=== PATIENT | male | born 1940 | race Caucasian/White ===

== ENCOUNTER 2017-02-17 13:45 | Inpatient (IN) | payer OTHER, BC ==
[2017-02-17] MEDS ORDERED: ALBUTEROL SO4 2.5/IPRATROPIUM 0.5 INH SOL 3 ML VIAL.NEB. NEB ONE ×2 (14:07→14:26)
--- NOTE | 2017-02-17 14:17 | PDOC ---
History of Present Illness - General Chief Complaint: Respiratory Stated Complaint: COUGH Time Seen by Provider: 02/17/17 13:49 - History of Present Illness Initial Comments: 02/17/17 14:11 76-year-old male with a past medical history of CAD with stents, hypertension, hyperlipidemia, cholelithiasis, prostate cancer status post radiation therapy, and possible interstitial lung disease - Has seen Dr Tee in the past He is not on any inhalers at this time He was just diagnosed with diabetes 3 weeks ago Patient is complaining of 3-4 weeks of gradually increasing dyspnea on exertion associated with a nonproductive cough (he states he does have a little bit of yellow sputum in the morning, but the remainder of the day his cough is nonproductive) He denies any associated fevers or chills. He states sometimes when he is walking or going up the steps he becomes so dyspneic that he gets some blurred vision, but has not had any syncopal episodes or loss of consciousness He denies any chest pain He does admit to a dry mouth, and sometimes has some polydipsia, but no polyuria He states that he started metformin 3-4 weeks ago He denies any fevers or chills He denies any change in his chronic mild lower extremity edema He denies any abdominal pain He does admit to nausea and diminished appetite He did have a CT scan of the abdomen and pelvis with contrast on 02/04/17, for nausea The report was reviewed [place] without CT evidence of acute cholecystitis Extensive diverticulosis of the colon without evidence of acute diverticulitis Fat-containing hernias No CT evidence of acute process in the abdomen or pelvis Old CT scan of the chest was reviewed from 06/03/15 Report reviewed Worsening interstitial lung disease since the prior examination, mainly involving both lower lobes, and mainly peripheral, with cystic changes, honeycombing-like pattern, and mild bronchiectasis in the right lower lobe Past History - Past Medical History Allergies/Adverse Reactions: Allergies Allergy/AdvReac Type Severity Reaction Status Date / Time No Known Allergies Allergy Verified 02/17/17 13:49 Home Medications: Ambulatory Orders Aspirin [ASA -] 81 mg PO DAILY 10/16/13 Atenolol [Tenormin -] 50 mg PO DAILY 10/16/13 Cholecalciferol (Vitamin D3) [Vitamin D] 2,000 unit PO DAILY 10/16/13 Ramipril [Altace] 20 mg PO DAILY 10/16/13 Simvastatin [Zocor -] 40 mg PO HS 10/16/13 Tamsulosin HCl 0.4 mg PO HS 10/16/13 Vitamin B Complex 1 each PO DAILY 10/16/13 [place]-3 Fatty Acids [Fish Oil] 300 mg PO DAILY 03/30/16 Albuterol Sulfate [Proair Respiclick] 90 mcg IH Q4H PRN 02/17/17 Amoxicillin/Potassium Clav [Augmentin 875-125 Tablet] 1 each PO BID 02/17/17 Azithromycin [Zithromax -] 250 mg PO ASDIR 02/17/17 Metformin HCl 500 mg PO BID 02/17/17 Prednisone [Deltasone -] 20 mg PO DAILY 02/17/17 Anemia: No Asthma: No Cancer: Yes (PROSTATE - STATES PREPPING FOR RADIATION [place]) Cardiac Disorders: Yes (CAD) CVA: No COPD: No CHF: No Dementia: No Diabetes: No GI Disorders: No Disorders: Yes (BPH) HTN: Yes Hypercholesterolemia: Yes Liver Disease: No Seizures: No Thyroid Disease: No - Surgical History Abdominal Surgery: No Appendectomy: No Cardiac Surgery: Yes (STENT 2000) Cholecystectomy: No Lung Surgery: No Neurologic Surgery: No Orthopedic Surgery: No - Psycho/Social/Smoking Cessation Hx Anxiety: No Suicidal Ideation: No Smoking History: Former smoker Have you smoked in the past 12 months: No Information on smoking cessation initiated: No Hx Alcohol Use: No Drug/Substance Use Hx: No Substance Use Type: None Hx Substance Use Treatment: No Review of Systems - Review of Systems Able to Perform ROS?: Yes Comments:: 02/17/17 14:15 12 point review of systems is as per history of present illness and otherwise negative *Physical Exam - Vital Signs Last Vital Signs Temp Pulse Resp BP Pulse Ox 64 20 137/88 95 02/17/17 13:45 02/17/17 13:45 02/17/17 13:45 02/17/17 13:45 - Physical Exam Comments: 02/17/17 14:16 Physical exam Last Vital Signs Temp Pulse Resp BP Pulse Ox 64 20 137/88 95 02/17/17 13:45 02/17/17 13:45 02/17/17 13:45 02/17/17 13:45 GENERAL: The patient is awake, alert, and answering questions Patient was dyspneic walking into the emergency department, but is not dyspneic at rest HEAD: Normal with no signs of trauma. EYES: sclera anicteric, conjunctiva are normal. ENT: Moist mucous membranes. NECK: Normal range of motion, supple LUNGS: Breath sounds equal, clear to auscultation bilaterally. No wheezes, and no crackles. Mildly prolonged expiratory phase HEART: Regular rate and rhythm, normal S1 and S2 without murmur, rub or gallop. ABDOMEN: Soft, nontender, normoactive bowel sounds. No guarding, no rebound. No masses appreciated. EXTREMITIES: There is 1+ pitting pedal edema bilaterally, and no calf tenderness or swelling NEUROLOGICAL: Cranial nerves II through XII grossly intact. Normal speech, normal gait. Motor 5 out of 5 and equal in the upper lower extremities bilaterally Grossly nonfocal neurologic exam PSYCH: Normal mood, normal affect. SKIN: Warm, Dry, ED Treatment Course - LABORATORY CBC & Chemistry Diagram: 02/20/17 06:00 02/19/17 07:17 - RADIOLOGY Radiology Studies Ordered: Category Date Time Status CHEST PA & LAT [RAD] Stat Radiology 02/17/17 14:04 Ordered Medical Decision Making - Medical Decision Making 02/17/17 14:17 76-year-old male with past medical history as noted above, and possible interstitial lung disease, presents with progressive dyspnea on exertion, and a mostly nonproductive cough, and was quite dyspneic walking to the emergency department, but not dyspneic at rest 02/17/17 16:02 WBC 11.0, remainder of the CBC reviewed ABG on oxygen by 2 L nasal cannula PH 7.40/pCO2 30/pO2 128/bicarbonate 18/saturation 98.6% CMP reviewed and significant for Sodium 128, BUN 50/creatinine 1.6 First set of cardiac enzymes negative BNP 193 EKG Sinus bradycardia with a rate of 57 Normal axis First degree AV block Normal QRS duration Normal QTC Inverted T waves in II, III, and F When compared to the EKG of 09/05/13 First degree AV block was present on the old EKG Inverted T waves were present on 3 and F on the old EKG Sinus bradycardia was present on the old EKG Today's EKG is similar to the prior EKG Chest x-ray There is worsening interstitial lung disease when compared to the prior, which now involves the right lung more diffusely, and demonstrates progression of changes in the left lower lobe Given the extensive changes, cannot rule out an infiltrate 02/17/17 16:05 Laboratory Results - last 24 hr 02/17/17 02/17/17 02/17/17 14:00 14:00 14:00 WBC 11.0 H RBC 4.09 Hgb 12.8 Hct 38.3 MCV 93.6 MCHC 33.5 RDW 13.0 Plt Count 295 D MPV 8.9 Anticoagulation Therapy Puncture Site ABG pH ABG pCO2 at Pt Temp ABG pO2 at Pt Temp ABG HCO3 ABG O2 Sat (Measured) ABG O2 Content ABG Base Excess Jimmy Test Carboxyhemoglobin Methemoglobin O2 Delivery Device Oxygen Flow Rate Vent Mode Vent Rate Mechanical Rate PEEP Pressure Support Vent Sodium 128 L Potassium 5.4 H Chloride 100 Carbon Dioxide 21 L Anion Gap 7 L BUN 50 H D Creatinine 1.6 H D Creat Clearance w eGFR 42.01 Random Glucose 137 H Calcium 9.9 Magnesium 1.6 L Total Bilirubin 0.7 D AST 36 D ALT 25 D Alkaline Phosphatase 46 Creatine Kinase 61 Troponin I < 0.03 L B-Natriuretic Peptide 1932.04 H Total Protein 7.1 Albumin 3.6 Lipase 41 02/17/17 14:20 WBC RBC Hgb Hct MCV MCHC RDW Plt Count MPV Anticoagulation Therapy Y Puncture Site Right radial ABG pH 7.40 ABG pCO2 at Pt Temp 30.4 L ABG pO2 at Pt Temp 128 H ABG HCO3 18.6 L ABG O2 Sat (Measured) 98.6 ABG O2 Content 17.0 ABG Base Excess -4.7 L Jimmy Test Positive Carboxyhemoglobin 1.2 Methemoglobin 0.5 O2 Delivery Device nasal cannula Oxygen Flow Rate 2lpm Vent Mode Y Vent Rate Y Mechanical Rate Y PEEP 0.0 Pressure Support Vent Y Sodium Potassium Chloride Carbon Dioxide Anion Gap BUN Creatinine Creat Clearance w eGFR Random Glucose Calcium Magnesium Total Bilirubin AST ALT Alkaline Phosphatase Creatine Kinase Troponin I B-Natriuretic Peptide Total Protein Albumin Lipase 02/17/17 16:14 Lactic acid 2.2 Will treat with Solu Medrol Levaquin Case discussed with hospitalist-will admit Influenza A and B- negative Impression-interstitial lung disease worsening, bronchitis, dyspnea on exertion , renal insufficiency, hyponatremia *DC/Admit/Observation/Transfer Diagnosis at time of Disposition: Interstitial lung disease, Bronchitis, Dyspnea on exertion, Renal insufficiency , Hyponatremia, Acute kidney injury, Elevated lactic acid level - Discharge Dispostion Condition at time of disposition: Stable Admit: Yes
[2017-02-17 14:37] LABS: MCH 31.4 pg (25.7-33.7); MCHC 33.5 g/dl (32.0-35.9); MEAN CELL VOLUME 93.6 fl (80-96); MEAN PLT VOLUME 8.9 fl (7.5-11.1); PLATELET COUNT 295 K/MM3 (134-434)
[2017-02-17 14:57] LABS: CPK(DFH) 61 IU/L (38-174)
[2017-02-17 14:58] LABS: ALBUMIN 3.6 g/dl (3.5-5.0); BILIRUBIN,TOTAL 0.7 mg/dl (0.2-1.0); CALCIUM 9.9 mg/dl (8.4-10.2); CREATININE 1.6 mg/dl (0.6-1.3); MAGNESIUM 1.6 mg/dL (1.8-2.4); TOT PROT 7.1 g/dl (6.4-8.3)
[2017-02-17 15:10] LABS: TROPONIN I (DFP) < 0.03 ng/ml (0.03-0.50)
[2017-02-17 15:21] LABS: ARTERIAL BLD GAS O2 SATURATION 98.6 % (90-98.9); ARTERIAL BLOOD GAS BASE EXCESS -4.7 meq/l (-2-2); ARTERIAL BLOOD GAS HCO3 18.6 meq/L (22-26); ARTERIAL BLOOD GAS PO2 128 mmHg (70-100); METHEMOGLOBIN 0.5 % (0.4-1.5)
[2017-02-17 15:22] LABS: ALLENS TEST POSITIVE; ART PUNCT SITE RIGHT RADIAL; LPM/O2% 2LPM; PT. ON O2? yes; TYPE OF O2 nasal cannula
[2017-02-17 16:12] LABS: PH,URINE 5.5 (4.5-8); URINE APPEARANCE Clear; URINE BILIRUBIN Negative (NEGATIVE); URINE BLOOD Trace-intact (NEGATIVE); URINE COLOR YELLOW; URINE GLUCOSE (UA) Negative (NEGATIVE); URINE KETONE Trace (NEGATIVE); URINE LEUK ESTERASE Negative (NEGATIVE); URINE NITRITE Negative (NEGATIVE); URINE PROTEIN Negative (NEGATIVE); URINE UROBILINOGEN 0.2 E.U/dl (0.2-1.0)
[2017-02-17] MEDS ORDERED: methylPREDNISolone NA SUCC 125 MG/2 ML VIAL IVPB ONE (16:16)
[2017-02-17] MEDS ORDERED: LEVOFLOXACIN 500 MG IVPB 100 ML IVPB ONE ×2 (16:16→16:37)
[2017-02-17] MEDS ORDERED: ACETAMINOPHEN 325 MG TABLET (FP) PO PRN (16:19)
[2017-02-17] MEDS ORDERED: ONDANSETRON 4 MG/2 ML VIAL IVPB PRN (16:19)
[2017-02-17] MEDS ORDERED: methylPREDNISolone NA SUCC 125 MG/2 ML VIAL ONE (16:24)
--- NOTE | 2017-02-17 16:33 | EKG ---
Test Reason : Blood Pressure : / mmHG Vent. Rate : 057 BPM Atrial Rate : 057 BPM P-R Int : 222 ms QRS Dur : 092 ms QT Int : 426 ms P-R-T Axes : 061 006 -13 degrees QTc Int : 414 ms SINUS BRADYCARDIA WITH 1ST DEGREE A-V BLOCK ? INFERIOR INFARCT , AGE UNDETERMINED NO PREVIOUS ECGS AVAILABLE Confirmed by MD REEVES MARJORY ([id number]) on 02/17/2017 4:32:40 PM Referred By: DANYA JOHNSON Confirmed By:ANTONY REEVES MD
[2017-02-17] MEDS ORDERED: SODIUM CHLORIDE 1,000 ML IV ONE (17:07)
[2017-02-17] MEDS: methylPREDNISolone NA SUCC 40 MG/1 ML VIAL IVPB SCH (18:55)
[2017-02-17] MEDS ORDERED: MAGNESIUM SULF 50% (8.12 MEQ/2 ML-1 GM VIAL) IVPB ONE (20:38)
[2017-02-17] MEDS: ATORVASTATIN CA 20 MG TABLET (FP) PO SCH (21:06)
[2017-02-17] MEDS: TAMSULOSIN HCL 0.4 MG CAP.ER.24H (FP) PO SCH (21:06)
[2017-02-17] MEDS: HEPARIN NA (PORCINE) 5,000 UNITS/ML 1ML VIAL SQ SCH (21:06)
[2017-02-17] MEDS ORDERED: PATIENT'S OWN MEDICATION (NON-FORMULARY) (Simvastatin 40 MG) PO SCH (22:00)
[2017-02-17 22:27] LABS: CALCIUM 9.2 mg/dl (8.4-10.2); CREATININE 1.5 mg/dl (0.6-1.3)
--- NOTE | 2017-02-17 22:55 | HP ---
CHIEF COMPLAINT: DARLING x 3-4 weeks PCP: Heather Hermosillo HISTORY OF PRESENT ILLNESS: This is a 76 year old male with a past medical history of CAD/stent x1, HTN, HLD , Prostate CA s/p radiation tx, DM (dx 3 weeks ago), cholelithiasis who presented to the emergency room with DARLING x 3-4 weeks with a dry cough. Upon exam , pt noted with nonproductive cough that increases with prolonged conversation and deep breathing. Pt denies chest pain, palpitations, abdominal pain, N/V/D. Pt reports some episodes of lightheadedness and blurred vision if he gets up too quickly, especially getting out of the car. He went to his covering PCP a few days ago who started him on augmentin, zithromax, prednisone and albuterol with only minimal relief. He was also seen by his PCP 2 weeks ago who sent him for a CT scan of his abdomen and pelvis given strong family history of pancreatic CA, which was negative. ER course was notable for: (1) Lactic acid 2.246 (2) BNP 1932 (3) Cr 1.6 Recent Travel: pt denies PAST MEDICAL HISTORY: CAD/stent x1 HTN HLD Prostate CA s/p radiation tx DM (dx 3 weeks ago) cholelithiasis PAST SURGICAL HISTORY: stent 2000 hemorrhoidectomy cyst removed from outside of rectum 1959 Social History: Smoking: previous. Quit in , 45-50pack year history Alcohol: occ, 1-2 drinks / week, none in a few months Drugs: pt denies Family History: mother age 87, pancreatic CA, also had heart murmur maternal grandmother , pancreatic CA brother age 78, pancreatic CA father age 61-62, CT, also had emphysema one brother with MS one brother with no known medical problems Allergies No Known Allergies Allergy (Verified 02/17/17 13:49) HOME MEDICATIONS: 3 Medication Instructions Recorded Aspirin [ASA -] 81 mg PO DAILY 10/16/13 Atenolol [Tenormin -] 50 mg PO DAILY 10/16/13 Cholecalciferol (Vitamin D3) 2,000 unit PO DAILY 10/16/13 [Vitamin D] Ramipril [Altace] 20 mg PO DAILY 10/16/13 Simvastatin [Zocor -] 40 mg PO HS 10/16/13 Tamsulosin HCl 0.4 mg PO HS 10/16/13 Vitamin B Complex 1 each PO DAILY 10/16/13 [place]-3 Fatty Acids [Fish Oil] 300 mg PO DAILY 03/30/16 Albuterol Sulfate [Proair 90 mcg IH Q4H PRN 02/17/17 Respiclick] Amoxicillin/Potassium Clav 1 each PO BID 02/17/17 [Augmentin 875-125 Tablet] Azithromycin [Zithromax -] 250 mg PO ASDIR 02/17/17 Metformin HCl 500 mg PO BID 02/17/17 Prednisone [Deltasone -] 20 mg PO DAILY 02/17/17 REVIEW OF SYSTEMS CONSTITUTIONAL: Absent: fever, chills, diaphoresis, generalized weakness, malaise, loss of appetite, weight change HEENT: Absent: rhinorrhea, nasal congestion, throat pain, throat swelling, difficulty swallowing, mouth swelling, ear pain, eye pain, visual changes CARDIOVASCULAR: Absent: chest pain, syncope, palpitations, irregular heart rate, lightheadedness , peripheral edema RESPIRATORY: cough, shortness of breath, dyspnea with exertion Absent: orthopnea, wheezing, stridor, hemoptysis GASTROINTESTINAL: Absent: abdominal pain, abdominal distension, nausea, vomiting, diarrhea, constipation, melena, hematochezia GENITOURINARY: Absent: dysuria, frequency, urgency, hesitancy, hematuria, flank pain, genital pain MUSCULOSKELETAL: Absent: myalgia, arthralgia, joint swelling, back pain, neck pain SKIN: Absent: rash, itching, pallor HEMATOLOGIC/IMMUNOLOGIC: Absent: easy bleeding, easy bruising, lymphadenopathy, frequent infections ENDOCRINE: Absent: unexplained weight gain, unexplained weight loss, heat intolerance, cold intolerance NEUROLOGIC: Absent: headache, focal weakness or paresthesias, dizziness, unsteady gait, seizure, mental status changes, bladder or bowel incontinence PSYCHIATRIC: Absent: anxiety, depression, suicidal or homicidal ideation, hallucinations. PHYSICAL EXAMINATION Vital Signs - 24 hr 3 02/17/17 02/17/17 02/17/17 17:45 19:19 20:12 22:45 Temperature 97.8 F 97.9 F 99.3 F Pulse Rate 66 57 L Pulse Rate [ 63 Left Apical] Respiratory 20 20 20 20 Rate Blood Pressure 148/64 121/49 Blood Pressure 121/65 [Left Arm] O2 Sat by Pulse 99 99 99 94 L Oximetry (%) GENERAL: Awake, alert, and fully oriented, in no acute distress. HEAD: Normal with no signs of trauma. EYES: Pupils equal, round and reactive to light, extraocular movements intact, sclera anicteric, conjunctiva clear. No lid lag. EARS, NOSE, THROAT: Ears normal, nares patent, oropharynx clear without exudates. Moist mucous membranes. NECK: Normal range of motion, supple without lymphadenopathy, JVD, or masses. LUNGS: occ rhonchi, fine crackles left lower and mid lung field, right base HEART: Regular rate and rhythm, normal S1 and S2 without murmur, rub or gallop. ABDOMEN: Soft, nontender, not distended, normoactive bowel sounds, no guarding, no rebound, no masses. No hepatomegaly or splenomegaly. MUSCULOSKELETAL: Normal range of motion at all joints. No bony deformities or tenderness. No CVA tenderness. UPPER EXTREMITIES: 2+ pulses, warm, well-perfused. No cyanosis. No clubbing. No peripheral edema. LOWER EXTREMITIES: 2+ pulses, warm, well-perfused. No calf tenderness. No peripheral edema. NEUROLOGICAL: Cranial nerves II-XII intact. Normal speech. Normal gait. PSYCHIATRIC: Cooperative. Good eye contact. Appropriate mood and affect. SKIN: Warm, dry, normal turgor, no rashes or lesions noted, normal capillary refill. Laboratory Results - last 24 hr 3 02/17/17 02/17/17 02/17/17 14:00 14:00 14:00 WBC 11.0 H RBC 4.09 Hgb 12.8 Hct 38.3 MCV 93.6 MCHC 33.5 RDW 13.0 Plt Count 295 D MPV 8.9 Anticoagulation Therapy Puncture Site ABG pH ABG pCO2 at Pt Temp ABG pO2 at Pt Temp ABG HCO3 ABG O2 Sat (Measured) ABG O2 Content ABG Base Excess Jimmy Test Carboxyhemoglobin Methemoglobin O2 Delivery Device Oxygen Flow Rate Vent Mode Vent Rate Mechanical Rate PEEP Pressure Support Vent Sodium 128 L Potassium 5.4 H Chloride 100 Carbon Dioxide 21 L Anion Gap 7 L BUN 50 H D Creatinine 1.6 H D Creat Clearance w eGFR 42.01 Random Glucose 137 H Lactic Acid Calcium 9.9 Magnesium 1.6 L Total Bilirubin 0.7 D AST 36 D ALT 25 D Alkaline Phosphatase 46 Creatine Kinase 61 Troponin I < 0.03 L B-Natriuretic Peptide 1932.04 H Total Protein 7.1 Albumin 3.6 Lipase 41 Urine Color Urine Appearance Urine pH Ur Specific [place] Urine Protein Urine Glucose (UA) Urine Ketones Urine Blood Urine Nitrite Urine Bilirubin Urine Urobilinogen Ur Leukocyte Esterase 3 02/17/17 02/17/17 02/17/17 14:00 14:20 16:00 WBC RBC Hgb Hct MCV MCHC RDW Plt Count MPV Anticoagulation Therapy Y Puncture Site Right radial ABG pH 7.40 ABG pCO2 at Pt Temp 30.4 L ABG pO2 at Pt Temp 128 H ABG HCO3 18.6 L ABG O2 Sat (Measured) 98.6 ABG O2 Content 17.0 ABG Base Excess -4.7 L Jimmy Test Positive Carboxyhemoglobin 1.2 Methemoglobin 0.5 O2 Delivery Device nasal cannula Oxygen Flow Rate 2lpm Vent Mode Y Vent Rate Y Mechanical Rate Y PEEP 0.0 Pressure Support Vent Y Sodium Potassium Chloride Carbon Dioxide Anion Gap BUN Creatinine Creat Clearance w eGFR Random Glucose Lactic Acid 2.246 H* Calcium Magnesium Total Bilirubin AST ALT Alkaline Phosphatase Creatine Kinase Troponin I B-Natriuretic Peptide Total Protein Albumin Lipase Urine Color Yellow Urine Appearance Clear Urine pH 5.5 Ur Specific [place] 1.020 Urine Protein Negative Urine Glucose (UA) Negative Urine Ketones Trace Urine Blood Trace-intact Urine Nitrite Negative Urine Bilirubin Negative Urine Urobilinogen 0.2 e.u/dl Ur Leukocyte Esterase Negative 3 02/17/17 02/17/17 21:00 22:00 WBC RBC Hgb Hct MCV MCHC RDW Plt Count MPV Anticoagulation Therapy Puncture Site ABG pH ABG pCO2 at Pt Temp ABG pO2 at Pt Temp ABG HCO3 ABG O2 Sat (Measured) ABG O2 Content ABG Base Excess Jimmy Test Carboxyhemoglobin Methemoglobin O2 Delivery Device Oxygen Flow Rate Vent Mode Vent Rate Mechanical Rate PEEP Pressure Support Vent Sodium 126 L Potassium 5.4 H Chloride 103 Carbon Dioxide 19 L Anion Gap 4 L BUN 48 H Creatinine 1.5 H Creat Clearance w eGFR Random Glucose 196 H D Lactic Acid 2.710 H* Calcium 9.2 Magnesium Total Bilirubin AST ALT Alkaline Phosphatase Creatine Kinase Troponin I B-Natriuretic Peptide Total Protein Albumin Lipase Urine Color Urine Appearance Urine pH Ur Specific [place] Urine Protein Urine Glucose (UA) Urine Ketones Urine Blood Urine Nitrite Urine Bilirubin Urine Urobilinogen Ur Leukocyte Esterase Chest xray: HISTORY: Cough and dyspnea. Frontal and lateral view of the chest is provided. Prior study dated 06/08/2015. Worsening interstitial lung disease is seen which now involves the right lung more diffusely and demonstrates progression of changes in the left lower lobe. No pleural effusion is seen. Cardiac silhouette is upper limits of normal in size. Visualized bony structures appear intact. IMPRESSION: Worsening interstitial lung disease. ECG: SINUS BRADYCARDIA WITH 1ST DEGREE A-V BLOCK ? INFERIOR INFARCT , AGE UNDETERMINED NO PREVIOUS ECGS AVAILABLE Confirmed by MD REEVES MARJORY ([id number]) on 02/17/2017 4:32:40 PM ASSESSMENT/PLAN: 76yM with PMH CAD, HTN, HLD, Prostate CA, DM, cholelithiasis presented to the ED with worsening DARLING x 3-4 weeks. He is being admitted for acute bronchitis with worsening interstitial lung disease. acute bronchitis/interstitial lung disease - duoneb QID standing - solumedrol 40mg Q8H - CT chest ordered, pending - pulmonary consult - received levaquin in ED, will defer further antibiotics at this time pending CT report as pt is afebrile. elevated lactic acid - pt does not appear hypovolemic at this time, but will cont gentle IV hydration @ 75cc/hr - trend in am - ? due to chronic respiratory illness, recent albuterol use elevated BNP - echo ordered to r/o CHF acute kidney injury - trial of gentle IV hydration, if no improvement, then renal consult hyponatremia - cont gentle IVF, if no improvment in AM, renal consult Hyperkalemia - kayexalate 15g x 1, repeat in am - no peaked Ts on ECG Hypomagnesia - 2g IVPB, repeat in am DM - metformin held while inpatient - sugars expected elevated due to solumedrol - BGM TIDAC/HS with novolog sliding scale DVT PPX - heparin SC TID FEN - NS @ 75cc/hr - repeat labs in am - diabetic diet. Dispo: Pt currently requires inpatient management of his emergent condition. Visit type - Emergency Visit Emergency Visit: Yes ED Registration Date: 02/17/17 Care time: The patient presented to the Emergency Department on the above date and was hospitalized for further evaluation of their emergent condition. - New Patient This patient is new to me today: Yes Date on this admission: 02/17/17 - Critical Care Critical Care patient: No
[2017-02-17] MEDS: INSULIN SLIDING SCALE (NOVOLOG) 1 VIAL SQ SCH (23:09)
[2017-02-17] MEDS ORDERED: SODIUM POLYSTYRENE SULFONATE 15 GM/60 ML BOTTLE PO ONE (23:10)
[2017-02-17] MEDS: SODIUM CHLORIDE 1,000 ML IV SCH (23:31)
[2017-02-18] MEDS: ALBUTEROL SO4 2.5/IPRATROPIUM 0.5 INH SOL 3 ML VIAL.NEB. NEB SCH ×4 (00:15→17:42)
[2017-02-18] MEDS: methylPREDNISolone NA SUCC 40 MG/1 ML VIAL IVPB SCH ×3 (01:17→17:41)
[2017-02-18] MEDS: HEPARIN NA (PORCINE) 5,000 UNITS/ML 1ML VIAL SQ SCH ×3 (06:10→22:32)
[2017-02-18] MEDS: INSULIN SLIDING SCALE (NOVOLOG) 1 VIAL SQ SCH ×4 (07:03→22:34)
--- NOTE | 2017-02-18 08:42 | PN ---
Physical Exam: SUBJECTIVE: Patient seen and examined, patient reports feeling slightly improved does report ongoing cough and shortnes of breath upon exertion. OBJECTIVE: patient is a 76 year old male with a past medical history of CAD/ stent x1, HTN, HLD, Prostate CA s/p radiation tx, NIDDM (dx 3 weeks ago), and cholelithiasis. patient was admitted from the emergency department for further management of emergent condition. Vital Signs Period Temp Pulse Resp BP Sys/Wolfe Pulse Ox Last 24 Hr 97.8 F-99.4 F 57-66 17-20 121-148/49-65 94-99 GENERAL: The patient is awake, alert, and fully oriented, in no acute distress. HEAD: Normal with no signs of trauma. EYES: PERRL, extraocular movements intact, sclera anicteric, conjunctiva clear. No ptosis. ENT: Ears normal, nares patent, oropharynx clear without exudates, moist mucous membranes. NECK: Trachea midline, full range of motion, supple. LUNGS: Breath sounds equal, course rhonchi noted to apexes, diminished bilateral bases, persistent moist cough, no wheezes, no crackles, no accessory muscle use. HEART: Regular rate and rhythm, S1, S2 without murmur, rub or gallop. ABDOMEN: Soft, nontender, nondistended, normoactive bowel sounds, no guarding, no rebound, no hepatosplenomegaly, no masses. EXTREMITIES: 2+ pulses, warm, well-perfused, no edema. NEUROLOGICAL: Cranial nerves II through XII grossly intact. Normal speech, gait not observed. PSYCH: Normal mood, normal affect. SKIN: Warm, dry, normal turgor, no rashes or lesions noted Laboratory Results - last 24 hr 02/17/17 02/17/17 02/18/17 21:00 22:00 06:14 Sodium 126 L Potassium 5.4 H Chloride 103 Carbon Dioxide 19 L Anion Gap 4 L BUN 48 H Creatinine 1.5 H POC Glucometer 154 Random Glucose 196 H D Lactic Acid 2.710 H* Calcium 9.2 Active Medications Generic Name Dose Route Start Last Admin Trade Name Freq PRN Reason Stop Dose Admin Acetaminophen 650 mg 02/17/17 16:19 Tylenol - PO Q4H PRN FEVER OR PAIN Albuterol Sulfate 1 amp 02/17/17 16:24 Ventolin 0.083% Nebulizer Soln - NEB Q4H PRN SHORT OF BREATH/WHEEZING Albuterol/Ipratropium 1 amp 02/17/17 18:00 02/18/17 06:10 Duoneb - NEB 1 amp QIDR LOYDA Administration Aspirin 81 mg 02/18/17 10:00 Asa - PO DAILY LOYDA Atenolol 50 mg 02/18/17 10:00 Tenormin - PO DAILY LOYDA Atorvastatin Calcium 20 mg 02/17/17 22:00 02/17/17 21:06 Lipitor - PO 20 mg HS LOYDA Administration Cholecalciferol 2,000 unit 02/18/17 10:00 Vitamin D3 - PO DAILY LOYDA Heparin Sodium (Porcine) 5,000 unit 02/17/17 22:00 02/18/17 06:10 Heparin - SQ 5,000 unit TID LOYDA Administration Sodium Chloride 1,000 mls @ 75 mls/hr 02/17/17 23:15 02/17/17 23:31 Normal Saline - IV 75 mls/hr ASDIR LOYDA Administration Insulin Aspart 1 vial 02/17/17 22:00 02/18/17 07:03 Novolog Vial Sliding Scale - SQ 2 units ACHS LOYDA Administration Protocol Methylprednisolone Sodium Succinate 40 mg 02/17/17 18:00 02/18/17 01:17 Solu-Medrol - IVPB 40 mg Q8H-IV LOYDA Administration Multivitamins 1 each 02/18/17 10:00 Total B With C - PO DAILY [facility] Non-Formulary Medication 300 mg 02/18/17 10:00 [place]-3 Fatty Acids Fish Oil PO DAILY [facility] Ondansetron HCl 4 mg 02/17/17 16:19 Zofran Injection IVPB Q6H PRN NAUSEA Ramipril 20 mg 02/18/17 10:00 Altace - PO DAILY LOYDA Tamsulosin HCl 0.4 mg 02/17/17 22:00 02/17/17 21:06 Flomax - PO 0.4 mg HS LOYDA Administration Microbiology 02/17/17 14:20 Nasopharyngeal Swab Influenza Types A,B Antigen (JESSICA) - Final negative 02/17/17 14:20 Nasopharyngeal Swab - Final imaging chest xray, moderate interstitial lung disease ASSESSMENT/PLAN: 1) pulmonary Acute COPD exacerbation - Patient is a former smoker,quit in 1989, reports worsening of dyspnea on exertion for the past month unresolved with albuterol inhalers, will start symbicort, pending CT scan of chest - continue Solu-Medrol 40 mg every 8 hours with standing DuoNeb - Patient reports completing a full course of Zithromax last month, continue Levaquin - appreciate input of pulmonary 2) card coronary artery disease, s/p stent x 1 - continue Lipitor and aspirin Hypertension - continue atenolol, ongoing cough noted, will switch altace to losartan blood pressure at goal elevated BNP - patient appears hypovolemic, pending echo 3)neph acute kidney injury - Creatinine 1.3, baseline 1.0, likely secondary to dehydration, trending upward - repeat creatinine in the a.m. 4) endo NIDDM - continue to hold metformin fingersticks before meals and at bedtime with regular insulin sliding scale F/E/N Hyponatremia - Slowly trending upward likely secondary to dehydration, repeat BMP in a.m., continue gentle hydration - Low cholesterol diet PPX -heparin - oob - scd dispo: requires inpatient carer Visit type - Emergency Visit Emergency Visit: Yes ED Registration Date: 02/17/17 Care time: The patient presented to the Emergency Department on the above date and was hospitalized for further evaluation of their emergent condition. - New Patient This patient is new to me today: Yes Date on this admission: 02/18/17 - Critical Care Critical Care patient: No - Discharge Referral Referred to [facility] No
[2017-02-18 08:54] LABS: MCH 32.9 pg (25.7-33.7); MEAN PLT VOLUME 8.5 fl (7.5-11.1); PLATELET COUNT 259 K/MM3 (134-434); WHITE BLOOD COUNT 7.5 K/mm3 (4.0-10.0)
[2017-02-18 09:12] LABS: CREATININE 1.3 mg/dl (0.6-1.3); MAGNESIUM 1.9 mg/dL (1.8-2.4)
[2017-02-18] MEDS ORDERED: RAMIPRIL 5 MG CAPSULE (FP) PO SCH (10:00)
[2017-02-18] MEDS ORDERED: PATIENT'S OWN MEDICATION (NON-FORMULARY) (Vitamin B Complex [Vitamin B Complex] 1 EACH) PO SCH (10:00)
[2017-02-18] MEDS ORDERED: PATIENT'S OWN MEDICATION (NON-FORMULARY) (Omega-3 Fatty Acids [Fish Oil] 300 MG) PO SCH (10:00)
[2017-02-18] MEDS ORDERED: PT OWN MED DRAWER 7, Y5N ONE ×3 (10:14→22:18)
[2017-02-18] MEDS: BUDESONIDE/FORMETEROL FUMARATE 80/4.5 mcg INHALER IH SCH ×2 (10:17→22:32)
[2017-02-18] MEDS: ASPIRIN 81 MG CHEWABLE TABLETS PO SCH (10:17)
[2017-02-18] MEDS: ATENOLOL 50 MG TABLET (FP) PO SCH (10:18)
[2017-02-18] MEDS: CHOLECALCIFEROL (VITAMIN D3) 1,000 UNIT TABLET (FP) PO SCH (10:18)
[2017-02-18] MEDS: VITAMIN B COMPLEX W/C COMBO TABLET (FP) PO SCH (10:28)
--- NOTE | 2017-02-18 10:41 | PN ---
Progress Note (short form) - Note Progress Note: PULMONARY CONSULTATION DICTATED 02/18/17 IMP PROGRESSIVE ILD PNEUMONIA HYPONATREMIA HTN ASHD S/P STENT H/O PROSTATE CA HYPONATREMIA ELEVATED LACTATE LEVEL DM [place] PLAN IV STEROIDS INHALED BRONCHODILATORS ANTIBIOTICS SUPPLEMENTAL O2 IVF TREND LACTATE MONITOR LYTES,NA LEVEL CHEST CT CONSIDER D/C VIOLETTE INHIBITOR PFTS OUTPATIENT CHECK O2 SAT AT REST AND POST EXERCISE ON RA PRIOR TO DISCHARGE TO DETERMINE IF PT IS A CANDIDATE FOR HOME O2 DR PEARSON Problem List - Problems (1) Bronchitis Code(s): J40 - BRONCHITIS, NOT SPECIFIED ACUTE OR CHRONIC (2) Dyspnea on exertion Code(s): R06.09 - OTHER FORMS OF DYSPNEA (3) Interstitial lung disease Code(s): J84.9 - INTERSTITIAL PULMONARY DISEASE, UNSPECIFIED (4) Hyponatremia Code(s): E87.1 - HYPO-OSMOLALITY AND HYPONATREMIA (5) Elevated lactic acid level Code(s): R79.89 - OTHER SPECIFIED ABNORMAL FINDINGS OF BLOOD CHEMISTRY (6) ASHD (arteriosclerotic heart disease) Code(s): I25.10 - ATHSCL HEART DISEASE OF [place] CORONARY ARTERY W/O ANG PCTRS (7) Acute kidney injury Code(s): N17.9 - ACUTE KIDNEY FAILURE, UNSPECIFIED
[2017-02-18] MEDS ORDERED: INSULIN (NOVOLOG) ASPART 100 UNITS/ML 10ML VIAL ONE ×3 (11:56→22:35)
--- NOTE | 2017-02-18 12:56 | CONS ---
PULMONARY CONSULTATION DATE OF CONSULTATION: 02/18/2017 REFERRING PHYSICIAN: Letha Hyatt NP HISTORY OF PRESENT ILLNESS: The patient is a 76-year-old white male with a past medical history of ASHD status post stent x 1, interstitial lung disease, hyperlipidemia, hypertension, prostate CA status post RT, diabetes diagnosed 3 weeks ago, a history of cholelithiasis, a history of tobacco use, having quit a few years ago. Admitted to [facility] with the complaint of a 3-week history of increasing shortness of breath, dyspnea on exertion and dry cough. The patient denies any complaints of chest pain or palpitations. He states his cough is nonproductive and increases with prolonged conversation and deep breathing. He denies any fevers or chills. Denies any recent travel. He denies any recent change in environment or change in medication. Apparently, he went to his primary care physician a couple of days prior to admission, at which time he was placed on antibiotics, Zithromax and Augmentin, and was placed on prednisone, all with minimal relief. He presented to the emergency room with the above at which time he was found to be in moderate distress. He was started on inhaled bronchodilators with improvement in symptoms. He had a chest x-ray performed which revealed increasing progressive interstitial changes, predominantly on the right side. The patient has a history of tobacco use. He is a retired real estate sales manager. There is no history of recent travel, DVT or PE in the past. SOCIAL HISTORY: Positive history of asbestos exposure while in the [place]. REVIEW OF SYSTEMS: Respiratory: Positive cough. Positive dyspnea. No fevers. No chills. Cardiac: No chest pain, no palpitations. Abdomen: No abdominal pain. Extremities: No lower extremity edema. PAST MEDICAL HISTORY: Past medical history again includes ASHD status post stent, hypertension, hyperlipidemia, prostate CA status post RT, diabetes, cholelithiasis and interstitial lung disease. MEDICATIONS PRIOR TO ADMISSION: Aspirin, atenolol, vitamin D3, Altace, Zocor, _ ____, fish oil, vitamin D, ProAir, Augmentin, Zithromax, metformin and prednisone. PHYSICAL EXAMINATION: General: The patient is a well-developed, well-nourished male, awake, alert, in no acute distress. Vital signs: He is currently afebrile. Blood pressure is 142/55. Respiratory rate is 20. O2 saturation is 97% on 2 liters. HEENT: Normocephalic/atraumatic. Neck is supple. Heart: Regular. S1, S2. Chest: Crackles on the right throughout and on the left side at the base. Abdomen: Soft. Bowel sounds are positive. Extremities: No cyanosis or edema. LABS: WBC is 7.5, hemoglobin 11.7, hematocrit 33.5. The platelet count is 259, 000. Blood gases: pH is 7.340, PCO2 of 30, PO2 of 128, bicarb of 18. The saturation is 98.6; this is on 2 liters. Lactate on admission was 2.246. Sodium is 130; initially, it was 126. BUN 41, creatinine 1.3. BMP is 1932. Chest x-ray: Increasing, worsening interstitial lung disease, more predominant on the right and left lower lobe. IMPRESSION: 1. Chronic, progressive interstitial lung disease, likely idiopathic pulmonary fibrosis (IPF). 2. Possible superimposed infection, possible pneumonia. 3. Hyponatremia. 4. Hypertension. 5. Diabetes. 6. Elevated lactate level. PLAN: 1. IV fluids. 2. Inhaled bronchodilators. 3. Supplemental O2. 4. IV steroids,antibiotics 5. Consider discontinuation of VIOLETTE inhibitor in view of dry cough. Consider switching to an ARB. 6. Obtain CT scan of the chest. 7. Pulmonary function tests as outpatient. 8. Check O2 saturation at rest and post exercise prior to discharge to determine whether patient is a candidate for home O2. RACHID PEARSON M.D. [id number] MTDD
[2017-02-18] MEDS: ATORVASTATIN CA 20 MG TABLET (FP) PO SCH (22:32)
[2017-02-18] MEDS: TAMSULOSIN HCL 0.4 MG CAP.ER.24H (FP) PO SCH (22:32)
[2017-02-18] MEDS: SODIUM CHLORIDE 1,000 ML IV SCH (23:15)
[2017-02-19] MEDS: ALBUTEROL SO4 2.5/IPRATROPIUM 0.5 INH SOL 3 ML VIAL.NEB. NEB SCH ×5 (00:36→18:35)
[2017-02-19] MEDS: methylPREDNISolone NA SUCC 40 MG/1 ML VIAL IVPB SCH ×3 (01:01→18:36)
[2017-02-19] MEDS: HEPARIN NA (PORCINE) 5,000 UNITS/ML 1ML VIAL SQ SCH ×3 (06:27→21:19)
[2017-02-19] MEDS ORDERED: INSULIN (NOVOLOG) ASPART 100 UNITS/ML 10ML VIAL ONE ×2 (06:31→21:15)
[2017-02-19] MEDS: INSULIN SLIDING SCALE (NOVOLOG) 1 VIAL SQ SCH ×4 (06:32→21:19)
[2017-02-19 07:40] LABS: MCHC 35.3 g/dl (32.0-35.9); MEAN CELL VOLUME 93.6 fl (80-96); MEAN PLT VOLUME 8.4 fl (7.5-11.1); NEUTROPHILS 89.4 % (42.8-82.8); PLATELET COUNT 240 K/MM3 (134-434); WHITE BLOOD COUNT 10.3 K/mm3 (4.0-10.0)
[2017-02-19 07:59] LABS: ALK PHOS 37 U/L (32-92); ANION GAP 6 (8-16); BILIRUBIN,TOTAL 0.7 mg/dl (0.2-1.0); CALCIUM 8.9 mg/dl (8.4-10.2); CO2 20 mmol/L (22-28); CREATININE 1.1 mg/dl (0.6-1.3); GLUCOSE,RANDOM 166 mg/dl (74-106); MAGNESIUM 1.7 mg/dL (1.8-2.4); PHOSPHOROUS 3.4 mg/dl (2.5-4.6); SGOT/AST 32 U/L (10-42); SGPT/ALT 23 U/L (10-40); TOT PROT 5.7 g/dl (6.4-8.3)
[2017-02-19] MEDS ORDERED: PT OWN MED DRAWER 7, Y5N ONE ×2 (10:54→21:16)
[2017-02-19] MEDS: CHOLECALCIFEROL (VITAMIN D3) 1,000 UNIT TABLET (FP) PO SCH (11:03)
[2017-02-19] MEDS: LOSARTAN POTASSIUM 25 MG TABLET PO SCH (11:03)
[2017-02-19] MEDS: ATENOLOL 50 MG TABLET (FP) PO SCH (11:04)
[2017-02-19] MEDS: BUDESONIDE/FORMETEROL FUMARATE 80/4.5 mcg INHALER IH SCH ×2 (11:04→21:19)
[2017-02-19] MEDS: ASPIRIN 81 MG CHEWABLE TABLETS PO SCH (11:04)
[2017-02-19] MEDS: VITAMIN B COMPLEX W/C COMBO TABLET (FP) PO SCH (11:04)
--- NOTE | 2017-02-19 12:02 | PN ---
Physical Exam: SUBJECTIVE: Patient seen and examined. Reports that his breathing has improved, but states he coughed up dark red sputum today. OBJECTIVE: Hospital day #3 for this 76 year old male admitted 02/17 with exacerbation of chronic interstitial lung disease. Vital Signs Period Temp Pulse Resp BP Sys/Wolfe Pulse Ox Last 24 Hr 98.2 F-98.7 F 56-92 17-19 120-152/53-92 96-98 GENERAL: The patient is awake, alert, and fully oriented, in no acute distress. HEAD: Normal with no signs of trauma. EYES: PERRL, extraocular movements intact, sclera anicteric, conjunctiva clear. No ptosis. ENT: Ears normal, nares patent, oropharynx clear without exudates, moist mucous membranes. NECK: Trachea midline, full range of motion, supple. LUNGS: Breath sounds equal, scattered ronchi, persistent moist cough, no accessory muscle use. HEART: Regular rate and rhythm, S1, S2 without murmur, rub or gallop. ABDOMEN: Soft, nontender, nondistended, normoactive bowel sounds, no guarding, no rebound, no hepatosplenomegaly, no masses. EXTREMITIES: 2+ pulses, warm, well-perfused, no edema. NEUROLOGICAL: Cranial nerves II through XII grossly intact. Normal speech, gait not observed. PSYCH: Normal mood, normal affect. SKIN: Warm, dry, normal turgor, no rashes or lesions noted Laboratory Results - last 24 hr 02/18/17 02/18/17 02/18/17 08:42 11:34 16:35 WBC RBC Hgb Hct MCV MCHC RDW Plt Count MPV Neutrophils % Lymphocytes % Monocytes % Eosinophils % Basophils % Sodium Potassium Chloride Carbon Dioxide Anion Gap BUN Creatinine Creat Clearance w eGFR POC Glucometer 160 164 Random Glucose Lactic Acid 2.651 H* Calcium Phosphorus Magnesium Total Bilirubin AST ALT Alkaline Phosphatase Total Protein Albumin 02/18/17 02/19/17 02/19/17 22:30 06:28 07:17 WBC 10.3 H D RBC 3.47 L Hgb 11.4 L Hct 32.5 L MCV 93.6 MCHC 35.3 RDW 13.0 Plt Count 240 MPV 8.4 Neutrophils % 89.4 H Lymphocytes % 5.4 L D Monocytes % 5.2 Eosinophils % 0.0 D Basophils % 0.0 Sodium Potassium Chloride Carbon Dioxide Anion Gap BUN Creatinine Creat Clearance w eGFR POC Glucometer 155 157 Random Glucose Lactic Acid Calcium Phosphorus Magnesium Total Bilirubin AST ALT Alkaline Phosphatase Total Protein Albumin 02/19/17 02/19/17 07:17 11:24 WBC RBC Hgb Hct MCV MCHC RDW Plt Count MPV Neutrophils % Lymphocytes % Monocytes % Eosinophils % Basophils % Sodium 135 L Potassium 4.2 Chloride 109 H Carbon Dioxide 20 L Anion Gap 6 L BUN 34 H Creatinine 1.1 Creat Clearance w eGFR > 60 POC Glucometer 148 Random Glucose 166 H Lactic Acid Calcium 8.9 Phosphorus 3.4 Magnesium 1.7 L Total Bilirubin 0.7 AST 32 ALT 23 Alkaline Phosphatase 37 Total Protein 5.7 L Albumin 3.0 L Active Medications Generic Name Dose Route Start Last Admin Trade Name Freq PRN Reason Stop Dose Admin Acetaminophen 650 mg 02/17/17 16:19 Tylenol - PO Q4H PRN FEVER OR PAIN Albuterol Sulfate 1 amp 02/17/17 16:24 Ventolin 0.083% Nebulizer Soln - NEB Q4H PRN SHORT OF BREATH/WHEEZING Albuterol/Ipratropium 1 amp 02/17/17 18:00 02/19/17 11:05 Duoneb - NEB 1 amp QIDR LOYDA Administration Aspirin 81 mg 02/18/17 10:00 02/19/17 11:04 Asa - PO 81 mg DAILY LOYDA Administration Atenolol 50 mg 02/18/17 10:00 02/19/17 11:04 Tenormin - PO 50 mg DAILY LOYDA Administration Atorvastatin Calcium 20 mg 02/17/17 22:00 02/18/17 22:32 Lipitor - PO 20 mg HS LOYDA Administration Budesonide/Formoterol Fumarate 2 puff 02/18/17 10:00 02/19/17 11:04 Symbicort 80/4.5mcg - IH 2 puff BID LOYDA Administration Cholecalciferol 2,000 unit 02/18/17 10:00 02/19/17 11:03 Vitamin D3 - PO 2,000 unit DAILY LOYDA Administration Heparin Sodium (Porcine) 5,000 unit 02/17/17 22:00 02/19/17 06:27 Heparin - SQ 5,000 unit TID LOYDA Administration Sodium Chloride 1,000 mls @ 75 mls/hr 02/17/17 23:15 02/18/17 23:15 Normal Saline - IV 75 mls/hr ASDIR LOYDA Administration Insulin Aspart 1 vial 02/17/17 22:00 02/19/17 11:27 Novolog Vial Sliding Scale - SQ Not Given ACHS [facility] Protocol Losartan Potassium 25 mg 02/19/17 10:00 02/19/17 11:03 Cozaar - PO 25 mg DAILY LOYDA Administration Methylprednisolone Sodium Succinate 40 mg 02/17/17 18:00 02/19/17 11:05 Solu-Medrol - IVPB 40 mg Q8H-IV LOYDA Administration Multivitamins 1 each 02/18/17 10:00 02/19/17 11:04 Total B With C - PO 1 each DAILY LOYDA Administration Non-Formulary Medication 300 mg 02/18/17 10:00 [place]-3 Fatty Acids [Fish Oil] PO DAILY LOYDA Ondansetron HCl 4 mg 02/17/17 16:19 Zofran Injection IVPB Q6H PRN NAUSEA Tamsulosin HCl 0.4 mg 02/17/17 22:00 02/18/17 22:32 Flomax - PO 0.4 mg HS LOYDA Administration 02/17/17 14:20 Nasopharyngeal Swab Influenza Types A,B Antigen (JESSICA) - Final negative 02/17/17 14:20 Nasopharyngeal Swab - Final Imaging Chest xray: Moderate interstitial lung disease ASSESSMENT/PLAN: 1. PULM: Exacerbation of ILD, ?hemoptysis Acute COPD exacerbation -Continue Solu-Medrol 40 mg IVPB q8 hours with standing DuoNebs -Start Levaquin 750mg IVPB daily -Send sputum culture -Pulmonary following Follow up CT Chest 2. CARDS: CAD -Continue Lipitor, ASA HTN -Continue Atenolol, Losartan (ramipril dc on admission as thought maybe contributing to cough) -BPs at goal Elevated BNP -No signs of hypervolemia -Echo pending 3. RENAL: ELIDA -Thought to be secondary to dehydration -No within normal limits -Avoid nephrotoxic meds as able -Follow 4. ENDO: NIDDM -Hold Metformin while inpatient -FSACHS -ISS -Diabetic diet 5. F/E/N -Hyponatremia, improved -Hypomagnesemia, replete -PO intake adequate 6. Ppx -Sqh -Ambulation DISPO: Requires inpatient care. Visit type - Emergency Visit Emergency Visit: Yes ED Registration Date: 02/17/17 Care time: The patient presented to the Emergency Department on the above date and was hospitalized for further evaluation of their emergent condition. - New Patient This patient is new to me today: Yes Date on this admission: 02/19/17 - Critical Care Critical Care patient: No
[2017-02-19] MEDS: LEVOFLOXACIN 750 MG IVPB 150 ML IVPB SCH (15:43)
[2017-02-19] MEDS: TAMSULOSIN HCL 0.4 MG CAP.ER.24H (FP) PO SCH (21:18)
[2017-02-19] MEDS: ATORVASTATIN CA 20 MG TABLET (FP) PO SCH (21:19)
[2017-02-20] MEDS: ALBUTEROL SO4 2.5/IPRATROPIUM 0.5 INH SOL 3 ML VIAL.NEB. NEB SCH ×4 (00:25→18:21)
[2017-02-20] MEDS: methylPREDNISolone NA SUCC 40 MG/1 ML VIAL IVPB SCH ×4 (02:04→22:04)
[2017-02-20] MEDS ORDERED: INSULIN (NOVOLOG) ASPART 100 UNITS/ML 10ML VIAL ONE (06:27)
[2017-02-20] MEDS: INSULIN SLIDING SCALE (NOVOLOG) 1 VIAL SQ SCH ×4 (06:30→22:04)
[2017-02-20] MEDS: HEPARIN NA (PORCINE) 5,000 UNITS/ML 1ML VIAL SQ SCH ×3 (06:30→22:03)
[2017-02-20 08:07] LABS: EOSINOPHIL 0.1 % (0-4.5); MCH 32.4 pg (25.7-33.7); MCHC 34.3 g/dl (32.0-35.9); MEAN CELL VOLUME 94.6 fl (80-96); MEAN PLT VOLUME 9.2 fl (7.5-11.1); NEUTROPHILS 91.3 % (42.8-82.8); PLATELET COUNT 271 K/MM3 (134-434); RDW 13.3 % (11.9-15.9); WHITE BLOOD COUNT 12.9 K/mm3 (4.0-10.0)
[2017-02-20 08:18] LABS: CALCIUM 9.2 mg/dl (8.4-10.2); CREATININE 1.1 mg/dl (0.6-1.3); MAGNESIUM 1.7 mg/dL (1.8-2.4)
[2017-02-20] MEDS ORDERED: PT OWN MED DRAWER 7, Y5N ONE ×2 (09:22→21:51)
[2017-02-20] MEDS: LEVOFLOXACIN 750 MG IVPB 150 ML IVPB SCH (09:33)
[2017-02-20] MEDS: ASPIRIN 81 MG CHEWABLE TABLETS PO SCH (09:34)
[2017-02-20] MEDS: ATENOLOL 50 MG TABLET (FP) PO SCH (09:34)
[2017-02-20] MEDS: VITAMIN B COMPLEX W/C COMBO TABLET (FP) PO SCH (09:34)
[2017-02-20] MEDS: BUDESONIDE/FORMETEROL FUMARATE 80/4.5 mcg INHALER IH SCH ×2 (09:34→22:04)
[2017-02-20] MEDS: LOSARTAN POTASSIUM 25 MG TABLET PO SCH (09:34)
[2017-02-20] MEDS: CHOLECALCIFEROL (VITAMIN D3) 1,000 UNIT TABLET (FP) PO SCH (09:34)
--- NOTE | 2017-02-20 10:22 | PN ---
[id number]. OBJECTIVE: SpO2 consistently <90% off O2. Vital Signs Period Temp Pulse Resp BP Sys/Wolfe Pulse Ox Last 24 Hr 98 F-98.8 F 67-96 18-20 122-154/53-78 92-96 GENERAL: The patient is awake, alert, and fully oriented, in no acute distress. HEAD: Normal with no signs of trauma. EYES: PERRL, extraocular movements intact, sclera anicteric, conjunctiva clear. No ptosis. ENT: Ears normal, nares patent, oropharynx clear without exudates, moist mucous membranes. NECK: Trachea midline, full range of motion, supple. LUNGS: Coarse breath sounds bilaterally, no wheezing. Paroxysmal coughing during exam. HEART: Regular rate and rhythm, S1, S2 without murmur, rub or gallop. ABDOMEN: Soft, nontender, nondistended, normoactive bowel sounds, no guarding, no rebound, no hepatosplenomegaly, no masses. EXTREMITIES: 2+ pulses, warm, well-perfused, no edema. NEUROLOGICAL: Cranial nerves II through XII grossly intact. Normal speech, gait not observed. PSYCH: Normal mood, normal affect. SKIN: Warm, dry, normal turgor, no rashes or lesions noted Laboratory Results - last 24 hr 02/19/17 02/19/17 02/19/17 11:24 18:33 21:12 WBC RBC Hgb Hct MCV MCHC RDW Plt Count MPV Neutrophils % Lymphocytes % Monocytes % Eosinophils % Basophils % Sodium Potassium Chloride Carbon Dioxide Anion Gap BUN Creatinine POC Glucometer 148 211 155 Random Glucose Calcium Magnesium 02/20/17 02/20/17 02/20/17 06:00 06:00 06:17 WBC 12.9 H RBC 3.62 L Hgb 11.8 Hct 34.3 L MCV 94.6 MCHC 34.3 RDW 13.3 Plt Count 271 MPV 9.2 Neutrophils % 91.3 H Lymphocytes % 2.7 L D Monocytes % 5.9 Eosinophils % 0.1 D Basophils % 0.0 Sodium 136 Potassium 4.3 Chloride 106 Carbon Dioxide 20 L Anion Gap 10 BUN 29 H Creatinine 1.1 POC Glucometer 155 Random Glucose 159 H Calcium 9.2 Magnesium 1.7 L Active Medications Generic Name Dose Route Start Last Admin Trade Name Freq PRN Reason Stop Dose Admin Acetaminophen 650 mg 02/17/17 16:19 Tylenol - PO Q4H PRN FEVER OR PAIN Albuterol Sulfate 1 amp 02/17/17 16:24 Ventolin 0.083% Nebulizer Soln - NEB Q4H PRN SHORT OF BREATH/WHEEZING Albuterol/Ipratropium 1 amp 02/17/17 18:00 02/20/17 06:29 Duoneb - NEB 1 amp QIDR LOYDA Administration Aspirin 81 mg 02/18/17 10:00 02/20/17 09:34 Asa - PO 81 mg DAILY LOYDA Administration Atenolol 50 mg 02/18/17 10:00 02/20/17 09:34 Tenormin - PO 50 mg DAILY LOYDA Administration Atorvastatin Calcium 20 mg 02/17/17 22:00 02/19/17 21:19 Lipitor - PO 20 mg HS LOYDA Administration Budesonide/Formoterol Fumarate 2 puff 02/18/17 10:00 02/20/17 09:34 Symbicort 80/4.5mcg - IH 2 puff BID LOYDA Administration Cholecalciferol 2,000 unit 02/18/17 10:00 02/20/17 09:34 Vitamin D3 - PO 2,000 unit DAILY LOYDA Administration Guaifenesin 10 ml 02/20/17 08:43 Robitussin - PO Q6H PRN COUGH Heparin Sodium (Porcine) 5,000 unit 02/17/17 22:00 02/20/17 06:30 Heparin - SQ 5,000 unit TID LOYDA Administration Sodium Chloride 1,000 mls @ 75 mls/hr 02/17/17 23:15 02/18/17 23:15 Normal Saline - IV 75 mls/hr ASDIR LOYDA Administration Levofloxacin 150 mls @ 150 mls/hr 02/19/17 12:15 02/20/17 09:33 Levaquin 750 Mg Premixed Ivpb - IVPB 150 mls/hr DAILY LOYDA Administration Insulin Aspart 1 vial 02/17/17 22:00 02/20/17 06:30 Novolog Vial Sliding Scale - SQ 2 units ACHS LOYDA Administration Protocol Losartan Potassium 25 mg 02/19/17 10:00 02/20/17 09:34 Cozaar - PO 25 mg DAILY LOYDA Administration Methylprednisolone Sodium Succinate 40 mg 02/20/17 10:00 Solu-Medrol - IVPB BID LOYDA Multivitamins 1 each 02/18/17 10:00 02/20/17 09:34 Total B With C - PO 1 each DAILY LOYDA Administration Ondansetron HCl 4 mg 02/17/17 16:19 Zofran Injection IVPB Q6H PRN NAUSEA Tamsulosin HCl 0.4 mg 02/17/17 22:00 02/19/17 21:18 Flomax - PO 0.4 mg HS LOYDA Administration Microbiology 02/17/17 14:15 Blood - Peripheral Venous Blood Culture - Preliminary NO GROWTH OBTAINED AFTER 48 HOURS, INCUBATION TO CONTINUE FOR 3 DAYS. 02/17/17 14:15 Blood - Peripheral Venous Blood Culture - Preliminary NO GROWTH OBTAINED AFTER 48 HOURS, INCUBATION TO CONTINUE FOR 3 DAYS. 02/17/17 14:20 Nasopharyngeal Swab Respiratory Virus Panel - Preliminary 02/17/17 14:20 Nasopharyngeal Swab Influenza Types A,B Antigen (JESSICA) - Final 02/17/17 14:20 Nasopharyngeal Swab - Final Imaging Chest xray: Moderate interstitial lung disease Chest CT: Increased interstitial changes, mild cardiomegaly, atherosclerotic coronary artery calcifications ASSESSMENT/PLAN: 1. PULM: Exacerbation of ILD, ?hemoptysis x 1 episode 02/19 Acute COPD exacerbation -Taper Solu-Medrol to 40 mg IVPB bid; continue standing DuoNebs -Continue Levaquin 750mg IVPB daily (02/19- ) -Follow up sputum culture -Respiratory pre/post O2 evaluation for possible home O2 -Pulmonary following 2. CARDS: CAD -Continue Lipitor, ASA HTN -Continue Atenolol, Losartan (ramipril dc'd on admission as thought maybe contributing to cough) -BPs at goal Elevated BNP -No signs of hypervolemia -Echo pending 3. RENAL: ELIDA -Thought to be secondary to dehydration -No within normal limits -Avoid nephrotoxic meds as able -Follow 4. ENDO: NIDDM -Hold Metformin while inpatient -FSACHS -ISS -Diabetic diet 5. F/E/N -Hyponatremia, improved -Hypomagnesemia, replete with 1g IVPB today (no improvement with 800mg po yesterday) -PO intake adequate 6. Ppx -Sqh -Ambulation DISPO: Requires inpatient care. Possible dc tomorrow after respiratory pre/post , echo, pulmonary re-evaluation. Visit type - Emergency Visit Emergency Visit: Yes ED Registration Date: 03/30/17 Care time: The patient presented to the Emergency Department on the above date and was hospitalized for further evaluation of their emergent condition. - New Patient This patient is new to me today: No - Critical Care Critical Care patient: No - Discharge Referral Referred to [facility] No
[2017-02-20] MEDS ORDERED: MAGNESIUM SULF 50% (8.12 MEQ/2 ML-1 GM VIAL) IVPB ONE (11:00)
[2017-02-20] MEDS: TAMSULOSIN HCL 0.4 MG CAP.ER.24H (FP) PO SCH (22:03)
[2017-02-20] MEDS: ATORVASTATIN CA 20 MG TABLET (FP) PO SCH (22:04)
[2017-02-21] MEDS: ALBUTEROL SO4 2.5/IPRATROPIUM 0.5 INH SOL 3 ML VIAL.NEB. NEB SCH ×5 (00:39→23:02)
[2017-02-21] MEDS: guaiFENesin 200 MG/10 ML 10 ML UNIT-DOSE CUPS PO PRN (00:39)
[2017-02-21] MEDS: HEPARIN NA (PORCINE) 5,000 UNITS/ML 1ML VIAL SQ SCH (06:29)
--- NOTE | 2017-02-21 06:47 | HOSP ---
[id number] the patient de-saturated 84%, during neb treatment. Ordered stat ABG RN to call with vitals after treatment Spoke with ED Attending at [facility]- patient will require higher acuity of care Chest Xray- pending O2- NRB per ED Attending Discussed with ATUL Hyatt, this mornings events and probable transfer to [facility] Physical Examination Vital Signs: Vital Signs Temperature 100.0 F H 02/21/17 06:00 Pulse Rate 82 02/21/17 06:00 Respiratory Rate 20 02/21/17 06:00 Blood Pressure 149/57 02/21/17 06:00 O2 Sat by Pulse Oximetry (%) 84 L 02/21/17 06:00 Labs: CBC, BMP 02/20/17 06:00 02/20/17 06:00
[2017-02-21] MEDS: INSULIN SLIDING SCALE (NOVOLOG) 1 VIAL SQ SCH ×4 (06:57→22:21)
--- NOTE | 2017-02-21 07:11 | PN ---
[id number] was placed on 100% NRB @0600 with a spo2 of 90%, pt was placed on BIPAP at 0700 fio2 improved to 94%, RN reports one episode of hemopytosis overnight. OBJECTIVE: patient is a 76 year old male with a past medical history of CAD/ stent x1, HTN, HLD, Prostate CA s/p radiation tx, NIDDM (dx 3 weeks ago), and cholelithiasis. patient was admitted from the emergency department for further management of emergent condition. patient developed hypoxia on hospitial day 4 , placed on BIPAP. Vital Signs Period Temp Pulse Resp BP Sys/Wolfe Pulse Ox Last 24 Hr 98 F-100.0 F 70-96 18-20 138-159/57-81 84-92 GENERAL: The patient is awake, alert, and fully oriented, and anxious HEAD: Normal with no signs of trauma. EYES: PERRL, extraocular movements intact, sclera anicteric, conjunctiva clear. No ptosis. ENT: Ears normal, nares patent, oropharynx clear without exudates, moist mucous membranes. NECK: Trachea midline, full range of motion, supple. LUNGS: Breath sounds equal, no air movement to right apex and base, diminished airflow to left apex and base with course rhonchi, no wheezes, no crackles, RR 30 HEART: Regular rate and rhythm, S1, S2 without murmur, rub or gallop. ABDOMEN: Soft, nontender, nondistended, normoactive bowel sounds, no guarding, no rebound, no hepatosplenomegaly, no masses. EXTREMITIES: 2+ pulses, warm, well-perfused, no edema. NEUROLOGICAL: Cranial nerves II through XII grossly intact. Normal speech, gait not observed. PSYCH: Normal mood, normal affect. SKIN: Warm, dry, normal turgor, no rashes or lesions noted Laboratory Results - last 24 hr CBC WBC 12.9 K/mm3 (4.0-10.0) H 02/20/17 06:00 RBC 3.62 M/mm3 (4.00-5.60) L 02/20/17 06:00 Hgb 11.8 GM/dl (11.7-16.9) 02/20/17 06:00 Hct 34.3 % (35.4-49) L 02/20/17 06:00 MCV 94.6 fl (80-96) 02/20/17 06:00 MCHC 34.3 g/dl (32.0-35.9) 02/20/17 06:00 RDW 13.3 % (11.9-15.9) 02/20/17 06:00 Plt Count 271 K/MM3 (134-434) 02/20/17 06:00 MPV 9.2 fl (7.5-11.1) 02/20/17 06:00 Neutrophils % 91.3 % (42.8-82.8) H 02/20/17 06:00 Lymphocytes % 2.7 % (8-40) L D 02/20/17 06:00 Monocytes % 5.9 % (3.8-10.2) 02/20/17 06:00 Eosinophils % 0.1 % (0-4.5) D 02/20/17 06:00 Basophils % 0.0 % (0-2.0) 02/20/17 06:00 Band Neutrophils 5.0 % (0-10) 02/18/17 08:42 CMP Sodium 136 mmol/L (136-145) 02/20/17 06:00 Potassium 4.3 mmol/L (3.5-5.1) 02/20/17 06:00 Chloride 106 mmol/L (98-107) 02/20/17 06:00 Carbon Dioxide 20 mmol/L (22-28) L 02/20/17 06:00 Anion Gap 10 (8-16) 02/20/17 06:00 BUN 29 mg/dl (7-18) H 02/20/17 06:00 Creatinine 1.1 mg/dl (0.6-1.3) 02/20/17 06:00 Creat Clearance w eGFR > 60 (>60) 02/19/17 07:17 POC Glucometer 155 UNITS (()) 02/21/17 06:47 Random Glucose 159 mg/dl (74-106) H 02/20/17 06:00 Lactic Acid 2.651 mmol/L (0.4-2.0) H* 02/18/17 08:42 Calcium 9.2 mg/dl (8.4-10.2) 02/20/17 06:00 Phosphorus 3.4 mg/dl (2.5-4.6) 02/19/17 07:17 Magnesium 1.7 mg/dL (1.8-2.4) L 02/20/17 06:00 Total Bilirubin 0.7 mg/dl (0.2-1.0) 02/19/17 07:17 AST 32 U/L (10-42) 02/19/17 07:17 ALT 23 U/L (10-40) 02/19/17 07:17 Alkaline Phosphatase 37 U/L (32-92) 02/19/17 07:17 Creatine Kinase 61 IU/L (38-174) 02/17/17 14:00 Troponin I < 0.03 ng/ml (0.03-0.50) L 02/17/17 14:00 B-Natriuretic Peptide 1932.04 pg/ml (5-450) H 02/17/17 14:00 Total Protein 5.7 g/dl (6.4-8.3) L 02/19/17 07:17 Albumin 3.0 g/dl (3.5-5.0) L 02/19/17 07:17 Lipase 41 U/L (22-51) 02/17/17 14:00 Laboratory Tests 02/21/17 07:00 Puncture Site Md puncture ABG pH 7.46 H ABG pCO2 at Pt Temp 31.1 L ABG pO2 at Pt Temp 55.9 L ABG HCO3 21.5 L ABG O2 Sat (Measured) 88.6 L ABG O2 Content 14.7 L ABG Base Excess -1.2 Active Medications Generic Name Dose Route Start Last Admin Trade Name Freq PRN Reason Stop Dose Admin Acetaminophen 650 mg 02/17/17 16:19 Tylenol - PO Q4H PRN FEVER OR PAIN Albuterol Sulfate 1 amp 02/17/17 16:24 Ventolin 0.083% Nebulizer Soln - NEB Q4H PRN SHORT OF BREATH/WHEEZING Albuterol/Ipratropium 1 amp 02/17/17 18:00 02/21/17 06:30 Duoneb - NEB 1 amp QIDR LOYDA Administration Aspirin 81 mg 02/18/17 10:00 02/20/17 09:34 Asa - PO 81 mg DAILY LOYDA Administration Atenolol 50 mg 02/18/17 10:00 02/20/17 09:34 Tenormin - PO 50 mg DAILY LOYDA Administration Atorvastatin Calcium 20 mg 02/17/17 22:00 02/20/17 22:04 Lipitor - PO 20 mg HS LOYDA Administration Budesonide/Formoterol Fumarate 2 puff 02/18/17 10:00 02/20/17 22:04 Symbicort 80/4.5mcg - IH 2 puff BID LOYDA Administration Cholecalciferol 2,000 unit 02/18/17 10:00 02/20/17 09:34 Vitamin D3 - PO 2,000 unit DAILY LOYDA Administration Guaifenesin 10 ml 02/20/17 08:43 02/21/17 00:39 Robitussin - PO 10 ml Q6H PRN Administration COUGH Heparin Sodium (Porcine) 5,000 unit 02/17/17 22:00 02/21/17 06:29 Heparin - SQ Not Given TID LOYDA Sodium Chloride 1,000 mls @ 75 mls/hr 02/17/17 23:15 02/18/17 23:15 Normal Saline - IV 75 mls/hr ASDIR LOYDA Administration Levofloxacin 150 mls @ 150 mls/hr 02/19/17 12:15 02/20/17 09:33 Levaquin 750 Mg Premixed Ivpb - IVPB 150 mls/hr DAILY LOYDA Administration Insulin Aspart 1 vial 02/17/17 22:00 02/21/17 06:57 Novolog Vial Sliding Scale - SQ 2 units ACHS LOYDA Administration Protocol Losartan Potassium 25 mg 02/19/17 10:00 02/20/17 09:34 Cozaar - PO 25 mg DAILY LOYDA Administration Methylprednisolone Sodium Succinate 40 mg 02/20/17 10:00 02/20/17 22:04 Solu-Medrol - IVPB 40 mg BID LOYDA Administration Multivitamins 1 each 02/18/17 10:00 02/20/17 09:34 Total B With C - PO 1 each DAILY LOYDA Administration Ondansetron HCl 4 mg 02/17/17 16:19 Zofran Injection IVPB Q6H PRN NAUSEA Tamsulosin HCl 0.4 mg 02/17/17 22:00 02/20/17 22:03 Flomax - PO 0.4 mg HS LOYDA Administration Microbiology 02/19/17 20:15 Sputum - Expectorated Gram Stain - Final 02/17/17 14:15 Blood - Peripheral Venous Blood Culture - Preliminary NO GROWTH OBTAINED AFTER 72 HOURS, INCUBATION TO CONTINUE FOR 2 DAYS. 02/17/17 14:15 Blood - Peripheral Venous Blood Culture - Preliminary NO GROWTH OBTAINED AFTER 72 HOURS, INCUBATION TO CONTINUE FOR 2 DAYS. 02/17/17 14:20 Nasopharyngeal Swab Respiratory Virus Panel - Preliminary 02/17/17 14:20 Nasopharyngeal Swab Influenza Types A,B Antigen (JESSICA) - Final , ,n 02/17/17 14:20 Nasopharyngeal Swab - Final Imaging Chest xray: Moderate interstitial lung disease Chest CT: Increased interstitial changes, mild cardiomegaly, atherosclerotic coronary artery calcifications ECHO: EF 60%, LV WNL ASSESSMENT/PLAN: 1. PULM:Hypoxia - chest xray reviewed, respiratory alkalosis noted on ABG, severe hypoxia noted on 100% nonrebreather--> BiPAP immediately ordered, spo2 improved to 97% tachypnea resolved, strong suspicion for early ARDS--> Solu-Medrol increased to 40 mg every 6 hours, vancomycin 1 g 1 ordered - continue levaquin 750mg (02/19-) IVPB daily - continue standing duonebs with symbicort - oral temp noted to be elevated 100.8, concern for early sepsis, pending lactic acid, pt on levaquin, however, worsening of right lung infilitrate, vancomycin x 1 ordered, appreciate ID input - case discussed with Dr De Souza (bill peddler) @ 0730, pt is accepted to ICU - case discussed with Dr Cross (pulmonary) agree with transfer to ICU 2. CARDS: CAD -Continue Lipitor, ASA HTN -Continue Atenolol, Losartan (ramipril dc'd on admission as thought maybe contributing to cough) -BPs at goal Elevated BNP - pt is hypovolemic at this time 3. RENAL: ELIDA - creatine 1.1, pending AM labs, creatine is at baseline - elida likely secondary to dehydration, close monitoring, avoid nephrotoxic agents 4. ENDO: NIDDM - continue to holdMetformin while inpatient -FSACHS -ISS -Diabetic diet 5. F/E/N -Hyponatremia, improved -PO intake adequate 6. Ppx -Sqh -Ambulation DISPO: patient requires transfer to the ICU, for closer monitoring, patient accepted to the ICU by the bill peddler (Nolvia) @730am awaiting ICU bed availability Visit type - Emergency Visit Emergency Visit: Yes ED Registration Date: 02/17/17 Care time: The patient presented to the Emergency Department on the above date and was hospitalized for further evaluation of their emergent condition. - New Patient This patient is new to me today: No - Critical Care Critical Care patient: Yes Total Critical Care Time (in minutes): 45 Critical Care Statement: The care of this patient involved high complexity decision making to prevent further life threatening deterioration of the patient 's condition and/or to evalute & treat vital organ system(s) failure or risk of failure. - Discharge Referral Referred to [facility] Med [facility] No
[2017-02-21 07:30] LABS: ARTERIAL BLD GAS O2 SATURATION 88.6 % (90-98.9); ARTERIAL BLOOD GAS BASE EXCESS -1.2 meq/l (-2-2); ARTERIAL BLOOD GAS HCO3 21.5 meq/L (22-26); ARTERIAL BLOOD GAS pH 7.46 (7.35-7.45)
[2017-02-21 07:31] LABS: LPM/O2% 100%; PT. ON O2? YES; TYPE OF O2 NONREBREATHER
[2017-02-21 07:32] LABS: ARTERIAL BLOOD GAS PO2 55.9 mmHg (70-100)
[2017-02-21] MEDS ORDERED: VANCOMYCIN 1 GRAM (PRE-DOCKED) 250 ML IVPB ONE (07:34)
[2017-02-21] MEDS: ALBUTEROL SO4 0.083% IH SOL 2.5 MG/3 ML VIAL.NEB. NEB PRN (07:45)
[2017-02-21 08:26] LABS: BASOPHIL 0.1 % (0-2.0); MCHC 33.6 g/dl (32.0-35.9); MEAN CELL VOLUME 95.3 fl (80-96); MEAN PLT VOLUME 9.1 fl (7.5-11.1); NEUTROPHILS 84.9 % (42.8-82.8); PLATELET COUNT 244 K/MM3 (134-434); RDW 13.6 % (11.9-15.9); WHITE BLOOD COUNT 15.3 K/mm3 (4.0-10.0)
[2017-02-21] MEDS ORDERED: methylPREDNISolone NA SUCC 40 MG/1 ML VIAL IVPB SCH (09:00)
[2017-02-21 09:37] LABS: ALBUMIN 3.1 g/dl (3.5-5.0); CALCIUM 8.9 mg/dl (8.4-10.2); CREATININE 1.2 mg/dl (0.6-1.3); TOT PROT 5.8 g/dl (6.4-8.3)
[2017-02-21 09:57] LABS: MAGNESIUM 1.6 mg/dL (1.8-2.4)
[2017-02-21 10:00] LABS: TROPONIN I (DFP) 0.06 ng/ml (0.03-0.50)
[2017-02-21] MEDS ORDERED: MAGNESIUM SULFATE 2 GM in SODIUM CHLORIDE 100 ML IVPB ONE (10:05)
[2017-02-21] MEDS ORDERED: MAGNESIUM SULF 50% (8.12 MEQ/2 ML-1 GM VIAL) IVPB ONE (10:45)
[2017-02-21] MEDS: BUDESONIDE/FORMETEROL FUMARATE 80/4.5 mcg INHALER IH SCH ×2 (11:00→22:23)
[2017-02-21] MEDS: LEVOFLOXACIN 750 MG IVPB 150 ML IVPB SCH (11:08)
[2017-02-21] MEDS: LOSARTAN POTASSIUM 25 MG TABLET PO SCH (11:08)
[2017-02-21] MEDS: VITAMIN B COMPLEX W/C COMBO TABLET (FP) PO SCH (11:08)
[2017-02-21] MEDS: CHOLECALCIFEROL (VITAMIN D3) 1,000 UNIT TABLET (FP) PO SCH (11:08)
[2017-02-21] MEDS: ASPIRIN 81 MG CHEWABLE TABLETS PO SCH (11:09)
[2017-02-21] MEDS: ATENOLOL 50 MG TABLET (FP) PO SCH (11:09)
[2017-02-21 11:19] LABS: ALLENS TEST POSITIVE; ART PUNCT SITE RIGHT RADIAL; ARTERIAL BLD GAS O2 SATURATION 95.1 % (90-98.9); ARTERIAL BLOOD GAS BASE EXCESS -0.4 meq/l (-2-2); ARTERIAL BLOOD GAS HCO3 22.3 meq/L (22-26)
[2017-02-21 11:20] LABS: LPM/O2% 60; MECH. VENT. VISION; PT. ON O2? YES; TYPE OF O2 BIPAP
[2017-02-21 11:21] LABS: VENT RATE 12
[2017-02-21 11:23] LABS: ARTERIAL BLOOD GAS pH 7.46 (7.35-7.45)
--- NOTE | 2017-02-21 11:31 | PN ---
Progress Note (short form) - Note Progress Note: ID Consult dictated Exacerbation, chronic lung disease Possible superimposed pneumonia Leukocytosis, multifactorial Pending sepsis workup, empiric levaquin/ zosyn Critical care time 35min
--- NOTE | 2017-02-21 12:02 | PN ---
Teaching Attending Note Name of Resident: Erlin Tsang ATTENDING PHYSICIAN STATEMENT I saw and evaluated the patient. I reviewed the resident's note and discussed the case with the resident. I agree with the resident's findings and plan as documented. SUBJECTIVE: Pt seen and examined in the ICU. Transferred down for worsening hypoxia and increasing oxygen requirements. Now on BiPAP with FiO2 50%. Some hemoptysis earlier. Low grade temps overnight. OBJECTIVE: Last Vital Signs Temp Pulse Resp BP Pulse Ox 100 F H 80 30 H 153/63 98 02/21/17 07:18 02/21/17 10:51 02/21/17 07:18 02/21/17 07:18 02/21/17 10:51 Intake & Output 02/18/17 02/19/17 02/20/17 02/21/17 23:59 23:59 23:59 23:59 Intake Total 1600 1325 300 300 Output Total 650 258 273 4386 Balance 950 475 -150 -1000 Weight 195 lb Gen: tachypneic on BiPAP Heart: RRR Lung: bibasilar rales Abd: soft, nontender Ext: no edema CBC, BMP 02/21/17 07:30 02/21/17 07:30 ABG Results ABG pH 7.46 (7.35-7.45) H 02/21/17 09:30 ABG pCO2 at Pt Temp 31.7 mmHg (35-45) L 02/21/17 09:30 ABG pO2 at Pt Temp 74.0 mmHg (70-100) D 02/21/17 09:30 ABG HCO3 22.3 meq/L (22-26) 02/21/17 09:30 ABG O2 Sat (Measured) 95.1 % (90-98.9) 02/21/17 09:30 ABG O2 Content 15.8 % vol (15-22) 02/21/17 09:30 ABG Base Excess -0.4 meq/l (-2-2) 02/21/17 09:30 CXR: bilateral infiltrates R>L Active Medications Acetaminophen (Tylenol -) 650 mg PO Q4H PRN PRN Reason: FEVER OR PAIN Albuterol Sulfate (Ventolin 0.083% Nebulizer Soln -) 1 amp NEB Q4H PRN PRN Reason: SHORT OF BREATH/WHEEZING Last Admin: 02/21/17 07:45 Dose: 1 amp Albuterol/Ipratropium (Duoneb -) 1 amp NEB QIDR [facility] Last Admin: 02/21/17 06:30 Dose: 1 amp Aspirin (Asa -) 81 mg PO DAILY [facility] Last Admin: 02/21/17 11:09 Dose: 81 mg Atenolol (Tenormin -) 50 mg PO DAILY [facility] Last Admin: 02/21/17 11:09 Dose: 50 mg Atorvastatin Calcium (Lipitor -) 20 mg PO HS [facility] Last Admin: 02/20/17 22:04 Dose: 20 mg Budesonide/Formoterol Fumarate (Symbicort 80/4.5mcg -) 2 puff IH BID [facility] Last Admin: 02/20/17 22:04 Dose: 2 puff Chlorhexidine Gluconate (Hibiclens For Decolonization -) 1 applic TP [facility] Cholecalciferol (Vitamin D3 -) 2,000 unit PO DAILY [facility] Last Admin: 02/21/17 11:08 Dose: 2,000 unit Guaifenesin (Robitussin -) 10 ml PO Q6H PRN PRN Reason: COUGH Last Admin: 02/21/17 00:39 Dose: 10 ml Heparin Sodium (Porcine) (Heparin -) 5,000 unit SQ TID [facility] Last Admin: 02/21/17 06:29 Dose: Not Given Sodium Chloride (Normal Saline -) 1,000 mls @ 75 mls/hr IV ASDIR [facility] Last Admin: 02/18/17 23:15 Dose: 75 mls/hr Levofloxacin (Levaquin 750 Mg Premixed Ivpb -) 150 mls @ 150 mls/hr IVPB DAILY [facility] Last Admin: 02/21/17 11:08 Dose: 150 mls/hr Piperacillin Sod/Tazobactam Sod (Zosyn 4.5gm Ivpb (Pre-Docked)) 100 mls @ 200 mls/hr IVPB Q8H-IV [facility] PRN Reason: Protocol Insulin Aspart (Novolog Vial Sliding Scale -) 1 vial SQ ACHS [facility] PRN Reason: Protocol Last Admin: 02/21/17 06:57 Dose: 2 units Losartan Potassium (Cozaar -) 25 mg PO DAILY [facility] Last Admin: 02/21/17 11:08 Dose: 25 mg Methylprednisolone Sodium Succinate (Solu-Medrol -) 80 mg IVPB Q6H-IV LOYDA Multivitamins (Total B With C -) 1 each PO DAILY LOYDA Last Admin: 02/21/17 11:08 Dose: 1 each Mupirocin (Bactroban Ointment (For Decolonization) -) 1 applic NS BID [facility] Stop: 02/26/17 21:59 Ondansetron HCl (Zofran Injection) 4 mg IVPB Q6H PRN PRN Reason: NAUSEA Tamsulosin HCl (Flomax -) 0.4 mg PO HS [facility] Last Admin: 02/20/17 22:03 Dose: 0.4 mg ASSESSMENT AND PLAN: Acute Hypoxic Respiratory Failure Suspect exacerbation of Interstitial Lung Disease r/o Superimposed Pneumonia Lactic Acidosis r/o Sepsis Acute Kidney Injury CAD HTN - increase medrol - inhaled bronchodilators - titrate Fio2 to keep Spo2 >90% - empiric antibiotics - f/u cultures - BiPAP to assist in work of breathing and hypoxia - monitor hemoptysis - d/c IVF - monitor urine output, creatinine - discussed with pt possibility of intubation if needed, zelalem is his HCP, stated that he would want intubation if temporary but would not want to be maintained on life support - DVT/GI prophylaxis - ICU monitoring for tenuous respiratory status
[2017-02-21 12:46] LABS: INR 1.16 (0.82-1.09); PROTHROMBIN TIME (PATIENT) 12.8 SEC (9.98-11.88)
[2017-02-21 12:48] LABS: ACTIVATED PTT 26.7 SECONDS (26.9-34.4)
[2017-02-21] MEDS: PIPERACILLIN/TAZOB 4.5 GM 100 ML IVPB SCH ×2 (13:30→18:53)
--- NOTE | 2017-02-21 14:46 | CONSULT ---
Consultation: REQUESTING PROVIDER: CONSULT REQUEST: We have been asked to medically evaluate this patient for ( specify). HISTORY OF PRESENT ILLNESS: patient is a 76 year old male transferred from [place] with a past medical history of CAD/stent x1, HTN, HLD, Prostate CA s/p radiation tx, NIDDM (dx 3 weeks ago), and cholelithiasis. Patient was admitted in [place] for sob. Last night patient desaturate and was started on BIPAP. Patient is on FIO2 of 50 maintating a saturation of 96 pr 65 bp 136/71 Patient states that in middle of night he got sob and was started on bipap and now feels better. Not on home oxygen. patient states that he was diagnosed with interstial lung ds couple of months ago and since than he is off and on prednisone REVIEW OF SYSTEMS: CONSTITUTIONAL: Absent: fever, chills, diaphoresis, generalized weakness, malaise, loss of appetite, weight change HEENT: Absent: rhinorrhea, nasal congestion, CARDIOVASCULAR: Absent: chest pain, syncope, palpitations, irregular heart rate, lightheadedness , peripheral edema RESPIRATORY: present sob, improved on bipap GASTROINTESTINAL: Absent: abdominal pain, abdominal distension, nausea, vomiting, diarrhea, constipation, melena, hematochezia GENITOURINARY: Absent: dysuria, frequency, urgency, hesitancy, hematuria, MUSCULOSKELETAL: Absent: myalgia, arthralgia, SKIN: Absent: rash, itching, pallor HEMATOLOGIC/IMMUNOLOGIC: Absent:, easy bruising, lymphadenopathy, ENDOCRINE: Absent: unexplained weight gain, NEUROLOGIC: Absent: headache, focal weakness or paresthesias, dizziness, unsteady gait, seizure, mental status changes, bladder or bowel incontinence PSYCHIATRIC: Absent: anxiety, depression, suicidal or homicidal ideation, hallucinations. PHYSICAL EXAMINATION Vital Signs - 24 hr 02/20/17 02/20/17 02/20/17 16:21 21:00 23:00 Temperature 98 F 98.7 F Pulse Rate 81 70 Respiratory 18 19 Rate Blood Pressure 151/81 159/70 O2 Sat by Pulse 92 L Oximetry (%) 02/21/17 02/21/17 02/21/17 06:00 06:50 07:18 Temperature 100.0 F H 100 F H Pulse Rate 82 89 Respiratory 20 30 H Rate Blood Pressure 149/57 153/63 O2 Sat by Pulse 84 L 91 L 96 Oximetry (%) 02/21/17 02/21/17 02/21/17 07:40 08:38 10:51 Temperature Pulse Rate 80 80 Respiratory Rate Blood Pressure O2 Sat by Pulse 96 97 98 Oximetry (%) 02/21/17 02/21/17 12:00 12:03 Temperature Pulse Rate 80 Respiratory 23 Rate Blood Pressure 165/76 O2 Sat by Pulse 99 Oximetry (%) GENERAL: Awake, alert, and fully oriented, in no acute distress. on bipap HEAD: Normal with no signs of trauma. EYES: Pupils equal, round and reactive to light, extraocular movements intact, sclera anicteric, conjunctiva clear. EARS, NOSE, THROAT: Ears normal, nares patent, oropharynx clear without exudates. dry mucus membrane NECK: Normal range of motion, supple without lymphadenopathy, JVD, or masses. LUNGS: Breath sounds equal, clear to auscultation bilaterally, rales present in b/l base HEART: s1s2 normal ABDOMEN: Soft, nontender, not distended, normoactive bowel sounds, no guarding, no rebound, no masses. MUSCULOSKELETAL: Normal range of motion at all joints. No bony deformities or tenderness. UPPER EXTREMITIES: 2+ pulses, warm, well-perfused. No cyanosis. No clubbing. Cap refill <2 seconds. No peripheral edema. LOWER EXTREMITIES: 2+ pulses, warm, well-perfused. No calf tenderness. No peripheral edema. NEUROLOGICAL: Cranial nerves II-XII intact. Normal speech. PSYCHIATRIC: Cooperative. Good eye contact. Appropriate mood and affect. SKIN: Warm, dry, Laboratory Results - last 24 hr 02/20/17 02/20/17 02/21/17 16:34 21:41 06:47 WBC RBC Hgb Hct MCV MCHC RDW Plt Count MPV Neutrophils % Lymphocytes % Monocytes % Eosinophils % Basophils % INR PTT (Actin FS) Anticoagulation Therapy Puncture Site ABG pH ABG pCO2 at Pt Temp ABG pO2 at Pt Temp ABG HCO3 ABG O2 Sat (Measured) ABG O2 Content ABG Base Excess Jimmy Test O2 Delivery Device Oxygen Flow Rate Vent Mode Vent Rate Mechanical Rate PEEP Pressure Support Vent Sodium Potassium Chloride Carbon Dioxide Anion Gap BUN Creatinine Creat Clearance w eGFR POC Glucometer 140 133 155 Random Glucose Lactic Acid Calcium Magnesium Total Bilirubin AST ALT Alkaline Phosphatase Creatine Kinase Troponin I Total Protein Albumin 02/21/17 02/21/17 02/21/17 07:00 07:00 07:30 WBC 15.3 H RBC 3.58 L Hgb 11.4 L Hct 34.1 L MCV 95.3 MCHC 33.6 RDW 13.6 Plt Count 244 MPV 9.1 Neutrophils % 84.9 H Lymphocytes % 3.8 L D Monocytes % 11.2 H D Eosinophils % 0.0 D Basophils % 0.1 D INR PTT (Actin FS) Anticoagulation Therapy Y Puncture Site Md puncture ABG pH 7.46 H ABG pCO2 at Pt Temp 31.1 L ABG pO2 at Pt Temp 55.9 L ABG HCO3 21.5 L ABG O2 Sat (Measured) 88.6 L ABG O2 Content 14.7 L ABG Base Excess -1.2 Jimmy Test Not applicable O2 Delivery Device Y Nonrebreather Oxygen Flow Rate 100% Vent Mode Y Vent Rate Y Mechanical Rate Y PEEP 0.0 Pressure Support Vent Y Sodium Potassium Chloride Carbon Dioxide Anion Gap BUN Creatinine Creat Clearance w eGFR POC Glucometer Random Glucose Lactic Acid Calcium Magnesium Total Bilirubin AST ALT Alkaline Phosphatase Creatine Kinase Troponin I Total Protein Albumin 02/21/17 02/21/17 02/21/17 07:30 07:30 07:30 WBC RBC Hgb Hct MCV MCHC RDW Plt Count MPV Neutrophils % Lymphocytes % Monocytes % Eosinophils % Basophils % INR PTT (Actin FS) Anticoagulation Therapy Puncture Site ABG pH ABG pCO2 at Pt Temp ABG pO2 at Pt Temp ABG HCO3 ABG O2 Sat (Measured) ABG O2 Content ABG Base Excess Jimmy Test O2 Delivery Device Oxygen Flow Rate Vent Mode Vent Rate Mechanical Rate PEEP Pressure Support Vent Sodium Cancelled 132 L Potassium Cancelled 4.4 Chloride Cancelled 101 Carbon Dioxide Cancelled 23 Anion Gap Cancelled 8 BUN Cancelled 27 H Creatinine Cancelled 1.2 Creat Clearance w eGFR 58.56 POC Glucometer Random Glucose Cancelled 171 H Lactic Acid 3.226 H* Calcium Cancelled 8.9 Magnesium Cancelled 1.6 L Total Bilirubin 1.0 D AST 56 H D ALT 34 D Alkaline Phosphatase 44 Creatine Kinase Troponin I Total Protein 5.8 L Albumin 3.1 L 02/21/17 02/21/17 02/21/17 07:30 09:30 11:32 WBC RBC Hgb Hct MCV MCHC RDW Plt Count MPV Neutrophils % Lymphocytes % Monocytes % Eosinophils % Basophils % INR PTT (Actin FS) Anticoagulation Therapy Y Puncture Site Right radial ABG pH 7.46 H ABG pCO2 at Pt Temp 31.7 L ABG pO2 at Pt Temp 74.0 D ABG HCO3 22.3 ABG O2 Sat (Measured) 95.1 ABG O2 Content 15.8 ABG Base Excess -0.4 Jimmy Test Positive O2 Delivery Device Bipap Oxygen Flow Rate 60 Vent Mode S/t Vent Rate 12 Mechanical Rate Vision PEEP 0.0 Pressure Support Vent 12/6 Sodium Potassium Chloride Carbon Dioxide Anion Gap BUN Creatinine Creat Clearance w eGFR POC Glucometer [phone] Random Glucose Lactic Acid Calcium Magnesium Total Bilirubin AST ALT Alkaline Phosphatase Creatine Kinase 59 Troponin I 0.06 D Total Protein Albumin 02/21/17 11:50 WBC RBC Hgb Hct MCV MCHC RDW Plt Count MPV Neutrophils % Lymphocytes % Monocytes % Eosinophils % Basophils % INR 1.16 H PTT (Actin FS) 26.7 L Anticoagulation Therapy Puncture Site ABG pH ABG pCO2 at Pt Temp ABG pO2 at Pt Temp ABG HCO3 ABG O2 Sat (Measured) ABG O2 Content ABG Base Excess Jimmy Test O2 Delivery Device Oxygen Flow Rate Vent Mode Vent Rate Mechanical Rate PEEP Pressure Support Vent Sodium Potassium Chloride Carbon Dioxide Anion Gap BUN Creatinine Creat Clearance w eGFR POC Glucometer Random Glucose Lactic Acid Calcium Magnesium Total Bilirubin AST ALT Alkaline Phosphatase Creatine Kinase Troponin I Total Protein Albumin Active Medications Generic Name Dose Route Start Last Admin Trade Name Freq PRN Reason Stop Dose Admin Acetaminophen 650 mg 02/17/17 16:19 Tylenol - PO Q4H PRN FEVER OR PAIN Albuterol Sulfate 1 amp 02/17/17 16:24 02/21/17 07:45 Ventolin 0.083% Nebulizer Soln - NEB 1 amp Q4H PRN Administration SHORT OF BREATH/WHEEZING Albuterol/Ipratropium 1 amp 02/17/17 18:00 02/21/17 12:04 Duoneb - NEB 1 amp QIDR LOYDA Administration Aspirin 81 mg 02/18/17 10:00 02/21/17 11:09 Asa - PO 81 mg DAILY LOYDA Administration Atenolol 50 mg 02/18/17 10:00 02/21/17 11:09 Tenormin - PO 50 mg DAILY LOYDA Administration Atorvastatin Calcium 20 mg 02/17/17 22:00 02/20/17 22:04 Lipitor - PO 20 mg HS LOYDA Administration Budesonide/Formoterol Fumarate 2 puff 02/18/17 10:00 02/20/17 22:04 Symbicort 80/4.5mcg - IH 2 puff BID LOYDA Administration Chlorhexidine Gluconate 1 applic 02/21/17 22:00 Hibiclens For Decolonization - TP HS LOYDA Cholecalciferol 2,000 unit 02/18/17 10:00 02/21/17 11:08 Vitamin D3 - PO 2,000 unit DAILY LOYDA Administration Guaifenesin 10 ml 02/20/17 08:43 02/21/17 00:39 Robitussin - PO 10 ml Q6H PRN Administration COUGH Heparin Sodium (Porcine) 5,000 unit 02/17/17 22:00 02/21/17 06:29 Heparin - SQ Not Given TID LOYDA Levofloxacin 150 mls @ 150 mls/hr 02/19/17 12:15 02/21/17 11:08 Levaquin 750 Mg Premixed Ivpb - IVPB 150 mls/hr DAILY [facility] Administration Piperacillin Sod/Tazobactam Sod 100 mls @ 200 mls/hr 02/21/17 12:00 Zosyn 4.5gm Ivpb (Pre-Docked) IVPB Q8H-IV [facility] Protocol Insulin Aspart 1 vial 02/17/17 22:00 02/21/17 06:57 Novolog Vial Sliding Scale - SQ 2 units ACHS [facility] Administration Protocol Losartan Potassium 25 mg 02/19/17 10:00 02/21/17 11:08 Cozaar - PO 25 mg DAILY LOYDA Administration Methylprednisolone Sodium Succinate 80 mg 02/21/17 15:00 Solu-Medrol - IVPB Q6H-IV [facility] Multivitamins 1 each 02/18/17 10:00 02/21/17 11:08 Total B With C - PO 1 each DAILY [facility] Administration Mupirocin 1 applic 02/21/17 22:00 Bactroban Ointment (For Decolonization) - NS 02/26/17 21:59 BID LOYDA Ondansetron HCl 4 mg 02/17/17 16:19 Zofran Injection IVPB Q6H PRN NAUSEA Tamsulosin HCl 0.4 mg 02/17/17 22:00 02/20/17 22:03 Flomax - PO 0.4 mg HS LOYDA Administration ASSESSMENT/PLAN: 1acute hypoxic respiratory failure could be due to excerbration of interstial lung ds on bipap keep spo2 > 90 continue with duoneb and symbicort solumedrol increased to 80mh q6h d/c iv fluid monitor vitals monitor intake/ output antibiotics as per ID follow blood and urine culture monitor for haemoptysis 2. h/o of CAD -Continue Lipitor, ASA 3 HTN -Continue Atenolol, Losartan -monitor vitals 3. RENAL: ELIDA - creatine 1.2 - avoid nephrotoxic drugs - monitor cr 4. ENDO: NIDDM diabetic diet BGM insulin sliding scale 5. F/E/N -Hyponatremia, improving -orally allowed 6. Ppx: on scd. gi protonix 40mg po daily dispo: admit in icu Visit type - Emergency Visit Emergency Visit: Yes ED Registration Date: 02/17/17 Care time: The patient presented to the Emergency Department on the above date and was hospitalized for further evaluation of their emergent condition. - New Patient This patient is new to me today: Yes Date on this admission: 02/21/17 - Critical Care Critical Care patient: Yes Total Critical Care Time (in minutes): 45 Critical Care Statement: The care of this patient involved high complexity decision making to prevent further life threatening deterioration of the patient 's condition and/or to evalute & treat vital organ system(s) failure or risk of failure.
--- NOTE | 2017-02-21 15:22 | PN ---
Teaching Attending Note Name of Resident: Blanca Burns ATTENDING PHYSICIAN STATEMENT I saw and evaluated the patient. I reviewed the resident's note and discussed the case with the resident. I agree with the resident's findings and plan as documented. SUBJECTIVE: seen and evaluated at the bedside OBJECTIVE: BiPAP in place, in no respiratory distress; broncho-vesicular sounds throughout ASSESSMENT AND PLAN: 76 year old man with pulm fibrosis transferred from [facility] to [facility] ICU for respiratory distress -BiPAP in place, in no respiratory distress; broncho-vesicular sounds throughout -agree with steroids and abx that ICU team has initiated -BiPAP management as per ICU team
[2017-02-21] MEDS: methylPREDNISolone NA SUCC 40 MG/1 ML VIAL IVPB SCH ×2 (15:30→21:35)
--- NOTE | 2017-02-21 17:27 | PN ---
Physical Exam: SUBJECTIVE: Patient seen and examined Pt is awake, alert and oriented x3 Pt is in moderate resp distress Pt has frequent productive cough with dark coffee color brown/black with bloody mucus Pt is short of breath at rest Pt desaturates when talking No fever, chills no n/v denies leg swelling deneis orthopnea OBJECTIVE: Vital Signs Period Temp Pulse Resp BP Sys/Wolfe Pulse Ox Last 24 Hr 98.6 F-100.0 F 65-89 19-30 148-165/57-76 84-99 GENERAL: The patient is awake, alert, and fully oriented, in moderate acute distress. HEAD: Normal with no signs of trauma. EYES: PERRL, extraocular movements intact, sclera anicteric, conjunctiva clear. No ptosis. ENT: Ears normal, nares patent, oropharynx clear without exudates, moist mucous membranes. NECK: Trachea midline, full range of motion, supple. LUNGS: diminished in upper lobes and ronchi in b/l bases, occasional use of accessory muscle use. HEART: Regular rate and rhythm, S1, S2 without murmur, rub or gallop. ABDOMEN: Soft, nontender, nondistended, normoactive bowel sounds, no guarding, no rebound, no hepatosplenomegaly, no masses. EXTREMITIES: 2+ pulses, warm, well-perfused, no edema. NEUROLOGICAL: Normal speech, gait not observed. PSYCH: Normal mood, normal affect. SKIN: Warm, dry, normal turgor, no rashes or lesions noted Laboratory Results - last 24 hr 02/20/17 02/21/17 02/21/17 21:41 06:47 07:00 WBC RBC Hgb Hct MCV MCHC RDW Plt Count MPV Neutrophils % Lymphocytes % Monocytes % Eosinophils % Basophils % INR PTT (Actin FS) Anticoagulation Therapy Puncture Site ABG pH ABG pCO2 at Pt Temp ABG pO2 at Pt Temp ABG HCO3 ABG O2 Sat (Measured) ABG O2 Content ABG Base Excess Jimmy Test O2 Delivery Device Y Oxygen Flow Rate Vent Mode Vent Rate Mechanical Rate PEEP Pressure Support Vent Sodium Potassium Chloride Carbon Dioxide Anion Gap BUN Creatinine Creat Clearance w eGFR POC Glucometer 133 155 Random Glucose Lactic Acid Calcium Magnesium Total Bilirubin AST ALT Alkaline Phosphatase Creatine Kinase Troponin I Total Protein Albumin 02/21/17 02/21/17 02/21/17 07:00 07:30 07:30 WBC 15.3 H RBC 3.58 L Hgb 11.4 L Hct 34.1 L MCV 95.3 MCHC 33.6 RDW 13.6 Plt Count 244 MPV 9.1 Neutrophils % 84.9 H Lymphocytes % 3.8 L D Monocytes % 11.2 H D Eosinophils % 0.0 D Basophils % 0.1 D INR PTT (Actin FS) Anticoagulation Therapy Y Puncture Site Md puncture ABG pH 7.46 H ABG pCO2 at Pt Temp 31.1 L ABG pO2 at Pt Temp 55.9 L ABG HCO3 21.5 L ABG O2 Sat (Measured) 88.6 L ABG O2 Content 14.7 L ABG Base Excess -1.2 Jimmy Test Not applicable O2 Delivery Device Nonrebreather Oxygen Flow Rate 100% Vent Mode Y Vent Rate Y Mechanical Rate Y PEEP 0.0 Pressure Support Vent Y Sodium Cancelled Potassium Cancelled Chloride Cancelled Carbon Dioxide Cancelled Anion Gap Cancelled BUN Cancelled Creatinine Cancelled Creat Clearance w eGFR POC Glucometer Random Glucose Cancelled Lactic Acid Calcium Cancelled Magnesium Cancelled Total Bilirubin AST ALT Alkaline Phosphatase Creatine Kinase Troponin I Total Protein Albumin 02/21/17 02/21/17 02/21/17 07:30 07:30 07:30 WBC RBC Hgb Hct MCV MCHC RDW Plt Count MPV Neutrophils % Lymphocytes % Monocytes % Eosinophils % Basophils % INR PTT (Actin FS) Anticoagulation Therapy Puncture Site ABG pH ABG pCO2 at Pt Temp ABG pO2 at Pt Temp ABG HCO3 ABG O2 Sat (Measured) ABG O2 Content ABG Base Excess Jimmy Test O2 Delivery Device Oxygen Flow Rate Vent Mode Vent Rate Mechanical Rate PEEP Pressure Support Vent Sodium 132 L Potassium 4.4 Chloride 101 Carbon Dioxide 23 Anion Gap 8 BUN 27 H Creatinine 1.2 Creat Clearance w eGFR 58.56 POC Glucometer Random Glucose 171 H Lactic Acid 3.226 H* Calcium 8.9 Magnesium 1.6 L Total Bilirubin 1.0 D AST 56 H D ALT 34 D Alkaline Phosphatase 44 Creatine Kinase 59 Troponin I 0.06 D Total Protein 5.8 L Albumin 3.1 L 02/21/17 02/21/17 02/21/17 09:30 11:32 11:50 WBC RBC Hgb Hct MCV MCHC RDW Plt Count MPV Neutrophils % Lymphocytes % Monocytes % Eosinophils % Basophils % INR 1.16 H PTT (Actin FS) 26.7 L Anticoagulation Therapy Y Puncture Site Right radial ABG pH 7.46 H ABG pCO2 at Pt Temp 31.7 L ABG pO2 at Pt Temp 74.0 D ABG HCO3 22.3 ABG O2 Sat (Measured) 95.1 ABG O2 Content 15.8 ABG Base Excess -0.4 Jimmy Test Positive O2 Delivery Device Bipap Oxygen Flow Rate 60 Vent Mode S/t Vent Rate 12 Mechanical Rate Vision PEEP 0.0 Pressure Support Vent 12/6 Sodium Potassium Chloride Carbon Dioxide Anion Gap BUN Creatinine Creat Clearance w eGFR POC Glucometer [phone] Random Glucose Lactic Acid Calcium Magnesium Total Bilirubin AST ALT Alkaline Phosphatase Creatine Kinase Troponin I Total Protein Albumin 02/21/17 02/21/17 15:45 15:50 WBC RBC Hgb Hct MCV MCHC RDW Plt Count MPV Neutrophils % Lymphocytes % Monocytes % Eosinophils % Basophils % INR PTT (Actin FS) Anticoagulation Therapy Puncture Site ABG pH ABG pCO2 at Pt Temp ABG pO2 at Pt Temp ABG HCO3 ABG O2 Sat (Measured) ABG O2 Content ABG Base Excess Jimmy Test O2 Delivery Device Oxygen Flow Rate Vent Mode Vent Rate Mechanical Rate PEEP Pressure Support Vent Sodium Potassium Chloride Carbon Dioxide Anion Gap BUN Creatinine Creat Clearance w eGFR POC Glucometer [phone] Random Glucose Lactic Acid 1.953 Calcium Magnesium Total Bilirubin AST ALT Alkaline Phosphatase Creatine Kinase Troponin I Total Protein Albumin Active Medications Generic Name Dose Route Start Last Admin Trade Name Freq PRN Reason Stop Dose Admin Acetaminophen 650 mg 02/17/17 16:19 Tylenol - PO Q4H PRN FEVER OR PAIN Albuterol Sulfate 1 amp 02/17/17 16:24 02/21/17 07:45 Ventolin 0.083% Nebulizer Soln - NEB 1 amp Q4H PRN Administration SHORT OF BREATH/WHEEZING Albuterol/Ipratropium 1 amp 02/17/17 18:00 02/21/17 17:08 Duoneb - NEB 1 amp QIDR LOYDA Administration Aspirin 81 mg 02/18/17 10:00 02/21/17 11:09 Asa - PO 81 mg DAILY LOYDA Administration Atenolol 50 mg 02/18/17 10:00 02/21/17 11:09 Tenormin - PO 50 mg DAILY LOYDA Administration Atorvastatin Calcium 20 mg 02/17/17 22:00 02/20/17 22:04 Lipitor - PO 20 mg HS LOYDA Administration Budesonide/Formoterol Fumarate 2 puff 02/18/17 10:00 02/20/17 22:04 Symbicort 80/4.5mcg - IH 2 puff BID LOYDA Administration Chlorhexidine Gluconate 1 applic 02/21/17 22:00 Hibiclens For Decolonization - TP HS LOYDA Cholecalciferol 2,000 unit 02/18/17 10:00 02/21/17 11:08 Vitamin D3 - PO 2,000 unit DAILY LOYDA Administration Guaifenesin 10 ml 02/20/17 08:43 02/21/17 00:39 Robitussin - PO 10 ml Q6H PRN Administration COUGH Heparin Sodium (Porcine) 5,000 unit 02/17/17 22:00 02/21/17 06:29 Heparin - SQ Not Given TID LOYDA Levofloxacin 150 mls @ 150 mls/hr 02/19/17 12:15 02/21/17 11:08 Levaquin 750 Mg Premixed Ivpb - IVPB 150 mls/hr DAILY LOYDA Administration Piperacillin Sod/Tazobactam Sod 100 mls @ 200 mls/hr 02/21/17 12:00 Zosyn 4.5gm Ivpb (Pre-Docked) IVPB Q8H-IV [facility] Protocol Insulin Aspart 1 vial 02/17/17 22:00 02/21/17 06:57 Novolog Vial Sliding Scale - SQ 2 units ACHS LOYDA Administration Protocol Losartan Potassium 25 mg 02/19/17 10:00 02/21/17 11:08 Cozaar - PO 25 mg DAILY LOYDA Administration Methylprednisolone Sodium Succinate 80 mg 02/21/17 15:00 Solu-Medrol - IVPB Q6H-IV [facility] Multivitamins 1 each 02/18/17 10:00 02/21/17 11:08 Total B With C - PO 1 each DAILY [facility] Administration Mupirocin 1 applic 02/21/17 22:00 Bactroban Ointment (For Decolonization) - NS 02/26/17 21:59 BID [facility] Ondansetron HCl 4 mg 02/17/17 16:19 Zofran Injection IVPB Q6H PRN NAUSEA Pantoprazole Sodium 40 mg 02/22/17 10:00 Protonix - PO DAILY [facility] Tamsulosin HCl 0.4 mg 02/17/17 22:00 02/20/17 22:03 Flomax - PO 0.4 mg HS LOYDA Administration CBC, BMP 02/21/17 07:30 02/21/17 07:30 ASSESSMENT/PLAN: 76 year old male with pmh of CAD with stent x1, HTN, HPLD, DM, Prostate CA s/p radiation, Interstitial lung disease who was admitted at [facility] for sob, cough, Dyspnea on exertion for 3-4 weeks, was transferred to [facility] ICU after desaturating, having worsening resp status requiring BIPAP. Acute hypoxic respiratory failure likely due to ILD flare r/o PNA induced sepsis Pt has productive sputum, cough leukocytosis, low grade fever while on chronic steroid which make pna likely No orthopnea, no lower ext edema, no effusion seen on CXR makes CHF less likely Pt is on solumedrol 80mg IV q6h Symbicort inh bid Duoneb qid Albuterol PRN BIpap keep O2 sat >90% Sputum culture lactic acid trended down to 1.9 blood culture ID is on case Pt on levaquin and Zosyn empirically Consider repeat CT chest CAD with stent On ASA On lipitor HTN Continue atenolol and cozaar Diabetes BGM AC SH Novolog sliding scale ELIDA (improving) Cr was 1.6, now 1.1 CMP in am FEN Fluid: none electrolytes: Nutrition: diabetic diet DVT: heparin 5000U sq TID Disposition: keep in ICU until respiratory status improves Visit type - Emergency Visit Emergency Visit: Yes ED Registration Date: 02/17/17 Care time: The patient presented to the Emergency Department on the above date and was hospitalized for further evaluation of their emergent condition. - New Patient This patient is new to me today: Yes Date on this admission: 02/21/17 - Critical Care Critical Care patient: Yes Total Critical Care Time (in minutes): 40 Critical Care Statement: The care of this patient involved high complexity decision making to prevent further life threatening deterioration of the patient 's condition and/or to evalute & treat vital organ system(s) failure or risk of failure. - Discharge Referral Referred to [facility] Med P.C.: No
--- NOTE | 2017-02-21 20:32 | CONS ---
DATE OF CONSULTATION: DATE OF DICTATION: 02/21/2017 The patient is a 76-year-old male with a history of chronic interstitial lung disease, evaluated for pneumonia. He was admitted to [facility] on February 17, 2017, with a 3 or 4 week history of increasing shortness of breath and nonproductive cough. He was found on x-ray to have evidence of chronic interstitial lung disease. He was given bronchodilators, intravenous course of steroids, and a dose of Levaquin. His clinical course in the hospital was significant for worsening respiratory status with desaturation. He required a BiPAP mask. He is now transferred to the intensive care unit at [facility] with worsening dyspnea. The patient is awake and alert on BiPAP. He reports cough now productive of tuan blood. He denies any recent respiratory tract infection. No recent fever or chills. He had been prescribed Augmentin and Zithromax as an outpatient by his primary care provider as well as steroids and bronchodilators without improvement. Chest x-ray and CAT scan showed worsening interstitial lung disease with probable superimposed pneumonia. Past medical history positive for interstitial lung disease, history of colon cancer, coronary artery disease, status post stent, hypertension, hyperlipidemia, cholelithiasis, prostate cancer, status post radiation therapy. No known allergies. Medications include aspirin, atenolol, Altace, Zocor, prednisone, Levaquin. SOCIAL HISTORY: He is a retired state attorney. He is a former smoker. Denies recent hospitalizations. SYSTEMS REVIEW: Neurologic: No loss of consciousness, seizure activity, focal weakness. Cardiac: Negative chest pain or palpitations. Respiratory: As per HPI. Gastrointestinal: Negative vomiting or diarrhea. Genitourinary: Positive for prostate cancer. LABORATORY DATA: White blood cell count 15.3, 84 neutrophils, 3 lymphocytes, 11 monocytes, hematocrit 34.1, platelet count 244, BUN 27, creatinine 1.2. Urinalysis: Negative leukocyte esterase. Sputum culture: Normal eran. Blood cultures pending. Chest x-ray shows increased interstitial markings, right greater than left. CAT scan shows severe interstitial lung disease with what appear to be small cavitary lesions bilaterally. PHYSICAL EXAMINATION: General: He is awake and alert. He is not acutely toxic appearing. He is short of breath at rest on BiPAP. Vital Signs: Temperature 100. Blood pressure 153/63. Pulse 80, regular. Respirations 22 per minute. Eyes: Sclerae anicteric. Heart Sounds: S1, S2. Lungs: Diminished breath sounds bilaterally. Abdomen: Soft. No tenderness elicited. No mass, rebound or rigidity. Extremities: 1+ edema. IMPRESSION: 1. Exacerbation of chronic lung disease. 2. Possible superimposed pneumonia. 3. Leukocytosis, multifactorial. Pending sepsis workup, empiric antibiotic coverage with Levaquin and Zosyn. Continue BiPAP, bronchodilators, intravenous corticosteroids. Prognosis is guarded. Continue ICU monitoring. Critical care time: 35 minutes. Thank you for the kind referral. LESLIE CAMPBELL M.D. [id number]
[2017-02-21] MEDS: ATORVASTATIN CA 20 MG TABLET (FP) PO SCH (21:35)
[2017-02-21] MEDS: TAMSULOSIN HCL 0.4 MG CAP.ER.24H (FP) PO SCH (21:35)
[2017-02-21] MEDS: CHLORHEXIDINE GLUCONATE 4% CLEANSER FOR DECOLONIZATION TP SCH (21:36)
[2017-02-21] MEDS: MUPIROCIN 2% TOPICAL OINTMENT FOR DECOLONIZATION NS SCH (21:38)
[2017-02-22] MEDS: PIPERACILLIN/TAZOB 4.5 GM 100 ML IVPB SCH ×3 (02:20→17:44)
[2017-02-22] MEDS: methylPREDNISolone NA SUCC 40 MG/1 ML VIAL IVPB SCH ×4 (03:36→21:41)
[2017-02-22] MEDS: ALBUTEROL SO4 2.5/IPRATROPIUM 0.5 INH SOL 3 ML VIAL.NEB. NEB SCH ×3 (05:22→18:06)
[2017-02-22] MEDS ORDERED: ALBUTEROL SO4 0.083% IH SOL 2.5 MG/3 ML VIAL.NEB. NEB ONE (05:36)
[2017-02-22 06:16] LABS: MCH 31.8 pg (25.7-33.7); MCHC 33.6 g/dl (32.0-35.9); MEAN CELL VOLUME 94.7 fl (80-96); MEAN PLT VOLUME 9.4 fl (7.5-11.1); NEUTROPHILS 90.2 % (42.8-82.8); PLATELET COUNT 232 K/MM3 (134-434); RDW 13.8 % (11.9-15.9)
[2017-02-22] MEDS: INSULIN SLIDING SCALE (NOVOLOG) 1 VIAL SQ SCH ×4 (06:26→21:43)
[2017-02-22 06:29] LABS: INR 1.18 (0.82-1.09)
[2017-02-22 06:31] LABS: ACTIVATED PTT 24.3 SECONDS (26.9-34.4)
[2017-02-22 06:56] LABS: ALBUMIN 2.6 g/dl (3.4-5.0); ANION GAP 9 (8-16); BILIRUBIN,TOTAL 1.3 mg/dL (0.2-1.0); CALCIUM 8.6 mg/dL (8.5-10.1); CO2 28 mmol/L (21-32); CREATININE 1.1 mg/dL (0.7-1.3); GLUCOSE,RANDOM 159 mg/dL (74-106); MAGNESIUM 2.3 mg/dL (1.8-2.4); PHOSPHOROUS 3.4 mg/dL (2.5-4.9); SGOT/AST 22 U/L (15-37); SGPT/ALT 29 U/L (12-78); TOT PROT 5.5 g/dl (6.4-8.2)
[2017-02-22 06:57] LABS: ALK PHOS 46 U/L (45-117)
[2017-02-22] MEDS ORDERED: PT OWN MED DRAWER 7, Y5N ONE (09:01)
[2017-02-22] MEDS: ALBUTEROL SO4 0.083% IH SOL 2.5 MG/3 ML VIAL.NEB. NEB PRN (09:50)
[2017-02-22] MEDS: BUDESONIDE/FORMETEROL FUMARATE 80/4.5 mcg INHALER IH SCH ×2 (10:25→21:44)
[2017-02-22] MEDS: guaiFENesin 200 MG/10 ML 10 ML UNIT-DOSE CUPS PO PRN (10:27)
[2017-02-22] MEDS: CHOLECALCIFEROL (VITAMIN D3) 1,000 UNIT TABLET (FP) PO SCH (10:31)
[2017-02-22] MEDS: PANTOPRAZOLE 40 MG TABLET (FP) PO SCH (10:32)
[2017-02-22] MEDS: VITAMIN B COMPLEX W/C COMBO TABLET (FP) PO SCH (10:32)
[2017-02-22] MEDS: LOSARTAN POTASSIUM 25 MG TABLET PO SCH (10:32)
[2017-02-22] MEDS: ASPIRIN 81 MG CHEWABLE TABLETS PO SCH (10:32)
[2017-02-22] MEDS: LEVOFLOXACIN 750 MG IVPB 150 ML IVPB SCH (10:32)
[2017-02-22] MEDS: ATENOLOL 50 MG TABLET (FP) PO SCH (10:32)
[2017-02-22] MEDS: MUPIROCIN 2% TOPICAL OINTMENT FOR DECOLONIZATION NS SCH ×2 (10:33→21:42)
--- NOTE | 2017-02-22 11:32 | PN ---
Progress Note, Physician History of Present Illness: Awake, alert No complaints Mildly tachypneic on ventimask Low grade temps Mildly elevated WBC - Current Medication List Current Medications: Active Medications Acetaminophen (Tylenol -) 650 mg PO Q4H PRN PRN Reason: FEVER OR PAIN Albuterol Sulfate (Ventolin 0.083% Nebulizer Soln -) 1 amp NEB Q4H PRN PRN Reason: SHORT OF BREATH/WHEEZING Last Admin: 02/22/17 09:50 Dose: 1 amp Albuterol/Ipratropium (Duoneb -) 1 amp NEB QIDR [facility] Last Admin: 02/22/17 05:22 Dose: 1 amp Aspirin (Asa -) 81 mg PO DAILY [facility] Last Admin: 02/22/17 10:32 Dose: 81 mg Atenolol (Tenormin -) 50 mg PO DAILY [facility] Last Admin: 02/22/17 10:32 Dose: 50 mg Atorvastatin Calcium (Lipitor -) 20 mg PO HS [facility] Last Admin: 02/21/17 21:35 Dose: 20 mg Budesonide/Formoterol Fumarate (Symbicort 80/4.5mcg -) 2 puff IH BID [facility] Last Admin: 02/22/17 10:25 Dose: 2 puff Chlorhexidine Gluconate (Hibiclens For Decolonization -) 1 applic TP HS [facility] Last Admin: 02/21/17 21:36 Dose: 1 applic Cholecalciferol (Vitamin D3 -) 2,000 unit PO DAILY [facility] Last Admin: 02/22/17 10:31 Dose: 2,000 unit Guaifenesin (Robitussin -) 10 ml PO Q6H PRN PRN Reason: COUGH Last Admin: 02/22/17 10:27 Dose: 10 ml Heparin Sodium (Porcine) (Heparin -) 5,000 unit SQ TID [facility] Last Admin: 02/21/17 06:29 Dose: Not Given Levofloxacin (Levaquin 750 Mg Premixed Ivpb -) 150 mls @ 150 mls/hr IVPB DAILY [facility] Last Admin: 02/22/17 10:32 Dose: 150 mls/hr Piperacillin Sod/Tazobactam Sod (Zosyn 4.5gm Ivpb (Pre-Docked)) 100 mls @ 200 mls/hr IVPB Q8H-IV [facility] PRN Reason: Protocol Last Admin: 02/22/17 09:43 Dose: 200 mls/hr Insulin Aspart (Novolog Vial Sliding Scale -) 1 vial SQ ACHS [facility] PRN Reason: Protocol Last Admin: 02/22/17 06:26 Dose: 2 units Losartan Potassium (Cozaar -) 25 mg PO DAILY [facility] Last Admin: 02/22/17 10:32 Dose: 25 mg Methylprednisolone Sodium Succinate (Solu-Medrol -) 80 mg IVPB Q6H-IV [facility] Last Admin: 02/22/17 09:10 Dose: 80 mg Multivitamins (Total B With C -) 1 each PO DAILY [facility] Last Admin: 02/22/17 10:32 Dose: 1 each Mupirocin (Bactroban Ointment (For Decolonization) -) 1 applic NS BID [facility] Stop: 02/26/17 21:59 Last Admin: 02/22/17 10:33 Dose: 1 applic Ondansetron HCl (Zofran Injection) 4 mg IVPB Q6H PRN PRN Reason: NAUSEA Pantoprazole Sodium (Protonix -) 40 mg PO DAILY [facility] Last Admin: 02/22/17 10:32 Dose: 40 mg Tamsulosin HCl (Flomax -) 0.4 mg PO HS [facility] Last Admin: 02/21/17 21:35 Dose: 0.4 mg - Objective Vital Signs: Vital Signs Temperature 97.6 F 02/22/17 06:00 Pulse Rate 70 02/22/17 10:00 Respiratory Rate 21 02/22/17 10:00 Blood Pressure 111/71 02/22/17 10:00 O2 Sat by Pulse Oximetry (%) 99 02/22/17 09:52 Constitutional: Yes: No Distress Eyes: Yes: Conjunctiva Clear Cardiovascular: Yes: Regular Rate and Rhythm, S1, S2 Respiratory: Yes: Other (+ crepitations at bases, bronchial BS R lower lung field) Gastrointestinal: Yes: Normal Bowel Sounds, Soft. No: Tenderness Edema: No Labs: CBC, BMP 02/22/17 05:05 02/22/17 06:00 INR, PTT INR 1.18 (0.82-1.09) H 02/22/17 05:05 Assessment/Plan Acute exacerbation, interstitial lung disease Probable superimposed pneumonia Fever/ leukocytosis Await c/s Continue empiric zosyn/levaquin Bronchodilators/ steroids
--- NOTE | 2017-02-22 11:44 | PN ---
Teaching Attending Note Name of Resident: Erlin Tsang ATTENDING PHYSICIAN STATEMENT I saw and evaluated the patient. I reviewed the resident's note and discussed the case with the resident. I agree with the resident's findings and plan as documented. SUBJECTIVE: Pt seen and examined in the ICU. Remains on BiPAP with 50% FiO2. States breathing slightly better. No fevers recorded. OBJECTIVE: Last Vital Signs Temp Pulse Resp BP Pulse Ox 97.6 F 70 21 111/71 99 02/22/17 06:00 02/22/17 10:00 02/22/17 10:00 02/22/17 10:00 02/22/17 09:52 Intake & Output 02/19/17 02/20/17 02/21/17 02/22/17 23:59 23:59 23:59 23:59 Intake Total 1325 300 300 170 Output Total 028 166 1257 Balance 475 -150 -1300 170 Weight 195 lb 200 lb 1 oz Gen: mildly tachypneic on BiPAP Heart: RRR Lung: bibasilar rales Abd: soft, nontender Ext: no edema CBC, BMP 02/22/17 05:05 02/22/17 06:00 Active Medications Acetaminophen (Tylenol -) 650 mg PO Q4H PRN PRN Reason: FEVER OR PAIN Albuterol Sulfate (Ventolin 0.083% Nebulizer Soln -) 1 amp NEB Q4H PRN PRN Reason: SHORT OF BREATH/WHEEZING Last Admin: 02/22/17 09:50 Dose: 1 amp Albuterol/Ipratropium (Duoneb -) 1 amp NEB QIDR [facility] Last Admin: 02/22/17 05:22 Dose: 1 amp Aspirin (Asa -) 81 mg PO DAILY [facility] Last Admin: 02/22/17 10:32 Dose: 81 mg Atenolol (Tenormin -) 50 mg PO DAILY [facility] Last Admin: 02/22/17 10:32 Dose: 50 mg Atorvastatin Calcium (Lipitor -) 20 mg PO [facility] Last Admin: 02/21/17 21:35 Dose: 20 mg Budesonide/Formoterol Fumarate (Symbicort 80/4.5mcg -) 2 puff IH BID [facility] Last Admin: 02/22/17 10:25 Dose: 2 puff Chlorhexidine Gluconate (Hibiclens For Decolonization -) 1 applic TP [facility] Last Admin: 02/21/17 21:36 Dose: 1 applic Cholecalciferol (Vitamin D3 -) 2,000 unit PO DAILY [facility] Last Admin: 02/22/17 10:31 Dose: 2,000 unit Guaifenesin (Robitussin -) 10 ml PO Q6H PRN PRN Reason: COUGH Last Admin: 02/22/17 10:27 Dose: 10 ml Heparin Sodium (Porcine) (Heparin -) 5,000 unit SQ TID [facility] Last Admin: 02/21/17 06:29 Dose: Not Given Levofloxacin (Levaquin 750 Mg Premixed Ivpb -) 150 mls @ 150 mls/hr IVPB DAILY [facility] Last Admin: 02/22/17 10:32 Dose: 150 mls/hr Piperacillin Sod/Tazobactam Sod (Zosyn 4.5gm Ivpb (Pre-Docked)) 100 mls @ 200 mls/hr IVPB Q8H-IV [facility] PRN Reason: Protocol Last Admin: 02/22/17 09:43 Dose: 200 mls/hr Insulin Aspart (Novolog Vial Sliding Scale -) 1 vial SQ ACHS [facility] PRN Reason: Protocol Last Admin: 02/22/17 06:26 Dose: 2 units Losartan Potassium (Cozaar -) 25 mg PO DAILY [facility] Last Admin: 02/22/17 10:32 Dose: 25 mg Methylprednisolone Sodium Succinate (Solu-Medrol -) 80 mg IVPB Q6H-IV [facility] Last Admin: 02/22/17 09:10 Dose: 80 mg Multivitamins (Total B With C -) 1 each PO DAILY [facility] Last Admin: 02/22/17 10:32 Dose: 1 each Mupirocin (Bactroban Ointment (For Decolonization) -) 1 applic NS BID [facility] Stop: 02/26/17 21:59 Last Admin: 02/22/17 10:33 Dose: 1 applic Ondansetron HCl (Zofran Injection) 4 mg IVPB Q6H PRN PRN Reason: NAUSEA Pantoprazole Sodium (Protonix -) 40 mg PO DAILY [facility] Last Admin: 02/22/17 10:32 Dose: 40 mg Tamsulosin HCl (Flomax -) 0.4 mg PO HS [facility] Last Admin: 02/21/17 21:35 Dose: 0.4 mg ASSESSMENT AND PLAN: Acute Hypoxic Respiratory Failure Suspect exacerbation of Interstitial Lung Disease r/o Superimposed Pneumonia Lactic Acidosis r/o Sepsis Acute Kidney Injury CAD HTN - continue medrol at same dose - inhaled bronchodilators - titrate Fio2 to keep Spo2 >90% - can attempt NRB - empiric antibiotics - f/u cultures - BiPAP to assist in work of breathing and hypoxia - monitor hemoptysis - monitor urine output, creatinine - had discussed with pt possibility of intubation if needed, stated that he would want intubation if temporary but would not want to be maintained on life support - DVT/GI prophylaxis - ICU monitoring for tenuous respiratory status
--- NOTE | 2017-02-22 11:48 | PN ---
Physical Exam: SUBJECTIVE: Patient seen and examined patient states he feels better. Patient desaturated in middle of night when removed from bipap Patient also states he spits some blood will try him on non rebreather. If tolerates will give him feed continue with sq heparin OBJECTIVE: Vital Signs Period Temp Pulse Resp BP Sys/Wolfe Pulse Ox Last 24 Hr 97.3 F-98.6 F 62-80 17-25 101-165/58-81 98-99 GENERAL: Awake, alert, and fully oriented, in no acute distress. on bipap HEAD: Normal with no signs of trauma. EARS, NOSE, THROAT: Ears normal, nares patent, oropharynx clear without exudates. dry mucus membrane NECK: Normal range of motion, supple without lymphadenopathy, LUNGS: Breath sounds equal, clear to auscultation bilaterally, rales present in b/l base HEART: s1s2 normal ABDOMEN: Soft, nontender, not distended, normoactive bowel sounds, no guarding, no rebound, no masses. MUSCULOSKELETAL: Normal range of motion at all joints. No bony deformities or tenderness. UPPER EXTREMITIES: 2+ pulses, warm, well-perfused. No cyanosis. No clubbing. LOWER EXTREMITIES: warm, well-perfused. No calf tenderness. No peripheral edema. NEUROLOGICAL: Cranial nerves II-XII intact. Normal speech. PSYCHIATRIC: Cooperative. Good eye contact. Appropriate mood and affect. SKIN: Warm, dry, Laboratory Results - last 24 hr 02/21/17 02/21/17 02/21/17 11:32 11:50 15:45 WBC RBC Hgb Hct MCV MCHC RDW Plt Count MPV Neutrophils % Lymphocytes % Monocytes % Eosinophils % Basophils % INR 1.16 H PTT (Actin FS) 26.7 L Sodium Potassium Chloride Carbon Dioxide Anion Gap BUN Creatinine Creat Clearance w eGFR POC Glucometer [id number] Random Glucose Lactic Acid 1.953 Calcium Phosphorus Magnesium Total Bilirubin AST ALT Alkaline Phosphatase Total Protein Albumin 02/21/17 02/21/17 02/22/17 15:50 21:55 05:05 WBC 12.0 H RBC 3.42 L Hgb 10.9 L Hct 32.4 L MCV 94.7 MCHC 33.6 RDW 13.8 Plt Count 232 MPV 9.4 Neutrophils % 90.2 H Lymphocytes % 4.0 L Monocytes % 5.8 Eosinophils % 0.0 Basophils % 0.0 INR PTT (Actin FS) Sodium Potassium Chloride Carbon Dioxide Anion Gap BUN Creatinine Creat Clearance w eGFR POC Glucometer [phone] Random Glucose Lactic Acid Calcium Phosphorus Magnesium Total Bilirubin AST ALT Alkaline Phosphatase Total Protein Albumin 02/22/17 02/22/17 02/22/17 05:05 05:05 06:00 WBC RBC Hgb Hct MCV MCHC RDW Plt Count MPV Neutrophils % Lymphocytes % Monocytes % Eosinophils % Basophils % INR 1.18 H PTT (Actin FS) 24.3 L Sodium 137 Potassium 4.3 Chloride 100 Carbon Dioxide 28 Anion Gap 9 BUN 24 H Creatinine 1.1 Creat Clearance w eGFR > 60 POC Glucometer Random Glucose 159 H Lactic Acid 0.996 Calcium 8.6 Phosphorus 3.4 Magnesium 2.3 D Total Bilirubin 1.3 H AST 22 ALT 29 Alkaline Phosphatase 46 Total Protein 5.5 L Albumin 2.6 L Active Medications Generic Name Dose Route Start Last Admin Trade Name Freq PRN Reason Stop Dose Admin Acetaminophen 650 mg 02/17/17 16:19 Tylenol - PO Q4H PRN FEVER OR PAIN Albuterol Sulfate 1 amp 02/17/17 16:24 02/22/17 09:50 Ventolin 0.083% Nebulizer Soln - NEB 1 amp Q4H PRN Administration SHORT OF BREATH/WHEEZING Albuterol/Ipratropium 1 amp 02/17/17 18:00 02/22/17 05:22 Duoneb - NEB 1 amp QIDR [facility] Administration Aspirin 81 mg 02/18/17 10:00 02/22/17 10:32 Asa - PO 81 mg DAILY [facility] Administration Atenolol 50 mg 02/18/17 10:00 02/22/17 10:32 Tenormin - PO 50 mg DAILY [facility] Administration Atorvastatin Calcium 20 mg 02/17/17 22:00 02/21/17 21:35 Lipitor - PO 20 mg HS [facility] Administration Budesonide/Formoterol Fumarate 2 puff 02/18/17 10:00 02/22/17 10:25 Symbicort 80/4.5mcg - IH 2 puff BID [facility] Administration Chlorhexidine Gluconate 1 applic 02/21/17 22:00 02/21/17 21:36 Hibiclens For Decolonization - TP 1 applic HS [facility] Administration Cholecalciferol 2,000 unit 02/18/17 10:00 02/22/17 10:31 Vitamin D3 - PO 2,000 unit DAILY [facility] Administration Guaifenesin 10 ml 02/20/17 08:43 02/22/17 10:27 Robitussin - PO 10 ml Q6H PRN Administration COUGH Heparin Sodium (Porcine) 5,000 unit 02/17/17 22:00 02/21/17 06:29 Heparin - SQ Not Given TID [facility] Levofloxacin 150 mls @ 150 mls/hr 02/19/17 12:15 02/22/17 10:32 Levaquin 750 Mg Premixed Ivpb - IVPB 150 mls/hr DAILY [facility] Administration Piperacillin Sod/Tazobactam Sod 100 mls @ 200 mls/hr 02/21/17 12:00 02/22/17 09 :43 Zosyn 4.5gm Ivpb (Pre-Docked) IVPB 200 mls/hr Q8H-IV [facility] Administration Protocol Insulin Aspart 1 vial 02/17/17 22:00 02/22/17 06:26 Novolog Vial Sliding Scale - SQ 2 units ACHS [facility] Administration Protocol Losartan Potassium 25 mg 02/19/17 10:00 02/22/17 10:32 Cozaar - PO 25 mg DAILY [facility] Administration Methylprednisolone Sodium Succinate 80 mg 02/21/17 15:00 02/22/17 09:10 Solu-Medrol - IVPB 80 mg Q6H-IV [facility] Administration Multivitamins 1 each 02/18/17 10:00 02/22/17 10:32 Total B With C - PO 1 each DAILY [facility] Administration Mupirocin 1 applic 02/21/17 22:00 02/22/17 10:33 Bactroban Ointment (For Decolonization) - NS 02/26/17 21:59 1 applic BID [facility] Administration Ondansetron HCl 4 mg 02/17/17 16:19 Zofran Injection IVPB Q6H PRN NAUSEA Pantoprazole Sodium 40 mg 02/22/17 10:00 02/22/17 10:32 Protonix - PO 40 mg DAILY [facility] Administration Tamsulosin HCl 0.4 mg 02/17/17 22:00 02/21/17 21:35 Flomax - PO 0.4 mg HS [facility] Administration Microbiology 02/21/17 08:00 Blood - Peripheral Venous Blood Culture - Preliminary NO GROWTH OBTAINED AFTER 24 HOURS, INCUBATION TO CONTINUE FOR 4 DAYS. 02/21/17 07:50 Blood - Peripheral Venous Blood Culture - Preliminary NO GROWTH OBTAINED AFTER 24 HOURS, INCUBATION TO CONTINUE FOR 4 DAYS. 02/17/17 14:15 Blood - Peripheral Venous Blood Culture - Preliminary NO GROWTH OBTAINED AFTER 96 HOURS, INCUBATION TO CONTINUE FOR 1 DAYS. 02/17/17 14:15 Blood - Peripheral Venous Blood Culture - Preliminary NO GROWTH OBTAINED AFTER 96 HOURS, INCUBATION TO CONTINUE FOR 1 DAYS. 02/19/17 20:15 Sputum - Expectorated Gram Stain - Final 02/19/17 20:15 Sputum - Expectorated Sputum Culture - Preliminary NORMAL RESPIRATORY ALVARADO ABG Results ABG pH 7.46 (7.35-7.45) H 02/21/17 09:30 ABG pCO2 at Pt Temp 31.7 mmHg (35-45) L 02/21/17 09:30 ABG pO2 at Pt Temp 74.0 mmHg (70-100) D 02/21/17 09:30 ABG HCO3 22.3 meq/L (22-26) 02/21/17 09:30 ABG O2 Sat (Measured) 95.1 % (90-98.9) 02/21/17 09:30 ABG O2 Content 15.8 % vol (15-22) 02/21/17 09:30 ABG Base Excess -0.4 meq/l (-2-2) 02/21/17 09:30 ASSESSMENT/PLAN: 1acute hypoxic respiratory failure could be due to excerbration of interstial lung ds start on non rebreather, If doesn't tolerate put him back on bipap keep spo2 > 90 continue with duoneb and symbicort solumedrol 80mh q6h avoid IV fluid monitor vitals monitor intake/ output antibiotics as per ID : on emperic zosyn and levaquin ( could have interstial lung ds with superimposed pneumonia) blood culture no growth monitor for haemoptysis 2. h/o of CAD -Continue Lipitor, ASA 3 HTN -Continue Atenolol, Losartan -monitor vitals 3. ELIDA - creatine 1.1 - avoid nephrotoxic drugs - monitor cr 4. NIDDM diabetic diet BGM insulin sliding scale 5. F/E/N -hyponatremia resolved -orally allowed 6. Ppx: on scd. gi protonix 40mg po daily 7dvt pro continue with sq heparin dispo: admit in icu Visit type - Emergency Visit Emergency Visit: Yes ED Registration Date: 02/17/17 Care time: The patient presented to the Emergency Department on the above date and was hospitalized for further evaluation of their emergent condition. - New Patient This patient is new to me today: No - Critical Care Critical Care patient: Yes Total Critical Care Time (in minutes): 45 Critical Care Statement: The care of this patient involved high complexity decision making to prevent further life threatening deterioration of the patient 's condition and/or to evalute & treat vital organ system(s) failure or risk of failure.
--- NOTE | 2017-02-22 14:53 | PN ---
Physical Exam: SUBJECTIVE: Patient seen and examined No fever or chills No n/v awake, alert and oriented Pt still coughing with brown sputum with tingled of blood but less than yesterday no chest pain, palpitation OBJECTIVE: Vital Signs Period Temp Pulse Resp BP Sys/Wolfe Pulse Ox Last 24 Hr 97.3 F-97.8 F 62-98 17-25 101-153/58-81 95-99 GENERAL: The patient is awake, alert, and fully oriented, in moderate acute distress. HEAD: Normal with no signs of trauma. NECK: Trachea midline, full range of motion, supple. LUNGS: diminished in upper lobes and ronchi in b/l bases, occasional use of accessory muscle use. HEART: Regular rate and rhythm, S1, S2 without murmur, rub or gallop. ABDOMEN: Soft, obese, nontender, nondistended, normoactive bowel sounds, no guarding, no rebound, no hepatosplenomegaly, no masses. EXTREMITIES: 2+ pulses, warm, well-perfused, no edema. NEUROLOGICAL: Normal speech, gait not observed. PSYCH: Normal mood, normal affect. SKIN: Warm, dry, normal turgor, no rashes or lesions noted Laboratory Results - last 24 hr 02/21/17 02/21/17 02/21/17 15:45 15:50 21:55 WBC RBC Hgb Hct MCV MCHC RDW Plt Count MPV Neutrophils % Lymphocytes % Monocytes % Eosinophils % Basophils % INR PTT (Actin FS) Sodium Potassium Chloride Carbon Dioxide Anion Gap BUN Creatinine Creat Clearance w eGFR POC Glucometer [phone] Random Glucose Lactic Acid 1.953 Calcium Phosphorus Magnesium Total Bilirubin AST ALT Alkaline Phosphatase Total Protein Albumin 02/22/17 02/22/17 02/22/17 05:05 05:05 05:05 WBC 12.0 H RBC 3.42 L Hgb 10.9 L Hct 32.4 L MCV 94.7 MCHC 33.6 RDW 13.8 Plt Count 232 MPV 9.4 Neutrophils % 90.2 H Lymphocytes % 4.0 L Monocytes % 5.8 Eosinophils % 0.0 Basophils % 0.0 INR 1.18 H PTT (Actin FS) 24.3 L Sodium Potassium Chloride Carbon Dioxide Anion Gap BUN Creatinine Creat Clearance w eGFR POC Glucometer Random Glucose Lactic Acid 0.996 Calcium Phosphorus Magnesium Total Bilirubin AST ALT Alkaline Phosphatase Total Protein Albumin 02/22/17 06:00 WBC RBC Hgb Hct MCV MCHC RDW Plt Count MPV Neutrophils % Lymphocytes % Monocytes % Eosinophils % Basophils % INR PTT (Actin FS) Sodium 137 Potassium 4.3 Chloride 100 Carbon Dioxide 28 Anion Gap 9 BUN 24 H Creatinine 1.1 Creat Clearance w eGFR > 60 POC Glucometer Random Glucose 159 H Lactic Acid Calcium 8.6 Phosphorus 3.4 Magnesium 2.3 D Total Bilirubin 1.3 H AST 22 ALT 29 Alkaline Phosphatase 46 Total Protein 5.5 L Albumin 2.6 L Active Medications Generic Name Dose Route Start Last Admin Trade Name Freq PRN Reason Stop Dose Admin Acetaminophen 650 mg 02/17/17 16:19 Tylenol - PO Q4H PRN FEVER OR PAIN Albuterol Sulfate 1 amp 02/17/17 16:24 02/22/17 09:50 Ventolin 0.083% Nebulizer Soln - NEB 1 amp Q4H PRN Administration SHORT OF BREATH/WHEEZING Albuterol/Ipratropium 1 amp 02/17/17 18:00 02/22/17 11:10 Duoneb - NEB 1 amp QIDR LOYDA Administration Aspirin 81 mg 02/18/17 10:00 02/22/17 10:32 Asa - PO 81 mg DAILY LOYDA Administration Atenolol 50 mg 02/18/17 10:00 02/22/17 10:32 Tenormin - PO 50 mg DAILY LOYDA Administration Atorvastatin Calcium 20 mg 02/17/17 22:00 02/21/17 21:35 Lipitor - PO 20 mg HS LOYDA Administration Budesonide/Formoterol Fumarate 2 puff 02/18/17 10:00 02/22/17 10:25 Symbicort 80/4.5mcg - IH 2 puff BID LOYDA Administration Chlorhexidine Gluconate 1 applic 02/21/17 22:00 02/21/17 21:36 Hibiclens For Decolonization - TP 1 applic HS LOYDA Administration Cholecalciferol 2,000 unit 02/18/17 10:00 02/22/17 10:31 Vitamin D3 - PO 2,000 unit DAILY LOYDA Administration Guaifenesin 10 ml 02/20/17 08:43 02/22/17 10:27 Robitussin - PO 10 ml Q6H PRN Administration COUGH Heparin Sodium (Porcine) 5,000 unit 02/22/17 22:00 Heparin - SQ BID LOYDA Levofloxacin 150 mls @ 150 mls/hr 02/19/17 12:15 02/22/17 10:32 Levaquin 750 Mg Premixed Ivpb - IVPB 150 mls/hr DAILY LOYDA Administration Piperacillin Sod/Tazobactam Sod 100 mls @ 200 mls/hr 02/21/17 12:00 02/22/17 09 :43 Zosyn 4.5gm Ivpb (Pre-Docked) IVPB 200 mls/hr Q8H-IV LOYDA Administration Protocol Insulin Aspart 1 vial 02/17/17 22:00 02/22/17 06:26 Novolog Vial Sliding Scale - SQ 2 units ACHS LOYDA Administration Protocol Losartan Potassium 25 mg 02/19/17 10:00 02/22/17 10:32 Cozaar - PO 25 mg DAILY LOYDA Administration Methylprednisolone Sodium Succinate 80 mg 02/21/17 15:00 02/22/17 09:10 Solu-Medrol - IVPB 80 mg Q6H-IV LOYDA Administration Multivitamins 1 each 02/18/17 10:00 02/22/17 10:32 Total B With C - PO 1 each DAILY LOYDA Administration Mupirocin 1 applic 02/21/17 22:00 02/22/17 10:33 Bactroban Ointment (For Decolonization) - NS 02/26/17 21:59 1 applic BID LOYDA Administration Ondansetron HCl 4 mg 02/17/17 16:19 Zofran Injection IVPB Q6H PRN NAUSEA Pantoprazole Sodium 40 mg 02/22/17 10:00 02/22/17 10:32 Protonix - PO 40 mg DAILY LOYDA Administration Tamsulosin HCl 0.4 mg 02/17/17 22:00 02/21/17 21:35 Flomax - PO 0.4 mg HS LOYDA Administration CBC, BMP 02/22/17 05:05 02/22/17 06:00 Microbiology 02/21/17 19:00 Urine For Antigen Detection Legionella Antigen - Final 02/21/17 19:00 Urine For Antigen Detection Streptococcus pneumoniae Antigen (M - Final 02/19/17 20:15 Sputum - Expectorated Gram Stain - Final 02/19/17 20:15 Sputum - Expectorated Sputum Culture - Final NORMAL RESPIRATORY ALVARADO 02/17/17 14:20 Nasopharyngeal Swab Influenza Types A,B Antigen (JESSICA) - Final 02/17/17 14:20 Nasopharyngeal Swab - Final 02/17/17 14:15 Blood - Peripheral Venous Blood Culture - Final NO GROWTH AFTER 5 DAYS INCUBATION 02/17/17 14:15 Blood - Peripheral Venous Blood Culture - Final NO GROWTH AFTER 5 DAYS INCUBATION 02/21/17 08:00 Blood - Peripheral Venous Blood Culture - Preliminary NO GROWTH OBTAINED AFTER 24 HOURS, INCUBATION TO CONTINUE FOR 4 DAYS. 02/21/17 07:50 Blood - Peripheral Venous Blood Culture - Preliminary NO GROWTH OBTAINED AFTER 24 HOURS, INCUBATION TO CONTINUE FOR 4 DAYS. 02/17/17 14:20 Nasopharyngeal Swab Respiratory Virus Panel - Preliminary ASSESSMENT/PLAN: 76 year old male with pmh of CAD with stent x1, HTN, HPLD, DM, Prostate CA s/p radiation, Interstitial lung disease who was admitted at [facility] for sob, cough, Dyspnea on exertion for 3-4 weeks, was transferred to [facility] ICU after desaturating, having worsening resp status requiring BIPAP. Acute hypoxic respiratory failure likely due to ILD flare r/o PNA induced sepsis Pt has productive cough with brown blood tinged sputum, improved leukocytosis, Continue solumedrol 80mg IV q6h Symbicort inh bid Duoneb qid Albuterol PRN Was on BIpap, will do trial of non rebreather mask keep O2 sat >90% Sputum culture lactic acid trended down to 1.9 blood culture negative, will contineu to follow ID is on case continue levaquin and Zosyn CAD with stent On ASA On lipitor HTN Continue atenolol and cozaar Diabetes BGM AC SH Novolog sliding scale ELIDA (improving) Cr was 1.6, now 1.1 CMP in am FEN Fluid: none electrolytes: Nutrition: diabetic diet DVT: heparin 5000U sq TID Disposition: keep in ICU until respiratory status improves Visit type - Emergency Visit Emergency Visit: Yes ED Registration Date: 02/17/17 Care time: The patient presented to the Emergency Department on the above date and was hospitalized for further evaluation of their emergent condition. - New Patient This patient is new to me today: Yes - Critical Care Critical Care patient: Yes Total Critical Care Time (in minutes): 40 Critical Care Statement: The care of this patient involved high complexity decision making to prevent further life threatening deterioration of the patient 's condition and/or to evalute & treat vital organ system(s) failure or risk of failure. - Discharge Referral Referred to [facility] Med P.[facility].: No
--- NOTE | 2017-02-22 18:43 | PN ---
Teaching Attending Note Name of Resident: Kyle Waterman ATTENDING PHYSICIAN STATEMENT I saw and evaluated the patient. I reviewed the resident's note and discussed the case with the resident. I agree with the resident's findings and plan as documented. SUBJECTIVE:states he is breathing well on non-rebreather. states at home he had no difficulty performing his own ADL's until the week prior to admission. states he was a heavy smoker but quit "some time ago". has exposure to asbestos when he was in the [employer] in his early s. denies CP, fever, chills, N/V/C/D OBJECTIVE: Last Vital Signs Temp Pulse Resp BP Pulse Ox 98.3 F 72 15 145/79 100 02/22/17 18:00 02/22/17 18:00 02/22/17 18:00 02/22/17 18:00 02/22/17 16:01 General mildly anxious CV S1 s2 RRR no murmur/rub/gallop Lungs coarse breath sounds diffusely, no wheezing Abdomen soft NT/ND obese Extremities no pedal edema ASSESSMENT AND PLAN: 76yo M with PMH CAD s/p stent, HTN, dyslipidemia, DM, prostate ca s/p RTx presented to the ER and was admitted for further evaluation of their emergent condition 1. Acute hypoxic respiratory failure- likely due to ILD however can not r/o PNA. on zosyn/levaquin day 4. tolerating non-rebreather for several hours now. will place on bipap overnight and trial tomorrow on non-rebreather. cont current steroid dosing 80mg Q6H. anxiety likely due to steroids. will monitor. 2. normocytic anemia- no signs of bleeding. check iron studies. no indication for txn at this time 3. Layne- likely due to sepsis. now resolved. avoid nephrotoxic medications 4. Hypomagnesemia- resolved 5. CAD s/p stent- no signs of ACS. on asa 6. DM- cont iss. hold oral agents 7. DVT ppx- hep sq The care of this patient involved high complexity decision making to prevent further life threatening deterioration of the patient's condition and/or to evalute & treat vital organ system(s) failure or risk of failure. 40 minutes critical care time
[2017-02-22] MEDS: TAMSULOSIN HCL 0.4 MG CAP.ER.24H (FP) PO SCH (21:41)
[2017-02-22] MEDS: HEPARIN NA (PORCINE) 5,000 UNITS/ML 1ML VIAL SQ SCH (21:41)
[2017-02-22] MEDS: ATORVASTATIN CA 20 MG TABLET (FP) PO SCH (21:41)
[2017-02-22] MEDS: CHLORHEXIDINE GLUCONATE 4% CLEANSER FOR DECOLONIZATION TP SCH (21:43)
[2017-02-23] MEDS: PIPERACILLIN/TAZOB 4.5 GM 100 ML IVPB SCH (01:40)
[2017-02-23] MEDS: methylPREDNISolone NA SUCC 40 MG/1 ML VIAL IVPB SCH ×4 (02:06→21:43)
[2017-02-23] MEDS: ALBUTEROL SO4 2.5/IPRATROPIUM 0.5 INH SOL 3 ML VIAL.NEB. NEB SCH ×4 (05:58→18:19)
[2017-02-23 06:09] LABS: MCH 32.3 pg (25.7-33.7); MCHC 34.1 g/dl (32.0-35.9); MEAN CELL VOLUME 94.5 fl (80-96); MEAN PLT VOLUME 9.5 fl (7.5-11.1); NEUTROPHILS 91.3 % (42.8-82.8); PLATELET COUNT 206 K/MM3 (134-434); RDW 13.8 % (11.9-15.9); WHITE BLOOD COUNT 14.7 K/mm3 (4.0-10.0)
[2017-02-23] MEDS: INSULIN SLIDING SCALE (NOVOLOG) 1 VIAL SQ SCH ×4 (06:17→21:47)
[2017-02-23 06:47] LABS: CALCIUM 8.4 mg/dL (8.5-10.1); CREATININE 1.1 mg/dL (0.7-1.3)
[2017-02-23 06:56] LABS: FERRITIN 1375.278 ng/ml (16.4-293.9)
--- NOTE | 2017-02-23 06:58 | PN ---
Progress Note, Physician Chief Complaint: ID Levofloxacin day 4 Zosyn added yesterday Subjective improvement - Current Medication List Current Medications: Active Medications Acetaminophen (Tylenol -) 650 mg PO Q4H PRN PRN Reason: FEVER OR PAIN Albuterol Sulfate (Ventolin 0.083% Nebulizer Soln -) 1 amp NEB Q4H PRN PRN Reason: SHORT OF BREATH/WHEEZING Last Admin: 02/22/17 09:50 Dose: 1 amp Albuterol/Ipratropium (Duoneb -) 1 amp NEB QIDR [facility] Last Admin: 02/23/17 05:58 Dose: 1 amp Aspirin (Asa -) 81 mg PO DAILY [facility] Last Admin: 02/22/17 10:32 Dose: 81 mg Atenolol (Tenormin -) 50 mg PO DAILY [facility] Last Admin: 02/22/17 10:32 Dose: 50 mg Atorvastatin Calcium (Lipitor -) 20 mg PO HS [facility] Last Admin: 02/22/17 21:41 Dose: 20 mg Budesonide/Formoterol Fumarate (Symbicort 80/4.5mcg -) 2 puff IH BID [facility] Last Admin: 02/22/17 21:44 Dose: 2 puff Chlorhexidine Gluconate (Hibiclens For Decolonization -) 1 applic TP HS [facility] Last Admin: 02/22/17 21:43 Dose: 1 applic Cholecalciferol (Vitamin D3 -) 2,000 unit PO DAILY [facility] Last Admin: 02/22/17 10:31 Dose: 2,000 unit Guaifenesin (Robitussin -) 10 ml PO Q6H PRN PRN Reason: COUGH Last Admin: 02/22/17 10:27 Dose: 10 ml Heparin Sodium (Porcine) (Heparin -) 5,000 unit SQ BID [facility] Last Admin: 02/22/17 21:41 Dose: 5,000 unit Levofloxacin (Levaquin 750 Mg Premixed Ivpb -) 150 mls @ 150 mls/hr IVPB DAILY [facility] Last Admin: 02/22/17 10:32 Dose: 150 mls/hr Piperacillin Sod/Tazobactam Sod (Zosyn 4.5gm Ivpb (Pre-Docked)) 100 mls @ 200 mls/hr IVPB Q8H-IV LOYDA PRN Reason: Protocol Last Admin: 02/23/17 01:40 Dose: 200 mls/hr Insulin Aspart (Novolog Vial Sliding Scale -) 1 vial SQ ACHS LOYDA PRN Reason: Protocol Last Admin: 02/23/17 06:17 Dose: 4 units Losartan Potassium (Cozaar -) 25 mg PO DAILY [facility] Last Admin: 02/22/17 10:32 Dose: 25 mg Methylprednisolone Sodium Succinate (Solu-Medrol -) 80 mg IVPB Q6H-IV [facility] Last Admin: 02/23/17 02:06 Dose: 80 mg Multivitamins (Total B With C -) 1 each PO DAILY [facility] Last Admin: 02/22/17 10:32 Dose: 1 each Mupirocin (Bactroban Ointment (For Decolonization) -) 1 applic NS BID [facility] Stop: 02/26/17 21:59 Last Admin: 02/22/17 21:42 Dose: 1 applic Ondansetron HCl (Zofran Injection) 4 mg IVPB Q6H PRN PRN Reason: NAUSEA Pantoprazole Sodium (Protonix -) 40 mg PO DAILY [facility] Last Admin: 02/22/17 10:32 Dose: 40 mg Tamsulosin HCl (Flomax -) 0.4 mg PO HS [facility] Last Admin: 02/22/17 21:41 Dose: 0.4 mg - Objective Vital Signs: Vital Signs Temperature 98.2 F 02/23/17 01:49 Pulse Rate 65 02/23/17 06:00 Respiratory Rate 16 02/23/17 06:00 Blood Pressure 128/60 02/23/17 06:00 O2 Sat by Pulse Oximetry (%) 99 02/23/17 01:38 Constitutional: Yes: Mild Distress HENT: Yes: WNL, Atraumatic Neck: Yes: WNL, Supple Cardiovascular: Yes: Regular Rate and Rhythm, S1, S2. No: Murmur Respiratory: Yes: WNL, Regular, CTA Bilaterally. No: Rales, Rhonchi, Wheezes Gastrointestinal: Yes: WNL, Normal Bowel Sounds, Soft. No: Tenderness, Tenderness, Rebound Extremities: No: Cold, Cool, Cyanosis Edema: No Labs: CBC, BMP 02/23/17 05:20 INR, PTT INR 1.18 (0.82-1.09) H 02/22/17 05:05 Problem List - Problems (1) Interstitial lung disease Code(s): J84.9 - INTERSTITIAL PULMONARY DISEASE, UNSPECIFIED (2) Pneumonia Code(s): J18.9 - PNEUMONIA, UNSPECIFIED ORGANISM Assessment/Plan Microbiology 02/21/17 19:00 Urine For Antigen Detection Legionella Antigen - Final 02/21/17 19:00 Urine For Antigen Detection Streptococcus pneumoniae Antigen (M - Final 02/19/17 20:15 Sputum - Expectorated Gram Stain - Final 02/19/17 20:15 Sputum - Expectorated Sputum Culture - Final NORMAL RESPIRATORY ALVARADO 02/21/17 08:00 Blood - Peripheral Venous Blood Culture - Preliminary NO GROWTH OBTAINED AFTER 24 HOURS, INCUBATION TO CONTINUE FOR 4 DAYS. 02/21/17 07:50 Blood - Peripheral Venous Blood Culture - Preliminary NO GROWTH OBTAINED AFTER 24 HOURS, INCUBATION TO CONTINUE FOR 4 DAYS. Laboratory Tests 02/22/17 02/23/17 06:00 05:20 WBC 14.7 H Hgb 10.9 L Hct 32.0 L Plt Count 206 BUN 24 H Creatinine 1.1 Creat Clearance w eGFR > 60 Assessment Interstitial lung disease Treatment for suspected superimposed PNA unspecified etiology Elevated lactic acid trended down Acute respiratory failure Plan Would continue Levofloxacin alone for now and add Zosyn only if the sputum positive for GNB Obtain ESR and CRP as loose markers for infection ( no procalcitonin) He is definately better then when he was admitted though still hypoxic Cruzito DUFF
[2017-02-23] MEDS ORDERED: PT OWN MED DRAWER 7, Y5N ONE ×3 (07:09→21:56)
[2017-02-23] MEDS: LOSARTAN POTASSIUM 25 MG TABLET PO SCH (10:26)
[2017-02-23] MEDS: HEPARIN NA (PORCINE) 5,000 UNITS/ML 1ML VIAL SQ SCH ×2 (10:26→21:44)
[2017-02-23] MEDS: VITAMIN B COMPLEX W/C COMBO TABLET (FP) PO SCH (10:26)
[2017-02-23] MEDS: CHOLECALCIFEROL (VITAMIN D3) 1,000 UNIT TABLET (FP) PO SCH (10:26)
[2017-02-23] MEDS: ATENOLOL 50 MG TABLET (FP) PO SCH (10:27)
[2017-02-23] MEDS: PANTOPRAZOLE 40 MG TABLET (FP) PO SCH (10:27)
[2017-02-23] MEDS: LEVOFLOXACIN 750 MG IVPB 150 ML IVPB SCH (10:27)
[2017-02-23] MEDS: ASPIRIN 81 MG CHEWABLE TABLETS PO SCH (10:28)
[2017-02-23 11:16] LABS: C-REACTIVE PROTEIN 6.4 MG/DL (0.00-0.3)
--- NOTE | 2017-02-23 11:19 | PN ---
Physical Exam: SUBJECTIVE: Patient seen and examined Pt said he feel better today less cough, still productive with blood tinged sputum less episode of hypoxia Pt was able to stay off the BIPAP overnight Pt still have some episodes of desaturation but less often than yesterday no fever or chills OBJECTIVE: Vital Signs Period Temp Pulse Resp BP Sys/Wolfe Pulse Ox Last 24 Hr 98.2 F-98.4 F 63-98 15-28 127-145/60-90 92-100 GENERAL: The patient is awake, alert, and fully oriented, in mild distress. HEAD: Normal with no signs of trauma. NECK: Trachea midline, full range of motion, supple. LUNGS: diminished in upper lobes and ronchi in b/l bases, occasional episode of tachypnea, No use of accessory muscle use. HEART: Regular rate and rhythm, S1, S2 without murmur, rub or gallop. ABDOMEN: Soft, obese, nontender, nondistended, normoactive bowel sounds, no guarding, no rebound, no hepatosplenomegaly, no masses. EXTREMITIES: 2+ pulses, warm, well-perfused, no edema. NEUROLOGICAL: Normal speech, gait not observed. PSYCH: Normal mood, normal affect. SKIN: Warm, dry, normal turgor, no rashes or lesions noted Laboratory Results - last 24 hr 02/22/17 02/22/17 02/22/17 05:49 12:17 17:15 WBC RBC Hgb Hct MCV MCHC RDW Plt Count MPV Neutrophils % Lymphocytes % Monocytes % Eosinophils % Basophils % Sodium Potassium Chloride Carbon Dioxide Anion Gap BUN Creatinine POC Glucometer 178.80044 209.34825 159.50890 Random Glucose Calcium Ferritin C-Reactive Protein 02/22/17 02/23/17 02/23/17 21:37 05:20 05:20 WBC 14.7 H RBC 3.39 L Hgb 10.9 L Hct 32.0 L MCV 94.5 MCHC 34.1 RDW 13.8 Plt Count 206 MPV 9.5 Neutrophils % 91.3 H Lymphocytes % 2.6 L D Monocytes % 6.1 Eosinophils % 0.0 Basophils % 0.0 Sodium 137 Potassium 3.6 Chloride 100 Carbon Dioxide 25 Anion Gap 12 BUN 28 H Creatinine 1.1 POC Glucometer [phone] Random Glucose 220 H D Calcium 8.4 L Ferritin C-Reactive Protein 02/23/17 02/23/17 05:20 07:10 WBC RBC Hgb Hct MCV MCHC RDW Plt Count MPV Neutrophils % Lymphocytes % Monocytes % Eosinophils % Basophils % Sodium Potassium Chloride Carbon Dioxide Anion Gap BUN Creatinine POC Glucometer Random Glucose Calcium Ferritin 1375.278 H C-Reactive Protein Cancelled Active Medications Generic Name Dose Route Start Last Admin Trade Name Freq PRN Reason Stop Dose Admin Acetaminophen 650 mg 02/17/17 16:19 Tylenol - PO Q4H PRN FEVER OR PAIN Albuterol Sulfate 1 amp 02/17/17 16:24 02/22/17 09:50 Ventolin 0.083% Nebulizer Soln - NEB 1 amp Q4H PRN Administration SHORT OF BREATH/WHEEZING Albuterol/Ipratropium 1 amp 02/17/17 18:00 02/23/17 05:58 Duoneb - NEB 1 amp QIDR LOYDA Administration Aspirin 81 mg 02/18/17 10:00 02/23/17 10:28 Asa - PO 81 mg DAILY LOYDA Administration Atenolol 50 mg 02/18/17 10:00 02/23/17 10:27 Tenormin - PO 50 mg DAILY LOYDA Administration Atorvastatin Calcium 20 mg 02/17/17 22:00 02/22/17 21:41 Lipitor - PO 20 mg HS LOYDA Administration Budesonide/Formoterol Fumarate 2 puff 02/18/17 10:00 02/22/17 21:44 Symbicort 80/4.5mcg - IH 2 puff BID LOYDA Administration Chlorhexidine Gluconate 1 applic 02/21/17 22:00 02/22/17 21:43 Hibiclens For Decolonization - TP 1 applic HS LOYDA Administration Cholecalciferol 2,000 unit 02/18/17 10:00 02/23/17 10:26 Vitamin D3 - PO 2,000 unit DAILY LOYDA Administration Guaifenesin 10 ml 02/20/17 08:43 02/22/17 10:27 Robitussin - PO 10 ml Q6H PRN Administration COUGH Heparin Sodium (Porcine) 5,000 unit 02/22/17 22:00 02/23/17 10:26 Heparin - SQ 5,000 unit BID LOYDA Administration Levofloxacin 150 mls @ 100 mls/hr 02/19/17 12:15 02/23/17 10:27 Levaquin 750 Mg Premixed Ivpb - IVPB 100 mls/hr DAILY LOYDA Administration Insulin Aspart 1 vial 02/17/17 22:00 02/23/17 06:17 Novolog Vial Sliding Scale - SQ 4 units ACHS LOYDA Administration Protocol Losartan Potassium 25 mg 02/19/17 10:00 02/23/17 10:26 Cozaar - PO 25 mg DAILY LOYDA Administration Methylprednisolone Sodium Succinate 80 mg 02/21/17 15:00 02/23/17 10:27 Solu-Medrol - IVPB 80 mg Q6H-IV LOYDA Administration Multivitamins 1 each 02/18/17 10:00 02/23/17 10:26 Total B With C - PO 1 each DAILY LOYDA Administration Mupirocin 1 applic 02/21/17 22:00 02/22/17 21:42 Bactroban Ointment (For Decolonization) - NS 02/26/17 21:59 1 applic BID LOYDA Administration Ondansetron HCl 4 mg 02/17/17 16:19 Zofran Injection IVPB Q6H PRN NAUSEA Pantoprazole Sodium 40 mg 02/22/17 10:00 02/23/17 10:27 Protonix - PO 40 mg DAILY LOYDA Administration Tamsulosin HCl 0.4 mg 02/17/17 22:00 02/22/17 21:41 Flomax - PO 0.4 mg HS LOYDA Administration CBC, BMP 02/23/17 05:20 02/23/17 05:20 Microbiology 02/21/17 19:00 Urine For Antigen Detection Legionella Antigen - Final 02/21/17 19:00 Urine For Antigen Detection Streptococcus pneumoniae Antigen (M - Final 02/21/17 19:00 Urine - Urine Clean Catch Urine Culture - Final NO GROWTH OBTAINED 02/19/17 20:15 Sputum - Expectorated Gram Stain - Final 02/19/17 20:15 Sputum - Expectorated Sputum Culture - Final NORMAL RESPIRATORY ERAN 02/21/17 08:00 Blood - Peripheral Venous Blood Culture - Preliminary NO GROWTH OBTAINED AFTER 48 HOURS, INCUBATION TO CONTINUE FOR 3 DAYS. 02/21/17 07:50 Blood - Peripheral Venous Blood Culture - Preliminary NO GROWTH OBTAINED AFTER 48 HOURS, INCUBATION TO CONTINUE FOR 3 DAYS. Laboratory Tests 02/22/17 02/23/17 06:00 05:20 Calcium 8.4 L Total Bilirubin 1.3 H Albumin 2.6 L ASSESSMENT/PLAN: 76 year old male with pmh of CAD with stent x1, HTN, HPLD, DM, Prostate CA s/p radiation, Interstitial lung disease who was admitted at [facility] for sob, cough, Dyspnea on exertion for 3-4 weeks, was transferred to [facility] ICU after desaturating, having worsening resp status requiring BIPAP. Acute hypoxic respiratory failure likely due to ILD flare r/o PNA induced sepsis On admission Pt had productive cough with brown blood tinged sputum, leukocytosis, The cough and sputum production has improved Worsening leukocytosis may be related to high dose of steroid Continue solumedrol 80mg IV q6h Symbicort inh bid Duoneb qid Albuterol PRN BIpap PRN non rebreather mask consider trial of Venti mask 50% keep O2 sat >90% incentive spirometer Sputum culture showed normal eran lactic acid trended down to 1.9 blood culture negative, will continue to follow ID is on case Zosyn has been stopped by ID, it may be resume if pt has gram negative bacilli continue levaquin Normocytic Anemia Iron studies pending CAD with stent On ASA On lipitor HTN Continue atenolol and cozaar Diabetes BGM AC SH Novolog sliding scale ELIDA (stable) Cr was 1.6, now 1.1 CMP in am FEN Fluid: none electrolytes: no abnormalities Nutrition: diabetic diet Prophylaxis DVT: heparin 5000U sq TID Deconditionning: OOB to chair, Physical therapy Disposition: keep in ICU until respiratory status improves Visit type - Emergency Visit Emergency Visit: Yes ED Registration Date: 02/17/17 Care time: The patient presented to the Emergency Department on the above date and was hospitalized for further evaluation of their emergent condition. - New Patient This patient is new to me today: Yes Date on this admission: 02/23/17 - Critical Care Critical Care patient: Yes Total Critical Care Time (in minutes): 40 Critical Care Statement: The care of this patient involved high complexity decision making to prevent further life threatening deterioration of the patient 's condition and/or to evalute & treat vital organ system(s) failure or risk of failure. - Discharge Referral Referred to [id number] Med [facility] No
[2017-02-23] MEDS: BUDESONIDE/FORMETEROL FUMARATE 80/4.5 mcg INHALER IH SCH ×2 (12:00→21:48)
--- NOTE | 2017-02-23 13:51 | PN ---
Physical Exam: SUBJECTIVE: Patient seen and examined patient feels better maintained saturation on non rebreather over night cough has decreased no haemoptysis since morning patient desaturates when he cough or try to move around OBJECTIVE: Vital Signs Period Temp Pulse Resp BP Sys/Wolfe Pulse Ox Last 24 Hr 98.2 F-98.3 F 63-90 15-28 127-145/60-90 92-100 GENERAL: Awake, alert, and fully oriented, in no acute distress. on bipap HEAD: Normal with no signs of trauma. EARS, NOSE, THROAT: Ears normal, nares patent, oropharynx clear without exudates. dry mucus membrane NECK: Normal range of motion, supple without lymphadenopathy, LUNGS: Breath sounds equal, clear to auscultation bilaterally, rales present in b/l base HEART: s1s2 normal ABDOMEN: Soft, nontender, not distended, normoactive bowel sounds, no guarding, no rebound, no masses. MUSCULOSKELETAL: Normal range of motion at all joints. No bony deformities or tenderness. UPPER EXTREMITIES: 2+ pulses, warm, well-perfused. No cyanosis. No clubbing. LOWER EXTREMITIES: warm, well-perfused. No calf tenderness. No peripheral edema. NEUROLOGICAL: Cranial nerves II-XII intact. Normal speech. PSYCHIATRIC: Cooperative. Good eye contact. Appropriate mood and affect. SKIN: Warm, dry, Laboratory Results - last 24 hr 02/22/17 02/22/17 02/22/17 05:49 12:17 17:15 WBC RBC Hgb Hct MCV MCHC RDW Plt Count MPV Neutrophils % Lymphocytes % Monocytes % Eosinophils % Basophils % Sodium Potassium Chloride Carbon Dioxide Anion Gap BUN Creatinine POC Glucometer [phone] [phone] Random Glucose Calcium Ferritin C-Reactive Protein 02/22/17 02/23/17 02/23/17 21:37 05:20 05:20 WBC 14.7 H RBC 3.39 L Hgb 10.9 L Hct 32.0 L MCV 94.5 MCHC 34.1 RDW 13.8 Plt Count 206 MPV 9.5 Neutrophils % 91.3 H Lymphocytes % 2.6 L D Monocytes % 6.1 Eosinophils % 0.0 Basophils % 0.0 Sodium 137 Potassium 3.6 Chloride 100 Carbon Dioxide 25 Anion Gap 12 BUN 28 H Creatinine 1.1 POC Glucometer [phone] Random Glucose 220 H D Calcium 8.4 L Ferritin C-Reactive Protein 02/23/17 02/23/17 05:20 07:10 WBC RBC Hgb Hct MCV MCHC RDW Plt Count MPV Neutrophils % Lymphocytes % Monocytes % Eosinophils % Basophils % Sodium Potassium Chloride Carbon Dioxide Anion Gap BUN Creatinine POC Glucometer Random Glucose Calcium Ferritin 1375.278 H C-Reactive Protein 6.4 H Cancelled Active Medications Generic Name Dose Route Start Last Admin Trade Name Freq PRN Reason Stop Dose Admin Acetaminophen 650 mg 02/17/17 16:19 Tylenol - PO Q4H PRN FEVER OR PAIN Albuterol Sulfate 1 amp 02/17/17 16:24 02/22/17 09:50 Ventolin 0.083% Nebulizer Soln - NEB 1 amp Q4H PRN Administration SHORT OF BREATH/WHEEZING Albuterol/Ipratropium 1 amp 02/17/17 18:00 02/23/17 11:05 Duoneb - NEB 1 amp QIDR LOYDA Administration Aspirin 81 mg 02/18/17 10:00 02/23/17 10:28 Asa - PO 81 mg DAILY LOYDA Administration Atenolol 50 mg 02/18/17 10:00 02/23/17 10:27 Tenormin - PO 50 mg DAILY LOYDA Administration Atorvastatin Calcium 20 mg 02/17/17 22:00 02/22/17 21:41 Lipitor - PO 20 mg HS LOYDA Administration Budesonide/Formoterol Fumarate 2 puff 02/18/17 10:00 02/22/17 21:44 Symbicort 80/4.5mcg - IH 2 puff BID LOYDA Administration Chlorhexidine Gluconate 1 applic 02/21/17 22:00 02/22/17 21:43 Hibiclens For Decolonization - TP 1 applic HS LOYDA Administration Cholecalciferol 2,000 unit 02/18/17 10:00 02/23/17 10:26 Vitamin D3 - PO 2,000 unit DAILY LOYDA Administration Guaifenesin 10 ml 02/20/17 08:43 02/22/17 10:27 Robitussin - PO 10 ml Q6H PRN Administration COUGH Heparin Sodium (Porcine) 5,000 unit 02/22/17 22:00 02/23/17 10:26 Heparin - SQ 5,000 unit BID LOYDA Administration Levofloxacin 150 mls @ 100 mls/hr 02/19/17 12:15 02/23/17 10:27 Levaquin 750 Mg Premixed Ivpb - IVPB 100 mls/hr DAILY LOYDA Administration Insulin Aspart 1 vial 02/17/17 22:00 02/23/17 06:17 Novolog Vial Sliding Scale - SQ 4 units ACHS LOYDA Administration Protocol Losartan Potassium 25 mg 02/19/17 10:00 02/23/17 10:26 Cozaar - PO 25 mg DAILY LOYDA Administration Methylprednisolone Sodium Succinate 80 mg 02/21/17 15:00 02/23/17 10:27 Solu-Medrol - IVPB 80 mg Q6H-IV LOYDA Administration Multivitamins 1 each 02/18/17 10:00 02/23/17 10:26 Total B With C - PO 1 each DAILY LOYDA Administration Mupirocin 1 applic 02/21/17 22:00 02/22/17 21:42 Bactroban Ointment (For Decolonization) - NS 02/26/17 21:59 1 applic BID LOYDA Administration Ondansetron HCl 4 mg 02/17/17 16:19 Zofran Injection IVPB Q6H PRN NAUSEA Pantoprazole Sodium 40 mg 02/22/17 10:00 02/23/17 10:27 Protonix - PO 40 mg DAILY LOYDA Administration Polyethylene Glycol 17 gm 02/23/17 22:00 Miralax (For Daily Use) - PO BID LOYDA Tamsulosin HCl 0.4 mg 02/17/17 22:00 02/22/17 21:41 Flomax - PO 0.4 mg HS LOYDA Administration Microbiology 02/21/17 19:00 Urine - Urine Clean Catch Urine Culture - Final NO GROWTH OBTAINED 02/21/17 08:00 Blood - Peripheral Venous Blood Culture - Preliminary NO GROWTH OBTAINED AFTER 48 HOURS, INCUBATION TO CONTINUE FOR 3 DAYS. 02/21/17 07:50 Blood - Peripheral Venous Blood Culture - Preliminary NO GROWTH OBTAINED AFTER 48 HOURS, INCUBATION TO CONTINUE FOR 3 DAYS. 02/17/17 14:15 Blood - Peripheral Venous Blood Culture - Final NO GROWTH AFTER 5 DAYS INCUBATION 02/17/17 14:15 Blood - Peripheral Venous Blood Culture - Final NO GROWTH AFTER 5 DAYS INCUBATION 02/21/17 19:00 Urine For Antigen Detection Legionella Antigen - Final 02/21/17 19:00 Urine For Antigen Detection Streptococcus pneumoniae Antigen (M - Final 02/19/17 20:15 Sputum - Expectorated Gram Stain - Final 02/19/17 20:15 Sputum - Expectorated Sputum Culture - Final NORMAL RESPIRATORY ALVARADO 02/17/17 14:20 Nasopharyngeal Swab Respiratory Virus Panel - Preliminary 02/17/17 14:20 Nasopharyngeal Swab Influenza Types A,B Antigen (JESSICA) - Final 02/17/17 14:20 Nasopharyngeal Swab - Final CXR reviewed ASSESSMENT/PLAN: 1acute hypoxic respiratory failure could be due to excerbration of interstial lung ds on non rebreather, tried ventury mask patient desaturate BIPAP PRN keep spo2 > 90 continue with duoneb and symbicort solumedrol 80mg iv q6h avoid IV fluid monitor vitals monitor intake/ output antibiotics as per ID : on levofloxacin day 4, follow esr and crp blood culture no growth monitor for haemoptysis 2. h/o of CAD with stent -Continue Lipitor, ASA 3 HTN -Continue Atenolol, Losartan -monitor vitals 3. ELIDA - creatnine 1.1 - avoid nephrotoxic drugs - monitor cr 4. NIDDM diabetic diet BGM insulin sliding scale 5. F/E/N - avoid IV fluid -hyponatremia resolved -orally allowed 6. Ppx: on scd. gi protonix 40mg po daily 7 dvt pro continue with sq heparin dispo: admit in icu Visit type - Emergency Visit Emergency Visit: Yes ED Registration Date: 02/17/17 Care time: The patient presented to the Emergency Department on the above date and was hospitalized for further evaluation of their emergent condition. - New Patient This patient is new to me today: No - Critical Care Critical Care patient: Yes Total Critical Care Time (in minutes): 45 Critical Care Statement: The care of this patient involved high complexity decision making to prevent further life threatening deterioration of the patient 's condition and/or to evalute & treat vital organ system(s) failure or risk of failure.
[2017-02-23] MEDS: MUPIROCIN 2% TOPICAL OINTMENT FOR DECOLONIZATION NS SCH ×2 (14:56→21:44)
--- NOTE | 2017-02-23 15:09 | PN ---
Teaching Attending Note Name of Resident: Kyle Waterman ATTENDING PHYSICIAN STATEMENT I saw and evaluated the patient. I reviewed the resident's note and discussed the case with the resident. I agree with the resident's findings and plan as documented. SUBJECTIVE:states breathing has improved. cough no longer productive and has improved. was on non-rebreather throughout the night without difficulty. denies CP, fever, chills, N/V/C/D OBJECTIVE: Last Vital Signs Temp Pulse Resp BP Pulse Ox 98.2 F 90 26 H 138/74 98 02/23/17 10:00 02/23/17 12:24 02/23/17 12:24 02/23/17 12:24 02/23/17 13:55 General NAD CV S1 s2 RRR no murmur/rub/gallop Lungs coarse breath sounds diffusely, no wheezing Abdomen soft NT/ND obese Extremities no pedal edema ASSESSMENT AND PLAN: 76yo M with PMH CAD s/p stent, HTN, dyslipidemia, DM, prostate ca s/p RTx presented to the ER and was admitted for further evaluation of their emergent condition 1. Acute hypoxic respiratory failure- likely due to ILD however can not r/o PNA. clinically improved. zosyn d/c this AM. on levaquin day 5. tolerating non- rebreather will attempt to titrate down supplemental oxygen for SpO2 >88%. keep steroid at current dosing and plan to titrate slowly tomorrow as tolerated. inhalers and nebs prn. bipap prn for hypoxia. 2. normocytic anemia- no signs of bleeding. Hgb stable. iron studies pending. no indication for txn at this time 3. Layne- likely due to sepsis. now resolved. avoid nephrotoxic medications 4. Hypomagnesemia- resolved 5. CAD s/p stent- no signs of ACS. on asa 6. DM- cont iss. hold oral agents 7. DVT ppx- hep sq 8. will monitor overnight in MICU due to tenuous breathing status. The care of this patient involved high complexity decision making to prevent further life threatening deterioration of the patient's condition and/or to evalute & treat vital organ system(s) failure or risk of failure. 35 minutes critical care time
--- NOTE | 2017-02-23 15:39 | PN ---
Teaching Attending Note Name of Resident: Erlin Tsang ATTENDING PHYSICIAN STATEMENT I saw and evaluated the patient. I reviewed the resident's note and discussed the case with the resident. I agree with the resident's findings and plan as documented. SUBJECTIVE: Pt seen and examined in the ICU. Remains on NRB, desaturates with movement or tapering of FiO2. Reports shortness of breath and chest tightness. No chest pain. No hemoptysis. OBJECTIVE: Last Vital Signs Temp Pulse Resp BP Pulse Ox 98.6 F 74 23 130/71 98 02/23/17 14:00 02/23/17 14:00 02/23/17 14:00 02/23/17 14:00 02/23/17 13:55 Intake & Output 02/20/17 02/21/17 02/22/17 02/23/17 23:59 23:59 23:59 23:59 Intake Total 300 300 880 900 Output Total 450 1600 1050 650 Balance -150 -1300 -170 250 Weight 200 lb 1 oz 199 lb 12.8 oz Gen: tachypneic with speaking Heart: RRR Lung: bibasilar rales, rhonchi Abd: soft, nontender Ext: no edema CBC, BMP 02/23/17 05:20 02/23/17 05:20 ABG Results ABG pH 7.46 (7.35-7.45) H 02/21/17 09:30 ABG pCO2 at Pt Temp 31.7 mmHg (35-45) L 02/21/17 09:30 ABG pO2 at Pt Temp 74.0 mmHg (70-100) D 02/21/17 09:30 ABG HCO3 22.3 meq/L (22-26) 02/21/17 09:30 ABG O2 Sat (Measured) 95.1 % (90-98.9) 02/21/17 09:30 ABG O2 Content 15.8 % vol (15-22) 02/21/17 09:30 ABG Base Excess -0.4 meq/l (-2-2) 02/21/17 09:30 CXR: bilateral infiltrates unchanged Active Medications Acetaminophen (Tylenol -) 650 mg PO Q4H PRN PRN Reason: FEVER OR PAIN Albuterol Sulfate (Ventolin 0.083% Nebulizer Soln -) 1 amp NEB Q4H PRN PRN Reason: SHORT OF BREATH/WHEEZING Last Admin: 02/22/17 09:50 Dose: 1 amp Albuterol/Ipratropium (Duoneb -) 1 amp NEB QIDR [facility] Last Admin: 02/23/17 11:05 Dose: 1 amp Aspirin (Asa -) 81 mg PO DAILY [facility] Last Admin: 02/23/17 10:28 Dose: 81 mg Atenolol (Tenormin -) 50 mg PO DAILY [facility] Last Admin: 02/23/17 10:27 Dose: 50 mg Atorvastatin Calcium (Lipitor -) 20 mg PO HS [facility] Last Admin: 02/22/17 21:41 Dose: 20 mg Budesonide/Formoterol Fumarate (Symbicort 80/4.5mcg -) 2 puff IH BID [facility] Last Admin: 02/23/17 12:00 Dose: 2 puff Chlorhexidine Gluconate (Hibiclens For Decolonization -) 1 applic TP [facility] Last Admin: 02/22/17 21:43 Dose: 1 applic Cholecalciferol (Vitamin D3 -) 2,000 unit PO DAILY [facility] Last Admin: 02/23/17 10:26 Dose: 2,000 unit Guaifenesin (Robitussin -) 10 ml PO Q6H PRN PRN Reason: COUGH Last Admin: 02/22/17 10:27 Dose: 10 ml Heparin Sodium (Porcine) (Heparin -) 5,000 unit SQ BID [facility] Last Admin: 02/23/17 10:26 Dose: 5,000 unit Levofloxacin (Levaquin 750 Mg Premixed Ivpb -) 150 mls @ 100 mls/hr IVPB DAILY [facility] Last Admin: 02/23/17 10:27 Dose: 100 mls/hr Insulin Aspart (Novolog Vial Sliding Scale -) 1 vial SQ ACHS [facility] PRN Reason: Protocol Last Admin: 02/23/17 11:30 Dose: 2 units Losartan Potassium (Cozaar -) 25 mg PO DAILY [facility] Last Admin: 02/23/17 10:26 Dose: 25 mg Methylprednisolone Sodium Succinate (Solu-Medrol -) 80 mg IVPB Q6H-IV [facility] Last Admin: 02/23/17 10:27 Dose: 80 mg Multivitamins (Total B With C -) 1 each PO DAILY [facility] Last Admin: 02/23/17 10:26 Dose: 1 each Mupirocin (Bactroban Ointment (For Decolonization) -) 1 applic NS BID [facility] Stop: 02/26/17 21:59 Last Admin: 02/23/17 14:56 Dose: 1 applic Ondansetron HCl (Zofran Injection) 4 mg IVPB Q6H PRN PRN Reason: NAUSEA Pantoprazole Sodium (Protonix -) 40 mg PO DAILY [facility] Last Admin: 02/23/17 10:27 Dose: 40 mg Polyethylene Glycol (Miralax (For Daily Use) -) 17 gm PO BID [facility] Tamsulosin HCl (Flomax -) 0.4 mg PO HS [facility] Last Admin: 02/22/17 21:41 Dose: 0.4 mg ASSESSMENT AND PLAN: Acute Hypoxic Respiratory Failure Suspect exacerbation of Interstitial Lung Disease ARDS r/o Superimposed Pneumonia Lactic Acidosis r/o Sepsis Acute Kidney Injury CAD HTN - continue medrol at same dose - inhaled bronchodilators - titrate Fio2 to keep Spo2 >90% - empiric antibiotics - f/u cultures - BiPAP to assist in work of breathing and hypoxia - monitor for hemoptysis - monitor urine output, creatinine - DVT/GI prophylaxis - ICU monitoring for tenuous respiratory status - will need to discuss goals of care if oxygen requirements do not improve critical care time spent reviewing chart, evaluating patient and formulating plan 38 min
[2017-02-23] MEDS: CHLORHEXIDINE GLUCONATE 4% CLEANSER FOR DECOLONIZATION TP SCH (21:44)
[2017-02-23] MEDS: ATORVASTATIN CA 20 MG TABLET (FP) PO SCH (21:44)
[2017-02-23] MEDS: TAMSULOSIN HCL 0.4 MG CAP.ER.24H (FP) PO SCH (21:44)
[2017-02-23] MEDS: POLYETHYLENE GLYCOL 3350 119 GM BTL PO SCH (21:47)
[2017-02-23] MEDS ORDERED: ALBUTEROL SO4 0.083% IH SOL 2.5 MG/3 ML VIAL.NEB. NEB ONE (23:03)
[2017-02-24] MEDS: methylPREDNISolone NA SUCC 40 MG/1 ML VIAL IVPB SCH ×4 (03:07→21:56)
[2017-02-24] MEDS: ALBUTEROL SO4 2.5/IPRATROPIUM 0.5 INH SOL 3 ML VIAL.NEB. NEB SCH ×3 (05:45→11:32)
[2017-02-24 06:17] LABS: BASOPHIL 0.1 % (0-2.0); MCH 31.8 pg (25.7-33.7); MCHC 33.8 g/dl (32.0-35.9); MEAN CELL VOLUME 94.2 fl (80-96); MEAN PLT VOLUME 9.6 fl (7.5-11.1); NEUTROPHILS 93.1 % (42.8-82.8); PLATELET COUNT 227 K/MM3 (134-434); RDW 14.1 % (11.9-15.9)
[2017-02-24] MEDS: INSULIN SLIDING SCALE (NOVOLOG) 1 VIAL SQ SCH ×4 (06:36→21:58)
[2017-02-24 06:52] LABS: CALCIUM 8.2 mg/dL (8.5-10.1); CREATININE 0.9 mg/dL (0.7-1.3); PHOSPHOROUS 2.4 mg/dL (2.5-4.9)
[2017-02-24] MEDS ORDERED: ACETYLCYSTEINE 20% 200MG/ML 4 ML VIAL *FOR ORAL / INH USE ONLY NEB ONE (07:08)
[2017-02-24] MEDS ORDERED: ACETYLCYSTEINE 20% 200MG/ML 30 ML VIAL *FOR ORAL / INH USE ONLY NEB ONE (07:08)
[2017-02-24 07:50] LABS: ARTERIAL BLD GAS O2 SATURATION 97.9 % (90-98.9); ARTERIAL BLOOD GAS BASE EXCESS 0.3 meq/l (-2-2); ARTERIAL BLOOD GAS HCO3 23.4 meq/L (22-26); ARTERIAL BLOOD GAS PO2 92.3 mmHg (70-100); ARTERIAL BLOOD GAS pH 7.45 (7.35-7.45)
[2017-02-24 07:54] LABS: ALLENS TEST POSITIVE; ART PUNCT SITE RIGHT RADIAL; LPM/O2% 70%; PT. ON O2? YES
[2017-02-24 07:55] LABS: TYPE OF O2 PAR REBREATHER
[2017-02-24 08:07] LABS: SERUM IRON 45 ug/dL (38-169); TOTAL IRON BINDING CAPACITY 154 ug/dL (250-450); UIBC 109 ug/dL (111-343)
--- NOTE | 2017-02-24 08:34 | PN ---
Teaching Attending Note Name of Resident: Kyle Waterman ATTENDING PHYSICIAN STATEMENT I saw and evaluated the patient. I reviewed the resident's note and discussed the case with the resident. I agree with the resident's findings and plan as documented. SUBJECTIVE:continues to have productive cough but has improved. denies CP, SOB, fever, chills, N/V/C/D OBJECTIVE: Last Vital Signs Temp Pulse Resp BP Pulse Ox 98.3 F 91 H 17 143/73 99 02/24/17 02:00 02/24/17 06:00 02/24/17 06:00 02/24/17 06:00 02/24/17 04:08 General NAD CV S1 s2 RRR no murmur/rub/gallop Lungs coarse breath sounds diffusely, no wheezing Abdomen soft NT/ND obese Extremities no pedal edema ASSESSMENT AND PLAN: 76yo M with PMH CAD s/p stent, HTN, dyslipidemia, DM, prostate ca s/p RTx presented to the ER and was admitted for further evaluation of their emergent condition 1. Acute hypoxic respiratory failure- likely due to ILD however can not r/o PNA. de-saturated to 70% overnight and placed on bipap for several hours. now improved saturating 91% on non-rebreather. on levaquin day 5. steroid taper per pulm. will titrate oxygen down as tolerated to spO2 >88%. chest PT BID, inhalers and nebs. OOB to chair as tolerated 2. normocytic anemia-anemia of chronic disease. no signs of bleeding. Hgb stable. no indication for txn at this time 3. Layne- likely due to sepsis. now resolved. avoid nephrotoxic medications 4. Hypomagnesemia- resolved 5. CAD s/p stent- no signs of ACS. on asa 6. DM- cont iss. hold oral agents 7. DVT ppx- hep sq The care of this patient involved high complexity decision making to prevent further life threatening deterioration of the patient's condition and/or to evalute & treat vital organ system(s) failure or risk of failure. 40 minutes critical care time
[2017-02-24] MEDS ORDERED: NAPH,MB-DB/K PH,MBDB POWDER PACKET PO ONE (09:15)
[2017-02-24] MEDS ORDERED: ACETYLCYSTEINE 20% 200MG/ML 4 ML VIAL *FOR ORAL / INH USE ONLY ONE (09:30)
[2017-02-24] MEDS: ALBUTEROL SO4 0.083% IH SOL 2.5 MG/3 ML VIAL.NEB. NEB PRN (09:35)
[2017-02-24] MEDS: VITAMIN B COMPLEX W/C COMBO TABLET (FP) PO SCH (09:53)
[2017-02-24] MEDS: LOSARTAN POTASSIUM 25 MG TABLET PO SCH (09:54)
[2017-02-24] MEDS: LEVOFLOXACIN 750 MG IVPB 150 ML IVPB SCH (09:54)
[2017-02-24] MEDS: PANTOPRAZOLE 40 MG TABLET (FP) PO SCH (09:54)
[2017-02-24] MEDS: HEPARIN NA (PORCINE) 5,000 UNITS/ML 1ML VIAL SQ SCH ×2 (09:55→21:56)
[2017-02-24] MEDS: MUPIROCIN 2% TOPICAL OINTMENT FOR DECOLONIZATION NS SCH ×2 (09:56→21:57)
[2017-02-24] MEDS: ASPIRIN 81 MG CHEWABLE TABLETS PO SCH (09:57)
[2017-02-24] MEDS: POLYETHYLENE GLYCOL 3350 119 GM BTL PO SCH ×2 (10:02→21:57)
[2017-02-24] MEDS: ATENOLOL 50 MG TABLET (FP) PO SCH (10:03)
[2017-02-24] MEDS: CHOLECALCIFEROL (VITAMIN D3) 1,000 UNIT TABLET (FP) PO SCH (10:03)
--- NOTE | 2017-02-24 12:34 | PN ---
Teaching Attending Note Name of Resident: Erlin Tsang ATTENDING PHYSICIAN STATEMENT I saw and evaluated the patient. I reviewed the resident's note and discussed the case with the resident. I agree with the resident's findings and plan as documented. SUBJECTIVE: Pt seen and examined in the ICU. Now on partial rebreather saturating high 90s. States breathing is slightly improved compared to yesterday. No further fevers. OBJECTIVE: Last Vital Signs Temp Pulse Resp BP Pulse Ox 98.5 F 99 H 27 H 123/61 96 02/24/17 10:00 02/24/17 10:20 02/24/17 10:00 02/24/17 10:00 02/24/17 12:01 Intake & Output 02/21/17 02/22/17 02/23/17 02/24/17 23:59 23:59 23:59 23:59 Intake Total 243 750 3760 Output Total 1600 1050 650 Balance -1300 -170 450 Weight 200 lb 1 oz 199 lb 12.8 oz 200 lb 2 oz Gen: tachypneic with speaking Heart: RRR Lung: bibasilar rales Abd: soft, nontender Ext: no edema CBC, BMP 02/24/17 05:05 02/24/17 05:05 CXR: bilateral infiltrates unchanged Active Medications Acetaminophen (Tylenol -) 650 mg PO Q4H PRN PRN Reason: FEVER OR PAIN Albuterol Sulfate (Ventolin 0.083% Nebulizer Soln -) 1 amp NEB Q4H PRN PRN Reason: SHORT OF BREATH/WHEEZING Last Admin: 02/24/17 09:35 Dose: 1 amp Albuterol/Ipratropium (Duoneb -) 1 amp NEB QIDR [facility] Last Admin: 02/24/17 11:32 Dose: 1 amp Aspirin (Asa -) 81 mg PO DAILY [facility] Last Admin: 02/24/17 09:57 Dose: 81 mg Atenolol (Tenormin -) 50 mg PO DAILY [facility] Last Admin: 02/24/17 10:03 Dose: 50 mg Atorvastatin Calcium (Lipitor -) 20 mg PO HS [facility] Last Admin: 02/23/17 21:44 Dose: 20 mg Budesonide/Formoterol Fumarate (Symbicort 80/4.5mcg -) 2 puff IH BID [facility] Last Admin: 02/23/17 21:48 Dose: 2 puff Chlorhexidine Gluconate (Hibiclens For Decolonization -) 1 applic TP HS [facility] Last Admin: 02/23/17 21:44 Dose: 1 applic Cholecalciferol (Vitamin D3 -) 2,000 unit PO DAILY [facility] Last Admin: 02/24/17 10:03 Dose: 2,000 unit Guaifenesin (Robitussin -) 10 ml PO Q6H PRN PRN Reason: COUGH Last Admin: 02/22/17 10:27 Dose: 10 ml Heparin Sodium (Porcine) (Heparin -) 5,000 unit SQ BID [facility] Last Admin: 02/24/17 09:55 Dose: 5,000 unit Levofloxacin (Levaquin 750 Mg Premixed Ivpb -) 150 mls @ 100 mls/hr IVPB DAILY [facility] Last Admin: 02/24/17 09:54 Dose: 100 mls/hr Insulin Aspart (Novolog Vial Sliding Scale -) 1 vial SQ ACHS [facility] PRN Reason: Protocol Last Admin: 02/24/17 06:36 Dose: 2 units Losartan Potassium (Cozaar -) 25 mg PO DAILY [facility] Last Admin: 02/24/17 09:54 Dose: 25 mg Methylprednisolone Sodium Succinate (Solu-Medrol -) 80 mg IVPB Q6H-IV [facility] Last Admin: 02/24/17 09:53 Dose: 80 mg Multivitamins (Total B With C -) 1 each PO DAILY [facility] Last Admin: 02/24/17 09:53 Dose: 1 each Mupirocin (Bactroban Ointment (For Decolonization) -) 1 applic NS BID [facility] Stop: 02/26/17 21:59 Last Admin: 02/24/17 09:56 Dose: 1 applic Ondansetron HCl (Zofran Injection) 4 mg IVPB Q6H PRN PRN Reason: NAUSEA Pantoprazole Sodium (Protonix -) 40 mg PO DAILY [facility] Last Admin: 02/24/17 09:54 Dose: 40 mg Polyethylene Glycol (Miralax (For Daily Use) -) 17 gm PO BID [facility] Last Admin: 02/24/17 10:02 Dose: 17 grams Tamsulosin HCl (Flomax -) 0.4 mg PO HS [facility] Last Admin: 02/23/17 21:44 Dose: 0.4 mg ASSESSMENT AND PLAN: Acute Hypoxic Respiratory Failure Suspect exacerbation of Interstitial Lung Disease ARDS r/o Superimposed Pneumonia Lactic Acidosis r/o Sepsis Acute Kidney Injury CAD HTN - continue medrol at same dose - inhaled bronchodilators - titrate Fio2 to keep Spo2 >90% - empiric antibiotics - f/u cultures - BiPAP to assist in work of breathing and hypoxia - monitor for hemoptysis - monitor urine output, creatinine - DVT/GI prophylaxis - continue ICU monitoring for tenuous respiratory status - will need to discuss goals of care if oxygen requirements do not improve critical care time spent reviewing chart, evaluating patient and formulating plan 38 min
--- NOTE | 2017-02-24 13:12 | PN ---
Physical Exam: SUBJECTIVE: Patient seen and examined patient desaturate in night and was started on bipap for 3 hours. Now on norrebreather spo2 95 patient have difficulty in coughing out sputum, felt better after mucomist. will continue him on standing mucomist and albuterol haemoptysis decreased, OBJECTIVE: Vital Signs Period Temp Pulse Resp BP Sys/Wolfe Pulse Ox Last 24 Hr 98.3 F-98.6 F 73-105 16-27 123-161/57-88 96-100 GENERAL: Awake, alert, and fully oriented, in no acute distress. on bipap HEAD: Normal with no signs of trauma. EARS, NOSE, THROAT: Ears normal, nares patent, oropharynx clear without exudates. NECK: Normal range of motion, LUNGS: Breath sounds equal, clear to auscultation bilaterally, rales present in b/l base HEART: s1s2 normal ABDOMEN: Soft, nontender, not distended, normoactive bowel sounds, no guarding, no rebound, no masses. MUSCULOSKELETAL: Normal range of motion at all joints. No bony deformities or tenderness. UPPER EXTREMITIES: 2+ pulses, warm, well-perfused. No cyanosis. No clubbing. LOWER EXTREMITIES: warm, well-perfused. No calf tenderness. No peripheral edema. NEUROLOGICAL: Cranial nerves II-XII intact. Normal speech. PSYCHIATRIC: Cooperative. Good eye contact. Appropriate mood and affect. SKIN: Warm, dry, Laboratory Results - last 24 hr 02/23/17 02/23/17 02/23/17 05:20 06:14 12:33 WBC RBC Hgb Hct MCV MCHC RDW Plt Count MPV Neutrophils % Lymphocytes % Monocytes % Eosinophils % Basophils % ESR Puncture Site ABG pH ABG pCO2 at Pt Temp ABG pO2 at Pt Temp ABG HCO3 ABG O2 Sat (Measured) ABG O2 Content ABG Base Excess Jimmy Test O2 Delivery Device Oxygen Flow Rate PEEP Sodium Potassium Chloride Carbon Dioxide Anion Gap BUN Creatinine POC Glucometer 238.16409 191.75462 Random Glucose Calcium Phosphorus Magnesium Iron 45 TIBC 154 L Iron Saturation 29 02/23/17 02/23/17 02/24/17 17:06 21:30 05:05 WBC RBC Hgb Hct MCV MCHC RDW Plt Count MPV Neutrophils % Lymphocytes % Monocytes % Eosinophils % Basophils % ESR 16 Puncture Site ABG pH ABG pCO2 at Pt Temp ABG pO2 at Pt Temp ABG HCO3 ABG O2 Sat (Measured) ABG O2 Content ABG Base Excess Jimmy Test O2 Delivery Device Oxygen Flow Rate PEEP Sodium Potassium Chloride Carbon Dioxide Anion Gap BUN Creatinine POC Glucometer 159.25439 232.90986 Random Glucose Calcium Phosphorus Magnesium Iron TIBC Iron Saturation 02/24/17 02/24/17 02/24/17 05:05 05:05 06:15 WBC 16.0 H RBC 3.43 L Hgb 10.9 L Hct 32.3 L MCV 94.2 MCHC 33.8 RDW 14.1 Plt Count 227 MPV 9.6 Neutrophils % 93.1 H Lymphocytes % 0.9 L Monocytes % 5.9 Eosinophils % 0.0 Basophils % 0.1 D ESR Puncture Site ABG pH ABG pCO2 at Pt Temp ABG pO2 at Pt Temp ABG HCO3 ABG O2 Sat (Measured) ABG O2 Content ABG Base Excess Jimmy Test O2 Delivery Device Oxygen Flow Rate PEEP Sodium 136 Potassium 4.1 Chloride 100 Carbon Dioxide 27 Anion Gap 9 BUN 32 H Creatinine 0.9 POC Glucometer 209.59415 Random Glucose 166 H D Calcium 8.2 L Phosphorus 2.4 L D Magnesium 2.0 Iron TIBC Iron Saturation 02/24/17 02/24/17 07:15 11:10 WBC RBC Hgb Hct MCV MCHC RDW Plt Count MPV Neutrophils % Lymphocytes % Monocytes % Eosinophils % Basophils % ESR Puncture Site Right radial ABG pH 7.45 ABG pCO2 at Pt Temp 34.0 L ABG pO2 at Pt Temp 92.3 D ABG HCO3 23.4 ABG O2 Sat (Measured) 97.9 ABG O2 Content 15.0 ABG Base Excess 0.3 Jimmy Test Positive O2 Delivery Device Par rebreather Oxygen Flow Rate 70% PEEP 0.0 Sodium Potassium Chloride Carbon Dioxide Anion Gap BUN Creatinine POC Glucometer 189.31782 Random Glucose Calcium Phosphorus Magnesium Iron TIBC Iron Saturation Active Medications Generic Name Dose Route Start Last Admin Trade Name Freq PRN Reason Stop Dose Admin Acetaminophen 650 mg 02/17/17 16:19 Tylenol - PO Q4H PRN FEVER OR PAIN Acetylcysteine 800 mg 02/24/17 14:00 Mucomyst 20 Oral / Inh Use Only* NEB QID LOYDA Albuterol Sulfate 1 amp 02/17/17 16:24 02/24/17 09:35 Ventolin 0.083% Nebulizer Soln - NEB 1 amp Q4H PRN Administration SHORT OF BREATH/WHEEZING Albuterol Sulfate 1 amp 02/24/17 18:00 Ventolin 0.083% Nebulizer Soln - NEB QIDR LOYDA Albuterol/Ipratropium 1 amp 02/17/17 18:00 02/24/17 11:32 Duoneb - NEB 1 amp QIDR LOYDA Administration Aspirin 81 mg 02/18/17 10:00 02/24/17 09:57 Asa - PO 81 mg DAILY LOYDA Administration Atenolol 50 mg 02/18/17 10:00 02/24/17 10:03 Tenormin - PO 50 mg DAILY LOYDA Administration Atorvastatin Calcium 20 mg 02/17/17 22:00 02/23/17 21:44 Lipitor - PO 20 mg HS LOYDA Administration Budesonide/Formoterol Fumarate 2 puff 02/18/17 10:00 02/23/17 21:48 Symbicort 80/4.5mcg - IH 2 puff BID LOYDA Administration Chlorhexidine Gluconate 1 applic 02/21/17 22:00 02/23/17 21:44 Hibiclens For Decolonization - TP 1 applic HS LOYDA Administration Cholecalciferol 2,000 unit 02/18/17 10:00 02/24/17 10:03 Vitamin D3 - PO 2,000 unit DAILY LOYDA Administration Guaifenesin 10 ml 02/20/17 08:43 02/22/17 10:27 Robitussin - PO 10 ml Q6H PRN Administration COUGH Heparin Sodium (Porcine) 5,000 unit 02/22/17 22:00 02/24/17 09:55 Heparin - SQ 5,000 unit BID LOYDA Administration Levofloxacin 150 mls @ 100 mls/hr 02/19/17 12:15 02/24/17 09:54 Levaquin 750 Mg Premixed Ivpb - IVPB 100 mls/hr DAILY LOYDA Administration Insulin Aspart 1 vial 02/17/17 22:00 02/24/17 06:36 Novolog Vial Sliding Scale - SQ 2 units ACHS LOYDA Administration Protocol Losartan Potassium 25 mg 02/19/17 10:00 02/24/17 09:54 Cozaar - PO 25 mg DAILY LOYDA Administration Methylprednisolone Sodium Succinate 80 mg 02/21/17 15:00 02/24/17 09:53 Solu-Medrol - IVPB 80 mg Q6H-IV LOYDA Administration Multivitamins 1 each 02/18/17 10:00 02/24/17 09:53 Total B With C - PO 1 each DAILY LOYDA Administration Mupirocin 1 applic 02/21/17 22:00 02/24/17 09:56 Bactroban Ointment (For Decolonization) - NS 02/26/17 21:59 1 applic BID LOYDA Administration Ondansetron HCl 4 mg 02/17/17 16:19 Zofran Injection IVPB Q6H PRN NAUSEA Pantoprazole Sodium 40 mg 02/22/17 10:00 02/24/17 09:54 Protonix - PO 40 mg DAILY LOYDA Administration Polyethylene Glycol 17 gm 02/23/17 22:00 02/24/17 10:02 Miralax (For Daily Use) - PO 17 grams BID LOYDA Administration Tamsulosin HCl 0.4 mg 02/17/17 22:00 02/23/17 21:44 Flomax - PO 0.4 mg HS LOYDA Administration ASSESSMENT/PLAN: 1acute hypoxic respiratory failure could be due to excerbration of interstial lung ds on nor rebreather, will titrate oxygen, keep spo2 >90 BIPAP PRN continue with duoneb and symbicort solumedrol 80mg iv q6h avoid IV fluid monitor vitals monitor intake/ output antibiotics as per ID : on levofloxacin day 5, blood culture no growth started on mucomist qid and albuterol standing monitor for haemoptysis 2. h/o of CAD with stent -Continue Lipitor, ASA 3 HTN -Continue Atenolol, Losartan -monitor vitals 3. ELIDA improved - creatnine 0.9 - avoid nephrotoxic drugs - monitor cr 4. NIDDM diabetic diet BGM insulin sliding scale 5. F/E/N - avoid IV fluid -hyponatremia resolved -orally allowed 6. Ppx: on scd. gi protonix 40mg po daily 7 dvt pro continue with sq heparin dispo: admit in icu Visit type - Emergency Visit Emergency Visit: Yes ED Registration Date: 02/17/17 Care time: The patient presented to the Emergency Department on the above date and was hospitalized for further evaluation of their emergent condition. - New Patient This patient is new to me today: No - Critical Care Critical Care patient: Yes Total Critical Care Time (in minutes): 45 Critical Care Statement: The care of this patient involved high complexity decision making to prevent further life threatening deterioration of the patient 's condition and/or to evalute & treat vital organ system(s) failure or risk of failure.
[2017-02-24] MEDS ORDERED: ACETYLCYSTEINE 20% 200MG/ML 30 ML VIAL *FOR ORAL / INH USE ONLY NEB SCH (13:15)
--- NOTE | 2017-02-24 13:33 | PN ---
Physical Exam: SUBJECTIVE: Patient seen and examined Pt comfortable in pleasant mood, sitting in chair watching TV Pt had hypoxic event overnight when O2 sat was low. Pt had to be placed on BIPAP for 3 hours No fever or chills Still have cough OBJECTIVE: Vital Signs Period Temp Pulse Resp BP Sys/Wolfe Pulse Ox Last 24 Hr 98.3 F-98.6 F 73-105 16-27 123-161/57-88 96-100 GENERAL: The patient is awake, alert, and fully oriented, in minimal distress. HEAD: Normal with no signs of trauma. NECK: Trachea midline, full range of motion, supple. LUNGS: diminished in upper lobes and ronchi in b/l bases, occasional episode of tachypnea, No use of accessory muscle use. HEART: Regular rate and rhythm, S1, S2 without murmur, rub or gallop. ABDOMEN: Soft, obese, nontender, nondistended, normoactive bowel sounds, no guarding, no rebound, no hepatosplenomegaly, no masses. EXTREMITIES: 2+ pulses, warm, well-perfused, no edema. NEUROLOGICAL: Normal speech, gait not observed. PSYCH: Normal mood, normal affect. SKIN: Warm, dry, normal turgor, no rashes or lesions noted Laboratory Results - last 24 hr 02/23/17 02/23/17 02/23/17 05:20 06:14 12:33 WBC RBC Hgb Hct MCV MCHC RDW Plt Count MPV Neutrophils % Lymphocytes % Monocytes % Eosinophils % Basophils % ESR Puncture Site ABG pH ABG pCO2 at Pt Temp ABG pO2 at Pt Temp ABG HCO3 ABG O2 Sat (Measured) ABG O2 Content ABG Base Excess Jimmy Test O2 Delivery Device Oxygen Flow Rate PEEP Sodium Potassium Chloride Carbon Dioxide Anion Gap BUN Creatinine POC Glucometer 238.94412 191.53069 Random Glucose Calcium Phosphorus Magnesium Iron 45 TIBC 154 L Iron Saturation 29 02/23/17 02/23/17 02/24/17 17:06 21:30 05:05 WBC RBC Hgb Hct MCV MCHC RDW Plt Count MPV Neutrophils % Lymphocytes % Monocytes % Eosinophils % Basophils % ESR 16 Puncture Site ABG pH ABG pCO2 at Pt Temp ABG pO2 at Pt Temp ABG HCO3 ABG O2 Sat (Measured) ABG O2 Content ABG Base Excess Jimmy Test O2 Delivery Device Oxygen Flow Rate PEEP Sodium Potassium Chloride Carbon Dioxide Anion Gap BUN Creatinine POC Glucometer 159.86058 232.53410 Random Glucose Calcium Phosphorus Magnesium Iron TIBC Iron Saturation 02/24/17 02/24/17 02/24/17 05:05 05:05 06:15 WBC 16.0 H RBC 3.43 L Hgb 10.9 L Hct 32.3 L MCV 94.2 MCHC 33.8 RDW 14.1 Plt Count 227 MPV 9.6 Neutrophils % 93.1 H Lymphocytes % 0.9 L Monocytes % 5.9 Eosinophils % 0.0 Basophils % 0.1 D ESR Puncture Site ABG pH ABG pCO2 at Pt Temp ABG pO2 at Pt Temp ABG HCO3 ABG O2 Sat (Measured) ABG O2 Content ABG Base Excess Jimmy Test O2 Delivery Device Oxygen Flow Rate PEEP Sodium 136 Potassium 4.1 Chloride 100 Carbon Dioxide 27 Anion Gap 9 BUN 32 H Creatinine 0.9 POC Glucometer 209.47985 Random Glucose 166 H D Calcium 8.2 L Phosphorus 2.4 L D Magnesium 2.0 Iron TIBC Iron Saturation 02/24/17 02/24/17 07:15 11:10 WBC RBC Hgb Hct MCV MCHC RDW Plt Count MPV Neutrophils % Lymphocytes % Monocytes % Eosinophils % Basophils % ESR Puncture Site Right radial ABG pH 7.45 ABG pCO2 at Pt Temp 34.0 L ABG pO2 at Pt Temp 92.3 D ABG HCO3 23.4 ABG O2 Sat (Measured) 97.9 ABG O2 Content 15.0 ABG Base Excess 0.3 Jimmy Test Positive O2 Delivery Device Par rebreather Oxygen Flow Rate 70% PEEP 0.0 Sodium Potassium Chloride Carbon Dioxide Anion Gap BUN Creatinine POC Glucometer 189.52738 Random Glucose Calcium Phosphorus Magnesium Iron TIBC Iron Saturation Active Medications Generic Name Dose Route Start Last Admin Trade Name Freq PRN Reason Stop Dose Admin Acetaminophen 650 mg 02/17/17 16:19 Tylenol - PO Q4H PRN FEVER OR PAIN Acetylcysteine 800 mg 02/24/17 13:15 Mucomyst 20 Oral / Inh Use Only* NEB QIDR LOYDA Albuterol Sulfate 1 amp 02/17/17 16:24 02/24/17 09:35 Ventolin 0.083% Nebulizer Soln - NEB 1 amp Q4H PRN Administration SHORT OF BREATH/WHEEZING Albuterol Sulfate 1 amp 02/24/17 18:00 Ventolin 0.083% Nebulizer Soln - NEB QIDR LOYDA Albuterol/Ipratropium 1 amp 02/17/17 18:00 02/24/17 11:32 Duoneb - NEB 1 amp QIDR LOYDA Administration Aspirin 81 mg 02/18/17 10:00 02/24/17 09:57 Asa - PO 81 mg DAILY LOYDA Administration Atenolol 50 mg 02/18/17 10:00 02/24/17 10:03 Tenormin - PO 50 mg DAILY LOYDA Administration Atorvastatin Calcium 20 mg 02/17/17 22:00 02/23/17 21:44 Lipitor - PO 20 mg HS LOYDA Administration Budesonide/Formoterol Fumarate 2 puff 02/18/17 10:00 02/23/17 21:48 Symbicort 80/4.5mcg - IH 2 puff BID LOYDA Administration Chlorhexidine Gluconate 1 applic 02/21/17 22:00 02/23/17 21:44 Hibiclens For Decolonization - TP 1 applic HS LOYDA Administration Cholecalciferol 2,000 unit 02/18/17 10:00 02/24/17 10:03 Vitamin D3 - PO 2,000 unit DAILY LOYDA Administration Guaifenesin 10 ml 02/20/17 08:43 02/22/17 10:27 Robitussin - PO 10 ml Q6H PRN Administration COUGH Heparin Sodium (Porcine) 5,000 unit 02/22/17 22:00 02/24/17 09:55 Heparin - SQ 5,000 unit BID LOYDA Administration Levofloxacin 150 mls @ 100 mls/hr 02/19/17 12:15 02/24/17 09:54 Levaquin 750 Mg Premixed Ivpb - IVPB 100 mls/hr DAILY LOYDA Administration Insulin Aspart 1 vial 02/17/17 22:00 02/24/17 06:36 Novolog Vial Sliding Scale - SQ 2 units ACHS LOYDA Administration Protocol Losartan Potassium 25 mg 02/19/17 10:00 02/24/17 09:54 Cozaar - PO 25 mg DAILY LOYDA Administration Methylprednisolone Sodium Succinate 80 mg 02/21/17 15:00 02/24/17 09:53 Solu-Medrol - IVPB 80 mg Q6H-IV LOYDA Administration Multivitamins 1 each 02/18/17 10:00 02/24/17 09:53 Total B With C - PO 1 each DAILY LOYDA Administration Mupirocin 1 applic 02/21/17 22:00 02/24/17 09:56 Bactroban Ointment (For Decolonization) - NS 02/26/17 21:59 1 applic BID LOYDA Administration Ondansetron HCl 4 mg 02/17/17 16:19 Zofran Injection IVPB Q6H PRN NAUSEA Pantoprazole Sodium 40 mg 02/22/17 10:00 02/24/17 09:54 Protonix - PO 40 mg DAILY LOYDA Administration Polyethylene Glycol 17 gm 02/23/17 22:00 02/24/17 10:02 Miralax (For Daily Use) - PO 17 grams BID LOYDA Administration Tamsulosin HCl 0.4 mg 02/17/17 22:00 02/23/17 21:44 Flomax - PO 0.4 mg HS LOYDA Administration CBC, BMP 02/24/17 05:05 02/24/17 05:05 ASSESSMENT/PLAN: 76 year old male with pmh of CAD with stent x1, HTN, HPLD, DM, Prostate CA s/p radiation, Interstitial lung disease who was admitted at [facility] for sob, cough, Dyspnea on exertion for 3-4 weeks, was transferred to [facility] ICU after desaturating, having worsening resp status requiring BIPAP. Acute hypoxic respiratory failure likely due to ILD flare r/o PNA induced sepsis On admission Pt had productive cough with brown blood tinged sputum, leukocytosis, The cough and sputum production has improved Worsening leukocytosis may be related to high dose of steroid Continue solumedrol 80mg IV q6h Symbicort inh bid Duoneb qid Albuterol PRN BIpap PRN non rebreather mask continue trials of Venti mask 50% keep O2 sat >90% incentive spirometer Add Mucomyst 20 QID Chest PT blood culture negative, will continue to follow ID is on case continue levaquin Normocytic Anemia Iron studies pending CAD with stent On ASA On lipitor HTN Continue atenolol and cozaar Diabetes BGM AC SH Novolog sliding scale ELIDA (stable) Cr was 1.6, now 0.9 CMP in am FEN Fluid: none electrolytes: no abnormalities Nutrition: diabetic diet Prophylaxis DVT: heparin 5000U sq TID Deconditionning: OOB to chair, Physical therapy, Chest PT Disposition: keep in ICU until respiratory status improves Visit type - Emergency Visit Emergency Visit: Yes ED Registration Date: 02/17/17 Care time: The patient presented to the Emergency Department on the above date and was hospitalized for further evaluation of their emergent condition. - New Patient This patient is new to me today: Yes Date on this admission: 02/24/17 - Critical Care Critical Care patient: No - Discharge Referral Referred to [facility] No
--- NOTE | 2017-02-24 14:02 | PN ---
Progress Note, Physician History of Present Illness: OOB in chair Mildly dyspneic on NRB C/O cough productive of dark sputum Afebrile - Current Medication List Current Medications: Active Medications Acetaminophen (Tylenol -) 650 mg PO Q4H PRN PRN Reason: FEVER OR PAIN Acetylcysteine (Mucomyst 20 Oral / Inh Use Only*) 800 mg NEB QIDR LOYDA Albuterol Sulfate (Ventolin 0.083% Nebulizer Soln -) 1 amp NEB Q4H PRN PRN Reason: SHORT OF BREATH/WHEEZING Last Admin: 02/24/17 09:35 Dose: 1 amp Albuterol Sulfate (Ventolin 0.083% Nebulizer Soln -) 1 amp NEB QIDR LOYDA Aspirin (Asa -) 81 mg PO DAILY [facility] Last Admin: 02/24/17 09:57 Dose: 81 mg Atenolol (Tenormin -) 50 mg PO DAILY [facility] Last Admin: 02/24/17 10:03 Dose: 50 mg Atorvastatin Calcium (Lipitor -) 20 mg PO HS [facility] Last Admin: 02/23/17 21:44 Dose: 20 mg Budesonide/Formoterol Fumarate (Symbicort 80/4.5mcg -) 2 puff IH BID [facility] Last Admin: 02/23/17 21:48 Dose: 2 puff Chlorhexidine Gluconate (Hibiclens For Decolonization -) 1 applic TP HS [facility] Last Admin: 02/23/17 21:44 Dose: 1 applic Cholecalciferol (Vitamin D3 -) 2,000 unit PO DAILY [facility] Last Admin: 02/24/17 10:03 Dose: 2,000 unit Guaifenesin (Robitussin -) 10 ml PO Q6H PRN PRN Reason: COUGH Last Admin: 02/22/17 10:27 Dose: 10 ml Heparin Sodium (Porcine) (Heparin -) 5,000 unit SQ BID [facility] Last Admin: 02/24/17 09:55 Dose: 5,000 unit Levofloxacin (Levaquin 750 Mg Premixed Ivpb -) 150 mls @ 100 mls/hr IVPB DAILY [facility] Last Admin: 02/24/17 09:54 Dose: 100 mls/hr Insulin Aspart (Novolog Vial Sliding Scale -) 1 vial SQ ACHS LOYDA PRN Reason: Protocol Last Admin: 02/24/17 06:36 Dose: 2 units Losartan Potassium (Cozaar -) 25 mg PO DAILY [facility] Last Admin: 02/24/17 09:54 Dose: 25 mg Methylprednisolone Sodium Succinate (Solu-Medrol -) 80 mg IVPB Q6H-IV [facility] Last Admin: 02/24/17 09:53 Dose: 80 mg Multivitamins (Total B With C -) 1 each PO DAILY [facility] Last Admin: 02/24/17 09:53 Dose: 1 each Mupirocin (Bactroban Ointment (For Decolonization) -) 1 applic NS BID [facility] Stop: 02/26/17 21:59 Last Admin: 02/24/17 09:56 Dose: 1 applic Ondansetron HCl (Zofran Injection) 4 mg IVPB Q6H PRN PRN Reason: NAUSEA Pantoprazole Sodium (Protonix -) 40 mg PO DAILY [facility] Last Admin: 02/24/17 09:54 Dose: 40 mg Polyethylene Glycol (Miralax (For Daily Use) -) 17 gm PO BID [facility] Last Admin: 02/24/17 10:02 Dose: 17 grams Tamsulosin HCl (Flomax -) 0.4 mg PO HS [facility] Last Admin: 02/23/17 21:44 Dose: 0.4 mg - Objective Vital Signs: Vital Signs Temperature 98.5 F 02/24/17 10:00 Pulse Rate 94 H 02/24/17 12:00 Respiratory Rate 23 02/24/17 12:00 Blood Pressure 139/65 02/24/17 12:00 O2 Sat by Pulse Oximetry (%) 95 02/24/17 13:46 Constitutional: Yes: No Distress Eyes: Yes: Conjunctiva Clear Cardiovascular: Yes: Regular Rate and Rhythm, S1, S2 Respiratory: Yes: Diminished Gastrointestinal: Yes: Normal Bowel Sounds, Soft. No: Tenderness Edema: Yes Labs: CBC, BMP 02/24/17 05:05 02/24/17 05:05 INR, PTT INR 1.18 (0.82-1.09) H 02/22/17 05:05 Assessment/Plan Acute exacerbation, interstitial lung disease Probable superimposed pneumonia Fever/ leukocytosis Continue empiric zosyn/levaquin Bronchodilators/ steroids
[2017-02-24] MEDS ORDERED: PIPERACILLIN/TAZOB 4.5 GM 100 ML IVPB SCH (15:00)
[2017-02-24] MEDS: BUDESONIDE/FORMETEROL FUMARATE 80/4.5 mcg INHALER IH SCH ×2 (17:01→21:56)
[2017-02-24] MEDS: PIPERACILLIN/TAZOB 4.5 GM 100 ML IVPB SCH (18:23)
[2017-02-24] MEDS: ACETYLCYSTEINE 20% 200MG/ML 4 ML VIAL *FOR ORAL / INH USE ONLY NEB SCH ×2 (18:43→23:43)
[2017-02-24] MEDS: ALBUTEROL SO4 0.083% IH SOL 2.5 MG/3 ML VIAL.NEB. NEB SCH ×2 (18:44→23:44)
[2017-02-24] MEDS ORDERED: PT OWN MED DRAWER 7, Y5N ONE ×2 (21:52→22:11)
[2017-02-24] MEDS: ATORVASTATIN CA 20 MG TABLET (FP) PO SCH (21:56)
[2017-02-24] MEDS: TAMSULOSIN HCL 0.4 MG CAP.ER.24H (FP) PO SCH (21:56)
[2017-02-24] MEDS: CHLORHEXIDINE GLUCONATE 4% CLEANSER FOR DECOLONIZATION TP SCH (21:57)
[2017-02-25] MEDS: PIPERACILLIN/TAZOB 4.5 GM 100 ML IVPB SCH ×3 (02:00→18:30)
[2017-02-25] MEDS: methylPREDNISolone NA SUCC 40 MG/1 ML VIAL IVPB SCH ×4 (02:59→20:13)
[2017-02-25] MEDS: INSULIN SLIDING SCALE (NOVOLOG) 1 VIAL SQ SCH ×5 (06:39→22:27)
[2017-02-25 06:40] LABS: MCH 31.4 pg (25.7-33.7); MCHC 33.2 g/dl (32.0-35.9); MEAN CELL VOLUME 94.8 fl (80-96); MEAN PLT VOLUME 9.7 fl (7.5-11.1); PLATELET COUNT 219 K/MM3 (134-434); RDW 13.9 % (11.9-15.9); WHITE BLOOD COUNT 16.4 K/mm3 (4.0-10.0)
[2017-02-25] MEDS: ALBUTEROL SO4 0.083% IH SOL 2.5 MG/3 ML VIAL.NEB. NEB SCH ×3 (07:03→17:25)
[2017-02-25] MEDS: ACETYLCYSTEINE 20% 200MG/ML 4 ML VIAL *FOR ORAL / INH USE ONLY NEB SCH ×3 (07:03→17:20)
[2017-02-25] MEDS ORDERED: INSULIN (NOVOLOG) ASPART 100 UNITS/ML 10ML VIAL ONE (07:07)
[2017-02-25 07:14] LABS: CALCIUM 8.1 mg/dL (8.5-10.1); COCKROFT - GAULT 78.43
[2017-02-25 09:00] LABS: PLATELET ESTIMATE ADEQUATE (NORMAL)
[2017-02-25] MEDS: ASPIRIN 81 MG CHEWABLE TABLETS PO SCH (09:15)
[2017-02-25] MEDS: LOSARTAN POTASSIUM 25 MG TABLET PO SCH (09:15)
[2017-02-25] MEDS: HEPARIN NA (PORCINE) 5,000 UNITS/ML 1ML VIAL SQ SCH ×2 (09:15→21:34)
[2017-02-25] MEDS: PANTOPRAZOLE 40 MG TABLET (FP) PO SCH (09:16)
[2017-02-25] MEDS: POLYETHYLENE GLYCOL 3350 119 GM BTL PO SCH ×2 (09:16→22:25)
[2017-02-25] MEDS: LEVOFLOXACIN 750 MG IVPB 150 ML IVPB SCH (09:16)
[2017-02-25] MEDS: ATENOLOL 50 MG TABLET (FP) PO SCH (09:17)
[2017-02-25] MEDS: CHOLECALCIFEROL (VITAMIN D3) 1,000 UNIT TABLET (FP) PO SCH (09:17)
[2017-02-25] MEDS: BUDESONIDE/FORMETEROL FUMARATE 80/4.5 mcg INHALER IH SCH ×2 (09:17→21:39)
[2017-02-25] MEDS: VITAMIN B COMPLEX W/C COMBO TABLET (FP) PO SCH (09:26)
[2017-02-25] MEDS: MUPIROCIN 2% TOPICAL OINTMENT FOR DECOLONIZATION NS SCH ×2 (09:32→21:35)
--- NOTE | 2017-02-25 12:27 | PN ---
Teaching Attending Note Name of Resident: Erlin Tsang ATTENDING PHYSICIAN STATEMENT I saw and evaluated the patient. I reviewed the resident's note and discussed the case with the resident. I agree with the resident's findings and plan as documented. SUBJECTIVE: Pt seen and examined in the ICU. Currently on NRBM. Required NIPPV overnight. States breathing is slightly improved compared to yesterday. No further fevers. Scant hemoptysis this AM. Intake & Output 02/22/17 02/23/17 02/24/17 02/25/17 23:59 23:59 23:59 23:59 Intake Total 880 1100 800 Output Total 1050 650 500 Balance -170 450 300 Weight 200 lb 1 oz 199 lb 12.8 oz 200 lb 2 oz 200 lb 12.8 oz Last Vital Signs Temp Pulse Resp BP Pulse Ox 98.4 F 80 22 150/90 99 02/25/17 06:00 02/25/17 12:00 02/25/17 12:00 02/25/17 12:00 02/25/17 11:30 Active Medications Acetaminophen (Tylenol -) 650 mg PO Q4H PRN PRN Reason: FEVER OR PAIN Acetylcysteine (Mucomyst 20 Oral / Inh Use Only*) 800 mg NEB QIDR [facility] Last Admin: 02/25/17 11:15 Dose: 800 mg Albuterol Sulfate (Ventolin 0.083% Nebulizer Soln -) 1 amp NEB Q4H PRN PRN Reason: SHORT OF BREATH/WHEEZING Last Admin: 02/24/17 09:35 Dose: 1 amp Albuterol Sulfate (Ventolin 0.083% Nebulizer Soln -) 1 amp NEB QIDR [facility] Last Admin: 02/25/17 11:14 Dose: 1 amp Aspirin (Asa -) 81 mg PO DAILY [facility] Last Admin: 02/25/17 09:15 Dose: 81 mg Atenolol (Tenormin -) 50 mg PO DAILY [facility] Last Admin: 02/25/17 09:17 Dose: 50 mg Atorvastatin Calcium (Lipitor -) 20 mg PO HS [facility] Last Admin: 02/24/17 21:56 Dose: 20 mg Budesonide/Formoterol Fumarate (Symbicort 80/4.5mcg -) 2 puff IH BID [facility] Last Admin: 02/25/17 09:17 Dose: 2 puff Chlorhexidine Gluconate (Hibiclens For Decolonization -) 1 applic TP HS [facility] Last Admin: 02/24/17 21:57 Dose: 1 applic Cholecalciferol (Vitamin D3 -) 2,000 unit PO DAILY [facility] Last Admin: 02/25/17 09:17 Dose: 2,000 unit Guaifenesin (Robitussin -) 10 ml PO Q6H PRN PRN Reason: COUGH Last Admin: 02/22/17 10:27 Dose: 10 ml Heparin Sodium (Porcine) (Heparin -) 5,000 unit SQ BID [facility] Last Admin: 02/25/17 09:15 Dose: 5,000 unit Levofloxacin (Levaquin 750 Mg Premixed Ivpb -) 150 mls @ 100 mls/hr IVPB DAILY [facility] Last Admin: 02/25/17 09:16 Dose: 100 mls/hr Piperacillin Sod/Tazobactam Sod (Zosyn 4.5gm Ivpb (Pre-Docked)) 100 mls @ 200 mls/hr IVPB Q8H-IV [facility] PRN Reason: Protocol Last Admin: 02/25/17 09:18 Dose: 200 mls/hr Insulin Aspart (Novolog Vial Sliding Scale -) 1 vial SQ ACHS [facility] PRN Reason: Protocol Last Admin: 02/25/17 11:17 Dose: 4 units Losartan Potassium (Cozaar -) 25 mg PO DAILY [facility] Last Admin: 02/25/17 09:15 Dose: 25 mg Methylprednisolone Sodium Succinate (Solu-Medrol -) 80 mg IVPB Q6H-IV [facility] Last Admin: 02/25/17 08:34 Dose: 80 mg Multivitamins (Total B With C -) 1 each PO DAILY [facility] Last Admin: 02/25/17 09:26 Dose: 1 each Mupirocin (Bactroban Ointment (For Decolonization) -) 1 applic NS BID [facility] Stop: 02/26/17 21:59 Last Admin: 02/25/17 09:32 Dose: 1 applic Ondansetron HCl (Zofran Injection) 4 mg IVPB Q6H PRN PRN Reason: NAUSEA Pantoprazole Sodium (Protonix -) 40 mg PO DAILY [facility] Last Admin: 02/25/17 09:16 Dose: 40 mg Polyethylene Glycol (Miralax (For Daily Use) -) 17 gm PO BID [facility] Last Admin: 02/25/17 09:16 Dose: Not Given Tamsulosin HCl (Flomax -) 0.4 mg PO HS [facility] Last Admin: 02/24/17 21:56 Dose: 0.4 mg Gen: tachypneic with speaking Heart: RRR Lung: bibasilar rales Abd: soft, nontender Ext: no edema Laboratory Results - last 24 hr 02/24/17 02/24/17 02/25/17 16:56 21:50 05:30 WBC 16.4 H RBC 3.36 L Hgb 10.6 L Hct 31.9 L MCV 94.8 MCHC 33.2 RDW 13.9 Plt Count 219 MPV 9.7 Neutrophils % 93.0 H Lymphocytes % 6.0 L D Monocytes % 1.0 L D Differential Comment Manual diff done Platelet Estimate Adequate Sodium Potassium Chloride Carbon Dioxide Anion Gap BUN Creatinine POC Glucometer 176.46866 [phone] Random Glucose Calcium 02/25/17 05:30 WBC RBC Hgb Hct MCV MCHC RDW Plt Count MPV Neutrophils % Lymphocytes % Monocytes % Differential Comment Platelet Estimate Sodium 138 Potassium 3.7 Chloride 99 Carbon Dioxide 28 Anion Gap 11 BUN 27 H Creatinine 1.0 POC Glucometer Random Glucose 157 H Calcium 8.1 L CXR: bilateral infiltrates unchanged ASSESSMENT AND PLAN: Acute Hypoxic Respiratory Failure Suspect exacerbation of Interstitial Lung Disease ARDS r/o Superimposed Pneumonia Lactic Acidosis r/o Sepsis Acute Kidney Injury CAD HTN - continue medrol at same dose - inhaled bronchodilators - titrate Fio2 to keep Spo2 >90% - empiric antibiotics - BiPAP to assist in work of breathing and hypoxia - monitor for hemoptysis - monitor urine output, creatinine - DVT/GI prophylaxis - continue ICU monitoring for tenuous respiratory status - will need to discuss goals of care if oxygen requirements do not improve critical care time spent reviewing chart, evaluating patient and formulating plan [address] De Souza
--- NOTE | 2017-02-25 15:25 | PN ---
Physical Exam: SUBJECTIVE: Patient seen and examined Pt in bed in ICU Still on non rebreather mask While pt report improvement in breathing and cough, pt still ahve yellow bloody sputum and desaturate off non rebreather mask no fever or chills no chest pain or palpitation Pt was oob to chair yesterday OBJECTIVE: Vital Signs Period Temp Pulse Resp BP Sys/Wolfe Pulse Ox Last 24 Hr 97.4 F-98.4 F 78-102 13-31 111-154/51-100 94-100 GENERAL: The patient is awake, alert, and fully oriented, in minimal distress. HEAD: Normal with no signs of trauma. NECK: Trachea midline, full range of motion, supple. LUNGS: diminished b/l lungs, occasional episode of tachypnea, No use of accessory muscle use. HEART: Regular rate and rhythm, S1, S2 without murmur, rub or gallop. ABDOMEN: Soft, obese, nontender, nondistended, normoactive bowel sounds, no guarding, no rebound, no hepatosplenomegaly, no masses. EXTREMITIES: 2+ pulses, warm, well-perfused, no edema. NEUROLOGICAL: Normal speech, gait not observed. PSYCH: Normal mood, normal affect. SKIN: Warm, dry, normal turgor, no rashes or lesions noted Laboratory Results - last 24 hr 02/24/17 02/24/17 02/25/17 16:56 21:50 05:30 WBC 16.4 H RBC 3.36 L Hgb 10.6 L Hct 31.9 L MCV 94.8 MCHC 33.2 RDW 13.9 Plt Count 219 MPV 9.7 Neutrophils % 93.0 H Lymphocytes % 6.0 L D Monocytes % 1.0 L D Differential Comment Manual diff done Platelet Estimate Adequate Sodium Potassium Chloride Carbon Dioxide Anion Gap BUN Creatinine POC Glucometer 176.03460 193.87302 Random Glucose Calcium 02/25/17 05:30 WBC RBC Hgb Hct MCV MCHC RDW Plt Count MPV Neutrophils % Lymphocytes % Monocytes % Differential Comment Platelet Estimate Sodium 138 Potassium 3.7 Chloride 99 Carbon Dioxide 28 Anion Gap 11 BUN 27 H Creatinine 1.0 POC Glucometer Random Glucose 157 H Calcium 8.1 L Active Medications Generic Name Dose Route Start Last Admin Trade Name Freq PRN Reason Stop Dose Admin Acetaminophen 650 mg 02/17/17 16:19 Tylenol - PO Q4H PRN FEVER OR PAIN Acetylcysteine 800 mg 02/24/17 13:15 02/25/17 11:15 Mucomyst 20 Oral / Inh Use Only* NEB 800 mg QIDR [facility] Administration Albuterol Sulfate 1 amp 02/17/17 16:24 02/24/17 09:35 Ventolin 0.083% Nebulizer Soln - NEB 1 amp Q4H PRN Administration SHORT OF BREATH/WHEEZING Albuterol Sulfate 1 amp 02/24/17 18:00 02/25/17 11:14 Ventolin 0.083% Nebulizer Soln - NEB 1 amp QIDR [facility] Administration Aspirin 81 mg 02/18/17 10:00 02/25/17 09:15 Asa - PO 81 mg DAILY [facility] Administration Atenolol 50 mg 02/18/17 10:00 02/25/17 09:17 Tenormin - PO 50 mg DAILY [facility] Administration Atorvastatin Calcium 20 mg 02/17/17 22:00 02/24/17 21:56 Lipitor - PO 20 mg HS [facility] Administration Budesonide/Formoterol Fumarate 2 puff 02/18/17 10:00 02/25/17 09:17 Symbicort 80/4.5mcg - IH 2 puff BID [facility] Administration Chlorhexidine Gluconate 1 applic 02/21/17 22:00 02/24/17 21:57 Hibiclens For Decolonization - TP 1 applic HS [facility] Administration Cholecalciferol 2,000 unit 02/18/17 10:00 02/25/17 09:17 Vitamin D3 - PO 2,000 unit DAILY [facility] Administration Guaifenesin 10 ml 02/20/17 08:43 02/22/17 10:27 Robitussin - PO 10 ml Q6H PRN Administration COUGH Heparin Sodium (Porcine) 5,000 unit 02/22/17 22:00 02/25/17 09:15 Heparin - SQ 5,000 unit BID [facility] Administration Levofloxacin 150 mls @ 100 mls/hr 02/19/17 12:15 02/25/17 09:16 Levaquin 750 Mg Premixed Ivpb - IVPB 100 mls/hr DAILY [facility] Administration Piperacillin Sod/Tazobactam Sod 100 mls @ 200 mls/hr 02/24/17 18:00 02/25/17 09 :18 Zosyn 4.5gm Ivpb (Pre-Docked) IVPB 200 mls/hr Q8H-IV [facility] Administration Protocol Insulin Aspart 1 vial 02/17/17 22:00 02/25/17 11:17 Novolog Vial Sliding Scale - SQ 4 units ACHS [facility] Administration Protocol Losartan Potassium 25 mg 02/19/17 10:00 02/25/17 09:15 Cozaar - PO 25 mg DAILY [facility] Administration Methylprednisolone Sodium Succinate 80 mg 02/21/17 15:00 02/25/17 08:34 Solu-Medrol - IVPB 80 mg Q6H-IV [facility] Administration Multivitamins 1 each 02/18/17 10:00 02/25/17 09:26 Total B With C - PO 1 each DAILY [facility] Administration Mupirocin 1 applic 02/21/17 22:00 02/25/17 09:32 Bactroban Ointment (For Decolonization) - NS 02/26/17 21:59 1 applic BID [facility] Administration Ondansetron HCl 4 mg 02/17/17 16:19 Zofran Injection IVPB Q6H PRN NAUSEA Pantoprazole Sodium 40 mg 02/22/17 10:00 02/25/17 09:16 Protonix - PO 40 mg DAILY [facility] Administration Polyethylene Glycol 17 gm 02/23/17 22:00 02/25/17 09:16 Miralax (For Daily Use) - PO Not Given BID [facility] Tamsulosin HCl 0.4 mg 02/17/17 22:00 02/24/17 21:56 Flomax - PO 0.4 mg HS [facility] Administration CBC, BMP 02/25/17 05:30 02/25/17 05:30 Microbiology 02/22/17 19:00 Sputum - Expectorated Gram Stain - Final 02/22/17 19:00 Sputum - Expectorated Sputum Culture - Final Yeast Like Organism 02/22/17 19:00 Sputum - Expectorated Gram Stain - Final 02/21/17 19:00 Urine For Antigen Detection Legionella Antigen - Final 02/21/17 19:00 Urine For Antigen Detection Streptococcus pneumoniae Antigen (M - Final 02/21/17 19:00 Urine - Urine Clean Catch Urine Culture - Final NO GROWTH OBTAINED 02/22/17 19:00 Sputum - Expectorated Sputum Culture - Preliminary NORMAL RESPIRATORY ALVARADO 02/21/17 08:00 Blood - Peripheral Venous Blood Culture - Preliminary NO GROWTH OBTAINED AFTER 96 HOURS, INCUBATION TO CONTINUE FOR 1 DAYS. 02/21/17 08:00 Blood - Peripheral Venous Blood Culture - Preliminary NO GROWTH OBTAINED AFTER 72 HOURS, INCUBATION TO CONTINUE FOR 2 DAYS. 02/21/17 07:50 Blood - Peripheral Venous Blood Culture - Preliminary NO GROWTH OBTAINED AFTER 96 HOURS, INCUBATION TO CONTINUE FOR 1 DAYS. 02/21/17 07:50 Blood - Peripheral Venous Blood Culture - Preliminary NO GROWTH OBTAINED AFTER 72 HOURS, INCUBATION TO CONTINUE FOR 2 DAYS. Laboratory Tests 02/24/17 02/25/17 05:05 05:30 Calcium 8.1 L Phosphorus 2.4 L D Magnesium 2.0 ASSESSMENT/PLAN: 76 year old male with pmh of CAD with stent x1, HTN, HPLD, DM, Prostate CA s/p radiation, Interstitial lung disease who was admitted at [facility] for sob, cough, Dyspnea on exertion for 3-4 weeks, was transferred to [facility] after desaturating, having worsening resp status requiring BIPAP. Acute hypoxic respiratory failure likely due to ILD flare r/o PNA induced sepsis On admission Pt had productive cough with brown blood tinged sputum, leukocytosis, Leukocytosis may be related to high dose of steroid No major improved on CXR Continue solumedrol 80mg IV q6h Symbicort inh bid Duoneb qid Albuterol PRN BIpap PRN non rebreather mask continue trials of Venti mask 50% keep O2 sat >90% incentive spirometer Add Mucomyst 20 QID Chest PT blood culture negative, will continue to follow ID is on case continue levaquin Normocytic Anemia Iron studies pending CAD with stent On ASA On lipitor HTN Continue atenolol and cozaar Diabetes BGM AC SH Novolog sliding scale ELIDA (stable) Cr was 1.6, now 1 CMP in am FEN Fluid: none electrolytes: no abnormalities Nutrition: diabetic diet Prophylaxis DVT: heparin 5000U sq TID Deconditionning: OOB to chair, Physical therapy, Chest PT Disposition: keep in ICU until respiratory status improves Visit type - Emergency Visit Emergency Visit: Yes ED Registration Date: 02/17/17 Care time: The patient presented to the Emergency Department on the above date and was hospitalized for further evaluation of their emergent condition. - New Patient This patient is new to me today: Yes - Critical Care Critical Care patient: No - Discharge Referral Referred to [facility] No
--- NOTE | 2017-02-25 16:08 | PN ---
Physical Exam: SUBJECTIVE: Patient seen and examined Still on non rebreather mask While pt report improvement in breathing and cough, still have blood in sputum no fever or chills no chest pain or palpitation OBJECTIVE: Vital Signs Period Temp Pulse Resp BP Sys/Wolfe Pulse Ox Last 24 Hr 97.4 F-98.4 F 78-102 13-31 111-154/51-100 94-100 GENERAL: Awake, alert, and fully oriented, in no acute distress. on bipap HEAD: Normal with no signs of trauma. EARS, NOSE, THROAT: Ears normal, nares patent, oropharynx clear without exudates. NECK: Normal range of motion, LUNGS: Breath sounds equal, clear to auscultation bilaterally, rales present in b/l base HEART: s1s2 normal ABDOMEN: Soft, nontender, not distended, normoactive bowel sounds, no guarding, no rebound, no masses. MUSCULOSKELETAL: Normal range of motion at all joints. No bony deformities or tenderness. UPPER EXTREMITIES: 2+ pulses, warm, well-perfused. No cyanosis. No clubbing. LOWER EXTREMITIES: warm, well-perfused. No calf tenderness. No peripheral edema. NEUROLOGICAL: Cranial nerves II-XII intact. Normal speech. PSYCHIATRIC: Cooperative. Good eye contact. Appropriate mood and affect. SKIN: Warm, dry, Laboratory Results - last 24 hr 02/24/17 02/24/17 02/25/17 16:56 21:50 05:30 WBC 16.4 H RBC 3.36 L Hgb 10.6 L Hct 31.9 L MCV 94.8 MCHC 33.2 RDW 13.9 Plt Count 219 MPV 9.7 Neutrophils % 93.0 H Lymphocytes % 6.0 L D Monocytes % 1.0 L D Differential Comment Manual diff done Platelet Estimate Adequate Sodium Potassium Chloride Carbon Dioxide Anion Gap BUN Creatinine POC Glucometer 176.21163 193.81264 Random Glucose Calcium 02/25/17 05:30 WBC RBC Hgb Hct MCV MCHC RDW Plt Count MPV Neutrophils % Lymphocytes % Monocytes % Differential Comment Platelet Estimate Sodium 138 Potassium 3.7 Chloride 99 Carbon Dioxide 28 Anion Gap 11 BUN 27 H Creatinine 1.0 POC Glucometer Random Glucose 157 H Calcium 8.1 L Active Medications Generic Name Dose Route Start Last Admin Trade Name Freq PRN Reason Stop Dose Admin Acetaminophen 650 mg 02/17/17 16:19 Tylenol - PO Q4H PRN FEVER OR PAIN Acetylcysteine 800 mg 02/24/17 13:15 02/25/17 11:15 Mucomyst 20 Oral / Inh Use Only* NEB 800 mg QIDR [facility] Administration Albuterol Sulfate 1 amp 02/17/17 16:24 02/24/17 09:35 Ventolin 0.083% Nebulizer Soln - NEB 1 amp Q4H PRN Administration SHORT OF BREATH/WHEEZING Albuterol Sulfate 1 amp 02/24/17 18:00 02/25/17 11:14 Ventolin 0.083% Nebulizer Soln - NEB 1 amp QIDR [facility] Administration Aspirin 81 mg 02/18/17 10:00 02/25/17 09:15 Asa - PO 81 mg DAILY [facility] Administration Atenolol 50 mg 02/18/17 10:00 02/25/17 09:17 Tenormin - PO 50 mg DAILY [facility] Administration Atorvastatin Calcium 20 mg 02/17/17 22:00 02/24/17 21:56 Lipitor - PO 20 mg HS [facility] Administration Budesonide/Formoterol Fumarate 2 puff 02/18/17 10:00 02/25/17 09:17 Symbicort 80/4.5mcg - IH 2 puff BID [facility] Administration Chlorhexidine Gluconate 1 applic 02/21/17 22:00 02/24/17 21:57 Hibiclens For Decolonization - TP 1 applic HS [facility] Administration Cholecalciferol 2,000 unit 02/18/17 10:00 02/25/17 09:17 Vitamin D3 - PO 2,000 unit DAILY [facility] Administration Guaifenesin 10 ml 02/20/17 08:43 02/22/17 10:27 Robitussin - PO 10 ml Q6H PRN Administration COUGH Heparin Sodium (Porcine) 5,000 unit 02/22/17 22:00 02/25/17 09:15 Heparin - SQ 5,000 unit BID [facility] Administration Levofloxacin 150 mls @ 100 mls/hr 02/19/17 12:15 02/25/17 09:16 Levaquin 750 Mg Premixed Ivpb - IVPB 100 mls/hr DAILY [facility] Administration Piperacillin Sod/Tazobactam Sod 100 mls @ 200 mls/hr 02/24/17 18:00 02/25/17 09 :18 Zosyn 4.5gm Ivpb (Pre-Docked) IVPB 200 mls/hr Q8H-IV [facility] Administration Protocol Insulin Aspart 1 vial 02/17/17 22:00 02/25/17 15:29 Novolog Vial Sliding Scale - SQ 2 units ACHS [facility] Administration Protocol Losartan Potassium 25 mg 02/19/17 10:00 02/25/17 09:15 Cozaar - PO 25 mg DAILY [facility] Administration Methylprednisolone Sodium Succinate 80 mg 02/21/17 15:00 02/25/17 15:29 Solu-Medrol - IVPB 80 mg Q6H-IV [facility] Administration Multivitamins 1 each 02/18/17 10:00 02/25/17 09:26 Total B With C - PO 1 each DAILY [facility] Administration Mupirocin 1 applic 02/21/17 22:00 02/25/17 09:32 Bactroban Ointment (For Decolonization) - NS 02/26/17 21:59 1 applic BID [facility] Administration Ondansetron HCl 4 mg 02/17/17 16:19 Zofran Injection IVPB Q6H PRN NAUSEA Pantoprazole Sodium 40 mg 02/22/17 10:00 02/25/17 09:16 Protonix - PO 40 mg DAILY [facility] Administration Polyethylene Glycol 17 gm 02/23/17 22:00 02/25/17 09:16 Miralax (For Daily Use) - PO Not Given BID [facility] Tamsulosin HCl 0.4 mg 02/17/17 22:00 02/24/17 21:56 Flomax - PO 0.4 mg HS [facility] Administration ASSESSMENT/PLAN: 1acute hypoxic respiratory failure could be due to excerbration of interstial lung ds on nor rebreather, will titrate oxygen, keep spo2 >90 BIPAP PRN solumedrol 80mg iv q6h avoid IV fluid monitor vitals monitor intake/ output antibiotics as per ID : on levofloxacin day 6 and zosyn, blood culture no growth started on mucomist qid and albuterol standing monitor for haemoptysis 2. h/o of CAD with stent -Continue Lipitor, ASA 3 HTN -Continue Atenolol, Losartan -monitor vitals 3. ELIDA improved - avoid nephrotoxic drugs - monitor cr 4. NIDDM diabetic diet BGM insulin sliding scale 5. F/E/N - avoid IV fluid -hyponatremia resolved -orally allowed 6. Ppx: on scd. gi protonix 40mg po daily 7 dvt pro continue with sq heparin dispo: admit in icu Visit type - Emergency Visit Emergency Visit: Yes ED Registration Date: 02/17/17 Care time: The patient presented to the Emergency Department on the above date and was hospitalized for further evaluation of their emergent condition. - New Patient This patient is new to me today: No - Critical Care Critical Care patient: Yes Total Critical Care Time (in minutes): 45 Critical Care Statement: The care of this patient involved high complexity decision making to prevent further life threatening deterioration of the patient 's condition and/or to evalute & treat vital organ system(s) failure or risk of failure.
--- NOTE | 2017-02-25 17:16 | PN ---
Teaching Attending Note Name of Resident: Kyle Waterman ATTENDING PHYSICIAN STATEMENT I saw and evaluated the patient. I reviewed the resident's note and discussed the case with the resident. I agree with the resident's findings and plan as documented. SUBJECTIVE:states cough has significantly improved. not productive. tolerating non-rebreather. did not require BIPAP overnight. denies CP, SOB, fevr, chills OBJECTIVE: Last Vital Signs Temp Pulse Resp BP Pulse Ox 98 F 90 22 151/82 99 02/25/17 15:59 02/25/17 15:59 02/25/17 15:59 02/25/17 15:59 02/25/17 11:30 General NAD CV S1 s2 RRR no murmur/rub/gallop Lungs coarse breath sounds diffusely, no wheezing Abdomen soft NT/ND obese Extremities no pedal edema ASSESSMENT AND PLAN: 76yo M with PMH CAD s/p stent, HTN, dyslipidemia, DM, prostate ca s/p RTx presented to the ER and was admitted for further evaluation of their emergent condition 1. Acute hypoxic respiratory failure- likely due to ILD however can not r/o PNA. saturating 93% on non-rebreather. on levaquin day 6. zosyn re-started today. will cont steroids at current dosing. may require bronch if does not continue to improve. will titrate oxygen down as tolerated to spO2 >88%. bipap prn. chest PT BID, inhalers and nebs. OOB to chair as tolerated 2. normocytic anemia-anemia of chronic disease. no signs of bleeding. Hgb stable. no indication for txn at this time 3. Layne- likely due to sepsis. now resolved. avoid nephrotoxic medications 4. Hypomagnesemia- resolved 5. CAD s/p stent- no signs of ACS. on asa 6. DM- cont iss. hold oral agents 7. DVT ppx- hep sq 8. MICU care due to tenuous respiratory status. The care of this patient involved high complexity decision making to prevent further life threatening deterioration of the patient's condition and/or to evalute & treat vital organ system(s) failure or risk of failure. 40 minutes critical care time
--- NOTE | 2017-02-25 17:18 | PN ---
Progress Note, Physician History of Present Illness: OOB in chair Reports less dyspnea, but is tachypneic on NRB Less cough, hemoptysis - Current Medication List Current Medications: Active Medications Acetaminophen (Tylenol -) 650 mg PO Q4H PRN PRN Reason: FEVER OR PAIN Acetylcysteine (Mucomyst 20 Oral / Inh Use Only*) 800 mg NEB QIDR [facility] Last Admin: 02/25/17 11:15 Dose: 800 mg Albuterol Sulfate (Ventolin 0.083% Nebulizer Soln -) 1 amp NEB Q4H PRN PRN Reason: SHORT OF BREATH/WHEEZING Last Admin: 02/24/17 09:35 Dose: 1 amp Albuterol Sulfate (Ventolin 0.083% Nebulizer Soln -) 1 amp NEB QIDR [facility] Last Admin: 02/25/17 11:14 Dose: 1 amp Aspirin (Asa -) 81 mg PO DAILY [facility] Last Admin: 02/25/17 09:15 Dose: 81 mg Atenolol (Tenormin -) 50 mg PO DAILY [facility] Last Admin: 02/25/17 09:17 Dose: 50 mg Atorvastatin Calcium (Lipitor -) 20 mg PO HS [facility] Last Admin: 02/24/17 21:56 Dose: 20 mg Budesonide/Formoterol Fumarate (Symbicort 80/4.5mcg -) 2 puff IH BID [facility] Last Admin: 02/25/17 09:17 Dose: 2 puff Chlorhexidine Gluconate (Hibiclens For Decolonization -) 1 applic TP HS [facility] Last Admin: 02/24/17 21:57 Dose: 1 applic Cholecalciferol (Vitamin D3 -) 2,000 unit PO DAILY [facility] Last Admin: 02/25/17 09:17 Dose: 2,000 unit Guaifenesin (Robitussin -) 10 ml PO Q6H PRN PRN Reason: COUGH Last Admin: 02/22/17 10:27 Dose: 10 ml Heparin Sodium (Porcine) (Heparin -) 5,000 unit SQ BID [facility] Last Admin: 02/25/17 09:15 Dose: 5,000 unit Levofloxacin (Levaquin 750 Mg Premixed Ivpb -) 150 mls @ 100 mls/hr IVPB DAILY [facility] Last Admin: 02/25/17 09:16 Dose: 100 mls/hr Piperacillin Sod/Tazobactam Sod (Zosyn 4.5gm Ivpb (Pre-Docked)) 100 mls @ 200 mls/hr IVPB Q8H-IV [facility] PRN Reason: Protocol Last Admin: 02/25/17 09:18 Dose: 200 mls/hr Insulin Aspart (Novolog Vial Sliding Scale -) 1 vial SQ ACHS [facility] PRN Reason: Protocol Last Admin: 02/25/17 15:29 Dose: 2 units Losartan Potassium (Cozaar -) 25 mg PO DAILY [facility] Last Admin: 02/25/17 09:15 Dose: 25 mg Methylprednisolone Sodium Succinate (Solu-Medrol -) 80 mg IVPB Q6H-IV [facility] Last Admin: 02/25/17 15:29 Dose: 80 mg Multivitamins (Total B With C -) 1 each PO DAILY [facility] Last Admin: 02/25/17 09:26 Dose: 1 each Mupirocin (Bactroban Ointment (For Decolonization) -) 1 applic NS BID [facility] Stop: 02/26/17 21:59 Last Admin: 02/25/17 09:32 Dose: 1 applic Ondansetron HCl (Zofran Injection) 4 mg IVPB Q6H PRN PRN Reason: NAUSEA Pantoprazole Sodium (Protonix -) 40 mg PO DAILY [facility] Last Admin: 02/25/17 09:16 Dose: 40 mg Polyethylene Glycol (Miralax (For Daily Use) -) 17 gm PO BID [facility] Last Admin: 02/25/17 09:16 Dose: Not Given Tamsulosin HCl (Flomax -) 0.4 mg PO HS [facility] Last Admin: 02/24/17 21:56 Dose: 0.4 mg - Objective Vital Signs: Vital Signs Temperature 98 F 02/25/17 15:59 Pulse Rate 90 02/25/17 15:59 Respiratory Rate 22 02/25/17 15:59 Blood Pressure 151/82 02/25/17 15:59 O2 Sat by Pulse Oximetry (%) 99 02/25/17 11:30 Constitutional: Yes: No Distress Eyes: Yes: Conjunctiva Clear Cardiovascular: Yes: Regular Rate and Rhythm, S1, S2 Respiratory: Yes: Rales, Rhonchi Gastrointestinal: Yes: Normal Bowel Sounds, Soft. No: Tenderness Edema: Yes Labs: CBC, BMP 02/25/17 05:30 04/07/17 05:30 INR, PTT INR 1.18 (0.82-1.09) H 02/22/17 05:05 Assessment/Plan Acute exacerbation, interstitial lung disease Probable superimposed pneumonia Fever/ leukocytosis Continue empiric zosyn/levaquin Bronchodilators/ steroids
[2017-02-25] MEDS: ATORVASTATIN CA 20 MG TABLET (FP) PO SCH (21:34)
[2017-02-25] MEDS: TAMSULOSIN HCL 0.4 MG CAP.ER.24H (FP) PO SCH (21:34)
[2017-02-25] MEDS: CHLORHEXIDINE GLUCONATE 4% CLEANSER FOR DECOLONIZATION TP SCH (21:34)
[2017-02-26] MEDS: ACETYLCYSTEINE 20% 200MG/ML 4 ML VIAL *FOR ORAL / INH USE ONLY NEB SCH ×4 (00:23→17:41)
[2017-02-26] MEDS: ALBUTEROL SO4 0.083% IH SOL 2.5 MG/3 ML VIAL.NEB. NEB SCH ×4 (00:23→17:41)
[2017-02-26] MEDS: PIPERACILLIN/TAZOB 4.5 GM 100 ML IVPB SCH (02:28)
[2017-02-26] MEDS: methylPREDNISolone NA SUCC 40 MG/1 ML VIAL IVPB SCH ×4 (02:29→21:23)
[2017-02-26 06:40] LABS: MEAN CELL VOLUME 94.1 fl (80-96); MEAN PLT VOLUME 9.7 fl (7.5-11.1); PLATELET COUNT 217 K/MM3 (134-434); RDW 14.3 % (11.9-15.9); WHITE BLOOD COUNT 16.7 K/mm3 (4.0-10.0)
[2017-02-26 06:57] LABS: ALBUMIN 2.5 g/dl (3.4-5.0); ANION GAP 9 (8-16); CALCIUM 8.1 mg/dL (8.5-10.1); CO2 30 mmol/L (21-32); GLUCOSE,RANDOM 140 mg/dL (74-106)
[2017-02-26 06:59] LABS: ALK PHOS 65 U/L (45-117); BILIRUBIN,TOTAL 1.6 mg/dL (0.2-1.0); COCKROFT - GAULT 78.43; SGOT/AST 31 U/L (15-37); SGPT/ALT 43 U/L (12-78); TOT PROT 5.4 g/dl (6.4-8.2)
--- NOTE | 2017-02-26 07:37 | PN ---
Progress Note (short form) - Note Progress Note: PULM / CRTICAL CARE PROGRESS NOTE: Pt seen and examined in the ICU 24 HOUR EVENTS: -Slept well for the first time last night on BiPAP. Requiring NRB during the day to maintain saturation. Able to speak in full sentences, states he feels a little bit better. Less hemoptysis. Afebrile, hemodynamics stable. Current Medications Acetaminophen (Tylenol -) 650 mg PO Q4H PRN PRN Reason: FEVER OR PAIN Acetylcysteine (Mucomyst 20 Oral / Inh Use Only*) 800 mg NEB QIDR [facility] Last Admin: 02/26/17 06:27 Dose: 800 mg Albuterol Sulfate (Ventolin 0.083% Nebulizer Soln -) 1 amp NEB Q4H PRN PRN Reason: SHORT OF BREATH/WHEEZING Last Admin: 02/24/17 09:35 Dose: 1 amp Albuterol Sulfate (Ventolin 0.083% Nebulizer Soln -) 1 amp NEB QIDR [facility] Last Admin: 02/26/17 06:27 Dose: 1 amp Aspirin (Asa -) 81 mg PO DAILY [facility] Last Admin: 02/25/17 09:15 Dose: 81 mg Atenolol (Tenormin -) 50 mg PO DAILY [facility] Last Admin: 02/25/17 09:17 Dose: 50 mg Atorvastatin Calcium (Lipitor -) 20 mg PO HS [facility] Last Admin: 02/25/17 21:34 Dose: 20 mg Budesonide/Formoterol Fumarate (Symbicort 80/4.5mcg -) 2 puff IH BID [facility] Last Admin: 02/25/17 21:39 Dose: 2 puff Chlorhexidine Gluconate (Hibiclens For Decolonization -) 1 applic TP HS [facility] Last Admin: 02/25/17 21:34 Dose: 1 applic Cholecalciferol (Vitamin D3 -) 2,000 unit PO DAILY [facility] Last Admin: 02/25/17 09:17 Dose: 2,000 unit Guaifenesin (Robitussin -) 10 ml PO Q6H PRN PRN Reason: COUGH Last Admin: 02/22/17 10:27 Dose: 10 ml Heparin Sodium (Porcine) (Heparin -) 5,000 unit SQ BID [facility] Last Admin: 02/25/17 21:34 Dose: 5,000 unit Piperacillin Sod/Tazobactam Sod (Zosyn 4.5gm Ivpb (Pre-Docked)) 100 mls @ 200 mls/hr IVPB Q8H-IV [facility] PRN Reason: Protocol Last Admin: 02/26/17 02:28 Dose: 200 mls/hr Insulin Aspart (Novolog Vial Sliding Scale -) 1 vial SQ ACHS [facility] PRN Reason: Protocol Last Admin: 02/25/17 22:27 Dose: 2 units Losartan Potassium (Cozaar -) 25 mg PO DAILY [facility] Last Admin: 02/25/17 09:15 Dose: 25 mg Methylprednisolone Sodium Succinate (Solu-Medrol -) 80 mg IVPB Q6H-IV [facility] Last Admin: 02/26/17 02:29 Dose: 80 mg Multivitamins (Total B With C -) 1 each PO DAILY [facility] Last Admin: 02/25/17 09:26 Dose: 1 each Mupirocin (Bactroban Ointment (For Decolonization) -) 1 applic NS BID [facility] Stop: 02/26/17 21:59 Last Admin: 02/25/17 21:35 Dose: 1 applic Ondansetron HCl (Zofran Injection) 4 mg IVPB Q6H PRN PRN Reason: NAUSEA Pantoprazole Sodium (Protonix -) 40 mg PO DAILY [facility] Last Admin: 02/25/17 09:16 Dose: 40 mg Polyethylene Glycol (Miralax (For Daily Use) -) 17 gm PO BID [facility] Last Admin: 02/25/17 22:25 Dose: 17 grams Tamsulosin HCl (Flomax -) 0.4 mg PO HS [facility] Last Admin: 02/25/17 21:34 Dose: 0.4 mg Vital Signs Temp 97.8 F 02/26/17 02:00 Pulse 77 02/26/17 04:00 Resp 20 02/26/17 04:00 BP 133/88 02/26/17 04:00 Pulse Ox 100 02/26/17 03:05 Intake & Output 02/25/17 02/26/17 02/26/17 18:59 06:59 18:59 Intake Total 800 Output Total 1000 Balance -200 Intake: IVPB 300 Oral 500 Output: Urine 1000 Void 1000 Other: Voiding Method Urinal Urinal EXAM: Neruo: alert HENNT: PERRL Lungs: minimal air movement in apecies, clear otherwise Heart: RRR Abd: soft Ext: warm, no edema CBC, BMP 02/26/17 05:00 02/26/17 05:00 Microbiology 02/22/17 19:00 Gram Stain - Final Sputum - Expectorated Sputum Culture - Final Yeast Like Organism 02/21/17 08:00 Blood Culture - Preliminary Blood - Peripheral Venous NO GROWTH OBTAINED AFTER 96 HOURS, INCUBATION TO CONTINUE FOR 1 DAYS. 02/21/17 07:50 Blood Culture - Preliminary Blood - Peripheral Venous NO GROWTH OBTAINED AFTER 96 HOURS, INCUBATION TO CONTINUE FOR 1 DAYS. CXR: bilateral infiltrates unchanged ASSESSMENT AND PLAN: Acute Hypoxic Respiratory Failure Suspect exacerbation of Interstitial Lung Disease vs progression of disease r/o Superimposed Pneumonia Hemoptysis Lactic Acidosis resolved Acute Kidney Injury resolved CAD HTN - continue medrol at same dose - inhaled bronchodilators - titrate Fio2 to keep Spo2 >90% - empiric antibiotics - BiPAP to assist in work of breathing and hypoxia - monitor for hemoptysis - monitor urine output, creatinine - DVT/GI prophylaxis - continue ICU monitoring for tenuous respiratory status - too hypoxic for bronchoscopy or lung biopsy - will need to discuss goals of care if oxygen requirements do not improve 35 min Adam Shah Pulm/Critical Care [employer]
--- NOTE | 2017-02-26 07:40 | PN ---
Progress Note, Physician Chief Complaint: ID Clinical improvement noted Zosyn Levofloxacin - Current Medication List Current Medications: Active Medications Acetaminophen (Tylenol -) 650 mg PO Q4H PRN PRN Reason: FEVER OR PAIN Acetylcysteine (Mucomyst 20 Oral / Inh Use Only*) 800 mg NEB QIDR [facility] Last Admin: 02/26/17 06:27 Dose: 800 mg Albuterol Sulfate (Ventolin 0.083% Nebulizer Soln -) 1 amp NEB Q4H PRN PRN Reason: SHORT OF BREATH/WHEEZING Last Admin: 02/24/17 09:35 Dose: 1 amp Albuterol Sulfate (Ventolin 0.083% Nebulizer Soln -) 1 amp NEB QIDR [facility] Last Admin: 02/26/17 06:27 Dose: 1 amp Aspirin (Asa -) 81 mg PO DAILY [facility] Last Admin: 02/25/17 09:15 Dose: 81 mg Atenolol (Tenormin -) 50 mg PO DAILY [facility] Last Admin: 02/25/17 09:17 Dose: 50 mg Atorvastatin Calcium (Lipitor -) 20 mg PO HS [facility] Last Admin: 02/25/17 21:34 Dose: 20 mg Budesonide/Formoterol Fumarate (Symbicort 80/4.5mcg -) 2 puff IH BID [facility] Last Admin: 02/25/17 21:39 Dose: 2 puff Chlorhexidine Gluconate (Hibiclens For Decolonization -) 1 applic TP [facility] Last Admin: 02/25/17 21:34 Dose: 1 applic Cholecalciferol (Vitamin D3 -) 2,000 unit PO DAILY [facility] Last Admin: 02/25/17 09:17 Dose: 2,000 unit Guaifenesin (Robitussin -) 10 ml PO Q6H PRN PRN Reason: COUGH Last Admin: 02/22/17 10:27 Dose: 10 ml Heparin Sodium (Porcine) (Heparin -) 5,000 unit SQ BID [facility] Last Admin: 02/25/17 21:34 Dose: 5,000 unit Piperacillin Sod/Tazobactam Sod (Zosyn 4.5gm Ivpb (Pre-Docked)) 100 mls @ 200 mls/hr IVPB Q8H-IV [facility] PRN Reason: Protocol Last Admin: 02/26/17 02:28 Dose: 200 mls/hr Insulin Aspart (Novolog Vial Sliding Scale -) 1 vial SQ ACHS [facility] PRN Reason: Protocol Last Admin: 02/25/17 22:27 Dose: 2 units Losartan Potassium (Cozaar -) 25 mg PO DAILY [facility] Last Admin: 02/25/17 09:15 Dose: 25 mg Methylprednisolone Sodium Succinate (Solu-Medrol -) 80 mg IVPB Q6H-IV [facility] Last Admin: 02/26/17 02:29 Dose: 80 mg Multivitamins (Total B With C -) 1 each PO DAILY [facility] Last Admin: 02/25/17 09:26 Dose: 1 each Mupirocin (Bactroban Ointment (For Decolonization) -) 1 applic NS BID [facility] Stop: 02/26/17 21:59 Last Admin: 02/25/17 21:35 Dose: 1 applic Ondansetron HCl (Zofran Injection) 4 mg IVPB Q6H PRN PRN Reason: NAUSEA Pantoprazole Sodium (Protonix -) 40 mg PO DAILY [facility] Last Admin: 02/25/17 09:16 Dose: 40 mg Polyethylene Glycol (Miralax (For Daily Use) -) 17 gm PO BID [facility] Last Admin: 02/25/17 22:25 Dose: 17 grams Tamsulosin HCl (Flomax -) 0.4 mg PO HS [facility] Last Admin: 02/25/17 21:34 Dose: 0.4 mg - Objective Vital Signs: Vital Signs Temperature 97.6 F 02/26/17 06:00 Pulse Rate 89 02/26/17 06:00 Respiratory Rate 20 02/26/17 06:00 Blood Pressure 139/68 02/26/17 06:00 O2 Sat by Pulse Oximetry (%) 96 02/26/17 06:30 Constitutional: Yes: Mild Distress Cardiovascular: Yes: Regular Rate and Rhythm, S1, S2 Respiratory: Yes: WNL, Regular, CTA Bilaterally Gastrointestinal: Yes: WNL, Normal Bowel Sounds, Soft. No: Tenderness Edema: No Labs: CBC, BMP 02/26/17 05:00 02/26/17 05:00 INR, PTT INR 1.18 (0.82-1.09) H 02/22/17 05:05 Problem List - Problems (1) Interstitial lung disease Code(s): J84.9 - INTERSTITIAL PULMONARY DISEASE, UNSPECIFIED (2) Pneumonia Code(s): J18.9 - PNEUMONIA, UNSPECIFIED ORGANISM Assessment/Plan Microbiology 02/22/17 19:00 Sputum - Expectorated Gram Stain - Final 02/22/17 19:00 Sputum - Expectorated Sputum Culture - Final Yeast Like Organism 02/21/17 19:00 Urine For Antigen Detection Legionella Antigen - Final 02/21/17 19:00 Urine For Antigen Detection Streptococcus pneumoniae Antigen (M - Final 02/21/17 19:00 Urine - Urine Clean Catch Urine Culture - Final NO GROWTH OBTAINED 02/19/17 20:15 Sputum - Expectorated Gram Stain - Final 02/19/17 20:15 Sputum - Expectorated Sputum Culture - Final NORMAL RESPIRATORY ERAN 02/17/17 14:20 Nasopharyngeal Swab Influenza Types A,B Antigen (JESSICA) - Final 02/17/17 14:20 Nasopharyngeal Swab - Final 02/17/17 14:15 Blood - Peripheral Venous Blood Culture - Final NO GROWTH AFTER 5 DAYS INCUBATION 02/17/17 14:15 Blood - Peripheral Venous Blood Culture - Final NO GROWTH AFTER 5 DAYS INCUBATION 02/21/17 08:00 Blood - Peripheral Venous Blood Culture - Preliminary NO GROWTH OBTAINED AFTER 96 HOURS, INCUBATION TO CONTINUE FOR 1 DAYS. 02/21/17 07:50 Blood - Peripheral Venous Blood Culture - Preliminary NO GROWTH OBTAINED AFTER 96 HOURS, INCUBATION TO CONTINUE FOR 1 DAYS. 02/17/17 14:20 Nasopharyngeal Swab Respiratory Virus Panel - Preliminary Laboratory Tests 02/26/17 05:00 WBC 16.7 H Hgb 11.4 L Hct 33.4 L Plt Count 217 Assessment Interstitial lung disease Respiratory failure sputum normal eran Plan Stop zosyn and continue Levofloxacin alone [place] DUFF
[2017-02-26] MEDS: INSULIN SLIDING SCALE (NOVOLOG) 1 VIAL SQ SCH ×4 (07:42→22:26)
--- NOTE | 2017-02-26 08:02 | PN ---
Progress Note (short form) - Note Progress Note: currently asymptomatic. states cough is less productive. improves after chest PT. was placed on bipap overnight and said he feels improved today. denies CP, fever, chills, N/V/C/D Current Medications Generic Name Dose Route Start Last Admin Trade Name Freq PRN Reason Stop Dose Admin Acetaminophen 650 mg 02/17/17 16:19 Tylenol - PO Q4H PRN FEVER OR PAIN Acetylcysteine 800 mg 02/24/17 13:15 02/26/17 06:27 Mucomyst 20 Oral / Inh Use Only* NEB 800 mg QIDR [facility] Administration Albuterol Sulfate 1 amp 02/24/17 18:00 02/26/17 06:27 Ventolin 0.083% Nebulizer Soln - NEB 1 amp QIDR [facility] Administration Aspirin 81 mg 02/18/17 10:00 02/25/17 09:15 Asa - PO 81 mg DAILY [facility] Administration Atenolol 50 mg 02/18/17 10:00 02/25/17 09:17 Tenormin - PO 50 mg DAILY [facility] Administration Atorvastatin Calcium 20 mg 02/17/17 22:00 02/25/17 21:34 Lipitor - PO 20 mg HS [facility] Administration Budesonide/Formoterol Fumarate 2 puff 02/18/17 10:00 02/25/17 21:39 Symbicort 80/4.5mcg - IH 2 puff BID [facility] Administration Chlorhexidine Gluconate 1 applic 02/21/17 22:00 02/25/17 21:34 Hibiclens For Decolonization - TP 1 applic HS [facility] Administration Cholecalciferol 2,000 unit 02/18/17 10:00 02/25/17 09:17 Vitamin D3 - PO 2,000 unit DAILY [facility] Administration Guaifenesin 10 ml 02/20/17 08:43 02/22/17 10:27 Robitussin - PO 10 ml Q6H PRN Administration COUGH Heparin Sodium (Porcine) 5,000 unit 02/22/17 22:00 02/25/17 21:34 Heparin - SQ 5,000 unit BID [facility] Administration Levofloxacin 100 mls @ 100 mls/hr 02/26/17 10:00 Levaquin 500 Mg Premixed Ivpb - IVPB DAILY [facility] Insulin Aspart 1 vial 02/17/17 22:00 02/26/17 07:42 Novolog Vial Sliding Scale - SQ 2 units ACHS [facility] Administration Protocol Losartan Potassium 25 mg 02/19/17 10:00 02/25/17 09:15 Cozaar - PO 25 mg DAILY [facility] Administration Methylprednisolone Sodium Succinate 80 mg 02/21/17 15:00 02/26/17 02:29 Solu-Medrol - IVPB 80 mg Q6H-IV [facility] Administration Multivitamins 1 each 02/18/17 10:00 02/25/17 09:26 Total B With C - PO 1 each DAILY [facility] Administration Mupirocin 1 applic 02/21/17 22:00 02/25/17 21:35 Bactroban Ointment (For Decolonization) - NS 02/26/17 21:59 1 applic BID [facility] Administration Ondansetron HCl 4 mg 02/17/17 16:19 Zofran Injection IVPB Q6H PRN NAUSEA Pantoprazole Sodium 40 mg 02/22/17 10:00 02/25/17 09:16 Protonix - PO 40 mg DAILY [facility] Administration Polyethylene Glycol 17 gm 02/23/17 22:00 02/25/17 22:25 Miralax (For Daily Use) - PO 17 grams BID [facility] Administration Tamsulosin HCl 0.4 mg 02/17/17 22:00 02/25/17 21:34 Flomax - PO 0.4 mg HS [facility] Administration Last Vital Signs Temp Pulse Resp BP Pulse Ox 97.6 F 89 20 139/68 96 02/26/17 06:00 02/26/17 06:00 02/26/17 06:00 02/26/17 06:00 02/26/17 06:30 General NAD CV S1 s2 RRR no murmur/rub/gallop Lungs coarse breath sounds diffusely, no wheezing Abdomen soft NT/ND obese Extremities no pedal edema CBCD WBC 16.7 K/mm3 (4.0-10.0) H 02/26/17 05:00 RBC 3.55 M/mm3 (4.00-5.60) L 02/26/17 05:00 Hgb 11.4 GM/dL (11.7-16.9) L 02/26/17 05:00 Hct 33.4 % (35.4-49) L 02/26/17 05:00 MCV 94.1 fl (80-96) 02/26/17 05:00 MCHC 34.0 g/dl (32.0-35.9) 02/26/17 05:00 RDW 14.3 % (11.9-15.9) 02/26/17 05:00 Plt Count 217 K/MM3 (134-434) 02/26/17 05:00 MPV 9.7 fl (7.5-11.1) 02/26/17 05:00 CMP Sodium 137 mmol/L (136-145) 02/26/17 05:00 Potassium 3.7 mmol/L (3.5-5.1) 02/26/17 05:00 Chloride 98 mmol/L (98-107) 02/26/17 05:00 Carbon Dioxide 30 mmol/L (21-32) 02/26/17 05:00 Anion Gap 9 (8-16) 02/26/17 05:00 BUN 26 mg/dL (7-18) H 02/26/17 05:00 Creatinine 1.0 mg/dL (0.7-1.3) 02/26/17 05:00 Creat Clearance w eGFR > 60 (>60) 02/26/17 05:00 Calcium 8.1 mg/dL (8.5-10.1) L 02/26/17 05:00 Total Bilirubin 1.6 mg/dL (0.2-1.0) H D 02/26/17 05:00 AST 31 U/L (15-37) D 02/26/17 05:00 ALT 43 U/L (12-78) D 02/26/17 05:00 Alkaline Phosphatase 65 U/L (45-117) D 02/26/17 05:00 Total Protein 5.4 g/dl (6.4-8.2) L 02/26/17 05:00 Albumin 2.5 g/dl (3.4-5.0) L 02/26/17 05:00 ASSESSMENT AND PLAN: 76yo M with PMH CAD s/p stent, HTN, dyslipidemia, DM, prostate ca s/p RTx presented to the ER and was admitted for further evaluation of their emergent condition 1. Acute hypoxic respiratory failure- likely due to ILD however can not r/o PNA. saturating 95% on non-rebreather. on levaquin day 7. zosyn re-started and cancelled again by ID. will attempt face mask today to maintain spO2 >88%. cont bipap QHS may be component of JLUIS. chest PT BID, inhalers and nebs. OOB to chair as tolerated. pt understands that he will need to be oxygen on discharge 2. normocytic anemia-anemia of chronic disease. no signs of bleeding. Hgb stable. no indication for txn at this time 3. Layne- likely due to sepsis. now resolved. avoid nephrotoxic medications 4. Hypomagnesemia- resolved 5. CAD s/p stent- no signs of ACS. on asa 6. DM- cont iss. hold oral agents 7. DVT ppx- hep sq 8. MICU care due to tenuous respiratory status. The care of this patient involved high complexity decision making to prevent further life threatening deterioration of the patient's condition and/or to evalute & treat vital organ system(s) failure or risk of failure. 35 minutes critical care time Visit type - Emergency Visit Emergency Visit: Yes ED Registration Date: 02/17/17 Care time: The patient presented to the Emergency Department on the above date and was hospitalized for further evaluation of their emergent condition. - New Patient This patient is new to me today: No - Critical Care Critical Care patient: Yes Total Critical Care Time (in minutes): 35 Critical Care Statement: The care of this patient involved high complexity decision making to prevent further life threatening deterioration of the patient 's condition and/or to evalute & treat vital organ system(s) failure or risk of failure. - Discharge Referral Referred to [facility] No
[2017-02-26] MEDS: LEVOFLOXACIN 500 MG IVPB 100 ML IVPB SCH (09:59)
[2017-02-26] MEDS: CHOLECALCIFEROL (VITAMIN D3) 1,000 UNIT TABLET (FP) PO SCH (10:00)
[2017-02-26] MEDS: LOSARTAN POTASSIUM 25 MG TABLET PO SCH (10:00)
[2017-02-26] MEDS: HEPARIN NA (PORCINE) 5,000 UNITS/ML 1ML VIAL SQ SCH ×2 (10:00→21:23)
[2017-02-26] MEDS: ATENOLOL 50 MG TABLET (FP) PO SCH (10:00)
[2017-02-26] MEDS: VITAMIN B COMPLEX W/C COMBO TABLET (FP) PO SCH (10:00)
[2017-02-26] MEDS: PANTOPRAZOLE 40 MG TABLET (FP) PO SCH (10:00)
[2017-02-26] MEDS: MUPIROCIN 2% TOPICAL OINTMENT FOR DECOLONIZATION NS SCH (10:01)
[2017-02-26] MEDS: ASPIRIN 81 MG CHEWABLE TABLETS PO SCH (10:01)
[2017-02-26] MEDS: POLYETHYLENE GLYCOL 3350 119 GM BTL PO SCH ×2 (10:02→21:24)
[2017-02-26] MEDS: BUDESONIDE/FORMETEROL FUMARATE 80/4.5 mcg INHALER IH SCH ×2 (10:03→22:30)
[2017-02-26] MEDS: CHLORHEXIDINE GLUCONATE 4% CLEANSER FOR DECOLONIZATION TP SCH (21:23)
[2017-02-26] MEDS: TAMSULOSIN HCL 0.4 MG CAP.ER.24H (FP) PO SCH (21:23)
[2017-02-26] MEDS: ATORVASTATIN CA 20 MG TABLET (FP) PO SCH (21:23)
[2017-02-27] MEDS: ALBUTEROL SO4 0.083% IH SOL 2.5 MG/3 ML VIAL.NEB. NEB SCH ×4 (00:15→18:40)
[2017-02-27] MEDS: ACETYLCYSTEINE 20% 200MG/ML 4 ML VIAL *FOR ORAL / INH USE ONLY NEB SCH ×4 (00:15→18:40)
[2017-02-27] MEDS: methylPREDNISolone NA SUCC 40 MG/1 ML VIAL IVPB SCH ×3 (02:42→17:22)
[2017-02-27] MEDS: INSULIN SLIDING SCALE (NOVOLOG) 1 VIAL SQ SCH ×4 (06:05→21:32)
[2017-02-27 06:13] LABS: MCH 32.1 pg (25.7-33.7); MCHC 34.2 g/dl (32.0-35.9); MEAN CELL VOLUME 93.9 fl (80-96); MEAN PLT VOLUME 9.3 fl (7.5-11.1); PLATELET COUNT 186 K/MM3 (134-434); RDW 14.2 % (11.9-15.9); WHITE BLOOD COUNT 16.2 K/mm3 (4.0-10.0)
[2017-02-27 06:38] LABS: CALCIUM 7.6 mg/dL (8.5-10.1); COCKROFT - GAULT 86.14; CREATININE 0.9 mg/dL (0.7-1.3); MAGNESIUM 2.1 mg/dL (1.8-2.4); PHOSPHOROUS 3.1 mg/dL (2.5-4.9)
--- NOTE | 2017-02-27 08:40 | PN ---
Progress Note (short form) - Note Progress Note: states cough is less productive. was placed on bipap overnight and said he feels improved today. denies CP, fever, chills, N/V/C/D Current Medications Generic Name Dose Route Start Last Admin Trade Name Freq PRN Reason Stop Dose Admin Acetaminophen 650 mg 02/17/17 16:19 Tylenol - PO Q4H PRN FEVER OR PAIN Acetylcysteine 800 mg 02/24/17 13:15 02/27/17 06:45 Mucomyst 20 Oral / Inh Use Only* NEB 800 mg QIDR LOYDA Administration Albuterol Sulfate 1 amp 02/24/17 18:00 02/27/17 06:45 Ventolin 0.083% Nebulizer Soln - NEB 1 amp QIDR LOYDA Administration Aspirin 81 mg 02/18/17 10:00 02/26/17 10:01 Asa - PO 81 mg DAILY LOYDA Administration Atenolol 50 mg 02/18/17 10:00 02/26/17 10:00 Tenormin - PO 50 mg DAILY LOYDA Administration Atorvastatin Calcium 20 mg 02/17/17 22:00 02/26/17 21:23 Lipitor - PO 20 mg HS LOYDA Administration Budesonide/Formoterol Fumarate 2 puff 02/18/17 10:00 02/26/17 22:30 Symbicort 80/4.5mcg - IH 2 puff BID LOYDA Administration Chlorhexidine Gluconate 1 applic 02/21/17 22:00 02/26/17 21:23 Hibiclens For Decolonization - TP 1 applic HS LOYDA Administration Cholecalciferol 2,000 unit 02/18/17 10:00 02/26/17 10:00 Vitamin D3 - PO 2,000 unit DAILY LOYDA Administration Guaifenesin 10 ml 02/20/17 08:43 02/22/17 10:27 Robitussin - PO 10 ml Q6H PRN Administration COUGH Heparin Sodium (Porcine) 5,000 unit 02/22/17 22:00 02/26/17 21:23 Heparin - SQ 5,000 unit BID LOYDA Administration Levofloxacin 100 mls @ 100 mls/hr 02/26/17 10:00 02/26/17 09:59 Levaquin 500 Mg Premixed Ivpb - IVPB 100 mls/hr DAILY LOYDA Administration Insulin Aspart 1 vial 02/17/17 22:00 02/27/17 06:05 Novolog Vial Sliding Scale - SQ 2 units ACHS LOYDA Administration Protocol Losartan Potassium 25 mg 02/19/17 10:00 02/26/17 10:00 Cozaar - PO 25 mg DAILY LOYDA Administration Methylprednisolone Sodium Succinate 80 mg 02/21/17 15:00 02/27/17 02:42 Solu-Medrol - IVPB 80 mg Q6H-IV LOYDA Administration Multivitamins 1 each 02/18/17 10:00 02/26/17 10:00 Total B With C - PO 1 each DAILY LOYDA Administration Ondansetron HCl 4 mg 02/17/17 16:19 Zofran Injection IVPB Q6H PRN NAUSEA Pantoprazole Sodium 40 mg 02/22/17 10:00 02/26/17 10:00 Protonix - PO 40 mg DAILY LOYAD Administration Polyethylene Glycol 17 gm 02/23/17 22:00 02/26/17 21:24 Miralax (For Daily Use) - PO 17 grams BID LOYDA Administration Tamsulosin HCl 0.4 mg 02/17/17 22:00 02/26/17 21:23 Flomax - PO 0.4 mg HS LOYDA Administration Last Vital Signs Temp Pulse Resp BP Pulse Ox 98.0 F 75 21 146/85 98 02/27/17 06:00 02/27/17 06:00 02/27/17 06:00 02/27/17 06:00 02/27/17 07:31 General NAD CV S1 s2 RRR no murmur/rub/gallop Lungs coarse breath sounds diffusely, no wheezing. poor inspiratory effort Abdomen soft NT/ND obese Extremities no pedal edema CBCD WBC 16.2 K/mm3 (4.0-10.0) H 02/27/17 05:20 RBC 3.28 M/mm3 (4.00-5.60) L 02/27/17 05:20 Hgb 10.5 GM/dL (11.7-16.9) L 02/27/17 05:20 Hct 30.8 % (35.4-49) L 02/27/17 05:20 MCV 93.9 fl (80-96) 02/27/17 05:20 MCHC 34.2 g/dl (32.0-35.9) 02/27/17 05:20 RDW 14.2 % (11.9-15.9) 02/27/17 05:20 Plt Count 186 K/MM3 (134-434) 02/27/17 05:20 MPV 9.3 fl (7.5-11.1) 02/27/17 05:20 CMP Sodium 139 mmol/L (136-145) 02/27/17 05:20 Potassium 3.8 mmol/L (3.5-5.1) 02/27/17 05:20 Chloride 101 mmol/L (98-107) 02/27/17 05:20 Carbon Dioxide 31 mmol/L (21-32) 02/27/17 05:20 Anion Gap 7 (8-16) L 02/27/17 05:20 BUN 31 mg/dL (7-18) H 02/27/17 05:20 Creatinine 0.9 mg/dL (0.7-1.3) 02/27/17 05:20 Creat Clearance w eGFR > 60 (>60) 02/26/17 05:00 Calcium 7.6 mg/dL (8.5-10.1) L 02/27/17 05:20 Total Bilirubin 1.6 mg/dL (0.2-1.0) H D 02/26/17 05:00 AST 31 U/L (15-37) D 02/26/17 05:00 ALT 43 U/L (12-78) D 02/26/17 05:00 Alkaline Phosphatase 65 U/L (45-117) D 02/26/17 05:00 Total Protein 5.4 g/dl (6.4-8.2) L 02/26/17 05:00 Albumin 2.5 g/dl (3.4-5.0) L 02/26/17 05:00 ASSESSMENT AND PLAN: 76yo M with PMH CAD s/p stent, HTN, dyslipidemia, DM, prostate ca s/p RTx presented to the ER and was admitted for further evaluation of their emergent condition 1. Acute hypoxic respiratory failure- likely due to ILD however can not r/o PNA. saturating 95% on non-rebreather. on levaquin day 8. spoke with poly packer and heat sealer about titrating down steroids given that the patient has been on high dose steroids for a week with only minimal improvement. cont bipap QHS. chest PT BID, inhalers and nebs. OOB to chair as tolerated. 2. normocytic anemia-anemia of chronic disease. no signs of bleeding. Hgb stable. no indication for txn at this time 3. Layne- likely due to sepsis. now resolved. avoid nephrotoxic medications 4. Hypomagnesemia- resolved 5. CAD s/p stent- no signs of ACS. on asa 6. DM- cont iss. hold oral agents 7. DVT ppx- hep sq 8. MICU care due to tenuous respiratory status. The care of this patient involved high complexity decision making to prevent further life threatening deterioration of the patient's condition and/or to evalute & treat vital organ system(s) failure or risk of failure. 38 minutes critical care time Visit type - Emergency Visit Emergency Visit: Yes ED Registration Date: 02/17/17 Care time: The patient presented to the Emergency Department on the above date and was hospitalized for further evaluation of their emergent condition. - New Patient This patient is new to me today: No - Critical Care Critical Care patient: Yes Total Critical Care Time (in minutes): 38 Critical Care Statement: The care of this patient involved high complexity decision making to prevent further life threatening deterioration of the patient 's condition and/or to evalute & treat vital organ system(s) failure or risk of failure. - Discharge Referral Referred to [facility] Med [facility] No
[2017-02-27] MEDS ORDERED: PT OWN MED DRAWER 7, Y5N ONE ×2 (09:01→10:40)
--- NOTE | 2017-02-27 09:04 | PN ---
Progress Note (short form) - Note Progress Note: Seen and examined in the ICU Still requiring NIPPV overnight (slept well) Still on NRB by day afebrile BP stable Current Medications Acetaminophen (Tylenol -) 650 mg PO Q4H PRN PRN Reason: FEVER OR PAIN Acetylcysteine (Mucomyst 20 Oral / Inh Use Only*) 800 mg NEB QIDR [facility] Last Admin: 02/27/17 06:45 Dose: 800 mg Albuterol Sulfate (Ventolin 0.083% Nebulizer Soln -) 1 amp NEB QIDR [facility] Last Admin: 02/27/17 06:45 Dose: 1 amp Aspirin (Asa -) 81 mg PO DAILY [facility] Last Admin: 02/26/17 10:01 Dose: 81 mg Atenolol (Tenormin -) 50 mg PO DAILY [facility] Last Admin: 02/26/17 10:00 Dose: 50 mg Atorvastatin Calcium (Lipitor -) 20 mg PO HS [facility] Last Admin: 02/26/17 21:23 Dose: 20 mg Budesonide/Formoterol Fumarate (Symbicort 80/4.5mcg -) 2 puff IH BID [facility] Last Admin: 02/26/17 22:30 Dose: 2 puff Chlorhexidine Gluconate (Hibiclens For Decolonization -) 1 applic TP HS [facility] Last Admin: 02/26/17 21:23 Dose: 1 applic Cholecalciferol (Vitamin D3 -) 2,000 unit PO DAILY [facility] Last Admin: 02/26/17 10:00 Dose: 2,000 unit Guaifenesin (Robitussin -) 10 ml PO Q6H PRN PRN Reason: COUGH Last Admin: 02/22/17 10:27 Dose: 10 ml Heparin Sodium (Porcine) (Heparin -) 5,000 unit SQ BID [facility] Last Admin: 02/26/17 21:23 Dose: 5,000 unit Levofloxacin (Levaquin 500 Mg Premixed Ivpb -) 100 mls @ 100 mls/hr IVPB DAILY [facility] Last Admin: 02/26/17 09:59 Dose: 100 mls/hr Insulin Aspart (Novolog Vial Sliding Scale -) 1 vial SQ ACHS LOYDA PRN Reason: Protocol Last Admin: 02/27/17 06:05 Dose: 2 units Losartan Potassium (Cozaar -) 25 mg PO DAILY [facility] Last Admin: 02/26/17 10:00 Dose: 25 mg Methylprednisolone Sodium Succinate (Solu-Medrol -) 60 mg IVPB Q8H-IV LOYDA Multivitamins (Total B With C -) 1 each PO DAILY [facility] Last Admin: 02/26/17 10:00 Dose: 1 each Ondansetron HCl (Zofran Injection) 4 mg IVPB Q6H PRN PRN Reason: NAUSEA Pantoprazole Sodium (Protonix -) 40 mg PO DAILY [facility] Last Admin: 02/26/17 10:00 Dose: 40 mg Polyethylene Glycol (Miralax (For Daily Use) -) 17 gm PO BID [facility] Last Admin: 02/26/17 21:24 Dose: 17 grams Tamsulosin HCl (Flomax -) 0.4 mg PO HS [facility] Last Admin: 02/26/17 21:23 Dose: 0.4 mg Vital Signs Period Temp Pulse Resp BP Sys/Wolfe Pulse Ox Last 24 Hr 97.4 F-98.1 F 73-106 16-24 106-160/49-92 95-99 Intake & Output 02/24/17 02/25/17 02/26/17 02/27/17 23:59 23:59 23:59 23:59 Intake Total 800 800 690 250 Output Total 500 1000 1200 500 Balance 300 -200 -510 -250 Weight 90.775 kg 91.081 kg 90.083 kg 90.038 kg Exam: awake, alert and cooperative HEENT: PERRL, no JVD CV: RRR, PACs Pulm: broncial bilateral Abd: SNTND +BS Ext: WWP =2 LE edema Neuro: grossly intact CBCD WBC 16.2 K/mm3 (4.0-10.0) H 02/27/17 05:20 RBC 3.28 M/mm3 (4.00-5.60) L 02/27/17 05:20 Hgb 10.5 GM/dL (11.7-16.9) L 02/27/17 05:20 Hct 30.8 % (35.4-49) L 02/27/17 05:20 MCV 93.9 fl (80-96) 02/27/17 05:20 MCHC 34.2 g/dl (32.0-35.9) 02/27/17 05:20 RDW 14.2 % (11.9-15.9) 02/27/17 05:20 Plt Count 186 K/MM3 (134-434) 02/27/17 05:20 MPV 9.3 fl (7.5-11.1) 02/27/17 05:20 CMP Sodium 139 mmol/L (136-145) 02/27/17 05:20 Potassium 3.8 mmol/L (3.5-5.1) 02/27/17 05:20 Chloride 101 mmol/L (98-107) 02/27/17 05:20 Carbon Dioxide 31 mmol/L (21-32) 02/27/17 05:20 Anion Gap 7 (8-16) L 02/27/17 05:20 BUN 31 mg/dL (7-18) H 02/27/17 05:20 Creatinine 0.9 mg/dL (0.7-1.3) 02/27/17 05:20 Creat Clearance w eGFR > 60 (>60) 02/26/17 05:00 Random Glucose 148 mg/dL (74-106) H 02/27/17 05:20 Calcium 7.6 mg/dL (8.5-10.1) L 02/27/17 05:20 Total Bilirubin 1.6 mg/dL (0.2-1.0) H D 02/26/17 05:00 AST 31 U/L (15-37) D 02/26/17 05:00 ALT 43 U/L (12-78) D 02/26/17 05:00 Alkaline Phosphatase 65 U/L (45-117) D 02/26/17 05:00 Total Protein 5.4 g/dl (6.4-8.2) L 02/26/17 05:00 Albumin 2.5 g/dl (3.4-5.0) L 02/26/17 05:00 CARDIAC ENZYMES Creatine Kinase 59 IU/L (38-174) 02/21/17 07:30 Troponin I 0.06 ng/ml (0.03-0.50) D 02/21/17 07:30 CXR: unchanged diffuse reticular changes t/o both lung painter ASSESSMENT AND PLAN: Acute Hypoxic Respiratory Failure Suspect exacerbation of Interstitial Lung Disease +/- progression of disease r/o Superimposed Pneumonia Hemoptysis Lactic Acidosis resolved Acute Kidney Injury resolved CAD HTN - wean steroids, his lung process has failed to respond to high dose steroids and will start slow taper - inhaled bronchodilators - titrate Fio2 to keep Spo2 >90% - empiric antibiotics - BiPAP to assist in work of breathing and hypoxia - monitor for hemoptysis - monitor urine output, creatinine - DVT/GI prophylaxis - continue ICU monitoring for tenuous respiratory status - bronchoscopy vs lung biopsy once stable - will need to discuss goals of care if oxygen requirements do not improve Boerem ACNP Pulm/CCM CCT: 35 min
[2017-02-27] MEDS: BUDESONIDE/FORMETEROL FUMARATE 80/4.5 mcg INHALER IH SCH ×2 (09:19→21:31)
[2017-02-27] MEDS: HEPARIN NA (PORCINE) 5,000 UNITS/ML 1ML VIAL SQ SCH ×2 (09:20→21:27)
[2017-02-27] MEDS: LEVOFLOXACIN 500 MG IVPB 100 ML IVPB SCH (09:20)
[2017-02-27] MEDS: ATENOLOL 50 MG TABLET (FP) PO SCH (09:20)
[2017-02-27] MEDS: ASPIRIN 81 MG CHEWABLE TABLETS PO SCH (09:21)
[2017-02-27] MEDS: VITAMIN B COMPLEX W/C COMBO TABLET (FP) PO SCH (09:21)
[2017-02-27] MEDS: PANTOPRAZOLE 40 MG TABLET (FP) PO SCH (09:21)
[2017-02-27] MEDS: LOSARTAN POTASSIUM 25 MG TABLET PO SCH (09:34)
[2017-02-27] MEDS: guaiFENesin 200 MG/10 ML 10 ML UNIT-DOSE CUPS PO PRN ×2 (09:34→21:25)
[2017-02-27] MEDS: POLYETHYLENE GLYCOL 3350 119 GM BTL PO SCH ×2 (09:35→21:25)
[2017-02-27] MEDS: CHOLECALCIFEROL (VITAMIN D3) 1,000 UNIT TABLET (FP) PO SCH (09:41)
--- NOTE | 2017-02-27 11:17 | PN ---
Progress Note, Physician History of Present Illness: Awake, alert in bed tachypneic on NRB mask + Cough Reports scant hemoptysis Afebrile with elevated WBC on steroids - Current Medication List Current Medications: Active Medications Acetaminophen (Tylenol -) 650 mg PO Q4H PRN PRN Reason: FEVER OR PAIN Acetylcysteine (Mucomyst 20 Oral / Inh Use Only*) 800 mg NEB QIDR [facility] Last Admin: 02/27/17 06:45 Dose: 800 mg Albuterol Sulfate (Ventolin 0.083% Nebulizer Soln -) 1 amp NEB QIDR [facility] Last Admin: 02/27/17 06:45 Dose: 1 amp Aspirin (Asa -) 81 mg PO DAILY [facility] Last Admin: 02/27/17 09:21 Dose: 81 mg Atenolol (Tenormin -) 50 mg PO DAILY [facility] Last Admin: 02/27/17 09:20 Dose: 50 mg Atorvastatin Calcium (Lipitor -) 20 mg PO HS [facility] Last Admin: 02/26/17 21:23 Dose: 20 mg Budesonide/Formoterol Fumarate (Symbicort 80/4.5mcg -) 2 puff IH BID [facility] Last Admin: 02/27/17 09:19 Dose: 2 puff Chlorhexidine Gluconate (Hibiclens For Decolonization -) 1 applic TP HS [facility] Last Admin: 02/26/17 21:23 Dose: 1 applic Cholecalciferol (Vitamin D3 -) 2,000 unit PO DAILY [facility] Last Admin: 02/27/17 09:41 Dose: 2,000 unit Guaifenesin (Robitussin -) 10 ml PO Q6H PRN PRN Reason: COUGH Last Admin: 02/27/17 09:34 Dose: 10 ml Heparin Sodium (Porcine) (Heparin -) 5,000 unit SQ BID [facility] Last Admin: 02/27/17 09:20 Dose: 5,000 unit Levofloxacin (Levaquin 500 Mg Premixed Ivpb -) 100 mls @ 100 mls/hr IVPB DAILY [facility] Last Admin: 02/27/17 09:20 Dose: 100 mls/hr Insulin Aspart (Novolog Vial Sliding Scale -) 1 vial SQ ACHS LOYDA PRN Reason: Protocol Last Admin: 02/27/17 11:06 Dose: 4 units Losartan Potassium (Cozaar -) 25 mg PO DAILY [facility] Last Admin: 02/27/17 09:34 Dose: 25 mg Methylprednisolone Sodium Succinate (Solu-Medrol -) 60 mg IVPB Q8H-IV [facility] Last Admin: 02/27/17 09:34 Dose: 60 mg Multivitamins (Total B With C -) 1 each PO DAILY [facility] Last Admin: 02/27/17 09:21 Dose: 1 each Ondansetron HCl (Zofran Injection) 4 mg IVPB Q6H PRN PRN Reason: NAUSEA Pantoprazole Sodium (Protonix -) 40 mg PO DAILY [facility] Last Admin: 02/27/17 09:21 Dose: 40 mg Polyethylene Glycol (Miralax (For Daily Use) -) 17 gm PO BID [facility] Last Admin: 02/27/17 09:35 Dose: 17 grams Tamsulosin HCl (Flomax -) 0.4 mg PO HS [facility] Last Admin: 02/26/17 21:23 Dose: 0.4 mg - Objective Vital Signs: Vital Signs Temperature 98.2 F 02/27/17 10:00 Pulse Rate 82 02/27/17 10:05 Respiratory Rate 22 02/27/17 10:00 Blood Pressure 148/83 02/27/17 10:00 O2 Sat by Pulse Oximetry (%) 100 02/27/17 10:05 Constitutional: Yes: No Distress Eyes: Yes: Conjunctiva Clear Cardiovascular: Yes: Regular Rate and Rhythm, Tachycardia, S1, S2 Respiratory: Yes: Other (+ crepitations both lung painter) Gastrointestinal: Yes: Normal Bowel Sounds, Soft. No: Tenderness Edema: Yes Labs: CBC, BMP 02/27/17 05:20 02/27/17 05:20 INR, PTT INR 1.18 (0.82-1.09) H 02/22/17 05:05 Assessment/Plan Acute exacerbation, interstitial lung disease Probable superimposed pneumonia Fever/ leukocytosis Continue empiric levaquin. Zosyn D/C'd Bronchodilators/ steroids
[2017-02-27] MEDS: ATORVASTATIN CA 20 MG TABLET (FP) PO SCH (21:25)
[2017-02-27] MEDS: TAMSULOSIN HCL 0.4 MG CAP.ER.24H (FP) PO SCH (21:25)
[2017-02-27] MEDS: CHLORHEXIDINE GLUCONATE 4% CLEANSER FOR DECOLONIZATION TP SCH (21:25)
[2017-02-28] MEDS: methylPREDNISolone NA SUCC 40 MG/1 ML VIAL IVPB SCH ×3 (01:35→19:27)
[2017-02-28] MEDS: ACETYLCYSTEINE 20% 200MG/ML 4 ML VIAL *FOR ORAL / INH USE ONLY NEB SCH ×4 (06:15→18:11)
[2017-02-28] MEDS: ALBUTEROL SO4 0.083% IH SOL 2.5 MG/3 ML VIAL.NEB. NEB SCH ×4 (06:15→18:11)
[2017-02-28 06:24] LABS: MCH 32.1 pg (25.7-33.7); MCHC 33.7 g/dl (32.0-35.9); MEAN CELL VOLUME 95.1 fl (80-96); MEAN PLT VOLUME 9.6 fl (7.5-11.1); PLATELET COUNT 188 K/MM3 (134-434); RDW 14.3 % (11.9-15.9); WHITE BLOOD COUNT 17.4 K/mm3 (4.0-10.0)
[2017-02-28] MEDS: INSULIN SLIDING SCALE (NOVOLOG) 1 VIAL SQ SCH ×4 (06:39→21:38)
[2017-02-28 06:58] LABS: CALCIUM 7.7 mg/dL (8.5-10.1); COCKROFT - GAULT 77.45; MAGNESIUM 2.2 mg/dL (1.8-2.4); PHOSPHOROUS 3.1 mg/dL (2.5-4.9)
--- NOTE | 2017-02-28 09:11 | PN ---
Progress Note, Physician Chief Complaint: ID Day 6 Levofloxacin - Current Medication List Current Medications: Active Medications Acetaminophen (Tylenol -) 650 mg PO Q4H PRN PRN Reason: FEVER OR PAIN Acetylcysteine (Mucomyst 20 Oral / Inh Use Only*) 800 mg NEB QIDR [facility] Last Admin: 02/28/17 06:15 Dose: 800 mg Albuterol Sulfate (Ventolin 0.083% Nebulizer Soln -) 1 amp NEB QIDR [facility] Last Admin: 02/28/17 06:15 Dose: 1 amp Aspirin (Asa -) 81 mg PO DAILY [facility] Last Admin: 02/27/17 09:21 Dose: 81 mg Atenolol (Tenormin -) 50 mg PO DAILY [facility] Last Admin: 02/27/17 09:20 Dose: 50 mg Atorvastatin Calcium (Lipitor -) 20 mg PO HS [facility] Last Admin: 02/27/17 21:25 Dose: 20 mg Budesonide/Formoterol Fumarate (Symbicort 80/4.5mcg -) 2 puff IH BID [facility] Last Admin: 02/27/17 21:31 Dose: 2 puff Chlorhexidine Gluconate (Hibiclens For Decolonization -) 1 applic TP HS [facility] Last Admin: 02/27/17 21:25 Dose: 1 applic Cholecalciferol (Vitamin D3 -) 2,000 unit PO DAILY [facility] Last Admin: 02/27/17 09:41 Dose: 2,000 unit Guaifenesin (Robitussin -) 10 ml PO Q6H PRN PRN Reason: COUGH Last Admin: 02/27/17 21:25 Dose: 10 ml Heparin Sodium (Porcine) (Heparin -) 5,000 unit SQ BID [facility] Last Admin: 02/27/17 21:27 Dose: 5,000 unit Levofloxacin (Levaquin 500 Mg Premixed Ivpb -) 100 mls @ 100 mls/hr IVPB DAILY [facility] Last Admin: 02/27/17 09:20 Dose: 100 mls/hr Insulin Aspart (Novolog Vial Sliding Scale -) 1 vial SQ ACHS LOYDA PRN Reason: Protocol Last Admin: 02/28/17 06:39 Dose: 2 units Losartan Potassium (Cozaar -) 25 mg PO DAILY [facility] Last Admin: 02/27/17 09:34 Dose: 25 mg Methylprednisolone Sodium Succinate (Solu-Medrol -) 60 mg IVPB Q8H-IV [facility] Last Admin: 02/28/17 01:35 Dose: 60 mg Multivitamins (Total B With C -) 1 each PO DAILY [facility] Last Admin: 02/27/17 09:21 Dose: 1 each Ondansetron HCl (Zofran Injection) 4 mg IVPB Q6H PRN PRN Reason: NAUSEA Pantoprazole Sodium (Protonix -) 40 mg PO DAILY [facility] Last Admin: 02/27/17 09:21 Dose: 40 mg Polyethylene Glycol (Miralax (For Daily Use) -) 17 gm PO BID [facility] Last Admin: 02/27/17 21:25 Dose: 17 grams Tamsulosin HCl (Flomax -) 0.4 mg PO HS [facility] Last Admin: 02/27/17 21:25 Dose: 0.4 mg - Objective Vital Signs: Vital Signs Temperature 98.2 F 02/28/17 06:00 Pulse Rate 74 02/28/17 06:00 Respiratory Rate 17 02/28/17 08:22 Blood Pressure 142/73 02/28/17 06:00 O2 Sat by Pulse Oximetry (%) 97 02/28/17 08:22 Constitutional: Yes: Mild Distress Cardiovascular: Yes: S1, S2 Respiratory: Yes: WNL, Regular, CTA Bilaterally Gastrointestinal: Yes: Soft Edema: No Labs: CBC, BMP 02/28/17 05:25 02/28/17 05:25 INR, PTT INR 1.18 (0.82-1.09) H 02/22/17 05:05 Problem List - Problems (1) Interstitial lung disease Code(s): J84.9 - INTERSTITIAL PULMONARY DISEASE, UNSPECIFIED (2) Pneumonia Code(s): J18.9 - PNEUMONIA, UNSPECIFIED ORGANISM Assessment/Plan Microbiology 02/22/17 19:00 Sputum - Expectorated Gram Stain - Final 02/22/17 19:00 Sputum - Expectorated Sputum Culture - Final Yeast Like Organism Laboratory Tests 02/28/17 02/28/17 05:25 05:25 WBC 17.4 H Hgb 11.0 L Hct 32.8 L Plt Count 188 BUN 32 H Creatinine 1.0 Assessment Interstitial lung disease superimposed respiratory infection assumed Plan Discussed with housestaff re stopping antibiotic tomorrow Will sign off Cruzito DUFF
[2017-02-28] MEDS: ATENOLOL 50 MG TABLET (FP) PO SCH (09:15)
[2017-02-28] MEDS: CHOLECALCIFEROL (VITAMIN D3) 1,000 UNIT TABLET (FP) PO SCH (09:15)
[2017-02-28] MEDS: VITAMIN B COMPLEX W/C COMBO TABLET (FP) PO SCH (09:15)
[2017-02-28] MEDS: PANTOPRAZOLE 40 MG TABLET (FP) PO SCH (09:15)
[2017-02-28] MEDS: POLYETHYLENE GLYCOL 3350 119 GM BTL PO SCH ×2 (09:17→21:18)
[2017-02-28] MEDS: LEVOFLOXACIN 500 MG IVPB 100 ML IVPB SCH (09:18)
[2017-02-28] MEDS: HEPARIN NA (PORCINE) 5,000 UNITS/ML 1ML VIAL SQ SCH ×2 (09:19→21:17)
[2017-02-28] MEDS: ASPIRIN 81 MG CHEWABLE TABLETS PO SCH (09:20)
[2017-02-28] MEDS: LOSARTAN POTASSIUM 25 MG TABLET PO SCH (09:21)
--- NOTE | 2017-02-28 11:51 | PN ---
Teaching Attending Note Name of Resident: Erlin Tsang ATTENDING PHYSICIAN STATEMENT I saw and evaluated the patient. I reviewed the resident's note and discussed the case with the resident. I agree with the resident's findings and plan as documented. SUBJECTIVE: Pt seen and examined in the ICU. Breathing continues to slowly improve. Alternating between NRB and ventimask, currently on 50% FiO2. Mostly nonproductive cough. No fevers or chills. OBJECTIVE: Last Vital Signs Temp Pulse Resp BP Pulse Ox 98.4 F 98 H 21 141/72 100 02/28/17 08:00 02/28/17 10:00 02/28/17 10:00 02/28/17 10:00 02/28/17 09:56 Intake & Output 02/25/17 02/26/17 02/27/17 02/28/17 23:59 23:59 23:59 23:59 Intake Total 189 017 3109 50 Output Total 1000 1200 1375 1150 Balance -200 -510 -305 -1100 Weight 200 lb 12.8 oz 198 lb 9.6 oz 198 lb 8 oz 198 lb 4.8 oz Gen: tachypneic with speaking Heart: RRR Lung: scattered rales Abd: soft, nontender Ext: no edema CBC, BMP 02/28/17 05:25 02/28/17 05:25 CXR: unchanged bilateral infiltrates Active Medications Acetaminophen (Tylenol -) 650 mg PO Q4H PRN PRN Reason: FEVER OR PAIN Acetylcysteine (Mucomyst 20 Oral / Inh Use Only*) 800 mg NEB QIDR [facility] Last Admin: 02/28/17 11:06 Dose: 800 mg Albuterol Sulfate (Ventolin 0.083% Nebulizer Soln -) 1 amp NEB QIDR [facility] Last Admin: 02/28/17 11:07 Dose: 1 amp Aspirin (Asa -) 81 mg PO DAILY [facility] Last Admin: 02/28/17 09:20 Dose: 81 mg Atenolol (Tenormin -) 50 mg PO DAILY [facility] Last Admin: 02/28/17 09:15 Dose: 50 mg Atorvastatin Calcium (Lipitor -) 20 mg PO HS [facility] Last Admin: 02/27/17 21:25 Dose: 20 mg Budesonide/Formoterol Fumarate (Symbicort 80/4.5mcg -) 2 puff IH BID [facility] Last Admin: 02/27/17 21:31 Dose: 2 puff Chlorhexidine Gluconate (Hibiclens For Decolonization -) 1 applic TP HS [facility] Last Admin: 02/27/17 21:25 Dose: 1 applic Cholecalciferol (Vitamin D3 -) 2,000 unit PO DAILY [facility] Last Admin: 02/28/17 09:15 Dose: 2,000 unit Guaifenesin (Robitussin -) 10 ml PO Q6H PRN PRN Reason: COUGH Last Admin: 02/27/17 21:25 Dose: 10 ml Heparin Sodium (Porcine) (Heparin -) 5,000 unit SQ BID [facility] Last Admin: 02/28/17 09:19 Dose: 5,000 unit Insulin Aspart (Novolog Vial Sliding Scale -) 1 vial SQ ACHS [facility] PRN Reason: Protocol Last Admin: 02/28/17 06:39 Dose: 2 units Levofloxacin (Levaquin -) 500 mg PO DAILY@0600 [facility] Stop: 03/01/17 06:30 Losartan Potassium (Cozaar -) 25 mg PO DAILY [facility] Last Admin: 02/28/17 09:21 Dose: 25 mg Methylprednisolone Sodium Succinate (Solu-Medrol -) 60 mg IVPB Q8H-IV [facility] Last Admin: 02/28/17 09:14 Dose: 60 mg Multivitamins (Total B With C -) 1 each PO DAILY [facility] Last Admin: 02/28/17 09:15 Dose: 1 each Ondansetron HCl (Zofran Injection) 4 mg IVPB Q6H PRN PRN Reason: NAUSEA Pantoprazole Sodium (Protonix -) 40 mg PO DAILY [facility] Last Admin: 02/28/17 09:15 Dose: 40 mg Polyethylene Glycol (Miralax (For Daily Use) -) 17 gm PO BID [facility] Last Admin: 02/28/17 09:17 Dose: 17 grams Tamsulosin HCl (Flomax -) 0.4 mg PO HS [facility] Last Admin: 02/27/17 21:25 Dose: 0.4 mg ASSESSMENT AND PLAN: Acute Hypoxic Respiratory Failure Suspect exacerbation of Interstitial Lung Disease ARDS r/o Superimposed Pneumonia Lactic Acidosis r/o Sepsis Acute Kidney Injury CAD HTN - continue medrol at same dose - inhaled bronchodilators - titrate Fio2 to keep Spo2 >90% - empiric antibiotics - BiPAP to assist in work of breathing and hypoxia - monitor for hemoptysis - monitor urine output, creatinine - DVT/GI prophylaxis - continue ICU monitoring for tenuous respiratory status critical care time spent reviewing chart, evaluating patient and formulating plan 36 min
[2017-02-28] MEDS ORDERED: HEMOQUE TEST 1 EACH EACH ONE (12:20)
--- NOTE | 2017-02-28 12:41 | PN ---
Teaching Attending Note Name of Resident: Kyle Waterman ATTENDING PHYSICIAN STATEMENT I saw and evaluated the patient. I reviewed the resident's note and discussed the case with the resident. I agree with the resident's findings and plan as documented. SUBJECTIVE: cough resolved. deneis CP, SOB,fever, chills. unable to tolerate face mask yesterday OBJECTIVE: Last Vital Signs Temp Pulse Resp BP Pulse Ox 98.4 F 98 H 21 141/72 100 02/28/17 08:00 02/28/17 10:00 02/28/17 10:00 02/28/17 10:00 02/28/17 09:56 General NAD Lungs coarse breath sounds. rales R base no wheezing ASSESSMENT AND PLAN: 76yo M with PMH CAD s/p stent, HTN, dyslipidemia, DM, prostate ca s/p RTx presented to the ER and was admitted for further evaluation of their emergent condition 1. Acute hypoxic respiratory failure- likely due to ILD however can not r/o PNA. saturating 100% on non-rebreather. on levaquin day 8. steroids titrated down to 60mg Q8H. slow taper per scrap drop operator. will need to speak with them regarding high oxygen requirements as pt has failed steroid treatment. cont bipap QHS. chest PT BID, inhalers and nebs. OOB to chair as tolerated. 2. normocytic anemia-anemia of chronic disease. no signs of bleeding. Hgb stable. no indication for txn at this time 3. Layne- likely due to sepsis. now resolved. avoid nephrotoxic medications 4. Hypomagnesemia- resolved 5. CAD s/p stent- no signs of ACS. on asa 6. DM- cont iss. hold oral agents 7. DVT ppx- hep sq 8. MICU care due to tenuous respiratory status. The care of this patient involved high complexity decision making to prevent further life threatening deterioration of the patient's condition and/or to evalute & treat vital organ system(s) failure or risk of failure. 35 minutes critical care time
[2017-02-28] MEDS: LEVOFLOXACIN 500 MG TABLET (FP) PO SCH (13:02)
[2017-02-28] MEDS: BUDESONIDE/FORMETEROL FUMARATE 80/4.5 mcg INHALER IH SCH ×2 (13:03→21:18)
--- NOTE | 2017-02-28 13:28 | PN ---
Physical Exam: SUBJECTIVE: Patient seen and examined patient sitting comfortably in bed, on venturay mask 10 L oxygen, states breathing is improving cough has decreased and haemoptysis has decreased patient desaturate last night and was on bipap for 2-3 hours over weekend solumedrol decreased to 60 q8h iv denies chest pain, palpitation, diziness, lightheadidness, nausea, vomiting OBJECTIVE: Vital Signs Period Temp Pulse Resp BP Sys/Wolfe Pulse Ox Last 24 Hr 98.2 F-98.5 F 69-98 16-28 131-156/69-78 93-100 GENERAL: Awake, alert, and fully oriented, in no acute distress. HEAD: Normal with no signs of trauma. EARS, NOSE, THROAT: Ears normal, nares patent, oropharynx clear without exudates. NECK: Normal range of motion, LUNGS: Breath sounds equal, clear to auscultation bilaterally, rales present in b/l base HEART: s1s2 normal ABDOMEN: Soft, nontender, not distended, normoactive bowel sounds, no guarding, no rebound, no masses. MUSCULOSKELETAL: Normal range of motion at all joints. No bony deformities or tenderness. UPPER EXTREMITIES: 2+ pulses, warm, well-perfused. No cyanosis. No clubbing. LOWER EXTREMITIES: warm, well-perfused. No calf tenderness. No peripheral edema. NEUROLOGICAL: Cranial nerves II-XII intact. Normal speech. PSYCHIATRIC: Cooperative. Good eye contact. Appropriate mood and affect. SKIN: Warm, dry, Laboratory Results - last 24 hr 02/27/17 02/27/17 02/27/17 10:56 16:45 21:30 WBC RBC Hgb Hct MCV MCHC RDW Plt Count MPV Sodium Potassium Chloride Carbon Dioxide Anion Gap BUN Creatinine POC Glucometer 228.82203 153.53435 167.06552 Random Glucose Calcium Phosphorus Magnesium 02/28/17 02/28/17 02/28/17 05:25 05:25 05:33 WBC 17.4 H RBC 3.45 L Hgb 11.0 L Hct 32.8 L MCV 95.1 MCHC 33.7 RDW 14.3 Plt Count 188 MPV 9.6 Sodium 139 Potassium 4.2 Chloride 99 Carbon Dioxide 29 Anion Gap 11 BUN 32 H Creatinine 1.0 POC Glucometer 157.47166 Random Glucose 135 H Calcium 7.7 L Phosphorus 3.1 Magnesium 2.2 02/28/17 12:57 WBC RBC Hgb Hct MCV MCHC RDW Plt Count MPV Sodium Potassium Chloride Carbon Dioxide Anion Gap BUN Creatinine POC Glucometer 184.32686 Random Glucose Calcium Phosphorus Magnesium Active Medications Generic Name Dose Route Start Last Admin Trade Name Freq PRN Reason Stop Dose Admin Acetaminophen 650 mg 02/17/17 16:19 Tylenol - PO Q4H PRN FEVER OR PAIN Acetylcysteine 800 mg 02/24/17 13:15 02/28/17 11:06 Mucomyst 20 Oral / Inh Use Only* NEB 800 mg QIDR LOYDA Administration Albuterol Sulfate 1 amp 02/24/17 18:00 02/28/17 11:07 Ventolin 0.083% Nebulizer Soln - NEB 1 amp QIDR LOYDA Administration Aspirin 81 mg 02/18/17 10:00 02/28/17 09:20 Asa - PO 81 mg DAILY LOYDA Administration Atenolol 50 mg 02/18/17 10:00 02/28/17 09:15 Tenormin - PO 50 mg DAILY LOYDA Administration Atorvastatin Calcium 20 mg 02/17/17 22:00 02/27/17 21:25 Lipitor - PO 20 mg HS LOYDA Administration Budesonide/Formoterol Fumarate 2 puff 02/18/17 10:00 02/28/17 13:03 Symbicort 80/4.5mcg - IH 2 puff BID LOYDA Administration Chlorhexidine Gluconate 1 applic 02/21/17 22:00 02/27/17 21:25 Hibiclens For Decolonization - TP 1 applic HS LOYDA Administration Cholecalciferol 2,000 unit 02/18/17 10:00 02/28/17 09:15 Vitamin D3 - PO 2,000 unit DAILY LOYDA Administration Guaifenesin 10 ml 02/20/17 08:43 02/27/17 21:25 Robitussin - PO 10 ml Q6H PRN Administration COUGH Heparin Sodium (Porcine) 5,000 unit 02/22/17 22:00 02/28/17 09:19 Heparin - SQ 5,000 unit BID LOYDA Administration Insulin Aspart 1 vial 02/17/17 22:00 02/28/17 13:11 Novolog Vial Sliding Scale - SQ 2 units ACHS LOYDA Administration Protocol Levofloxacin 500 mg 02/28/17 09:30 02/28/17 13:02 Levaquin - PO 03/01/17 06:30 Not Given DAILY@0600 LOYDA Losartan Potassium 25 mg 02/19/17 10:00 02/28/17 09:21 Cozaar - PO 25 mg DAILY LOYDA Administration Methylprednisolone Sodium Succinate 60 mg 02/27/17 10:00 02/28/17 09:14 Solu-Medrol - IVPB 60 mg Q8H-IV LOYDA Administration Multivitamins 1 each 02/18/17 10:00 02/28/17 09:15 Total B With C - PO 1 each DAILY LOYDA Administration Ondansetron HCl 4 mg 02/17/17 16:19 Zofran Injection IVPB Q6H PRN NAUSEA Pantoprazole Sodium 40 mg 02/22/17 10:00 02/28/17 09:15 Protonix - PO 40 mg DAILY LOYDA Administration Polyethylene Glycol 17 gm 02/23/17 22:00 02/28/17 09:17 Miralax (For Daily Use) - PO 17 grams BID LOYDA Administration Tamsulosin HCl 0.4 mg 02/17/17 22:00 02/27/17 21:25 Flomax - PO 0.4 mg HS LOYDA Administration ASSESSMENT/PLAN: 1acute hypoxic respiratory failure could be due to excerbration of interstial lung ds on venturay mask 10L, of desturate consider norrebreather and bipap BIPAP PRN solumedrol 60mg iv q8h avoid IV fluid monitor vitals monitor intake/ output antibiotics as per ID : on levofloxacin day 6 blood culture no growth on mucomist qid and albuterol standing monitor for haemoptysis, decreased 2. h/o of CAD with stent -Continue Lipitor, ASA 3 HTN -Continue Atenolol, Losartan -monitor vitals 3. ELIDA improved - avoid nephrotoxic drugs - monitor cr 4. NIDDM diabetic diet BGM insulin sliding scale 5. F/E/N - avoid IV fluid -hyponatremia resolved -orally allowed 6. Ppx: on scd. gi protonix 40mg po daily 7 dvt pro continue with sq heparin dispo: admit in icu Visit type - Emergency Visit Emergency Visit: Yes ED Registration Date: 02/17/17 Care time: The patient presented to the Emergency Department on the above date and was hospitalized for further evaluation of their emergent condition. - New Patient This patient is new to me today: No - Critical Care Critical Care patient: Yes Total Critical Care Time (in minutes): 45 Critical Care Statement: The care of this patient involved high complexity decision making to prevent further life threatening deterioration of the patient 's condition and/or to evalute & treat vital organ system(s) failure or risk of failure.
--- NOTE | 2017-02-28 15:08 | PN ---
Physical Exam: SUBJECTIVE: Patient seen and examined Pt si out of bed to chair on non rebreather mask Pt feel better NO fever or chills Pt was on BIPAP overnight for 3-4 hours Cough has improved OBJECTIVE: Vital Signs Period Temp Pulse Resp BP Sys/Wolfe Pulse Ox Last 24 Hr 98.2 F-98.5 F 69-98 16-28 131-156/69-78 93-100 GENERAL: The patient is awake, alert, and fully oriented, in minimal distress. HEAD: Normal with no signs of trauma. NECK: Trachea midline, full range of motion, supple. LUNGS: diminished b/l lungs, occasional episode of tachypnea, No use of accessory muscle use. HEART: Regular rate and rhythm, S1, S2 without murmur, rub or gallop. ABDOMEN: Soft, obese, nontender, nondistended, normoactive bowel sounds, no guarding, no rebound, no hepatosplenomegaly, no masses. EXTREMITIES: 2+ pulses, warm, well-perfused, no edema. NEUROLOGICAL: Normal speech, gait not observed. PSYCH: Normal mood, normal affect. SKIN: Warm, dry, normal turgor, no rashes or lesions noted Laboratory Results - last 24 hr 02/27/17 02/27/17 02/27/17 10:56 16:45 21:30 WBC RBC Hgb Hct MCV MCHC RDW Plt Count MPV Sodium Potassium Chloride Carbon Dioxide Anion Gap BUN Creatinine POC Glucometer 228.14863 153.03244 167.23503 Random Glucose Calcium Phosphorus Magnesium 02/28/17 02/28/17 02/28/17 05:25 05:25 05:33 WBC 17.4 H RBC 3.45 L Hgb 11.0 L Hct 32.8 L MCV 95.1 MCHC 33.7 RDW 14.3 Plt Count 188 MPV 9.6 Sodium 139 Potassium 4.2 Chloride 99 Carbon Dioxide 29 Anion Gap 11 BUN 32 H Creatinine 1.0 POC Glucometer 157.72507 Random Glucose 135 H Calcium 7.7 L Phosphorus 3.1 Magnesium 2.2 02/28/17 12:57 WBC RBC Hgb Hct MCV MCHC RDW Plt Count MPV Sodium Potassium Chloride Carbon Dioxide Anion Gap BUN Creatinine POC Glucometer [phone] Random Glucose Calcium Phosphorus Magnesium Active Medications Generic Name Dose Route Start Last Admin Trade Name Freq PRN Reason Stop Dose Admin Acetaminophen 650 mg 02/17/17 16:19 Tylenol - PO Q4H PRN FEVER OR PAIN Acetylcysteine 800 mg 02/24/17 13:15 02/28/17 11:06 Mucomyst 20 Oral / Inh Use Only* NEB 800 mg QIDR LOYDA Administration Albuterol Sulfate 1 amp 02/24/17 18:00 02/28/17 11:07 Ventolin 0.083% Nebulizer Soln - NEB 1 amp QIDR LOYDA Administration Aspirin 81 mg 02/18/17 10:00 02/28/17 09:20 Asa - PO 81 mg DAILY LOYDA Administration Atenolol 50 mg 02/18/17 10:00 02/28/17 09:15 Tenormin - PO 50 mg DAILY LOYDA Administration Atorvastatin Calcium 20 mg 02/17/17 22:00 02/27/17 21:25 Lipitor - PO 20 mg HS LOYDA Administration Budesonide/Formoterol Fumarate 2 puff 02/18/17 10:00 02/28/17 13:03 Symbicort 80/4.5mcg - IH 2 puff BID LOYDA Administration Chlorhexidine Gluconate 1 applic 02/21/17 22:00 02/27/17 21:25 Hibiclens For Decolonization - TP 1 applic HS LOYDA Administration Cholecalciferol 2,000 unit 02/18/17 10:00 02/28/17 09:15 Vitamin D3 - PO 2,000 unit DAILY LOYDA Administration Guaifenesin 10 ml 02/20/17 08:43 02/27/17 21:25 Robitussin - PO 10 ml Q6H PRN Administration COUGH Heparin Sodium (Porcine) 5,000 unit 02/22/17 22:00 02/28/17 09:19 Heparin - SQ 5,000 unit BID LOYDA Administration Insulin Aspart 1 vial 02/17/17 22:00 02/28/17 13:11 Novolog Vial Sliding Scale - SQ 2 units ACHS LOYDA Administration Protocol Levofloxacin 500 mg 02/28/17 09:30 02/28/17 13:02 Levaquin - PO 03/01/17 06:30 Not Given DAILY@0600 LOYDA Losartan Potassium 25 mg 02/19/17 10:00 02/28/17 09:21 Cozaar - PO 25 mg DAILY LOYDA Administration Methylprednisolone Sodium Succinate 60 mg 02/27/17 10:00 04/10/17 09:14 Solu-Medrol - IVPB 60 mg Q8H-IV LOYDA Administration Multivitamins 1 each 02/18/17 10:00 02/28/17 09:15 Total B With C - PO 1 each DAILY LOYDA Administration Ondansetron HCl 4 mg 02/17/17 16:19 Zofran Injection IVPB Q6H PRN NAUSEA Pantoprazole Sodium 40 mg 02/22/17 10:00 02/28/17 09:15 Protonix - PO 40 mg DAILY LOYDA Administration Polyethylene Glycol 17 gm 02/23/17 22:00 02/28/17 09:17 Miralax (For Daily Use) - PO 17 grams BID LOYDA Administration Tamsulosin HCl 0.4 mg 02/17/17 22:00 02/27/17 21:25 Flomax - PO 0.4 mg HS LOYDA Administration CBC, BMP 02/28/17 05:25 02/28/17 05:25 Microbiology 02/22/17 19:00 Sputum - Expectorated Gram Stain - Final 02/22/17 19:00 Sputum - Expectorated Sputum Culture - Final Yeast Like Organism 02/21/17 19:00 Urine For Antigen Detection Legionella Antigen - Final 02/21/17 19:00 Urine For Antigen Detection Streptococcus pneumoniae Antigen (M - Final 02/21/17 19:00 Urine - Urine Clean Catch Urine Culture - Final NO GROWTH OBTAINED 02/21/17 08:00 Blood - Peripheral Venous Blood Culture - Final NO GROWTH AFTER 5 DAYS INCUBATION 02/21/17 07:50 Blood - Peripheral Venous Blood Culture - Final NO GROWTH AFTER 5 DAYS INCUBATION 02/19/17 20:15 Sputum - Expectorated Gram Stain - Final 02/19/17 20:15 Sputum - Expectorated Sputum Culture - Final NORMAL RESPIRATORY [facility] Laboratory Tests 02/23/17 02/23/17 05:20 05:20 Iron 45 TIBC 154 L Iron Saturation 29 Ferritin 1375.278 H ASSESSMENT/PLAN: 76 year old male with pmh of CAD with stent x1, HTN, HPLD, DM, Prostate CA s/p radiation, Interstitial lung disease who was admitted at [facility] for sob, cough, Dyspnea on exertion for 3-4 weeks, was transferred to [facility] ICU after desaturating, having worsening resp status requiring BIPAP. Acute hypoxic respiratory failure likely due to ILD flare r/o PNA induced sepsis On admission Pt had productive cough with brown blood tinged sputum, leukocytosis, After high dose of steroid for a week with no major improvement. Will start tapering solumedrol slowly solumedrol 60mg IV q8h Symbicort inh bid Duoneb qid Albuterol PRN BIpap PRN non rebreather mask continue trials of Venti mask 50% keep O2 sat >90% incentive spirometer Mucomyst 20 QID Chest PT blood culture negative ID is on case Was on Zosyn for multiple days Was on levaquin for 6 days so far DC antibiotic in am per ID Normocytic Anemia Iron studies showed anemia of chronic disease NO iron supplement necessary CAD with stent On ASA On lipitor HTN Continue atenolol and cozaar Diabetes BGM AC SH Novolog sliding scale ELIDA (stable) Cr was 1.6, now 1 CMP in am FEN Fluid: none electrolytes: no abnormalities Nutrition: diabetic diet Prophylaxis DVT: heparin 5000U sq TID Deconditionning: OOB to chair, Physical therapy, Chest PT Disposition: transfer to floor if stable on Venti mask 50% Visit type - Emergency Visit Emergency Visit: Yes ED Registration Date: 02/17/17 Care time: The patient presented to the Emergency Department on the above date and was hospitalized for further evaluation of their emergent condition. - New Patient This patient is new to me today: Yes - Critical Care Critical Care patient: No
[2017-02-28] MEDS: CHLORHEXIDINE GLUCONATE 4% CLEANSER FOR DECOLONIZATION TP SCH (21:17)
[2017-02-28] MEDS: ATORVASTATIN CA 20 MG TABLET (FP) PO SCH (21:17)
[2017-02-28] MEDS: guaiFENesin 200 MG/10 ML 10 ML UNIT-DOSE CUPS PO PRN (21:17)
[2017-02-28] MEDS: TAMSULOSIN HCL 0.4 MG CAP.ER.24H (FP) PO SCH (21:17)
[2017-03-01] MEDS: ALBUTEROL SO4 0.083% IH SOL 2.5 MG/3 ML VIAL.NEB. NEB SCH ×5 (00:05→23:53)
[2017-03-01] MEDS: ACETYLCYSTEINE 20% 200MG/ML 4 ML VIAL *FOR ORAL / INH USE ONLY NEB SCH ×5 (00:05→23:53)
[2017-03-01] MEDS: methylPREDNISolone NA SUCC 40 MG/1 ML VIAL IVPB SCH ×3 (02:06→17:12)
[2017-03-01 06:43] LABS: MCH 31.5 pg (25.7-33.7); MCHC 33.1 g/dl (32.0-35.9); MEAN PLT VOLUME 9.4 fl (7.5-11.1); PLATELET COUNT 151 K/MM3 (134-434); RDW 14.4 % (11.9-15.9); WHITE BLOOD COUNT 16.9 K/mm3 (4.0-10.0)
[2017-03-01] MEDS: INSULIN SLIDING SCALE (NOVOLOG) 1 VIAL SQ SCH ×3 (06:53→23:11)
[2017-03-01] MEDS: LEVOFLOXACIN 500 MG TABLET (FP) PO SCH (06:53)
[2017-03-01 06:58] LABS: CALCIUM 7.9 mg/dL (8.5-10.1); COCKROFT - GAULT 98.18; CREATININE 0.8 mg/dL (0.7-1.3)
[2017-03-01 08:47] LABS: PLATELET ESTIMATE ADEQUATE (NORMAL)
[2017-03-01 08:51] LABS: BURR CELLS 1+; FRAGMENTED CELL 1+
[2017-03-01] MEDS: guaiFENesin 200 MG/10 ML 10 ML UNIT-DOSE CUPS PO PRN (09:50)
[2017-03-01] MEDS: PANTOPRAZOLE 40 MG TABLET (FP) PO SCH (09:51)
[2017-03-01] MEDS: BUDESONIDE/FORMETEROL FUMARATE 80/4.5 mcg INHALER IH SCH ×2 (09:51→23:10)
[2017-03-01] MEDS: CHOLECALCIFEROL (VITAMIN D3) 1,000 UNIT TABLET (FP) PO SCH (09:52)
[2017-03-01] MEDS: ATENOLOL 50 MG TABLET (FP) PO SCH (09:52)
[2017-03-01] MEDS: LOSARTAN POTASSIUM 25 MG TABLET PO SCH (09:52)
[2017-03-01] MEDS: POLYETHYLENE GLYCOL 3350 119 GM BTL PO SCH ×2 (09:53→23:12)
[2017-03-01] MEDS: HEPARIN NA (PORCINE) 5,000 UNITS/ML 1ML VIAL SQ SCH ×2 (09:53→23:11)
[2017-03-01] MEDS: ASPIRIN 81 MG CHEWABLE TABLETS PO SCH (09:54)
[2017-03-01] MEDS: VITAMIN B COMPLEX W/C COMBO TABLET (FP) PO SCH (11:19)
[2017-03-01] MEDS ORDERED: ONDANSETRON 4 MG/2 ML VIAL IVPB PRN (11:20)
[2017-03-01] MEDS ORDERED: guaiFENesin 200 MG/10 ML 10 ML UNIT-DOSE CUPS PO PRN (11:20)
[2017-03-01] MEDS ORDERED: ACETAMINOPHEN 325 MG TABLET (FP) PO PRN (11:20)
--- NOTE | 2017-03-01 11:50 | PN ---
Progress Note, Physician History of Present Illness: PULMONARY ALERT,FEELING BETTER,LESS DYSPNEIC. - Current Medication List Current Medications: Active Medications Acetaminophen (Tylenol -) 650 mg PO Q4H PRN PRN Reason: FEVER OR PAIN Acetylcysteine (Mucomyst 20 Oral / Inh Use Only*) 800 mg NEB QIDR [facility] Last Admin: 03/01/17 11:10 Dose: 800 mg Albuterol Sulfate (Ventolin 0.083% Nebulizer Soln -) 1 amp NEB ONCE ONE Stop: 03/01/17 11:21 Albuterol Sulfate (Ventolin 0.083% Nebulizer Soln -) 1 amp NEB QIDR [facility] Last Admin: 03/01/17 11:10 Dose: 1 amp Aspirin (Asa -) 81 mg PO DAILY LOYDA Atenolol (Tenormin -) 50 mg PO DAILY [facility] Atorvastatin Calcium (Lipitor -) 20 mg PO HS [facility] Budesonide/Formoterol Fumarate (Symbicort 80/4.5mcg -) 2 puff IH BID [facility] Chlorhexidine Gluconate (Hibiclens For Decolonization -) 1 applic TP HS [facility] Cholecalciferol (Vitamin D3 -) 2,000 unit PO DAILY [facility] Guaifenesin (Robitussin -) 10 ml PO Q6H PRN PRN Reason: COUGH Heparin Sodium (Porcine) (Heparin -) 5,000 unit SQ BID [facility] Insulin Aspart (Novolog Vial Sliding Scale -) 1 vial SQ ACHS LOYDA PRN Reason: Protocol Losartan Potassium (Cozaar -) 25 mg PO DAILY [facility] Methylprednisolone Sodium Succinate (Solu-Medrol -) 60 mg IVPB Q8H-IV [facility] Multivitamins (Total B With C -) 1 each PO DAILY [facility] Ondansetron HCl (Zofran Injection) 4 mg IVPB Q6H PRN PRN Reason: NAUSEA Pantoprazole Sodium (Protonix -) 40 mg PO DAILY [facility] Polyethylene Glycol (Miralax (For Daily Use) -) 17 gm PO BID LOYDA Tamsulosin HCl (Flomax -) 0.4 mg PO HS [facility] - Objective Vital Signs: Vital Signs Temperature 97.4 F L 03/01/17 10:00 Pulse Rate 82 03/01/17 10:00 Respiratory Rate 18 03/01/17 10:00 Blood Pressure 131/61 03/01/17 10:00 O2 Sat by Pulse Oximetry (%) 98 02/28/17 22:30 Constitutional: Yes: Well Nourished, Calm Eyes: Yes: WNL HENT: Yes: WNL Neck: Yes: WNL Cardiovascular: Yes: Regular Rate and Rhythm, S1, S2 Respiratory: Yes: Rales (GIANNA CRACKLES) Gastrointestinal: Yes: Normal Bowel Sounds, Soft Extremities: Yes: WNL Edema: No Labs: CBC, BMP 03/01/17 05:20 03/01/17 05:20 INR, PTT INR 1.18 (0.82-1.09) H 02/22/17 05:05 - ....Imaging Chest X-ray: Report Reviewed, Image Reviewed Problem List - Problems (1) Bronchitis Code(s): J40 - BRONCHITIS, NOT SPECIFIED ACUTE OR CHRONIC (2) Dyspnea on exertion Code(s): R06.09 - OTHER FORMS OF DYSPNEA (3) Interstitial lung disease Code(s): J84.9 - INTERSTITIAL PULMONARY DISEASE, UNSPECIFIED (4) Hyponatremia Code(s): E87.1 - HYPO-OSMOLALITY AND HYPONATREMIA (5) Elevated lactic acid level Code(s): R79.89 - OTHER SPECIFIED ABNORMAL FINDINGS OF BLOOD CHEMISTRY (6) ASHD (arteriosclerotic heart disease) Code(s): I25.10 - ATHSCL HEART DISEASE OF [place] CORONARY ARTERY W/O ANG PCTRS (7) Acute kidney injury Code(s): N17.9 - ACUTE KIDNEY FAILURE, UNSPECIFIED (8) Acute hypoxemic respiratory failure Code(s): J96.01 - ACUTE RESPIRATORY FAILURE WITH HYPOXIA Assessment/Plan ASSESSMENT AND PLAN: Acute Hypoxic Respiratory Failure Suspect exacerbation of Interstitial Lung Disease ARDS r/o Superimposed Pneumonia Lactic Acidosis r/o Sepsis Acute Kidney Injury CAD HTN - medrol at same dose - inhaled bronchodilators - titrate Fio2 to keep Spo2 >90% - O2, BiPAP at night and prn to assist in work of breathing and hypoxia - DVT/GI prophylaxis DR PEARSON
[2017-03-01] MEDS ORDERED: ALBUTEROL SO4 0.083% IH SOL 2.5 MG/3 ML VIAL.NEB. NEB ONE (12:00)
--- NOTE | 2017-03-01 12:44 | PN ---
Physical Exam: SUBJECTIVE: Patient seen and examined Pt is awake, alert and oriented Pt was on BIPAP overnight Now stable on ventimask 50% Pt still desaturates after exertion Still having productive cough yellow and/or bloody OBJECTIVE: Vital Signs Period Temp Pulse Resp BP Sys/Wolfe Pulse Ox Last 24 Hr 97.4 F-98.3 F 73-88 16-22 109-161/43-82 92-98 GENERAL: The patient is awake, alert, and fully oriented, in no acute distress. HEAD: Normal with no signs of trauma. LUNGS: bilaterally rales, no wheezes, no accessory muscle use. HEART: Regular rate and rhythm, S1, S2 without murmur, rub or gallop. ABDOMEN: Soft, nontender, nondistended, normoactive bowel sounds, no guarding, no rebound, no hepatosplenomegaly, no masses. EXTREMITIES: 2+ pulses, warm, well-perfused, no edema. NEUROLOGICAL: Normal speech, gait not observed. PSYCH: Normal mood, normal affect. SKIN: Warm, dry, normal turgor, no rashes or lesions noted Laboratory Results - last 24 hr 02/28/17 02/28/17 02/28/17 12:57 19:14 21:35 WBC RBC Hgb Hct MCV MCHC RDW Plt Count MPV Neutrophils % Lymphocytes % Monocytes % Myelocytes Nucleated RBCs Differential Comment Platelet Estimate Basophilic Stippling [place] Cells Fragmented RBCs Morphology Comment Sodium Potassium Chloride Carbon Dioxide Anion Gap BUN Creatinine POC Glucometer 184.14777 178.14621 161.92439 Random Glucose Calcium 02/28/17 03/01/17 03/01/17 22:20 05:20 05:20 WBC 16.9 H RBC 3.48 L Hgb 11.0 L Hct 33.1 L MCV 95.0 MCHC 33.1 RDW 14.4 Plt Count 151 MPV 9.4 Neutrophils % 90.0 H Lymphocytes % 1.0 L D Monocytes % 8.0 D Myelocytes 1 Nucleated RBCs 1 H Differential Comment Manual diff done Platelet Estimate Adequate Basophilic Stippling 1+ [place] Cells 1+ Fragmented RBCs 1+ Morphology Comment Slide scanned Sodium 140 Potassium 4.4 Chloride 101 Carbon Dioxide 29 Anion Gap 10 BUN 28 H Creatinine 0.8 POC Glucometer 282.80861 Random Glucose 126 H Calcium 7.9 L 03/01/17 03/01/17 06:49 11:15 WBC RBC Hgb Hct MCV MCHC RDW Plt Count MPV Neutrophils % Lymphocytes % Monocytes % Myelocytes Nucleated RBCs Differential Comment Platelet Estimate Basophilic Stippling [place] Cells Fragmented RBCs Morphology Comment Sodium Potassium Chloride Carbon Dioxide Anion Gap BUN Creatinine POC Glucometer 155.54129 178.27557 Random Glucose Calcium Active Medications Generic Name Dose Route Start Last Admin Trade Name Freq PRN Reason Stop Dose Admin Acetaminophen 650 mg 03/01/17 11:20 Tylenol - PO Q4H PRN FEVER OR PAIN Acetylcysteine 800 mg 03/01/17 12:00 03/01/17 11:10 Mucomyst 20 Oral / Inh Use Only* NEB 800 mg QIDR [facility] Administration Albuterol Sulfate 1 amp 03/01/17 12:00 03/01/17 11:10 Ventolin 0.083% Nebulizer Soln - NEB 1 amp QIDR [facility] Administration Aspirin 81 mg 03/02/17 10:00 Asa - PO DAILY [facility] Atenolol 50 mg 03/02/17 10:00 Tenormin - PO DAILY [facility] Atorvastatin Calcium 20 mg 03/01/17 22:00 Lipitor - PO HS [facility] Budesonide/Formoterol Fumarate 2 puff 03/01/17 22:00 Symbicort 80/4.5mcg - IH BID [facility] Cholecalciferol 2,000 unit 03/02/17 10:00 Vitamin D3 - PO DAILY [facility] Guaifenesin 10 ml 03/01/17 11:20 Robitussin - PO Q6H PRN COUGH Heparin Sodium (Porcine) 5,000 unit 03/01/17 22:00 Heparin - SQ BID [facility] Insulin Aspart 1 vial 03/01/17 16:30 Novolog Vial Sliding Scale - SQ ACHS [facility] Protocol Losartan Potassium 25 mg 03/02/17 10:00 Cozaar - PO DAILY [facility] Methylprednisolone Sodium Succinate 60 mg 03/01/17 18:00 Solu-Medrol - IVPB Q8H-IV [facility] Multivitamins 1 each 03/02/17 10:00 Total B With C - PO DAILY [facility] Ondansetron HCl 4 mg 03/01/17 11:20 Zofran Injection IVPB Q6H PRN NAUSEA Pantoprazole Sodium 40 mg 03/02/17 10:00 Protonix - PO DAILY [facility] Polyethylene Glycol 17 gm 03/01/17 22:00 Miralax (For Daily Use) - PO BID [facility] Tamsulosin HCl 0.4 mg 03/01/17 22:00 Flomax - PO HS LOYDA CBC, BMP 03/01/17 05:20 03/01/17 05:20 ASSESSMENT/PLAN: 76 year old male with pmh of CAD with stent x1, HTN, HPLD, DM, Prostate CA s/p radiation, Interstitial lung disease who was admitted at [facility] for sob, cough, Dyspnea on exertion for 3-4 weeks, was transferred to [facility] ICU after desaturating, having worsening resp status requiring BIPAP. Acute hypoxic respiratory failure likely due to ILD flare r/o PNA induced sepsis On admission Pt had productive cough with brown blood tinged sputum, leukocytosis, After high dose of steroid for a week with no major improvement. Will start tapering solumedrol slowly solumedrol 60mg IV q8h Symbicort inh bid Duoneb qid Albuterol PRN BIpap PRN on Venti mask 50%, doing well Titrate down keep O2 sat >90% incentive spirometer Mucomyst inh QID Chest PT Pulmonary on case blood culture negative Antibiotic DC per ID who also signed off case Normocytic Anemia Iron studies showed anemia of chronic disease No iron supplement necessary CAD with stent On ASA On lipitor HTN Continue atenolol and cozaar Diabetes BGM AC SH Novolog sliding scale ELIDA (stable) Cr was 1.6, now 1 CMP in am FEN Fluid: none electrolytes: no abnormalities Nutrition: diabetic diet Prophylaxis DVT: heparin 5000U sq TID Deconditionning: OOB to chair, Physical therapy, Chest PT Disposition: keep in telemetry Visit type - Emergency Visit Emergency Visit: Yes ED Registration Date: 02/17/17 Care time: The patient presented to the Emergency Department on the above date and was hospitalized for further evaluation of their emergent condition. - New Patient This patient is new to me today: Yes Date on this admission: 03/01/17 - Critical Care Critical Care patient: No - Discharge Referral Referred to [facility] Med P.C.: No
--- NOTE | 2017-03-01 16:24 | PN ---
Teaching Attending Note Name of Resident: Kyle Waterman ATTENDING PHYSICIAN STATEMENT I saw and evaluated the patient. I reviewed the resident's note and discussed the case with the resident. I agree with the resident's findings and plan as documented. SUBJECTIVE: Patient on 50% O2 VM. Feels less short of breath. OBJECTIVE: Vital Signs Period Temp Pulse Resp BP Sys/Wolfe Pulse Ox Last 24 Hr 97.4 F-98.3 F 73-88 16-22 109-161/43-82 92-98 HEART: S1 S2, RRR LUNGS: Bilateral crackles ABDOMEN: Soft, non-tender, non-distended, normal BS EXTREMITIES: Trace edema ASSESSMENT AND PLAN: This is a 76-year-old man with a history of CAD, stent, HTN, hyperlipidemia, DM , prostate cancer who was admitted with SOB and acute hypoxic respiratory failure. 1. Acute hypoxic respiratory failure secondary to ILD, possible pneumonia - Continue SoluMedrol, Symbicort, Albuterol, Mucomyst, oxygen, BiPAP at night 2. Anemia secondary to chronic illness - Hemoglobin stable 3. Acute kidney injury - Resolved 4. Hypomagnesemia - Improved 5. CAD, history of stent - Continue aspirin, atenolol, Cozaar, Lipitor 6. Type 2 DM - Continue Novolog sliding scale 7. HTN - Continue atenolol, Cozaar
[2017-03-01] MEDS ORDERED: CHLORHEXIDINE GLUCONATE 4% CLEANSER FOR DECOLONIZATION TP SCH (22:00)
[2017-03-01] MEDS: TAMSULOSIN HCL 0.4 MG CAP.ER.24H (FP) PO SCH (23:11)
[2017-03-01] MEDS: ATORVASTATIN CA 20 MG TABLET (FP) PO SCH (23:12)
[2017-03-02] MEDS: methylPREDNISolone NA SUCC 40 MG/1 ML VIAL IVPB SCH ×3 (02:42→18:09)
[2017-03-02] MEDS: INSULIN SLIDING SCALE (NOVOLOG) 1 VIAL SQ SCH ×4 (06:05→22:04)
[2017-03-02] MEDS: ALBUTEROL SO4 0.083% IH SOL 2.5 MG/3 ML VIAL.NEB. NEB SCH ×4 (06:44→23:53)
[2017-03-02] MEDS: ACETYLCYSTEINE 20% 200MG/ML 4 ML VIAL *FOR ORAL / INH USE ONLY NEB SCH ×4 (06:44→23:53)
[2017-03-02 07:02] LABS: MCH 31.3 pg (25.7-33.7); MCHC 32.9 g/dl (32.0-35.9); MEAN CELL VOLUME 95.1 fl (80-96); MEAN PLT VOLUME 9.5 fl (7.5-11.1); PLATELET COUNT 151 K/MM3 (134-434); RDW 14.5 % (11.9-15.9); WHITE BLOOD COUNT 18.1 K/mm3 (4.0-10.0)
--- NOTE | 2017-03-02 09:39 | PN ---
Physical Exam: SUBJECTIVE: Patient seen and examined Pt is awake, alert and orineted Pt is on Venti mask now Was on BIPAP overnight Pt say he is breathing fine No sob Still mill cough no chest pain or palpitation no N/v OBJECTIVE: Vital Signs Period Temp Pulse Resp BP Sys/Wolfe Pulse Ox Last 24 Hr 97.4 F-98.2 F 71-97 18-20 115-155/55-85 93-96 GENERAL: The patient is awake, alert, and fully oriented, in no acute distress. HEAD: Normal with no signs of trauma. NECK: Trachea midline, full range of motion, supple. LUNGS: b/l rales in bases to auscultation bilaterally, no wheezes, no accessory muscle use. HEART: Regular rate and rhythm, S1, S2 without murmur, rub or gallop. ABDOMEN: Soft, nontender, nondistended, normoactive bowel sounds, no guarding, no rebound, no hepatosplenomegaly, no masses. EXTREMITIES: 2+ pulses, warm, well-perfused, no edema. NEUROLOGICAL: Normal speech, gait not observed. PSYCH: Normal mood, normal affect. SKIN: Warm, dry, normal turgor, no rashes or lesions noted Laboratory Results - last 24 hr 03/01/17 03/01/17 03/02/17 11:15 23:09 05:35 WBC 18.1 H RBC 3.57 L Hgb 11.2 L Hct 34.0 L MCV 95.1 MCHC 32.9 RDW 14.5 Plt Count 151 MPV 9.5 POC Glucometer [id number] 185 03/02/17 06:03 WBC RBC Hgb Hct MCV MCHC RDW Plt Count MPV POC Glucometer 142 Active Medications Generic Name Dose Route Start Last Admin Trade Name Freq PRN Reason Stop Dose Admin Acetaminophen 650 mg 03/01/17 11:20 Tylenol - PO Q4H PRN FEVER OR PAIN Acetylcysteine 800 mg 03/01/17 12:00 03/02/17 06:44 Mucomyst 20 Oral / Inh Use Only* NEB 800 mg QIDR LOYDA Administration Albuterol Sulfate 1 amp 03/01/17 12:00 03/02/17 06:44 Ventolin 0.083% Nebulizer Soln - NEB 1 amp QIDR LOYDA Administration Aspirin 81 mg 03/02/17 10:00 Asa - PO DAILY LOYDA Atenolol 50 mg 03/02/17 10:00 Tenormin - PO DAILY LOYDA Atorvastatin Calcium 20 mg 03/01/17 22:00 03/01/17 23:12 Lipitor - PO 20 mg HS LOYDA Administration Budesonide/Formoterol Fumarate 2 puff 03/01/17 22:00 03/01/17 23:10 Symbicort 80/4.5mcg - IH 2 puff BID LOYDA Administration Cholecalciferol 2,000 unit 03/02/17 10:00 Vitamin D3 - PO DAILY LOYDA Guaifenesin 10 ml 03/01/17 11:20 Robitussin - PO Q6H PRN COUGH Heparin Sodium (Porcine) 5,000 unit 03/01/17 22:00 03/01/17 23:11 Heparin - SQ 5,000 unit BID LOYDA Administration Insulin Aspart 1 vial 03/01/17 16:30 03/02/17 06:05 Novolog Vial Sliding Scale - SQ Not Given ACHS [facility] Protocol Losartan Potassium 25 mg 03/02/17 10:00 Cozaar - PO DAILY [facility] Methylprednisolone Sodium Succinate 60 mg 03/01/17 18:00 03/02/17 02:42 Solu-Medrol - IVPB 60 mg Q8H-IV LOYDA Administration Multivitamins 1 each 03/02/17 10:00 Total B With C - PO DAILY LOYDA Ondansetron HCl 4 mg 03/01/17 11:20 Zofran Injection IVPB Q6H PRN NAUSEA Pantoprazole Sodium 40 mg 03/02/17 10:00 Protonix - PO DAILY [facility] Polyethylene Glycol 17 gm 03/01/17 22:00 03/01/17 23:12 Miralax (For Daily Use) - PO 17 grams BID LOYDA Administration Tamsulosin HCl 0.4 mg 03/01/17 22:00 03/01/17 23:11 Flomax - PO 0.4 mg HS LOYDA Administration CBC, BMP 03/02/17 05:35 03/01/17 05:20 ASSESSMENT/PLAN: 76 year old male with pmh of CAD with stent x1, HTN, HPLD, DM, Prostate CA s/p radiation, Interstitial lung disease who was admitted at [facility] for sob, cough, Dyspnea on exertion for 3-4 weeks, was transferred to [facility] after desaturating, having worsening resp status requiring BIPAP. Acute hypoxic respiratory failure likely due to ILD flare r/o PNA induced sepsis On admission Pt had productive cough with brown blood tinged sputum, leukocytosis, On solumedrol 60mg IV q8h, consider taper down Symbicort inh bid Duoneb qid Albuterol PRN BIpap PRN on Venti mask 50%, doing well Titrate down, Place patient on nasal cannula this morning keep O2 sat >90% incentive spirometer Mucomyst inh QID Chest PT Pulmonary on case blood culture negative Antibiotic DC per ID who also signed off case Normocytic Anemia Iron studies showed anemia of chronic disease No iron supplement necessary CAD with stent On ASA On lipitor HTN Continue atenolol and cozaar Diabetes BGM AC SH Novolog sliding scale ELIDA (stable) Cr was 1.6, now 0.8 FEN Fluid: none electrolytes: no abnormalities Nutrition: diabetic diet Prophylaxis DVT: heparin 5000U sq TID Deconditionning: OOB to chair, Physical therapy, Chest PT Disposition: Continue to monitor resp status. DC planning to Pulm rehab in next couple of days Visit type - Emergency Visit Emergency Visit: Yes ED Registration Date: 02/17/17 Care time: The patient presented to the Emergency Department on the above date and was hospitalized for further evaluation of their emergent condition. - New Patient This patient is new to me today: Yes Date on this admission: 03/02/17 - Critical Care Critical Care patient: No - Discharge Referral Referred to [facility] Med P.C.: No
[2017-03-02] MEDS ORDERED: PT OWN MED DRAWER 7, Y5N ONE (10:13)
[2017-03-02] MEDS: LOSARTAN POTASSIUM 25 MG TABLET PO SCH (10:15)
[2017-03-02] MEDS: VITAMIN B COMPLEX W/C COMBO TABLET (FP) PO SCH (10:15)
[2017-03-02] MEDS: ASPIRIN 81 MG CHEWABLE TABLETS PO SCH (10:15)
[2017-03-02] MEDS: PANTOPRAZOLE 40 MG TABLET (FP) PO SCH (10:16)
[2017-03-02] MEDS: ATENOLOL 50 MG TABLET (FP) PO SCH (10:16)
[2017-03-02] MEDS: HEPARIN NA (PORCINE) 5,000 UNITS/ML 1ML VIAL SQ SCH ×2 (10:17→22:05)
[2017-03-02] MEDS: CHOLECALCIFEROL (VITAMIN D3) 1,000 UNIT TABLET (FP) PO SCH (10:17)
[2017-03-02] MEDS: BUDESONIDE/FORMETEROL FUMARATE 80/4.5 mcg INHALER IH SCH ×2 (10:18→22:05)
[2017-03-02] MEDS: POLYETHYLENE GLYCOL 3350 119 GM BTL PO SCH ×2 (11:47→22:05)
--- NOTE | 2017-03-02 13:26 | PN ---
Progress Note, Physician History of Present Illness: PULMONARY ALERT,STILL DYSPNEIC ON NASAL O2,O2 SAT 96% - Current Medication List Current Medications: Active Medications Acetaminophen (Tylenol -) 650 mg PO Q4H PRN PRN Reason: FEVER OR PAIN Acetylcysteine (Mucomyst 20 Oral / Inh Use Only*) 800 mg NEB QIDR [facility] Last Admin: 03/02/17 11:29 Dose: 800 mg Albuterol Sulfate (Ventolin 0.083% Nebulizer Soln -) 1 amp NEB QIDR [facility] Last Admin: 03/02/17 11:30 Dose: 1 amp Aspirin (Asa -) 81 mg PO DAILY [facility] Last Admin: 03/02/17 10:15 Dose: 81 mg Atenolol (Tenormin -) 50 mg PO DAILY [facility] Last Admin: 03/02/17 10:16 Dose: 50 mg Atorvastatin Calcium (Lipitor -) 20 mg PO HS [facility] Last Admin: 03/01/17 23:12 Dose: 20 mg Budesonide/Formoterol Fumarate (Symbicort 80/4.5mcg -) 2 puff IH BID [facility] Last Admin: 03/02/17 10:18 Dose: 2 puff Cholecalciferol (Vitamin D3 -) 2,000 unit PO DAILY [facility] Last Admin: 03/02/17 10:17 Dose: 2,000 unit Guaifenesin (Robitussin -) 10 ml PO Q6H PRN PRN Reason: COUGH Heparin Sodium (Porcine) (Heparin -) 5,000 unit SQ BID [facility] Last Admin: 03/02/17 10:17 Dose: 5,000 unit Insulin Aspart (Novolog Vial Sliding Scale -) 1 vial SQ ACHS [facility] PRN Reason: Protocol Last Admin: 03/02/17 11:47 Dose: 2 units Losartan Potassium (Cozaar -) 25 mg PO DAILY [facility] Last Admin: 03/02/17 10:15 Dose: 25 mg Methylprednisolone Sodium Succinate (Solu-Medrol -) 60 mg IVPB Q8H-IV [facility] Last Admin: 03/02/17 10:16 Dose: 60 mg Multivitamins (Total B With C -) 1 each PO DAILY [facility] Last Admin: 03/02/17 10:15 Dose: 1 each Ondansetron HCl (Zofran Injection) 4 mg IVPB Q6H PRN PRN Reason: NAUSEA Pantoprazole Sodium (Protonix -) 40 mg PO DAILY [facility] Last Admin: 03/02/17 10:16 Dose: 40 mg Polyethylene Glycol (Miralax (For Daily Use) -) 17 gm PO BID [facility] Last Admin: 03/02/17 11:47 Dose: 17 grams Tamsulosin HCl (Flomax -) 0.4 mg PO HS [facility] Last Admin: 03/01/17 23:11 Dose: 0.4 mg - Objective Vital Signs: Vital Signs Temperature 98.1 F 03/02/17 10:00 Pulse Rate 78 03/02/17 10:00 Respiratory Rate 22 03/02/17 10:00 Blood Pressure 120/60 03/02/17 10:00 O2 Sat by Pulse Oximetry (%) 97 03/02/17 09:45 Constitutional: Yes: Calm, Thin, Other (DYSPNEIC) Eyes: Yes: WNL HENT: Yes: WNL Neck: Yes: WNL Cardiovascular: Yes: Regular Rate and Rhythm, S1, S2 Respiratory: Yes: Rales (BILATERAL CRACKLES) Gastrointestinal: Yes: Normal Bowel Sounds, Soft Extremities: Yes: WNL Edema: No Labs: CBC, BMP 03/02/17 05:35 03/01/17 05:20 INR, PTT INR 1.18 (0.82-1.09) H 02/22/17 05:05 Problem List - Problems (1) Bronchitis Code(s): J40 - BRONCHITIS, NOT SPECIFIED ACUTE OR CHRONIC (2) Dyspnea on exertion Code(s): R06.09 - OTHER FORMS OF DYSPNEA (3) Interstitial lung disease Code(s): J84.9 - INTERSTITIAL PULMONARY DISEASE, UNSPECIFIED (4) Hyponatremia Code(s): E87.1 - HYPO-OSMOLALITY AND HYPONATREMIA (5) Elevated lactic acid level Code(s): R79.89 - OTHER SPECIFIED ABNORMAL FINDINGS OF BLOOD CHEMISTRY (6) ASHD (arteriosclerotic heart disease) Code(s): I25.10 - ATHSCL HEART DISEASE OF [place] CORONARY ARTERY W/O ANG PCTRS (7) Acute kidney injury Code(s): N17.9 - ACUTE KIDNEY FAILURE, UNSPECIFIED (8) Acute hypoxemic respiratory failure Code(s): J96.01 - ACUTE RESPIRATORY FAILURE WITH HYPOXIA Assessment/Plan ASSESSMENT AND PLAN: Acute Hypoxic Respiratory Failure Suspect exacerbation of Interstitial Lung Disease ARDS r/o Superimposed Pneumonia Lactic Acidosis r/o Sepsis Acute Kidney Injury CAD HTN - medrol at same dose - inhaled bronchodilators - titrate Fio2 to keep Spo2 >90% - O2, BiPAP at night and prn to assist in work of breathing and hypoxia - DVT/GI prophylaxis - short term rehab post discharge DR PEARSON
--- NOTE | 2017-03-02 13:29 | PN ---
Progress Note, Physician History of Present Illness: pulmonary alert,oob-chair,less congested - Current Medication List Current Medications: Active Medications Acetaminophen (Tylenol -) 650 mg PO Q4H PRN PRN Reason: FEVER OR PAIN Acetylcysteine (Mucomyst 20 Oral / Inh Use Only*) 800 mg NEB QIDR [facility] Last Admin: 03/02/17 11:29 Dose: 800 mg Albuterol Sulfate (Ventolin 0.083% Nebulizer Soln -) 1 amp NEB QIDR [facility] Last Admin: 03/02/17 11:30 Dose: 1 amp Aspirin (Asa -) 81 mg PO DAILY [facility] Last Admin: 03/02/17 10:15 Dose: 81 mg Atenolol (Tenormin -) 50 mg PO DAILY [facility] Last Admin: 03/02/17 10:16 Dose: 50 mg Atorvastatin Calcium (Lipitor -) 20 mg PO HS [facility] Last Admin: 03/01/17 23:12 Dose: 20 mg Budesonide/Formoterol Fumarate (Symbicort 80/4.5mcg -) 2 puff IH BID [facility] Last Admin: 03/02/17 10:18 Dose: 2 puff Cholecalciferol (Vitamin D3 -) 2,000 unit PO DAILY [facility] Last Admin: 03/02/17 10:17 Dose: 2,000 unit Guaifenesin (Robitussin -) 10 ml PO Q6H PRN PRN Reason: COUGH Heparin Sodium (Porcine) (Heparin -) 5,000 unit SQ BID [facility] Last Admin: 03/02/17 10:17 Dose: 5,000 unit Insulin Aspart (Novolog Vial Sliding Scale -) 1 vial SQ ACHS [facility] PRN Reason: Protocol Last Admin: 03/02/17 11:47 Dose: 2 units Losartan Potassium (Cozaar -) 25 mg PO DAILY [facility] Last Admin: 03/02/17 10:15 Dose: 25 mg Methylprednisolone Sodium Succinate (Solu-Medrol -) 60 mg IVPB Q8H-IV [facility] Last Admin: 03/02/17 10:16 Dose: 60 mg Multivitamins (Total B With C -) 1 each PO DAILY [facility] Last Admin: 03/02/17 10:15 Dose: 1 each Ondansetron HCl (Zofran Injection) 4 mg IVPB Q6H PRN PRN Reason: NAUSEA Pantoprazole Sodium (Protonix -) 40 mg PO DAILY [facility] Last Admin: 03/02/17 10:16 Dose: 40 mg Polyethylene Glycol (Miralax (For Daily Use) -) 17 gm PO BID [facility] Last Admin: 03/02/17 11:47 Dose: 17 grams Tamsulosin HCl (Flomax -) 0.4 mg PO HS [facility] Last Admin: 03/01/17 23:11 Dose: 0.4 mg - Objective Vital Signs: Vital Signs Temperature 98.1 F 03/02/17 10:00 Pulse Rate 78 03/02/17 10:00 Respiratory Rate 22 03/02/17 10:00 Blood Pressure 120/60 03/02/17 10:00 O2 Sat by Pulse Oximetry (%) 97 03/02/17 09:45 Constitutional: Yes: Well Nourished, Calm Eyes: Yes: WNL HENT: Yes: WNL Neck: Yes: WNL Cardiovascular: Yes: Regular Rate and Rhythm, S1, S2 Respiratory: Yes: Rales (devan crackles) Gastrointestinal: Yes: Normal Bowel Sounds, Soft Extremities: Yes: WNL Edema: Yes Labs: CBC, BMP 03/02/17 05:35 03/01/17 05:20 INR, PTT INR 1.18 (0.82-1.09) H 02/22/17 05:05 Problem List - Problems (1) Bronchitis Code(s): J40 - BRONCHITIS, NOT SPECIFIED ACUTE OR CHRONIC (2) Dyspnea on exertion Code(s): R06.09 - OTHER FORMS OF DYSPNEA (3) Interstitial lung disease Code(s): J84.9 - INTERSTITIAL PULMONARY DISEASE, UNSPECIFIED (4) Hyponatremia Code(s): E87.1 - HYPO-OSMOLALITY AND HYPONATREMIA (5) Elevated lactic acid level Code(s): R79.89 - OTHER SPECIFIED ABNORMAL FINDINGS OF BLOOD CHEMISTRY (6) ASHD (arteriosclerotic heart disease) Code(s): I25.10 - ATHSCL HEART DISEASE OF [place] CORONARY ARTERY W/O ANG PCTRS (7) Acute kidney injury Code(s): N17.9 - ACUTE KIDNEY FAILURE, UNSPECIFIED (8) Acute hypoxemic respiratory failure Code(s): J96.01 - ACUTE RESPIRATORY FAILURE WITH HYPOXIA Assessment/Plan ASSESSMENT AND PLAN: Acute Hypoxic Respiratory Failure Suspect exacerbation of Interstitial Lung Disease ARDS r/o Superimposed Pneumonia Lactic Acidosis r/o Sepsis Acute Kidney Injury improving CAD HTN - medrol at same dose - inhaled bronchodilators - titrate Fio2 to keep Spo2 >90% - O2, BiPAP at night and prn to assist in work of breathing and hypoxia - DVT/GI prophylaxis - f/u chest x-ray - short term rehab post discharge DR PEARSON
--- NOTE | 2017-03-02 14:32 | PN ---
Teaching Attending Note Name of Resident: Kyle Waterman ATTENDING PHYSICIAN STATEMENT I saw and evaluated the patient. I reviewed the resident's note and discussed the case with the resident. I agree with the resident's findings and plan as documented. SUBJECTIVE: No new complaints. OBJECTIVE: Vital Signs Period Temp Pulse Resp BP Sys/Wolfe Pulse Ox Last 24 Hr 97.9 F-98.2 F 71-97 18-22 120-155/60-85 93-97 HEART: S1 S2, RRR LUNGS: Bilateral crackles ABDOMEN: Soft, non-tender, non-distended, normal BS EXTREMITIES: Trace edema ASSESSMENT AND PLAN: This is a 76-year-old man with a history of CAD, stent, HTN, hyperlipidemia, DM , prostate cancer who was admitted with SOB and acute hypoxic respiratory failure. 1. Acute hypoxic respiratory failure secondary to ILD, possible pneumonia - Continue SoluMedrol, Symbicort, Albuterol, Mucomyst, oxygen, BiPAP at night 2. Anemia secondary to chronic illness - Hemoglobin stable 3. Acute kidney injury - Resolved 4. Hypomagnesemia - Improved 5. CAD, history of stent - Continue aspirin, atenolol, Cozaar, Lipitor 6. Type 2 DM - Continue Novolog sliding scale 7. HTN - Continue atenolol, Cozaar
--- NOTE | 2017-03-02 16:47 | PN ---
Physical Exam: SUBJECTIVE: Patient seen and examined Pt is awake, alert and fully oriented Pt is on a venti mask, deneis shortness of breath Pt was on BIPAP overnight NO fever or chills Pt has a mild cough OBJECTIVE: Vital Signs Period Temp Pulse Resp BP Sys/Wolfe Pulse Ox Last 24 Hr 97.9 F-98.2 F 71-97 18-22 120-155/60-85 93-97 Laboratory Results - last 24 hr 03/01/17 03/02/17 03/02/17 23:09 05:35 06:03 WBC 18.1 H RBC 3.57 L Hgb 11.2 L Hct 34.0 L MCV 95.1 MCHC 32.9 RDW 14.5 Plt Count 151 MPV 9.5 POC Glucometer 185 142 03/02/17 03/02/17 11:28 15:41 WBC RBC Hgb Hct MCV MCHC RDW Plt Count MPV POC Glucometer 169 174 Active Medications Generic Name Dose Route Start Last Admin Trade Name Freq PRN Reason Stop Dose Admin Acetaminophen 650 mg 03/01/17 11:20 Tylenol - PO Q4H PRN FEVER OR PAIN Acetylcysteine 800 mg 03/01/17 12:00 03/02/17 11:29 Mucomyst 20 Oral / Inh Use Only* NEB 800 mg QIDR LOYDA Administration Albuterol Sulfate 1 amp 03/01/17 12:00 03/02/17 11:30 Ventolin 0.083% Nebulizer Soln - NEB 1 amp QIDR LOYDA Administration Aspirin 81 mg 03/02/17 10:00 03/02/17 10:15 Asa - PO 81 mg DAILY [facility] Administration Atenolol 50 mg 03/02/17 10:00 03/02/17 10:16 Tenormin - PO 50 mg DAILY [facility] Administration Atorvastatin Calcium 20 mg 03/01/17 22:00 03/01/17 23:12 Lipitor - PO 20 mg HS LOYDA Administration Budesonide/Formoterol Fumarate 2 puff 03/01/17 22:00 03/02/17 10:18 Symbicort 80/4.5mcg - IH 2 puff BID [facility]YDA Administration Cholecalciferol 2,000 unit 03/02/17 10:00 03/02/17 10:17 Vitamin D3 - PO 2,000 unit DAILY [facility] Administration Guaifenesin 10 ml 03/01/17 11:20 Robitussin - PO Q6H PRN COUGH Heparin Sodium (Porcine) 5,000 unit 03/01/17 22:00 03/02/17 10:17 Heparin - SQ 5,000 unit BID LOYDA Administration Insulin Aspart 1 vial 03/01/17 16:30 03/02/17 11:47 Novolog Vial Sliding Scale - SQ 2 units ACHS LOYDA Administration Protocol Losartan Potassium 25 mg 03/02/17 10:00 03/02/17 10:15 Cozaar - PO 25 mg DAILY [facility] Administration Methylprednisolone Sodium Succinate 60 mg 03/01/17 18:00 03/02/17 10:16 Solu-Medrol - IVPB 60 mg Q8H-IV LOYDA Administration Multivitamins 1 each 03/02/17 10:00 03/02/17 10:15 Total B With C - PO 1 each DAILY [facility] Administration Ondansetron HCl 4 mg 03/01/17 11:20 Zofran Injection IVPB Q6H PRN NAUSEA Pantoprazole Sodium 40 mg 03/02/17 10:00 03/02/17 10:16 Protonix - PO 40 mg DAILY [facility] Administration Polyethylene Glycol 17 gm 03/01/17 22:00 03/02/17 11:47 Miralax (For Daily Use) - PO 17 grams BID LOYDA Administration Tamsulosin HCl 0.4 mg 03/01/17 22:00 03/01/17 23:11 Flomax - PO 0.4 mg HS LOYDA Administration CBC, BMP 03/02/17 05:35 03/01/17 05:20 ASSESSMENT/PLAN:
[2017-03-02] MEDS: ATORVASTATIN CA 20 MG TABLET (FP) PO SCH (22:04)
[2017-03-02] MEDS: TAMSULOSIN HCL 0.4 MG CAP.ER.24H (FP) PO SCH (22:04)
[2017-03-03] MEDS: methylPREDNISolone NA SUCC 40 MG/1 ML VIAL IVPB SCH ×3 (02:08→17:08)
[2017-03-03] MEDS: INSULIN SLIDING SCALE (NOVOLOG) 1 VIAL SQ SCH ×4 (06:17→22:02)
[2017-03-03] MEDS: ACETYLCYSTEINE 20% 200MG/ML 4 ML VIAL *FOR ORAL / INH USE ONLY NEB SCH ×4 (06:30→23:40)
[2017-03-03] MEDS: ALBUTEROL SO4 0.083% IH SOL 2.5 MG/3 ML VIAL.NEB. NEB SCH ×4 (06:30→23:41)
--- NOTE | 2017-03-03 08:26 | PN ---
Physical Exam: SUBJECTIVE: Patient seen and examined Pt is stable No s/s of acute distress was on nasal cannula yesterday afternoon no fever or chills no more bloody sputum Improved cough OBJECTIVE: Vital Signs Period Temp Pulse Resp BP Sys/Wolfe Pulse Ox Last 24 Hr 97.4 F-98.1 F 68-82 18-22 120-148/60-82 93-97 GENERAL: The patient is awake, alert, and fully oriented, in no acute distress. HEAD: Normal with no signs of trauma. NECK: Trachea midline, full range of motion, supple. LUNGS: b/l rales in bases to auscultation bilaterally, no wheezes, no accessory muscle use. HEART: Regular rate and rhythm, S1, S2 without murmur, rub or gallop. ABDOMEN: Soft, nontender, nondistended, normoactive bowel sounds, no guarding, no rebound, no hepatosplenomegaly, no masses. EXTREMITIES: 2+ pulses, warm, well-perfused, no edema. NEUROLOGICAL: Normal speech, gait not observed. PSYCH: Normal mood, normal affect. SKIN: Warm, dry, normal turgor, no rashes or lesions noted Laboratory Results - last 24 hr 03/02/17 03/02/17 03/02/17 11:28 15:41 22:00 POC Glucometer 169 174 169 03/03/17 05:36 POC Glucometer 184 Active Medications Generic Name Dose Route Start Last Admin Trade Name Freq PRN Reason Stop Dose Admin Acetaminophen 650 mg 03/01/17 11:20 Tylenol - PO Q4H PRN FEVER OR PAIN Acetylcysteine 800 mg 03/01/17 12:00 03/03/17 06:30 Mucomyst 20 Oral / Inh Use Only* NEB 800 mg QIDR LOYDA Administration Albuterol Sulfate 1 amp 03/01/17 12:00 03/03/17 06:30 Ventolin 0.083% Nebulizer Soln - NEB 1 amp QIDR LOYDA Administration Aspirin 81 mg 03/02/17 10:00 03/02/17 10:15 Asa - PO 81 mg DAILY [facility] Administration Atenolol 50 mg 03/02/17 10:00 03/02/17 10:16 Tenormin - PO 50 mg DAILY [facility] Administration Atorvastatin Calcium 20 mg 03/01/17 22:00 03/02/17 22:04 Lipitor - PO 20 mg HS LOYDA Administration Budesonide/Formoterol Fumarate 2 puff 03/01/17 22:00 03/02/17 22:05 Symbicort 80/4.5mcg - IH 2 puff BID [facility]DA Administration Cholecalciferol 2,000 unit 03/02/17 10:00 03/02/17 10:17 Vitamin D3 - PO 2,000 unit DAILY [facility] Administration Guaifenesin 10 ml 03/01/17 11:20 Robitussin - PO Q6H PRN COUGH Heparin Sodium (Porcine) 5,000 unit 03/01/17 22:00 03/02/17 22:05 Heparin - SQ 5,000 unit BID LOYDA Administration Insulin Aspart 1 vial 03/01/17 16:30 03/03/17 06:17 Novolog Vial Sliding Scale - SQ 2 units ACHS LOYDA Administration Protocol Losartan Potassium 25 mg 03/02/17 10:00 03/02/17 10:15 Cozaar - PO 25 mg DAILY [facility] Administration Methylprednisolone Sodium Succinate 60 mg 03/01/17 18:00 03/03/17 02:08 Solu-Medrol - IVPB 60 mg Q8H-IV LOYDA Administration Multivitamins 1 each 03/02/17 10:00 03/02/17 10:15 Total B With C - PO 1 each DAILY [facility] Administration Ondansetron HCl 4 mg 03/01/17 11:20 Zofran Injection IVPB Q6H PRN NAUSEA Pantoprazole Sodium 40 mg 03/02/17 10:00 03/02/17 10:16 Protonix - PO 40 mg DAILY [facility] Administration Polyethylene Glycol 17 gm 03/01/17 22:00 03/02/17 22:05 Miralax (For Daily Use) - PO 17 grams BID LOYDA Administration Tamsulosin HCl 0.4 mg 03/01/17 22:00 03/02/17 22:04 Flomax - PO 0.4 mg HS LOYDA Administration CBC, BMP 03/02/17 05:35 03/01/17 05:20 ASSESSMENT/PLAN: 76 year old male with pmh of CAD with stent x1, HTN, HPLD, DM, Prostate CA s/p radiation, Interstitial lung disease who was admitted at [facility] for sob, cough, Dyspnea on exertion for 3-4 weeks, was transferred to [facility] after desaturating, having worsening resp status requiring BIPAP. Acute hypoxic respiratory failure likely due to ILD flare r/o PNA induced sepsis On admission Pt had productive cough with brown blood tinged sputum, leukocytosis, On solumedrol 60mg IV q8h, consider taper down Symbicort inh bid Duoneb qid Albuterol PRN BIpap PRN on Venti mask 50%, doing well, had trial on nasal cannula yesterday Titrate O2 down, Place patient on nasal cannula today keep O2 sat >90% incentive spirometer Mucomyst inh QID Chest PT Pulmonary on case blood culture negative Antibiotic DC per ID who also signed off case Normocytic Anemia Iron studies showed anemia of chronic disease No iron supplement necessary CAD with stent On ASA On lipitor HTN Continue atenolol and cozaar Diabetes BGM AC SH Novolog sliding scale ELIDA (stable) Cr was 1.6, now 0.8 FEN Fluid: none electrolytes: no abnormalities Nutrition: diabetic diet Prophylaxis DVT: heparin 5000U sq TID Deconditionning: OOB to chair, Physical therapy, Chest PT Disposition: Continue to monitor resp status. DC planning to Pulm rehab in next couple of days Visit type - Emergency Visit Emergency Visit: Yes ED Registration Date: 02/17/17 Care time: The patient presented to the Emergency Department on the above date and was hospitalized for further evaluation of their emergent condition. - New Patient This patient is new to me today: Yes - Critical Care Critical Care patient: No - Discharge Referral Referred to [facility] Med P.C.: No
[2017-03-03] MEDS: LOSARTAN POTASSIUM 25 MG TABLET PO SCH (08:59)
[2017-03-03] MEDS: ASPIRIN 81 MG CHEWABLE TABLETS PO SCH (08:59)
[2017-03-03] MEDS: HEPARIN NA (PORCINE) 5,000 UNITS/ML 1ML VIAL SQ SCH (08:59)
[2017-03-03] MEDS: POLYETHYLENE GLYCOL 3350 119 GM BTL PO SCH ×2 (09:00→22:49)
[2017-03-03] MEDS: PANTOPRAZOLE 40 MG TABLET (FP) PO SCH (09:00)
[2017-03-03] MEDS: BUDESONIDE/FORMETEROL FUMARATE 80/4.5 mcg INHALER IH SCH ×2 (09:01→22:01)
[2017-03-03] MEDS: ATENOLOL 50 MG TABLET (FP) PO SCH (09:02)
[2017-03-03] MEDS: VITAMIN B COMPLEX W/C COMBO TABLET (FP) PO SCH (09:02)
[2017-03-03] MEDS: CHOLECALCIFEROL (VITAMIN D3) 1,000 UNIT TABLET (FP) PO SCH (09:03)
--- NOTE | 2017-03-03 14:17 | PN ---
Progress Note (short form) - Note Progress Note: PULMONARY Desaturating on ventimask 50%, placed on BIPAP 60%. Last Vital Signs Temp Pulse Resp BP Pulse Ox 97.4 F L 79 20 145/82 93 L 03/03/17 05:45 03/03/17 11:14 03/03/17 05:45 03/03/17 05:45 03/03/17 11:14 Intake & Output 02/28/17 03/01/17 03/02/17 03/03/17 23:59 23:59 23:59 23:59 Intake Total 188 982 3077 Output Total 1650 1500 500 700 Balance -950 -1140 655 -700 Weight 198 lb 4.8 oz 201 lb 1.6 oz 195 lb 8 oz Gen: tachypneic at rest Heart: RRR Lung: scattered rales Abd: soft, nontender Ext: no edema CBC, BMP 03/02/17 05:35 03/01/17 05:20 Active Medications Acetaminophen (Tylenol -) 650 mg PO Q4H PRN PRN Reason: FEVER OR PAIN Acetylcysteine (Mucomyst 20 Oral / Inh Use Only*) 800 mg NEB QIDR [facility] Last Admin: 03/03/17 10:20 Dose: 800 mg Albuterol Sulfate (Ventolin 0.083% Nebulizer Soln -) 1 amp NEB QIDR [facility] Last Admin: 03/03/17 11:15 Dose: 1 amp Aspirin (Asa -) 81 mg PO DAILY [facility] Last Admin: 03/03/17 08:59 Dose: 81 mg Atenolol (Tenormin -) 50 mg PO DAILY [facility] Last Admin: 03/03/17 09:02 Dose: 50 mg Atorvastatin Calcium (Lipitor -) 20 mg PO HS [facility] Last Admin: 03/02/17 22:04 Dose: 20 mg Budesonide/Formoterol Fumarate (Symbicort 80/4.5mcg -) 2 puff IH BID [facility] Last Admin: 03/03/17 09:01 Dose: 2 puff Cholecalciferol (Vitamin D3 -) 2,000 unit PO DAILY [facility] Last Admin: 03/03/17 09:03 Dose: 2,000 unit Guaifenesin (Robitussin -) 10 ml PO Q6H PRN PRN Reason: COUGH Last Admin: 03/03/17 09:03 Dose: 10 ml Heparin Sodium (Porcine) (Heparin -) 5,000 unit SQ BID [facility] Last Admin: 03/03/17 08:59 Dose: 5,000 unit Insulin Aspart (Novolog Vial Sliding Scale -) 1 vial SQ ACHS [facility] PRN Reason: Protocol Last Admin: 03/03/17 11:36 Dose: Not Given Losartan Potassium (Cozaar -) 25 mg PO DAILY [facility] Last Admin: 03/03/17 08:59 Dose: 25 mg Methylprednisolone Sodium Succinate (Solu-Medrol -) 60 mg IVPB Q8H-IV [facility] Last Admin: 03/03/17 09:01 Dose: 60 mg Multivitamins (Total B With C -) 1 each PO DAILY [facility] Last Admin: 03/03/17 09:02 Dose: 1 each Ondansetron HCl (Zofran Injection) 4 mg IVPB Q6H PRN PRN Reason: NAUSEA Pantoprazole Sodium (Protonix -) 40 mg PO DAILY [facility] Last Admin: 03/03/17 09:00 Dose: 40 mg Polyethylene Glycol (Miralax (For Daily Use) -) 17 gm PO BID [facility] Last Admin: 03/03/17 09:00 Dose: 17 grams Tamsulosin HCl (Flomax -) 0.4 mg PO HS [facility] Last Admin: 03/02/17 22:04 Dose: 0.4 mg A/P Acute Hypoxic Respiratory Failure Suspect exacerbation of Interstitial Lung Disease ARDS r/o Superimposed Pneumonia Lactic Acidosis r/o Sepsis Acute Kidney Injury CAD HTN - continue medrol at same dose - inhaled bronchodilators - titrate Fio2 to keep Spo2 >90% - empiric antibiotics - BiPAP to assist in work of breathing and hypoxia - monitor urine output, creatinine - DVT/GI prophylaxis
--- NOTE | 2017-03-03 16:33 | PN ---
Teaching Attending Note Name of Resident: Kyle Waterman ATTENDING PHYSICIAN STATEMENT I saw and evaluated the patient. I reviewed the resident's note and discussed the case with the resident. I agree with the resident's findings and plan as documented. SUBJECTIVE: Patient complaining of increased SOB. He was hypoxic on 50% O2 VM and was placed on BiPAP. OBJECTIVE: Vital Signs Period Temp Pulse Resp BP Sys/Wolfe Pulse Ox Last 24 Hr 97.4 F-98.6 F 68-82 18-20 134-148/70-82 93-100 HEART: S1 S2, RRR LUNGS: Bilateral crackles ABDOMEN: Soft, non-tender, non-distended, normal BS EXTREMITIES: Trace edema ASSESSMENT AND PLAN: This is a 76-year-old man with a history of CAD, stent, HTN, hyperlipidemia, DM , prostate cancer who was admitted with SOB and acute hypoxic respiratory failure. 1. Acute on chronic hypoxic respiratory failure secondary to ILD, possible pneumonia - Continue SoluMedrol, Symbicort, Albuterol, Mucomyst, oxygen - Continue BiPAP as needed 2. Anemia secondary to chronic illness - Hemoglobin stable 3. Acute kidney injury - Resolved 4. Hypomagnesemia - Improved 5. CAD, history of stent - Continue aspirin, atenolol, Cozaar, Lipitor 6. Type 2 DM - Continue Novolog sliding scale 7. HTN - Continue atenolol, Cozaar
[2017-03-03] MEDS ORDERED: DEXTROSE 50%-WATER 50 ML DISP.SYRIN ONE ×2 (18:19→19:35)
[2017-03-03] MEDS ORDERED: DEXTROSE 50%-WATER 50 ML DISP.SYRIN IVPUSH ONE (18:22)
--- NOTE | 2017-03-03 19:00 | HOSP ---
Subjective - Review of Symptoms Events since last encounter: I was called to the floor to evaluate 76 year old male PMHx below, due to new onset atrial fibrillation shown on monitor. Patient on BiPAP, started to feel dizzy. Denies chest pain, palpitations or any other associated symptoms. He was found to have glucose of around 40. He was given D50, symptoms improved and converted back to NSR on monitor. This is a 76 year old male with a past medical history of CAD/stent x1, HTN, HLD , Prostate CA s/p radiation tx, DM (dx 3 weeks ago), cholelithiasis who presented to the emergency room with dyspnea on exertion x 3-4 weeks with a dry cough. HEENT: No: Head Aches, Visual Changes Pulmonary: Yes: Dyspnea. No: Cough, Pleuritic Chest Pain Cardiovascular: Yes: Light Headedness. No: Chest Pain, Palpitations, Orthopnea Gastrointestinal: No: Nausea, Vomiting, Abdominal Pain Neurological: No: Weakness, Numbness Physical Examination Vital Signs: Vital Signs Temperature 98.6 F 03/03/17 14:17 Pulse Rate 79 03/03/17 11:14 Respiratory Rate 20 03/03/17 14:17 Blood Pressure 136/74 03/03/17 14:17 O2 Sat by Pulse Oximetry (%) 96 03/03/17 18:51 Constitutional: Yes: No Distress, Calm Eyes: Yes: Conjunctiva Clear, EOM Intact HENT: Yes: Atraumatic, Normocephalic Cardiovascular: Yes: Regular Rate and Rhythm, Pulse Irregular. No: JVD, Murmur Respiratory: Yes: Regular, CTA Bilaterally Labs: CBC, BMP 03/02/17 05:35 03/01/17 05:20 Hospitalist Encounter Assessment: 76 year old male with a PMHx of CAD/stentx1, htn, hld, DM, with new onset paroxymal atrial fibrillation, after glucose 40s. #Paroxysmal atrial fibrillation: -ecg atrial fib -cardiac profile -bmp -magnesium -patient converted to NSR, after D50 -repeat delmar -trend trops -chadvasc2 3 -started on full dose lovenox; 90mg bid -cardiac consult -evaluate insulin coverage Visit type - Emergency Visit Emergency Visit: No - New Patient This patient is new to me today: Yes Date on this admission: 03/03/17 - Critical Care Critical Care patient: No
[2017-03-03] MEDS ORDERED: DEXTROSE 5%-0.45% SALINE 1,000 ML IV SCH (19:45)
[2017-03-03] MEDS: DEXTROSE 5%-0.45% SALINE 1,000 ML IV SCH (19:45)
[2017-03-03 19:46] LABS: ARTERIAL BLD GAS O2 SATURATION 96.3 % (90-98.9); ARTERIAL BLOOD GAS BASE EXCESS 2.2 meq/l (-2-2); ARTERIAL BLOOD GAS HCO3 26.1 meq/L (22-26); ARTERIAL BLOOD GAS pH 7.43 (7.35-7.45)
[2017-03-03 19:47] LABS: ALLENS TEST POSITIVE; ART PUNCT SITE LEFT RADIAL; LPM/O2% 45%; PT. ON O2? YES; TYPE OF O2 BI-PAP; VENT RATE 12
[2017-03-03 19:48] LABS: ARTERIAL BLOOD GAS PO2 84.8 mmHg (70-100)
--- NOTE | 2017-03-03 20:18 | CON.CARD ---
Cardiology Consult (text) - Consultation Consultation Note: CC: new onset afib HPI: 76 yo with h/o CAD/stent x1, HTN, HLD, progressive ILD, Prostate CA s/p radiation tx, DM (dx 3 weeks ago ), cholelithiasis who presented with DARLING and cough x 3-4 weeks (ILD exacerbation vs. infection) whose hospital admission no complicated by new onset afib. patient uptitrated today from face mask to bipap. Becomes hypoxic when bipap is removed and therefore did not eat dinner. On evaluation patient was noted to be diaphoretic, lethargic and in respiratory distress. HR 130's-140's. EKG without ischemic changes. Blood sugar noted to be 24. Hypoglycemia was reversed with resolution of patient's diaphoresis and lethargy. SOB improved and heart rate came down to 90's. Recommended infectious work up with stat blood cultures, cxr, bmp, cbc, lactate. ABG ordered. No orthopnea, cp, le edema, palps, bleeding. + cough No f/c/s, n/v/d, headache, congestion, rashes, visual disturbances. PAST MEDICAL HISTORY: CAD/stent x1 HTN HLD Prostate CA s/p radiation tx DM (dx 3 weeks ago) cholelithiasis PAST SURGICAL HISTORY: stent 2000 hemorrhoidectomy cyst removed from outside of rectum 1959 Social History: Smoking: previous. Quit in , 45-50pack year history Alcohol: occ, 1-2 drinks / week, none in a few months Drugs: pt denies Family History: mother age 87, pancreatic CA, also had heart murmur maternal grandmother , pancreatic CA brother age 78, pancreatic CA father age 61-62, PA, also had emphysema one brother with MS one brother with no known medical problems Current Medications Acetaminophen (Tylenol -) 650 mg PO Q4H PRN PRN Reason: FEVER OR PAIN Acetylcysteine (Mucomyst 20 Oral / Inh Use Only*) 800 mg NEB QIDR [facility] Last Admin: 03/03/17 18:51 Dose: 800 mg Albuterol Sulfate (Ventolin 0.083% Nebulizer Soln -) 1 amp NEB QIDR [facility] Last Admin: 03/03/17 18:51 Dose: 1 amp Aspirin (Asa -) 81 mg PO DAILY [facility] Last Admin: 03/03/17 08:59 Dose: 81 mg Atenolol (Tenormin -) 50 mg PO DAILY [facility] Last Admin: 03/03/17 09:02 Dose: 50 mg Atorvastatin Calcium (Lipitor -) 20 mg PO HS [facility] Last Admin: 03/02/17 22:04 Dose: 20 mg Budesonide/Formoterol Fumarate (Symbicort 80/4.5mcg -) 2 puff IH BID [facility] Last Admin: 03/03/17 09:01 Dose: 2 puff Cholecalciferol (Vitamin D3 -) 2,000 unit PO DAILY [facility] Last Admin: 03/03/17 09:03 Dose: 2,000 unit Enoxaparin Sodium (Lovenox -) 90 mg SQ BID [facility] Guaifenesin (Robitussin -) 10 ml PO Q6H PRN PRN Reason: COUGH Last Admin: 03/03/17 09:03 Dose: 10 ml Dextrose/Sodium Chloride (D5-1/2ns -) 1,000 mls @ 42 mls/hr IV ASDIR [facility] Insulin Aspart (Novolog Vial Sliding Scale -) 1 vial SQ ACHS [facility] PRN Reason: Protocol Last Admin: 03/03/17 17:07 Dose: Not Given Losartan Potassium (Cozaar -) 25 mg PO DAILY [facility] Last Admin: 03/03/17 08:59 Dose: 25 mg Methylprednisolone Sodium Succinate (Solu-Medrol -) 60 mg IVPB Q8H-IV [facility] Last Admin: 03/03/17 17:08 Dose: 60 mg Multivitamins (Total B With C -) 1 each PO DAILY [facility] Last Admin: 03/03/17 09:02 Dose: 1 each Ondansetron HCl (Zofran Injection) 4 mg IVPB Q6H PRN PRN Reason: NAUSEA Pantoprazole Sodium (Protonix -) 40 mg PO DAILY [facility] Last Admin: 03/03/17 09:00 Dose: 40 mg Polyethylene Glycol (Miralax (For Daily Use) -) 17 gm PO BID [facility] Last Admin: 03/03/17 09:00 Dose: 17 grams Tamsulosin HCl (Flomax -) 0.4 mg PO HS [facility] Last Admin: 03/02/17 22:04 Dose: 0.4 mg Vital Signs - 24 hr 03/02/17 03/02/17 03/03/17 21:00 22:56 02:00 Temperature 97.7 F 97.9 F Pulse Rate 68 75 Respiratory 20 20 Rate Blood Pressure 141/72 148/76 O2 Sat by Pulse 95 95 Oximetry (%) 03/03/17 03/03/17 03/03/17 05:45 11:14 14:17 Temperature 97.4 F L 98.6 F Pulse Rate 82 79 Respiratory 20 20 Rate Blood Pressure 145/82 136/74 O2 Sat by Pulse 93 L Oximetry (%) 03/03/17 03/03/17 03/03/17 14:29 17:00 18:15 Temperature 98.8 F Pulse Rate 73 123 H Respiratory 18 20 Rate Blood Pressure 140/70 161/96 O2 Sat by Pulse 100 Oximetry (%) 03/03/17 18:51 Temperature Pulse Rate Respiratory Rate Blood Pressure O2 Sat by Pulse 96 Oximetry (%) Intake & Output 03/01/17 03/02/17 03/03/17 03/04/17 07:59 07:59 07:59 07:59 Intake Total 715 326 6059 Output Total 500 1500 500 700 Balance 150 -1140 655 -700 Weight 201 lb 1.6 oz 195 lb 8 oz NAD, bipap on JVD flat, neck supple diffuse rales, nl effort tachcyardic, irregular nl s1, s2 no mrg + bs soft nt nd ext without e/c/c aaox3 no jaundice, + diaphoresis no carotid bruits Laboratory Tests 03/03/17 03/03/17 03/03/17 19:33 19:45 19:45 WBC 28.2 H D Hgb 11.0 L Hct 33.0 L Plt Count 176 Band Neutrophils 1.0 ABG pH 7.43 ABG pCO2 at Pt Temp 39.9 ABG pO2 at Pt Temp 84.8 ABG HCO3 26.1 H Sodium 137 Potassium 3.4 L D Chloride 99 Carbon Dioxide 27 Anion Gap 11 BUN 32 H Creatinine 0.8 Lactic Acid Troponin I 0.03 03/03/17 03/04/17 03/04/17 19:45 00:10 07:45 WBC Hgb Hct Plt Count Band Neutrophils ABG pH ABG pCO2 at Pt Temp ABG pO2 at Pt Temp ABG HCO3 Sodium Potassium Chloride Carbon Dioxide Anion Gap BUN Creatinine Lactic Acid 1.676 Troponin I 0.07 H D 0.09 H EKG 3/30: sb, av delay. non-specific t wave abnormality tele: afib with rvr HR 120's-140's echo here: tds bline LVH nl lv size/fn. grossly nl rv size/fn. 1+ mac. chest CT here: moderately increased interstitial thickening of RUL and lower lobes. associated mildly increased traction bronchiectasis. diminished volume of rt thorax 76 yo with h/o CAD/stent x1, HTN, HLD, progressive ILD, Prostate CA s/p radiation tx, DM (dx 3 weeks ago ), cholelithiasis who presented with DARLING and cough x 3-4 weeks (ILD exacerbation vs. infection) whose hospital admission no complicated by new onset afib. current respiratory distress - mgm't as mentioned above. Likely related hypoglycemia. ABG without hypercapnea. CXR unchanged. con't bipap. Infectious work up. D5 drip and close monitoring of blood sugars. Discussed with hospitalist. No indication for lasix at this time New onset afib - started on lovenox, con't for now. rate controlled on atenolol when not in distress. No need to uptitrate regimen at this time. - ongoing management of underlying illness - recent echo without structural abnormalities - would clarify diagnosis of diabetes Hypoxia/ILD exacerbation/possible PNA - On bipap, close monitoring of respiratory status overnight. Mgm't per pmd/ pulm. - low suspicion for contribution from pulmonary edema. CAD - con't asa, statin. No anginal sx's. EKG wnl. troponins sent. HTN - reasonable control, con't current regimen
[2017-03-03 20:24] LABS: MCH 31.8 pg (25.7-33.7); MCHC 33.4 g/dl (32.0-35.9); MEAN CELL VOLUME 95.2 fl (80-96); MEAN PLT VOLUME 9.7 fl (7.5-11.1); PLATELET COUNT 176 K/MM3 (134-434); RDW 14.5 % (11.9-15.9); WHITE BLOOD COUNT 28.2 K/mm3 (4.0-10.0)
[2017-03-03 20:41] LABS: CALCIUM 8.5 mg/dL (8.5-10.1); COCKROFT - GAULT 95.45; CREATININE 0.8 mg/dL (0.7-1.3); MAGNESIUM 2.1 mg/dL (1.8-2.4)
[2017-03-03 20:43] LABS: TROPONIN I 0.03 ng/ml (0.00-0.05)
[2017-03-03 21:36] LABS: PLATELET ESTIMATE ADEQUATE (NORMAL)
[2017-03-03] MEDS: KCL 10 MEQ IVPB 100 ML IVPB SCH ×2 (21:51→22:46)
[2017-03-03] MEDS: ATORVASTATIN CA 20 MG TABLET (FP) PO SCH (22:10)
[2017-03-03] MEDS: ENOXAPARIN NA (PORCINE) 100 MG/1 ML DISP.SYRIN SQ SCH (22:10)
[2017-03-03] MEDS: TAMSULOSIN HCL 0.4 MG CAP.ER.24H (FP) PO SCH (22:10)
[2017-03-04] MEDS: methylPREDNISolone NA SUCC 40 MG/1 ML VIAL IVPB SCH ×3 (01:17→17:44)
[2017-03-04 01:27] LABS: TROPONIN I 0.07 ng/ml (0.00-0.05)
[2017-03-04] MEDS: ACETYLCYSTEINE 20% 200MG/ML 4 ML VIAL *FOR ORAL / INH USE ONLY NEB SCH ×3 (06:29→18:00)
[2017-03-04] MEDS: ALBUTEROL SO4 0.083% IH SOL 2.5 MG/3 ML VIAL.NEB. NEB SCH ×3 (06:29→18:00)
[2017-03-04] MEDS: INSULIN SLIDING SCALE (NOVOLOG) 1 VIAL SQ SCH ×4 (07:32→22:49)
[2017-03-04] MEDS ORDERED: PT OWN MED DRAWER 7, Y5N ONE (09:02)
--- NOTE | 2017-03-04 09:18 | EKG ---
Test Reason : Blood Pressure : / mmHG Vent. Rate : 077 BPM Atrial Rate : 340 BPM P-R Int : 000 ms QRS Dur : 088 ms QT Int : 384 ms P-R-T Axes : 000 015 009 degrees QTc Int : 434 ms POOR DATA QUALITY, INTERPRETATION MAY BE ADVERSELY AFFECTED ATRIAL FIBRILLATION INFERIOR INFARCT (CITED ON OR BEFORE 17-FEB-2017) ABNORMAL ECG WHEN COMPARED WITH ECG OF 03-MAR-2017 19:32, VENT. RATE HAS DECREASED BY 56 BPM Confirmed by LESLIE PEREZ MD ([id number]) on 03/04/2017 9:18:09 AM Referred By: Confirmed By:LESLIE PEREZ MD
--- NOTE | 2017-03-04 09:24 | EKG ---
Test Reason : Blood Pressure : / mmHG Vent. Rate : 133 BPM Atrial Rate : 312 BPM P-R Int : 000 ms QRS Dur : 098 ms QT Int : 300 ms P-R-T Axes : 000 000 026 degrees QTc Int : 446 ms ATRIAL FIBRILLATION WITH RAPID VENTRICULAR RESPONSE WITH PREMATURE VENTRICULAR OR ABERRANTLY CONDUCTED COMPLEXES MINIMAL VOLTAGE CRITERIA FOR LVH, MAY BE NORMAL VARIANT INFERIOR INFARCT (CITED ON OR BEFORE 17-FEB-2017) ABNORMAL ECG Confirmed by LESLIE PEREZ MD ([id number]) on 03/04/2017 9:24:36 AM Referred By: Confirmed By:LESLIE PEREZ MD
[2017-03-04 09:29] LABS: MCH 32.3 pg (25.7-33.7); MCHC 33.9 g/dl (32.0-35.9); MEAN CELL VOLUME 95.2 fl (80-96); MEAN PLT VOLUME 9.3 fl (7.5-11.1); PLATELET COUNT 139 K/MM3 (134-434); RDW 15.1 % (11.9-15.9); WHITE BLOOD COUNT 21.3 K/mm3 (4.0-10.0)
[2017-03-04 09:59] LABS: COCKROFT - GAULT 87.14; CREATININE 0.9 mg/dL (0.7-1.3)
[2017-03-04] MEDS: BUDESONIDE/FORMETEROL FUMARATE 80/4.5 mcg INHALER IH SCH ×2 (10:15→22:48)
[2017-03-04] MEDS: LOSARTAN POTASSIUM 25 MG TABLET PO SCH (10:15)
[2017-03-04] MEDS: ATENOLOL 50 MG TABLET (FP) PO SCH (10:16)
[2017-03-04] MEDS: ASPIRIN 81 MG CHEWABLE TABLETS PO SCH (10:16)
[2017-03-04] MEDS: PANTOPRAZOLE 40 MG TABLET (FP) PO SCH (10:16)
[2017-03-04] MEDS: CHOLECALCIFEROL (VITAMIN D3) 1,000 UNIT TABLET (FP) PO SCH (10:16)
[2017-03-04] MEDS: ENOXAPARIN NA (PORCINE) 100 MG/1 ML DISP.SYRIN SQ SCH ×2 (10:16→22:47)
[2017-03-04] MEDS: VITAMIN B COMPLEX W/C COMBO TABLET (FP) PO SCH (10:17)
[2017-03-04 10:19] LABS: PLATELET ESTIMATE DECREASED (NORMAL)
--- NOTE | 2017-03-04 11:02 | PN ---
Progress Note (short form) - Note Progress Note: s: no cp palps dizzy; still with sob, improving, on bipap still o: Vital Signs Period Temp Pulse Resp BP Sys/Wolfe Pulse Ox Last 24 Hr 96.4 F-98.8 F 73-133 18-25 107-161/50-111 91-100 NAD, bipap on JVD flat, neck supple scattered rhonchi, nl effort rr, irregular nl s1, s2 no mrg + bs soft nt nd ext without e/c/c aaox3 no jaundice, diaphoresis Current Medications Generic Name Dose Route Start Last Admin Trade Name Freq PRN Reason Stop Dose Admin Acetaminophen 650 mg 03/01/17 11:20 Tylenol - PO Q4H PRN FEVER OR PAIN Acetylcysteine 800 mg 03/01/17 12:00 03/04/17 06:29 Mucomyst 20 Oral / Inh Use Only* NEB 800 mg QIDR [facility] Administration Albuterol Sulfate 1 amp 03/01/17 12:00 03/04/17 06:29 Ventolin 0.083% Nebulizer Soln - NEB 1 amp QIDR [facility] Administration Aspirin 81 mg 03/02/17 10:00 03/04/17 10:16 Asa - PO 81 mg DAILY [facility] Administration Atenolol 50 mg 03/02/17 10:00 03/04/17 10:16 Tenormin - PO 50 mg DAILY [facility] Administration Atorvastatin Calcium 20 mg 03/01/17 22:00 03/03/17 22:10 Lipitor - PO 20 mg HS [facility] Administration Budesonide/Formoterol Fumarate 2 puff 03/01/17 22:00 03/04/17 10:15 Symbicort 80/4.5mcg - IH 2 puff BID [facility] Administration Cholecalciferol 2,000 unit 03/02/17 10:00 03/04/17 10:16 Vitamin D3 - PO 2,000 unit DAILY [facility] Administration Enoxaparin Sodium 90 mg 03/03/17 22:00 03/04/17 10:16 Lovenox - SQ 90 mg BID [facility] Administration Guaifenesin 10 ml 03/01/17 11:20 03/03/17 09:03 Robitussin - PO 10 ml Q6H PRN Administration COUGH Dextrose/Sodium Chloride 1,000 mls @ 42 mls/hr 03/03/17 19:45 03/03/17 19:45 D5-1/2ns - IV 42 mls/hr ASDIR [facility] Administration Insulin Aspart 1 vial 03/01/17 16:30 03/04/17 07:32 Novolog Vial Sliding Scale - SQ Not Given ACHS [facility] Protocol Losartan Potassium 25 mg 03/02/17 10:00 03/04/17 10:15 Cozaar - PO 25 mg DAILY [facility] Administration Methylprednisolone Sodium Succinate 60 mg 03/01/17 18:00 03/04/17 10:15 Solu-Medrol - IVPB 60 mg Q8H-IV [facility] Administration Multivitamins 1 each 03/02/17 10:00 03/04/17 10:17 Total B With C - PO 1 each DAILY [facility] Administration Ondansetron HCl 4 mg 03/01/17 11:20 Zofran Injection IVPB Q6H PRN NAUSEA Pantoprazole Sodium 40 mg 03/02/17 10:00 03/04/17 10:16 Protonix - PO 40 mg DAILY [facility] Administration Polyethylene Glycol 17 gm 03/01/17 22:00 03/03/17 22:49 Miralax (For Daily Use) - PO 17 grams BID [facility] Administration Tamsulosin HCl 0.4 mg 03/01/17 22:00 03/03/17 22:10 Flomax - PO 0.4 mg HS [facility] Administration CBC, BMP 03/04/17 09:15 03/04/17 09:15 EKG 02/17: sb, av delay. non-specific t wave abnormality tele: afib, rate controlled echo here: tds bline LVH nl lv size/fn. grossly nl rv size/fn. 1+ mac. chest CT here: moderately increased interstitial thickening of RUL and lower lobes. associated mildly increased traction bronchiectasis. diminished volume of rt thorax a/p: 76 yo with h/o CAD/stent x1, HTN, HLD, progressive ILD, Prostate CA s/p radiation tx, DM (dx 3 weeks ago ), cholelithiasis who presented with DARLING and cough x 3-4 weeks (ILD exacerbation vs. infection) whose hospital admission no complicated by new onset afib. acute respiratory distress (03/03): -Resolved now. Likely related to hypoglycemia. ABG without hypercapnea. CXR unchanged. con't bipap. Infectious work up. No indication for lasix at this time New onset afib - started on lovenox, con't for now. rate controlled on atenolol when not in distress. No need to uptitrate regimen at this time. - ongoing management of underlying illness - recent echo without structural abnormalities Hypoxia/ILD exacerbation/possible PNA - On bipap. Mgm't per pmd/pulm. - low suspicion for contribution from pulmonary edema. CAD - con't asa, statin. No anginal sx's. EKG, CE's unremarkable. HTN - reasonable control, con't current regimen
--- NOTE | 2017-03-04 11:48 | PN ---
Progress Note, Physician History of Present Illness: PULMONARY ALERT,ON BIPAP COMFORTABLE,-RESP DISTRESS - Current Medication List Current Medications: Active Medications Acetaminophen (Tylenol -) 650 mg PO Q4H PRN PRN Reason: FEVER OR PAIN Acetylcysteine (Mucomyst 20 Oral / Inh Use Only*) 800 mg NEB QIDR [facility] Last Admin: 03/04/17 06:29 Dose: 800 mg Albuterol Sulfate (Ventolin 0.083% Nebulizer Soln -) 1 amp NEB QIDR [facility] Last Admin: 03/04/17 06:29 Dose: 1 amp Aspirin (Asa -) 81 mg PO DAILY [facility] Last Admin: 03/04/17 10:16 Dose: 81 mg Atenolol (Tenormin -) 50 mg PO DAILY [facility] Last Admin: 03/04/17 10:16 Dose: 50 mg Atorvastatin Calcium (Lipitor -) 20 mg PO HS [facility] Last Admin: 03/03/17 22:10 Dose: 20 mg Budesonide/Formoterol Fumarate (Symbicort 80/4.5mcg -) 2 puff IH BID [facility] Last Admin: 03/04/17 10:15 Dose: 2 puff Cholecalciferol (Vitamin D3 -) 2,000 unit PO DAILY [facility] Last Admin: 03/04/17 10:16 Dose: 2,000 unit Enoxaparin Sodium (Lovenox -) 90 mg SQ BID [facility] Last Admin: 03/04/17 10:16 Dose: 90 mg Guaifenesin (Robitussin -) 10 ml PO Q6H PRN PRN Reason: COUGH Last Admin: 03/03/17 09:03 Dose: 10 ml Dextrose/Sodium Chloride (D5-1/2ns -) 1,000 mls @ 42 mls/hr IV ASDIR [facility] Last Admin: 03/03/17 19:45 Dose: 42 mls/hr Insulin Aspart (Novolog Vial Sliding Scale -) 1 vial SQ ACHS [facility] PRN Reason: Protocol Last Admin: 03/04/17 07:32 Dose: Not Given Losartan Potassium (Cozaar -) 25 mg PO DAILY [facility] Last Admin: 03/04/17 10:15 Dose: 25 mg Methylprednisolone Sodium Succinate (Solu-Medrol -) 60 mg IVPB Q8H-IV [facility] Last Admin: 03/04/17 10:15 Dose: 60 mg Multivitamins (Total B With C -) 1 each PO DAILY [facility] Last Admin: 03/04/17 10:17 Dose: 1 each Ondansetron HCl (Zofran Injection) 4 mg IVPB Q6H PRN PRN Reason: NAUSEA Pantoprazole Sodium (Protonix -) 40 mg PO DAILY [facility] Last Admin: 03/04/17 10:16 Dose: 40 mg Polyethylene Glycol (Miralax (For Daily Use) -) 17 gm PO BID [facility] Last Admin: 03/03/17 22:49 Dose: 17 grams Tamsulosin HCl (Flomax -) 0.4 mg PO HS [facility] Last Admin: 03/03/17 22:10 Dose: 0.4 mg - Objective Vital Signs: Vital Signs Temperature 98.4 F 03/04/17 10:00 Pulse Rate 82 03/04/17 10:00 Respiratory Rate 18 03/04/17 10:00 Blood Pressure 126/72 03/04/17 10:00 O2 Sat by Pulse Oximetry (%) 96 03/04/17 08:23 Constitutional: Yes: Well Nourished, Calm Eyes: Yes: WNL HENT: Yes: WNL Neck: Yes: WNL Cardiovascular: Yes: Regular Rate and Rhythm, S1, S2 Respiratory: Yes: Rales (BIBASILAR CRACKLES) Gastrointestinal: Yes: Normal Bowel Sounds, Soft Extremities: Yes: WNL Edema: Yes Labs: CBC, BMP 03/04/17 09:15 03/04/17 09:15 INR, PTT INR 1.18 (0.82-1.09) H 02/22/17 05:05 - ....Imaging Chest X-ray: Report Reviewed Problem List - Problems (1) Bronchitis Code(s): J40 - BRONCHITIS, NOT SPECIFIED ACUTE OR CHRONIC (2) Dyspnea on exertion Code(s): R06.09 - OTHER FORMS OF DYSPNEA (3) Interstitial lung disease Code(s): J84.9 - INTERSTITIAL PULMONARY DISEASE, UNSPECIFIED (4) Hyponatremia Code(s): E87.1 - HYPO-OSMOLALITY AND HYPONATREMIA (5) Elevated lactic acid level Code(s): R79.89 - OTHER SPECIFIED ABNORMAL FINDINGS OF BLOOD CHEMISTRY (6) ASHD (arteriosclerotic heart disease) Code(s): I25.10 - ATHSCL HEART DISEASE OF [place] CORONARY ARTERY W/O ANG PCTRS (7) Acute kidney injury Code(s): N17.9 - ACUTE KIDNEY FAILURE, UNSPECIFIED (8) Acute hypoxemic respiratory failure Code(s): J96.01 - ACUTE RESPIRATORY FAILURE WITH HYPOXIA Assessment/Plan ASSESSMENT AND PLAN: Acute Hypoxic Respiratory Failure Suspect exacerbation of Interstitial Lung Disease ARDS r/o Superimposed Pneumonia Lactic Acidosis r/o Sepsis Acute Kidney Injury improving CAD HTN - medrol at same dose - inhaled bronchodilators - titrate Fio2 to keep Spo2 >90% - O2, BiPAP at night and prn to assist in work of breathing and hypoxia - DVT/GI prophylaxis - short term rehab post discharge DR PEARSON
[2017-03-04] MEDS: POLYETHYLENE GLYCOL 3350 119 GM BTL PO SCH ×2 (12:41→22:47)
--- NOTE | 2017-03-04 13:55 | PN ---
Teaching Attending Note Name of Resident: Kyle Waterman ATTENDING PHYSICIAN STATEMENT I saw and evaluated the patient. I reviewed the resident's note and discussed the case with the resident. I agree with the resident's findings and plan as documented. SUBJECTIVE: Yesterday, patient developed rapid atrial fibrillation associated with dizziness, increased SOB and hypoglycemia. Currently, he is comfortable on BiPAP. OBJECTIVE: Vital Signs Period Temp Pulse Resp BP Sys/Wolfe Pulse Ox Last 24 Hr 96.4 F-98.8 F 72-133 18-25 107-161/50-111 91-100 HEART: Irregularly irregular LUNGS: Bilateral crackles ABDOMEN: Soft, non-tender, non-distended, normal BS EXTREMITIES: Trace edema ASSESSMENT AND PLAN: This is a 76-year-old man with a history of CAD, stent, HTN, hyperlipidemia, DM , prostate cancer who was admitted with SOB and acute hypoxic respiratory failure. 1. New-onset atrial fibrillation - Continue atenolol, Lovenox 2. Acute on chronic hypoxic respiratory failure secondary to ILD, possible pneumonia - Continue SoluMedrol, Symbicort, Albuterol, Mucomyst, oxygen - Continue BiPAP as needed 3. Anemia secondary to chronic illness - Hemoglobin stable 4. Acute kidney injury - Resolved 5. Hypomagnesemia - Improved 6. CAD, history of stent - Continue aspirin, atenolol, Cozaar, Lipitor 7. Type 2 DM with hypoglycemia - Hypoglycemia resolved with IV D5 1/2 NS - Adjust Novolog sliding scale and continue to monitor fingersticks 8. HTN - Continue atenolol, Cozaar
--- NOTE | 2017-03-04 14:00 | PN ---
Physical Exam: SUBJECTIVE: Patient seen and examined Pt is awake, alert on BIPAP Pt had an episode dizziness, sob yesterday evening Pt was hypoglycemic as low as 27 Pt developed a new onset AFIB NO fever or chills No n/v Pt say his breathing is the same But became hyoxic this morning off BIPAP OBJECTIVE: Vital Signs Period Temp Pulse Resp BP Sys/Wolfe Pulse Ox Last 24 Hr 96.4 F-98.8 F 72-133 18-25 107-161/50-111 91-100 GENERAL: The patient is awake, alert, and fully oriented, in mild distress. HEAD: Normal with no signs of trauma. NECK: Trachea midline, full range of motion, supple. LUNGS: b/l rales in bases to auscultation bilaterally, no wheezes, no accessory muscle use. HEART: Regular rate and rhythm, S1, S2 without murmur, rub or gallop. ABDOMEN: Soft, nontender, nondistended, normoactive bowel sounds, no guarding, no rebound, no hepatosplenomegaly, no masses. EXTREMITIES: 2+ pulses, warm, well-perfused, no edema. NEUROLOGICAL: Normal speech, gait not observed. PSYCH: Normal mood, normal affect. SKIN: Warm, dry, normal turgor, no rashes or lesions noted Laboratory Results - last 24 hr 03/03/17 03/03/17 03/03/17 17:05 18:18 18:20 WBC RBC Hgb Hct MCV MCHC RDW Plt Count MPV Neutrophils % Lymphocytes % Monocytes % Eosinophils % Band Neutrophils Myelocytes Differential Comment Platelet Estimate Morphology Comment Puncture Site ABG pH ABG pCO2 at Pt Temp ABG pO2 at Pt Temp ABG HCO3 ABG O2 Sat (Measured) ABG O2 Content ABG Base Excess Jimmy Test O2 Delivery Device Oxygen Flow Rate Vent Mode Vent Rate PEEP Pressure Support Vent Sodium Potassium Chloride Carbon Dioxide Anion Gap BUN Creatinine POC Glucometer 136 45 44 Random Glucose Lactic Acid Calcium Magnesium Creatine Kinase Troponin I 03/03/17 03/03/17 03/03/17 18:35 19:33 19:33 WBC RBC Hgb Hct MCV MCHC RDW Plt Count MPV Neutrophils % Lymphocytes % Monocytes % Eosinophils % Band Neutrophils Myelocytes Differential Comment Platelet Estimate Morphology Comment Puncture Site Left radial ABG pH 7.43 ABG pCO2 at Pt Temp 39.9 ABG pO2 at Pt Temp 84.8 ABG HCO3 26.1 H ABG O2 Sat (Measured) 96.3 ABG O2 Content 15.1 ABG Base Excess 2.2 H Jimmy Test Positive O2 Delivery Device Bi-pap Oxygen Flow Rate 45% Vent Mode S/t Vent Rate 12 PEEP 0.0 Pressure Support Vent 12/6 Sodium Potassium Chloride Carbon Dioxide Anion Gap BUN Creatinine POC Glucometer 117 24 Random Glucose Lactic Acid Calcium Magnesium Creatine Kinase Troponin I 03/03/17 03/03/17 03/03/17 19:45 19:45 19:45 WBC 28.2 H D RBC 3.46 L Hgb 11.0 L Hct 33.0 L MCV 95.2 MCHC 33.4 RDW 14.5 Plt Count 176 MPV 9.7 Neutrophils % 93.0 H Lymphocytes % 1.0 L Monocytes % 5.0 Eosinophils % Band Neutrophils 1.0 Myelocytes Differential Comment Manual diff done Platelet Estimate Adequate Morphology Comment Slide scanned Puncture Site ABG pH ABG pCO2 at Pt Temp ABG pO2 at Pt Temp ABG HCO3 ABG O2 Sat (Measured) ABG O2 Content ABG Base Excess Jimmy Test O2 Delivery Device Oxygen Flow Rate Vent Mode Vent Rate PEEP Pressure Support Vent Sodium 137 Potassium 3.4 L D Chloride 99 Carbon Dioxide 27 Anion Gap 11 BUN 32 H Creatinine 0.8 POC Glucometer Random Glucose 59 L D Lactic Acid 1.676 Calcium 8.5 Magnesium 2.1 Creatine Kinase 70 Troponin I 0.03 03/03/17 03/03/17 03/03/17 20:53 21:43 22:47 WBC RBC Hgb Hct MCV MCHC RDW Plt Count MPV Neutrophils % Lymphocytes % Monocytes % Eosinophils % Band Neutrophils Myelocytes Differential Comment Platelet Estimate Morphology Comment Puncture Site ABG pH ABG pCO2 at Pt Temp ABG pO2 at Pt Temp ABG HCO3 ABG O2 Sat (Measured) ABG O2 Content ABG Base Excess Jimmy Test O2 Delivery Device Oxygen Flow Rate Vent Mode Vent Rate PEEP Pressure Support Vent Sodium Potassium Chloride Carbon Dioxide Anion Gap BUN Creatinine POC Glucometer 52 71 115 Random Glucose Lactic Acid Calcium Magnesium Creatine Kinase Troponin I 03/03/17 03/04/17 03/04/17 23:41 00:10 00:48 WBC RBC Hgb Hct MCV MCHC RDW Plt Count MPV Neutrophils % Lymphocytes % Monocytes % Eosinophils % Band Neutrophils Myelocytes Differential Comment Platelet Estimate Morphology Comment Puncture Site ABG pH ABG pCO2 at Pt Temp ABG pO2 at Pt Temp ABG HCO3 ABG O2 Sat (Measured) ABG O2 Content ABG Base Excess Jimmy Test O2 Delivery Device Oxygen Flow Rate Vent Mode Vent Rate PEEP Pressure Support Vent Sodium Potassium Chloride Carbon Dioxide Anion Gap BUN Creatinine POC Glucometer 98 156 Random Glucose Lactic Acid Calcium Magnesium Creatine Kinase 66 Troponin I 0.07 H D 03/04/17 03/04/17 03/04/17 01:51 02:49 03:47 WBC RBC Hgb Hct MCV MCHC RDW Plt Count MPV Neutrophils % Lymphocytes % Monocytes % Eosinophils % Band Neutrophils Myelocytes Differential Comment Platelet Estimate Morphology Comment Puncture Site ABG pH ABG pCO2 at Pt Temp ABG pO2 at Pt Temp ABG HCO3 ABG O2 Sat (Measured) ABG O2 Content ABG Base Excess Jimmy Test O2 Delivery Device Oxygen Flow Rate Vent Mode Vent Rate PEEP Pressure Support Vent Sodium Potassium Chloride Carbon Dioxide Anion Gap BUN Creatinine POC Glucometer 107 130 145 Random Glucose Lactic Acid Calcium Magnesium Creatine Kinase Troponin I 03/04/17 03/04/17 03/04/17 04:59 05:43 06:46 WBC RBC Hgb Hct MCV MCHC RDW Plt Count MPV Neutrophils % Lymphocytes % Monocytes % Eosinophils % Band Neutrophils Myelocytes Differential Comment Platelet Estimate Morphology Comment Puncture Site ABG pH ABG pCO2 at Pt Temp ABG pO2 at Pt Temp ABG HCO3 ABG O2 Sat (Measured) ABG O2 Content ABG Base Excess Jimmy Test O2 Delivery Device Oxygen Flow Rate Vent Mode Vent Rate PEEP Pressure Support Vent Sodium Potassium Chloride Carbon Dioxide Anion Gap BUN Creatinine POC Glucometer 137 181 248 Random Glucose Lactic Acid Calcium Magnesium Creatine Kinase Troponin I 03/04/17 03/04/17 03/04/17 07:45 07:45 08:43 WBC RBC Hgb Hct MCV MCHC RDW Plt Count MPV Neutrophils % Lymphocytes % Monocytes % Eosinophils % Band Neutrophils Myelocytes Differential Comment Platelet Estimate Morphology Comment Puncture Site ABG pH ABG pCO2 at Pt Temp ABG pO2 at Pt Temp ABG HCO3 ABG O2 Sat (Measured) ABG O2 Content ABG Base Excess Jimmy Test O2 Delivery Device Oxygen Flow Rate Vent Mode Vent Rate PEEP Pressure Support Vent Sodium Potassium Chloride Carbon Dioxide Anion Gap BUN Creatinine POC Glucometer 177 162 Random Glucose Lactic Acid Calcium Magnesium Creatine Kinase Troponin I 0.09 H 03/04/17 03/04/17 09:15 09:15 WBC 21.3 H RBC 3.39 L Hgb 10.9 L Hct 32.2 L MCV 95.2 MCHC 33.9 RDW 15.1 Plt Count 139 D MPV 9.3 Neutrophils % 90.0 H Lymphocytes % 3.0 L D Monocytes % 3.0 L Eosinophils % 1.0 D Band Neutrophils Myelocytes 3 H D Differential Comment Manual diff done Platelet Estimate Decreased Morphology Comment Puncture Site ABG pH ABG pCO2 at Pt Temp ABG pO2 at Pt Temp ABG HCO3 ABG O2 Sat (Measured) ABG O2 Content ABG Base Excess Jimmy Test O2 Delivery Device Oxygen Flow Rate Vent Mode Vent Rate PEEP Pressure Support Vent Sodium 133 L Potassium 4.6 D Chloride 98 Carbon Dioxide 28 Anion Gap 7 L BUN 27 H Creatinine 0.9 POC Glucometer Random Glucose 186 H D Lactic Acid Calcium 8.0 L Magnesium 2.0 Creatine Kinase Troponin I Active Medications Generic Name Dose Route Start Last Admin Trade Name Freq PRN Reason Stop Dose Admin Acetaminophen 650 mg 03/01/17 11:20 Tylenol - PO Q4H PRN FEVER OR PAIN Acetylcysteine 800 mg 03/01/17 12:00 03/04/17 11:50 Mucomyst 20 Oral / Inh Use Only* NEB 800 mg QIDR LOYDA Administration Albuterol Sulfate 1 amp 03/01/17 12:00 03/04/17 11:50 Ventolin 0.083% Nebulizer Soln - NEB 1 amp QIDR LOYDA Administration Aspirin 81 mg 03/02/17 10:00 03/04/17 10:16 Asa - PO 81 mg DAILY LOYDA Administration Atenolol 50 mg 03/02/17 10:00 03/04/17 10:16 Tenormin - PO 50 mg DAILY LOYDA Administration Atorvastatin Calcium 20 mg 03/01/17 22:00 03/03/17 22:10 Lipitor - PO 20 mg HS LOYDA Administration Budesonide/Formoterol Fumarate 2 puff 03/01/17 22:00 03/04/17 10:15 Symbicort 80/4.5mcg - IH 2 puff BID LOYDA Administration Cholecalciferol 2,000 unit 03/02/17 10:00 03/04/17 10:16 Vitamin D3 - PO 2,000 unit DAILY LOYDA Administration Enoxaparin Sodium 90 mg 03/03/17 22:00 03/04/17 10:16 Lovenox - SQ 90 mg BID LOYDA Administration Guaifenesin 10 ml 03/01/17 11:20 03/03/17 09:03 Robitussin - PO 10 ml Q6H PRN Administration COUGH Dextrose/Sodium Chloride 1,000 mls @ 42 mls/hr 03/03/17 19:45 03/03/17 19:45 D5-1/2ns - IV 42 mls/hr ASDIR LOYDA Administration Insulin Aspart 1 vial 03/04/17 13:51 Novolog Vial Sliding Scale - SQ ACHS LOYDA Protocol Losartan Potassium 25 mg 03/02/17 10:00 03/04/17 10:15 Cozaar - PO 25 mg DAILY LOYDA Administration Methylprednisolone Sodium Succinate 60 mg 03/01/17 18:00 03/04/17 10:15 Solu-Medrol - IVPB 60 mg Q8H-IV LOYDA Administration Multivitamins 1 each 03/02/17 10:00 03/04/17 10:17 Total B With C - PO 1 each DAILY LOYDA Administration Ondansetron HCl 4 mg 03/01/17 11:20 Zofran Injection IVPB Q6H PRN NAUSEA Pantoprazole Sodium 40 mg 03/02/17 10:00 03/04/17 10:16 Protonix - PO 40 mg DAILY LOYDA Administration Polyethylene Glycol 17 gm 03/01/17 22:00 03/04/17 12:41 Miralax (For Daily Use) - PO 17 grams BID LOYDA Administration Tamsulosin HCl 0.4 mg 03/01/17 22:00 03/03/17 22:10 Flomax - PO 0.4 mg HS LOYDA Administration CBC, BMP 03/04/17 09:15 03/04/17 09:15 Microbiology 02/22/17 19:00 Sputum - Expectorated Gram Stain - Final 02/22/17 19:00 Sputum - Expectorated Sputum Culture - Final Yeast Like Organism Laboratory Tests 03/04/17 03/04/17 00:10 07:45 Troponin I 0.07 H D 0.09 H ASSESSMENT/PLAN: 76 year old male with pmh of CAD with stent x1, HTN, HPLD, DM, Prostate CA s/p radiation, Interstitial lung disease who was admitted at [facility] for sob, cough, Dyspnea on exertion for 3-4 weeks, was transferred to [facility] ICU after desaturating, having worsening resp status requiring BIPAP. Acute hypoxic respiratory failure likely due to ILD flare r/o PNA induced sepsis On admission Pt had productive cough with brown blood tinged sputum, leukocytosis, On solumedrol 60mg IV q8h Symbicort inh bid Duoneb qid Albuterol PRN Currently on BIPAP Consider trial on Non rebreather mask and Venti-Mask BIPAP at night and PRN keep O2 sat >90% incentive spirometer Mucomyst inh QID Chest PT Pulmonary on case blood culture negative Antibiotic DC per ID who also signed off case New Onset AFIB Controlled on Atenolol 50mg Po [id number] 3 Lovenox 90mg SQ BID cardiology consulted Trending trop Normocytic Anemia Iron studies showed anemia of chronic disease No iron supplement necessary CAD with stent On ASA On lipitor HTN Continue atenolol and cozaar ELIDA (stable) Cr was 1.6, now 0.9 FEN Fluid: none electrolytes: no abnormalities Nutrition: diabetic diet Prophylaxis DVT: heparin 5000U sq TID Deconditioning: OOB to chair, Physical therapy, Chest PT Disposition: Continue to monitor resp status. DC planning to inpatient Pulm rehab/LTAC Visit type - Emergency Visit Emergency Visit: Yes ED Registration Date: 02/17/17 Care time: The patient presented to the Emergency Department on the above date and was hospitalized for further evaluation of their emergent condition. - New Patient This patient is new to me today: Yes - Critical Care Critical Care patient: No - Discharge Referral Referred to [facility] No
[2017-03-04 17:34] LABS: TROPONIN I 0.09 ng/ml (0.00-0.05)
[2017-03-04] MEDS: DEXTROSE 5%-0.45% SALINE 1,000 ML IV SCH (20:00)
[2017-03-04] MEDS: TAMSULOSIN HCL 0.4 MG CAP.ER.24H (FP) PO SCH (22:48)
[2017-03-04] MEDS: ATORVASTATIN CA 20 MG TABLET (FP) PO SCH (22:48)
[2017-03-05] MEDS: methylPREDNISolone NA SUCC 40 MG/1 ML VIAL IVPB SCH ×3 (02:50→18:30)
[2017-03-05] MEDS: ALBUTEROL SO4 0.083% IH SOL 2.5 MG/3 ML VIAL.NEB. NEB SCH ×5 (05:51→23:59)
[2017-03-05] MEDS: ACETYLCYSTEINE 20% 200MG/ML 4 ML VIAL *FOR ORAL / INH USE ONLY NEB SCH ×5 (05:51→23:59)
[2017-03-05] MEDS: INSULIN SLIDING SCALE (NOVOLOG) 1 VIAL SQ SCH ×2 (06:21→12:07)
[2017-03-05 08:06] LABS: MCH 32.4 pg (25.7-33.7); MEAN CELL VOLUME 95.4 fl (80-96); MEAN PLT VOLUME 9.4 fl (7.5-11.1); PLATELET COUNT 127 K/MM3 (134-434); RDW 15.2 % (11.9-15.9); WHITE BLOOD COUNT 17.2 K/mm3 (4.0-10.0)
[2017-03-05 08:36] LABS: TROPONIN I 0.07 ng/ml (0.00-0.05)
[2017-03-05] MEDS ORDERED: PT OWN MED DRAWER 7, Y5N ONE (09:49)
[2017-03-05] MEDS: BUDESONIDE/FORMETEROL FUMARATE 80/4.5 mcg INHALER IH SCH ×2 (10:17→22:23)
[2017-03-05] MEDS: ENOXAPARIN NA (PORCINE) 100 MG/1 ML DISP.SYRIN SQ SCH ×2 (10:18→22:26)
[2017-03-05] MEDS: PANTOPRAZOLE 40 MG TABLET (FP) PO SCH (10:18)
[2017-03-05] MEDS: LOSARTAN POTASSIUM 25 MG TABLET PO SCH (10:18)
[2017-03-05] MEDS: CHOLECALCIFEROL (VITAMIN D3) 1,000 UNIT TABLET (FP) PO SCH (10:18)
[2017-03-05] MEDS: VITAMIN B COMPLEX W/C COMBO TABLET (FP) PO SCH (10:18)
[2017-03-05] MEDS: ASPIRIN 81 MG CHEWABLE TABLETS PO SCH (10:18)
[2017-03-05] MEDS: ATENOLOL 50 MG TABLET (FP) PO SCH (10:18)
[2017-03-05] MEDS: POLYETHYLENE GLYCOL 3350 119 GM BTL PO SCH ×2 (10:18→22:26)
--- NOTE | 2017-03-05 10:25 | PN ---
Teaching Attending Note Name of Resident: Kyle Waterman ATTENDING PHYSICIAN STATEMENT I saw and evaluated the patient. I reviewed the resident's note and discussed the case with the resident. I agree with the resident's findings and plan as documented. SUBJECTIVE: Patient is currently comfortable. He says he gets SOB at times. No further hypoglcemia noted. OBJECTIVE: Vital Signs Period Temp Pulse Resp BP Sys/Wolfe Pulse Ox Last 24 Hr 97.3 F-98.2 F 71-91 18-21 116-146/61-89 90-100 HEART: Irregularly irregular LUNGS: Crackles at bases ABDOMEN: Soft, non-tender, non-distended, normal BS EXTREMITIES: Trace edema ASSESSMENT AND PLAN: This is a 76-year-old man with a history of CAD, stent, HTN, hyperlipidemia, DM , prostate cancer who was admitted with SOB and acute hypoxic respiratory failure. 1. New-onset atrial fibrillation - Rate is controlled - Continue atenolol, Lovenox 2. Acute on chronic hypoxic respiratory failure secondary to ILD, possible pneumonia - Continue SoluMedrol, Symbicort, Albuterol, Mucomyst, oxygen - Continue BiPAP as needed 3. Anemia secondary to chronic illness 4. Acute kidney injury - Resolved 5. Hypomagnesemia - Improved 6. CAD, history of stent - Continue aspirin, atenolol, Cozaar, Lipitor 7. Type 2 DM with hypoglycemia - Hypoglycemia resolved - Continue fingersticks with Novolog sliding scale 8. HTN - Continue atenolol, Cozaar
--- NOTE | 2017-03-05 13:02 | PN ---
Physical Exam: SUBJECTIVE: Patient seen and examined Pt was on BIPAP all night had epside of hypoxia this am while on ventimask No fever or chills no chest or palpitation OBJECTIVE: Vital Signs Period Temp Pulse Resp BP Sys/Wolfe Pulse Ox Last 24 Hr 97.3 F-98.2 F 71-91 18-21 116-146/61-89 90-97 GENERAL: The patient is awake, alert, and fully oriented, in mild distress. HEAD: Normal with no signs of trauma. NECK: Trachea midline, full range of motion, supple. LUNGS: b/l rales in bases to auscultation bilaterally, no wheezes, no accessory muscle use. HEART: Regular rate and rhythm, S1, S2 without murmur, rub or gallop. ABDOMEN: Soft, nontender, nondistended, normoactive bowel sounds, no guarding, no rebound, no hepatosplenomegaly, no masses. EXTREMITIES: 2+ pulses, warm, well-perfused, no edema. NEUROLOGICAL: Normal speech, gait not observed. PSYCH: Normal mood, normal affect. SKIN: Warm, dry, normal turgor, no rashes or lesions noted Laboratory Results - last 24 hr 03/04/17 03/04/17 03/04/17 14:25 16:00 17:41 WBC RBC Hgb Hct MCV MCHC RDW Plt Count MPV POC Glucometer 156 241 Creatine Kinase 98 Troponin I 0.09 H 03/04/17 03/05/17 03/05/17 22:02 06:05 06:05 WBC 17.2 H RBC 3.29 L Hgb 10.7 L Hct 31.4 L MCV 95.4 MCHC 34.0 RDW 15.2 Plt Count 127 L MPV 9.4 POC Glucometer 181 Creatine Kinase 53 Troponin I 0.07 H 03/05/17 03/05/17 06:14 12:06 WBC RBC Hgb Hct MCV MCHC RDW Plt Count MPV POC Glucometer 153 222 Creatine Kinase Troponin I Active Medications Generic Name Dose Route Start Last Admin Trade Name Freq PRN Reason Stop Dose Admin Acetaminophen 650 mg 03/01/17 11:20 Tylenol - PO Q4H PRN FEVER OR PAIN Acetylcysteine 800 mg 03/01/17 12:00 03/05/17 11:46 Mucomyst 20 Oral / Inh Use Only* NEB 800 mg QIDR LOYDA Administration Albuterol Sulfate 1 amp 03/01/17 12:00 03/05/17 11:46 Ventolin 0.083% Nebulizer Soln - NEB 1 amp QIDR LOYDA Administration Aspirin 81 mg 03/02/17 10:00 03/05/17 10:18 Asa - PO 81 mg DAILY LOYDA Administration Atenolol 50 mg 03/02/17 10:00 03/05/17 10:18 Tenormin - PO 50 mg DAILY LOYDA Administration Atorvastatin Calcium 20 mg 03/01/17 22:00 03/04/17 22:48 Lipitor - PO 20 mg HS LOYDA Administration Budesonide/Formoterol Fumarate 2 puff 03/01/17 22:00 03/05/17 10:17 Symbicort 80/4.5mcg - IH 2 puff BID LOYDA Administration Cholecalciferol 2,000 unit 03/02/17 10:00 03/05/17 10:18 Vitamin D3 - PO 2,000 unit DAILY LOYDA Administration Enoxaparin Sodium 90 mg 03/03/17 22:00 03/05/17 10:18 Lovenox - SQ 90 mg BID LOYDA Administration Guaifenesin 10 ml 03/01/17 11:20 03/03/17 09:03 Robitussin - PO 10 ml Q6H PRN Administration COUGH Dextrose/Sodium Chloride 1,000 mls @ 42 mls/hr 03/03/17 19:45 03/04/17 20:00 D5-1/2ns - IV 42 mls/hr ASDIR LOYDA Administration Insulin Aspart 1 vial 03/04/17 13:51 03/05/17 12:07 Novolog Vial Sliding Scale - SQ 2 units ACHS LOYDA Administration Protocol Losartan Potassium 25 mg 03/02/17 10:00 03/05/17 10:18 Cozaar - PO 25 mg DAILY LOYDA Administration Methylprednisolone Sodium Succinate 60 mg 03/01/17 18:00 03/05/17 10:18 Solu-Medrol - IVPB 60 mg Q8H-IV LOYDA Administration Multivitamins 1 each 03/02/17 10:00 03/05/17 10:18 Total B With C - PO 1 each DAILY LOYDA Administration Ondansetron HCl 4 mg 03/01/17 11:20 Zofran Injection IVPB Q6H PRN NAUSEA Pantoprazole Sodium 40 mg 03/02/17 10:00 03/05/17 10:18 Protonix - PO 40 mg DAILY LOYDA Administration Polyethylene Glycol 17 gm 03/01/17 22:00 03/05/17 10:18 Miralax (For Daily Use) - PO 17 grams BID LOYDA Administration Tamsulosin HCl 0.4 mg 03/01/17 22:00 03/04/17 22:48 Flomax - PO 0.4 mg HS LOYDA Administration CBC, BMP 03/05/17 06:05 03/04/17 09:15 ASSESSMENT/PLAN: 76 year old male with pmh of CAD with stent x1, HTN, HPLD, DM, Prostate CA s/p radiation, Interstitial lung disease who was admitted at [facility] for sob, cough, Dyspnea on exertion for 3-4 weeks, was transferred to [facility] ICU after desaturating, having worsening resp status requiring BIPAP. Acute hypoxic respiratory failure likely due to ILD flare r/o PNA induced sepsis On admission Pt had productive cough with brown blood tinged sputum, leukocytosis, On solumedrol 60mg IV q8h Symbicort inh bid Duoneb qid Albuterol PRN Currently on BIPAP Consider trial on Non rebreather mask and Venti-Mask BIPAP at night and PRN keep O2 sat >90% incentive spirometer Mucomyst inh QID Chest PT Pulmonary on case blood culture negative Antibiotic DC per ID who also signed off case New Onset AFIB Controlled on Atenolol 50mg Po [id number] 3 Lovenox 90mg SQ BID cardiology consulted Trending trop Normocytic Anemia Iron studies showed anemia of chronic disease No iron supplement necessary CAD with stent On ASA On lipitor HTN Continue atenolol and cozaar ELIDA (stable) Cr was 1.6, now 0.9 FEN Fluid: none electrolytes: no abnormalities Nutrition: diabetic diet Prophylaxis DVT: heparin 5000U sq TID Deconditioning: OOB to chair, Physical therapy, Chest PT Disposition: Continue to monitor resp status. DC planning to inpatient Pulm rehab/LTAC Visit type - Emergency Visit Emergency Visit: Yes ED Registration Date: 02/17/17 Care time: The patient presented to the Emergency Department on the above date and was hospitalized for further evaluation of their emergent condition. - New Patient This patient is new to me today: Yes - Critical Care Critical Care patient: No - Discharge Referral Referred to [facility] No
--- NOTE | 2017-03-05 13:18 | PN ---
Progress Note (short form) - Note Progress Note: PULMONARY Back on NRB, desaturates with minimal exertion. Last Vital Signs Temp Pulse Resp BP Pulse Ox 98.2 F 82 18 146/78 97 03/05/17 09:06 03/05/17 09:06 03/05/17 09:06 03/05/17 09:06 03/05/17 07:12 Gen: tachypneic at rest Heart: RRR Lung: scattered rales Abd: soft, nontender Ext: no edema CBC, BMP 03/05/17 06:05 03/04/17 09:15 Active Medications Acetaminophen (Tylenol -) 650 mg PO Q4H PRN PRN Reason: FEVER OR PAIN Acetylcysteine (Mucomyst 20 Oral / Inh Use Only*) 800 mg NEB QIDR [facility] Last Admin: 03/05/17 11:46 Dose: 800 mg Albuterol Sulfate (Ventolin 0.083% Nebulizer Soln -) 1 amp NEB QIDR [facility] Last Admin: 03/05/17 11:46 Dose: 1 amp Aspirin (Asa -) 81 mg PO DAILY [facility] Last Admin: 03/05/17 10:18 Dose: 81 mg Atenolol (Tenormin -) 50 mg PO DAILY [facility] Last Admin: 03/05/17 10:18 Dose: 50 mg Atorvastatin Calcium (Lipitor -) 20 mg PO HS [facility] Last Admin: 03/04/17 22:48 Dose: 20 mg Budesonide/Formoterol Fumarate (Symbicort 80/4.5mcg -) 2 puff IH BID [facility] Last Admin: 03/05/17 10:17 Dose: 2 puff Cholecalciferol (Vitamin D3 -) 2,000 unit PO DAILY [facility] Last Admin: 03/05/17 10:18 Dose: 2,000 unit Enoxaparin Sodium (Lovenox -) 90 mg SQ BID [facility] Last Admin: 03/05/17 10:18 Dose: 90 mg Guaifenesin (Robitussin -) 10 ml PO Q6H PRN PRN Reason: COUGH Last Admin: 03/03/17 09:03 Dose: 10 ml Dextrose/Sodium Chloride (D5-1/2ns -) 1,000 mls @ 42 mls/hr IV ASDIR [facility] Last Admin: 03/04/17 20:00 Dose: 42 mls/hr Insulin Aspart (Novolog Vial Sliding Scale -) 1 vial SQ ACHS [facility] PRN Reason: Protocol Last Admin: 03/05/17 12:07 Dose: 2 units Losartan Potassium (Cozaar -) 25 mg PO DAILY [facility] Last Admin: 03/05/17 10:18 Dose: 25 mg Methylprednisolone Sodium Succinate (Solu-Medrol -) 60 mg IVPB Q8H-IV [facility] Last Admin: 03/05/17 10:18 Dose: 60 mg Multivitamins (Total B With C -) 1 each PO DAILY [facility] Last Admin: 03/05/17 10:18 Dose: 1 each Ondansetron HCl (Zofran Injection) 4 mg IVPB Q6H PRN PRN Reason: NAUSEA Pantoprazole Sodium (Protonix -) 40 mg PO DAILY [facility] Last Admin: 03/05/17 10:18 Dose: 40 mg Polyethylene Glycol (Miralax (For Daily Use) -) 17 gm PO BID [facility] Last Admin: 03/05/17 10:18 Dose: 17 grams Tamsulosin HCl (Flomax -) 0.4 mg PO HS [facility] Last Admin: 03/04/17 22:48 Dose: 0.4 mg A/P Acute Hypoxic Respiratory Failure Suspect exacerbation of Interstitial Lung Disease ARDS r/o Superimposed Pneumonia Lactic Acidosis r/o Sepsis Acute Kidney Injury CAD HTN - continue medrol at same dose - inhaled bronchodilators - titrate Fio2 to keep Spo2 >90% - empiric antibiotics - BiPAP to assist in work of breathing and hypoxia - monitor urine output, creatinine - DVT/GI prophylaxis - may need to start discussing goals of care as pt not making significant improvement on high dose steroids
--- NOTE | 2017-03-05 15:59 | PN ---
Progress Note (short form) - Note Progress Note: CC: afib s: no cp palps dizzy; still with sob o: Current Medications Acetaminophen (Tylenol -) 650 mg PO Q4H PRN PRN Reason: FEVER OR PAIN Acetylcysteine (Mucomyst 20 Oral / Inh Use Only*) 800 mg NEB QIDR [facility] Last Admin: 03/05/17 11:46 Dose: 800 mg Albuterol Sulfate (Ventolin 0.083% Nebulizer Soln -) 1 amp NEB QIDR [facility] Last Admin: 03/05/17 11:46 Dose: 1 amp Aspirin (Asa -) 81 mg PO DAILY [facility] Last Admin: 03/05/17 10:18 Dose: 81 mg Atenolol (Tenormin -) 50 mg PO DAILY [facility] Last Admin: 03/05/17 10:18 Dose: 50 mg Atorvastatin Calcium (Lipitor -) 20 mg PO HS [facility] Last Admin: 03/04/17 22:48 Dose: 20 mg Budesonide/Formoterol Fumarate (Symbicort 80/4.5mcg -) 2 puff IH BID [facility] Last Admin: 03/05/17 10:17 Dose: 2 puff Cholecalciferol (Vitamin D3 -) 2,000 unit PO DAILY [facility] Last Admin: 03/05/17 10:18 Dose: 2,000 unit Enoxaparin Sodium (Lovenox -) 90 mg SQ BID [facility] Last Admin: 03/05/17 10:18 Dose: 90 mg Guaifenesin (Robitussin -) 10 ml PO Q6H PRN PRN Reason: COUGH Last Admin: 03/03/17 09:03 Dose: 10 ml Dextrose/Sodium Chloride (D5-1/2ns -) 1,000 mls @ 42 mls/hr IV ASDIR [facility] Last Admin: 03/04/17 20:00 Dose: 42 mls/hr Insulin Aspart (Novolog Vial Sliding Scale -) 1 vial SQ ACHS [facility] PRN Reason: Protocol Last Admin: 03/05/17 12:07 Dose: 2 units Losartan Potassium (Cozaar -) 25 mg PO DAILY [facility] Last Admin: 03/05/17 10:18 Dose: 25 mg Methylprednisolone Sodium Succinate (Solu-Medrol -) 60 mg IVPB Q8H-IV [facility] Last Admin: 03/05/17 10:18 Dose: 60 mg Multivitamins (Total B With C -) 1 each PO DAILY [facility] Last Admin: 03/05/17 10:18 Dose: 1 each Ondansetron HCl (Zofran Injection) 4 mg IVPB Q6H PRN PRN Reason: NAUSEA Pantoprazole Sodium (Protonix -) 40 mg PO DAILY [facility] Last Admin: 03/05/17 10:18 Dose: 40 mg Polyethylene Glycol (Miralax (For Daily Use) -) 17 gm PO BID [facility] Last Admin: 03/05/17 10:18 Dose: 17 grams Tamsulosin HCl (Flomax -) 0.4 mg PO HS [facility] Last Admin: 03/04/17 22:48 Dose: 0.4 mg Vital Signs - 24 hr 03/04/17 03/04/17 03/04/17 17:30 18:00 21:00 Temperature 98.1 F Pulse Rate 74 Respiratory 18 Rate Blood Pressure 120/70 O2 Sat by Pulse 97 95 Oximetry (%) 03/04/17 03/05/17 03/05/17 22:00 02:00 02:01 Temperature 97.3 F L 98.1 F Pulse Rate 84 87 71 Respiratory 19 20 Rate Blood Pressure 134/89 138/88 O2 Sat by Pulse 92 L 95 Oximetry (%) 03/05/17 03/05/17 03/05/17 06:00 07:12 09:00 Temperature 97.3 F L Pulse Rate 91 H Respiratory 21 Rate Blood Pressure 119/76 O2 Sat by Pulse 90 L 97 96 Oximetry (%) 03/05/17 03/05/17 03/05/17 09:06 12:15 14:10 Temperature 98.2 F 98 F Pulse Rate 82 81 Respiratory 18 22 Rate Blood Pressure 146/78 132/72 O2 Sat by Pulse 99 Oximetry (%) Intake & Output 03/03/17 03/04/17 03/05/17 03/06/17 07:59 07:59 07:59 07:59 Intake Total 1155 1616 604 Output Total 500 2050 1200 450 Balance 655 -434 -596 -450 Weight 195 lb 8 oz 200 lb 12.8 oz NAD, calm JVD flat, neck supple scattered rhonchi, nl effort rr, irregular nl s1, s2 no mrg + bs soft nt nd ext without e/c/c aaox3 no jaundice, diaphoresis CBC, BMP 03/05/17 06:05 04/14/17 09:15 EKG 02/17: sb, av delay. non-specific t wave abnormality tele: afib, rate controlled echo here: tds bline LVH nl lv size/fn. grossly nl rv size/fn. 1+ mac. chest CT here: moderately increased interstitial thickening of RUL and lower lobes. associated mildly increased traction bronchiectasis. diminished volume of rt thorax a/p: 76 yo with h/o CAD/stent x1, HTN, HLD, progressive ILD, Prostate CA s/p radiation tx, DM (dx 3 weeks ago ), cholelithiasis who presented with DARLING and cough x 3-4 weeks (ILD exacerbation vs. infection) whose hospital admission no complicated by new onset afib. acute respiratory distress (03/03): -Resolved now. Likely related to hypoglycemia. ABG without hypercapnea. CXR unchanged. con't bipap. Infectious work up. No indication for lasix at this time - 03/05 still on D5 drip, would try to stop with close monitoring of glucose. New onset afib - started on lovenox, con't for now. rate controlled on atenolol when not in distress. No need to uptitrate regimen at this time. - ongoing management of underlying illness - recent echo without structural abnormalities Hypoxia/ILD exacerbation/possible PNA - Mgm't per pmd/pulm. - low suspicion for contribution from pulmonary edema. CAD - con't asa, statin. No anginal sx's. EKG, CE's unremarkable. HTN - reasonable control, con't current regimen
[2017-03-05 17:46] LABS: ALBUMIN 2.5 g/dl (3.4-5.0); ALK PHOS 88 U/L (45-117); ANION GAP 10 (8-16); BILIRUBIN,TOTAL 1.5 mg/dL (0.2-1.0); CALCIUM 8.1 mg/dL (8.5-10.1); CO2 28 mmol/L (21-32); COCKROFT - GAULT 87.14; CREATININE 0.9 mg/dL (0.7-1.3); GLUCOSE,RANDOM 153 mg/dL (74-106); SGOT/AST 40 U/L (15-37); SGPT/ALT 79 U/L (12-78)
[2017-03-05] MEDS: TAMSULOSIN HCL 0.4 MG CAP.ER.24H (FP) PO SCH (22:23)
[2017-03-05] MEDS: ATORVASTATIN CA 20 MG TABLET (FP) PO SCH (22:23)
[2017-03-06] MEDS: methylPREDNISolone NA SUCC 40 MG/1 ML VIAL IVPB SCH ×3 (01:31→18:19)
[2017-03-06] MEDS: ALBUTEROL SO4 0.083% IH SOL 2.5 MG/3 ML VIAL.NEB. NEB SCH ×3 (07:06→18:03)
[2017-03-06] MEDS: ACETYLCYSTEINE 20% 200MG/ML 4 ML VIAL *FOR ORAL / INH USE ONLY NEB SCH ×3 (07:06→18:03)
[2017-03-06] MEDS ORDERED: PT OWN MED DRAWER 7, Y5N ONE (09:21)
[2017-03-06] MEDS: POLYETHYLENE GLYCOL 3350 119 GM BTL PO SCH ×2 (10:00→22:29)
[2017-03-06] MEDS: ENOXAPARIN NA (PORCINE) 100 MG/1 ML DISP.SYRIN SQ SCH ×2 (10:12→22:29)
[2017-03-06] MEDS: PANTOPRAZOLE 40 MG TABLET (FP) PO SCH (10:12)
[2017-03-06] MEDS: CHOLECALCIFEROL (VITAMIN D3) 1,000 UNIT TABLET (FP) PO SCH (10:12)
[2017-03-06] MEDS: VITAMIN B COMPLEX W/C COMBO TABLET (FP) PO SCH (10:13)
[2017-03-06] MEDS: LOSARTAN POTASSIUM 25 MG TABLET PO SCH (10:13)
[2017-03-06] MEDS: ASPIRIN 81 MG CHEWABLE TABLETS PO SCH (10:13)
[2017-03-06] MEDS: ATENOLOL 50 MG TABLET (FP) PO SCH (10:15)
[2017-03-06] MEDS: BUDESONIDE/FORMETEROL FUMARATE 80/4.5 mcg INHALER IH SCH ×2 (10:23→22:30)
--- NOTE | 2017-03-06 13:13 | PN ---
Progress Note (short form) - Note Progress Note: PULMONARY Remains on NRB, desaturates with minimal exertion.+nonproductive cough. No fevers or chills Last Vital Signs Temp Pulse Resp BP Pulse Ox 97.4 F L 89 22 152/84 89 L 03/06/17 07:39 03/06/17 07:39 03/06/17 07:43 03/06/17 07:39 03/06/17 07:43 Intake & Output 03/03/17 03/04/17 03/05/17 03/06/17 23:59 23:59 23:59 23:59 Intake Total 600 1620 360 70 Output Total 1200 1750 1250 1100 Balance -600 -130 -890 -1030 Weight 195 lb 8 oz 200 lb 12.8 oz Gen: tachypneic at rest Heart: RRR Lung: scattered rales Abd: soft, nontender Ext: no edema CBC, BMP 03/05/17 06:05 03/05/17 16:00 Active Medications Acetaminophen (Tylenol -) 650 mg PO Q4H PRN PRN Reason: FEVER OR PAIN Acetylcysteine (Mucomyst 20 Oral / Inh Use Only*) 800 mg NEB QIDR [facility] Last Admin: 03/06/17 07:06 Dose: 800 mg Albuterol Sulfate (Ventolin 0.083% Nebulizer Soln -) 1 amp NEB QIDR [facility] Last Admin: 03/06/17 07:06 Dose: 1 amp Aspirin (Asa -) 81 mg PO DAILY [facility] Last Admin: 03/06/17 10:13 Dose: 81 mg Atenolol (Tenormin -) 50 mg PO DAILY [facility] Last Admin: 03/06/17 10:15 Dose: 50 mg Atorvastatin Calcium (Lipitor -) 20 mg PO HS [facility] Last Admin: 03/05/17 22:23 Dose: 20 mg Budesonide/Formoterol Fumarate (Symbicort 80/4.5mcg -) 2 puff IH BID [facility] Last Admin: 03/06/17 10:23 Dose: 2 puff Cholecalciferol (Vitamin D3 -) 2,000 unit PO DAILY [facility] Last Admin: 03/06/17 10:12 Dose: 2,000 unit Enoxaparin Sodium (Lovenox -) 90 mg SQ BID [facility] Last Admin: 03/06/17 10:12 Dose: 90 mg Guaifenesin (Robitussin -) 10 ml PO Q6H PRN PRN Reason: COUGH Last Admin: 03/03/17 09:03 Dose: 10 ml Losartan Potassium (Cozaar -) 25 mg PO DAILY [facility] Last Admin: 03/06/17 10:13 Dose: 25 mg Methylprednisolone Sodium Succinate (Solu-Medrol -) 60 mg IVPB Q8H-IV [facility] Last Admin: 03/06/17 10:12 Dose: 60 mg Multivitamins (Total B With C -) 1 each PO DAILY [facility] Last Admin: 03/06/17 10:13 Dose: 1 each Ondansetron HCl (Zofran Injection) 4 mg IVPB Q6H PRN PRN Reason: NAUSEA Pantoprazole Sodium (Protonix -) 40 mg PO DAILY [facility] Last Admin: 03/06/17 10:12 Dose: 40 mg Polyethylene Glycol (Miralax (For Daily Use) -) 17 gm PO BID [facility] Last Admin: 03/05/17 22:26 Dose: 17 grams Tamsulosin HCl (Flomax -) 0.4 mg PO HS [facility] Last Admin: 03/05/17 22:23 Dose: 0.4 mg A/P Acute Hypoxic Respiratory Failure Suspect exacerbation of Interstitial Lung Disease ARDS r/o Superimposed Pneumonia Lactic Acidosis r/o Sepsis Acute Kidney Injury CAD HTN - continue medrol at same dose - inhaled bronchodilators - titrate Fio2 to keep Spo2 >90% - s/p empiric antibiotics - BiPAP to assist in work of breathing and hypoxia - monitor urine output, creatinine - DVT/GI prophylaxis - will need to start discussing goals of care as pt not making significant improvement on high dose steroids
--- NOTE | 2017-03-06 14:53 | PN ---
Physical Exam: SUBJECTIVE: Patient seen and examined. He feels SOB is improving. He is comfortable at rest on non-rebreather. OBJECTIVE: Vital Signs Period Temp Pulse Resp BP Sys/Wolfe Pulse Ox Last 24 Hr 97.4 F-98.7 F 85-91 18-22 121-155/60-87 89-99 GENERAL: The patient is awake, alert, and fully oriented, in no acute distress. LUNGS: Bilateral crackles. HEART: Irregularly irregular. ABDOMEN: Soft, nontender, nondistended, normoactive bowel sounds, no guarding, no rebound, no hepatosplenomegaly, no masses. EXTREMITIES: 2+ pulses, warm, well-perfused, trace edema. Laboratory Results - last 24 hr 03/05/17 03/05/17 03/05/17 16:00 18:20 22:10 Sodium 134 L Potassium 4.7 Chloride 96 L Carbon Dioxide 28 Anion Gap 10 BUN 31 H Creatinine 0.9 Creat Clearance w eGFR > 60 POC Glucometer 232 173 Random Glucose 153 H Calcium 8.1 L Total Bilirubin 1.5 H AST 40 H D ALT 79 H D Alkaline Phosphatase 88 D Total Protein 5.0 L Albumin 2.5 L 03/06/17 05:15 Sodium Potassium Chloride Carbon Dioxide Anion Gap BUN Creatinine Creat Clearance w eGFR POC Glucometer 144 Random Glucose Calcium Total Bilirubin AST ALT Alkaline Phosphatase Total Protein Albumin Active Medications Generic Name Dose Route Start Last Admin Trade Name Freq PRN Reason Stop Dose Admin Acetaminophen 650 mg 03/01/17 11:20 Tylenol - PO Q4H PRN FEVER OR PAIN Acetylcysteine 800 mg 03/01/17 12:00 03/06/17 12:35 Mucomyst 20 Oral / Inh Use Only* NEB 800 mg QIDR [facility] Administration Albuterol Sulfate 1 amp 03/01/17 12:00 03/06/17 12:35 Ventolin 0.083% Nebulizer Soln - NEB 1 amp QIDR [facility] Administration Aspirin 81 mg 03/02/17 10:00 03/06/17 10:13 Asa - PO 81 mg DAILY [facility] Administration Atenolol 50 mg 03/02/17 10:00 03/06/17 10:15 Tenormin - PO 50 mg DAILY [facility] Administration Atorvastatin Calcium 20 mg 03/01/17 22:00 03/05/17 22:23 Lipitor - PO 20 mg HS [facility] Administration Budesonide/Formoterol Fumarate 2 puff 03/01/17 22:00 03/06/17 10:23 Symbicort 80/4.5mcg - IH 2 puff BID [facility] Administration Cholecalciferol 2,000 unit 03/02/17 10:00 03/06/17 10:12 Vitamin D3 - PO 2,000 unit DAILY [facility] Administration Enoxaparin Sodium 90 mg 03/03/17 22:00 03/06/17 10:12 Lovenox - SQ 90 mg BID [facility] Administration Guaifenesin 10 ml 03/01/17 11:20 03/03/17 09:03 Robitussin - PO 10 ml Q6H PRN Administration COUGH Losartan Potassium 25 mg 03/02/17 10:00 03/06/17 10:13 Cozaar - PO 25 mg DAILY [facility] Administration Methylprednisolone Sodium Succinate 60 mg 03/01/17 18:00 03/06/17 10:12 Solu-Medrol - IVPB 60 mg Q8H-IV [facility] Administration Multivitamins 1 each 03/02/17 10:00 03/06/17 10:13 Total B With C - PO 1 each DAILY [facility] Administration Ondansetron HCl 4 mg 03/01/17 11:20 Zofran Injection IVPB Q6H PRN NAUSEA Pantoprazole Sodium 40 mg 03/02/17 10:00 03/06/17 10:12 Protonix - PO 40 mg DAILY [facility] Administration Polyethylene Glycol 17 gm 03/01/17 22:00 03/05/17 22:26 Miralax (For Daily Use) - PO 17 grams BID [facility] Administration Tamsulosin HCl 0.4 mg 03/01/17 22:00 03/05/17 22:23 Flomax - PO 0.4 mg HS [facility] Administration ASSESSMENT/PLAN: This is a 76-year-old man with a history of CAD, stent, HTN, hyperlipidemia, DM , prostate cancer who was admitted with SOB and acute hypoxic respiratory failure. 1. New-onset atrial fibrillation - Rate is controlled - Continue atenolol, Lovenox 2. Acute on chronic hypoxic respiratory failure secondary to ARDS, ILD, possible pneumonia - There has been no significant improvement - Continue SoluMedrol, Symbicort, Albuterol, Mucomyst, oxygen to keep saturation > 90% - Continue BiPAP as needed - Palliative care consult 3. Anemia secondary to chronic illness 4. Acute kidney injury - Resolved 5. Hypomagnesemia - Improved 6. CAD, history of stent - Continue aspirin, atenolol, Cozaar, Lipitor 7. Type 2 DM with hypoglycemia - Hypoglycemia resolved - Continue fingersticks with Novolog sliding scale 8. HTN - Continue atenolol, Cozaar Visit type - Emergency Visit Emergency Visit: Yes ED Registration Date: 02/17/17 Care time: The patient presented to the Emergency Department on the above date and was hospitalized for further evaluation of their emergent condition. - New Patient This patient is new to me today: No - Critical Care Critical Care patient: No - Discharge Referral Referred to [facility] Med P.C.: No
[2017-03-06] MEDS: ATORVASTATIN CA 20 MG TABLET (FP) PO SCH (22:29)
[2017-03-06] MEDS: TAMSULOSIN HCL 0.4 MG CAP.ER.24H (FP) PO SCH (22:29)
--- NOTE | 2017-03-06 22:50 | PN ---
Progress Note (short form) - Note Progress Note: s: no cp palps dizzy; still with sob o: Current Medications Acetaminophen (Tylenol -) 650 mg PO Q4H PRN PRN Reason: FEVER OR PAIN Acetylcysteine (Mucomyst 20 Oral / Inh Use Only*) 800 mg NEB QIDR [facility] Last Admin: 03/06/17 18:03 Dose: 800 mg Albuterol Sulfate (Ventolin 0.083% Nebulizer Soln -) 1 amp NEB QIDR [facility] Last Admin: 03/06/17 18:03 Dose: 1 amp Aspirin (Asa -) 81 mg PO DAILY [facility] Last Admin: 03/06/17 10:13 Dose: 81 mg Atenolol (Tenormin -) 50 mg PO DAILY [facility] Last Admin: 03/06/17 10:15 Dose: 50 mg Atorvastatin Calcium (Lipitor -) 20 mg PO HS [facility] Last Admin: 03/06/17 22:29 Dose: 20 mg Budesonide/Formoterol Fumarate (Symbicort 80/4.5mcg -) 2 puff IH BID [facility] Last Admin: 03/06/17 22:30 Dose: 2 puff Cholecalciferol (Vitamin D3 -) 2,000 unit PO DAILY [facility] Last Admin: 03/06/17 10:12 Dose: 2,000 unit Enoxaparin Sodium (Lovenox -) 90 mg SQ BID [facility] Last Admin: 03/06/17 22:29 Dose: 90 mg Guaifenesin (Robitussin -) 10 ml PO Q6H PRN PRN Reason: COUGH Last Admin: 03/03/17 09:03 Dose: 10 ml Losartan Potassium (Cozaar -) 25 mg PO DAILY [facility] Last Admin: 03/06/17 10:13 Dose: 25 mg Methylprednisolone Sodium Succinate (Solu-Medrol -) 60 mg IVPB Q8H-IV [facility] Last Admin: 03/06/17 18:19 Dose: 60 mg Multivitamins (Total B With C -) 1 each PO DAILY [facility] Last Admin: 03/06/17 10:13 Dose: 1 each Ondansetron HCl (Zofran Injection) 4 mg IVPB Q6H PRN PRN Reason: NAUSEA Pantoprazole Sodium (Protonix -) 40 mg PO DAILY [facility] Last Admin: 03/06/17 10:12 Dose: 40 mg Polyethylene Glycol (Miralax (For Daily Use) -) 17 gm PO BID [facility] Last Admin: 03/06/17 22:29 Dose: 17 grams Tamsulosin HCl (Flomax -) 0.4 mg PO HS [facility] Last Admin: 03/06/17 22:29 Dose: 0.4 mg Vital Signs - 24 hr 03/06/17 03/06/17 03/06/17 02:00 06:00 06:17 Temperature 97.8 F 97.4 F L Pulse Rate 85 91 H Respiratory 18 21 Rate Blood Pressure 133/72 155/87 O2 Sat by Pulse 92 L 92 L Oximetry (%) 03/06/17 03/06/17 03/06/17 07:39 07:43 17:00 Temperature 97.4 F L 97.7 F Pulse Rate 89 80 Respiratory 22 22 18 Rate Blood Pressure 152/84 136/80 O2 Sat by Pulse 89 L 89 L Oximetry (%) Intake & Output 03/04/17 03/05/17 03/06/17 03/07/17 07:59 07:59 07:59 07:59 Intake Total 1616 604 430 70 Output Total 2049 1200 2050 900 Balance -434 -596 -1620 -830 Weight 200 lb 12.8 oz NAD, bipap on JVD flat, neck supple scattered rhonchi, nl effort rr, irregular nl s1, s2 no mrg + bs soft nt nd ext without e/c/c aaox3 no jaundice, diaphoresis no CBC, BMP EKG 02/17: sb, av delay. non-specific t wave abnormality tele: afib, rate controlled echo here: tds bline LVH nl lv size/fn. grossly nl rv size/fn. 1+ mac. chest CT here: moderately increased interstitial thickening of RUL and lower lobes. associated mildly increased traction bronchiectasis. diminished volume of rt thorax a/p: 76 yo with h/o CAD/stent x1, HTN, HLD, progressive ILD, Prostate CA s/p radiation tx, DM (dx 3 weeks ago ), cholelithiasis who presented with DARLING and cough x 3-4 weeks (ILD exacerbation vs. infection) whose hospital admission no complicated by new onset afib. acute respiratory distress (03/03): -Resolved now. Likely related to hypoglycemia. ABG without hypercapnea. CXR unchanged. con't bipap. Infectious work up. No indication for lasix at this time. 03/05 D5 drip stopped New onset afib - started on lovenox, con't for now. rate controlled on atenolol when not in distress. No need to uptitrate regimen at this time. - ongoing management of underlying illness - recent echo without structural abnormalities Hypoxia/ILD exacerbation/possible PNA - Mgm't per pmd/pulm. - low suspicion for contribution from pulmonary edema. CAD - con't asa, statin. No anginal sx's. EKG, CE's unremarkable. HTN - reasonable control, con't current regimen
[2017-03-06 23:15] LABS: ALLENS TEST POSITIVE; ART PUNCT SITE RIGHT RADIAL; ARTERIAL BLD GAS O2 SATURATION 85.5 % (90-98.9); ARTERIAL BLOOD GAS BASE EXCESS 3.4 meq/l (-2-2); ARTERIAL BLOOD GAS HCO3 26.2 meq/L (22-26); LPM/O2% 100%; PT. ON O2? YES; TYPE OF O2 BIPAP; VENT RATE 16; VT/PRESS 14/6
[2017-03-06 23:16] LABS: ARTERIAL BLOOD GAS PO2 51.9 mmHg (70-100); ARTERIAL BLOOD GAS pH 7.49 (7.35-7.45)
[2017-03-06] MEDS ORDERED: FUROSEMIDE 40 MG/4 ML INJECTABLE VIAL IVPUSH ONE (23:34)
[2017-03-07] MEDS: ACETYLCYSTEINE 20% 200MG/ML 4 ML VIAL *FOR ORAL / INH USE ONLY NEB SCH ×4 (00:30→18:09)
[2017-03-07] MEDS: ALBUTEROL SO4 0.083% IH SOL 2.5 MG/3 ML VIAL.NEB. NEB SCH ×2 (00:30→06:00)
[2017-03-07] MEDS: methylPREDNISolone NA SUCC 40 MG/1 ML VIAL IVPB SCH ×4 (01:57→21:21)
[2017-03-07 07:06] LABS: BASOPHIL 0.2 % (0-2.0); MCHC 33.3 g/dl (32.0-35.9); MEAN PLT VOLUME 9.6 fl (7.5-11.1); NEUTROPHILS 94.8 % (42.8-82.8); PLATELET COUNT 108 K/MM3 (134-434); RDW 15.6 % (11.9-15.9); WHITE BLOOD COUNT 22.2 K/mm3 (4.0-10.0)
[2017-03-07 07:51] LABS: CALCIUM 8.3 mg/dL (8.5-10.1); COCKROFT - GAULT 98.03; CREATININE 0.8 mg/dL (0.7-1.3)
--- NOTE | 2017-03-07 07:53 | PN ---
Physical Exam: SUBJECTIVE: Patient seen and examined Pt is having hard time breathing, very sob, tachypneic in 30's in resp distress , tachycardic Pt want to be DNR and DNI. after discussion with the patient he signed the DNR/ DNI papers Palliative care was consulted Patient family was made aware of patient situation with his permission OBJECTIVE: Vital Signs Period Temp Pulse Resp BP Sys/Wolfe Pulse Ox Last 24 Hr 96.2 F-98.3 F 76-85 18-26 125-143/67-80 89-96 GENERAL: The patient is awake, alert, and fully oriented, in moderate distress. HEAD: Normal with no signs of trauma. NECK: Trachea midline, full range of motion, supple. LUNGS: tachypneic, b/l rales bilaterally. no wheezes. Using accessory muscle use. HEART: Regular rate and rhythm, S1, S2 without murmur, rub or gallop. ABDOMEN: Soft, nontender, nondistended, normoactive bowel sounds, no guarding, no rebound, no hepatosplenomegaly, no masses. EXTREMITIES: 2+ pulses, warm, well-perfused, no edema. NEUROLOGICAL: Normal speech, gait not observed. PSYCH: Normal mood, normal affect. SKIN: Warm, dry, normal turgor, no rashes or lesions noted Laboratory Results - last 24 hr 03/06/17 03/06/17 03/06/17 16:39 23:12 23:14 WBC RBC Hgb Hct MCV MCHC RDW Plt Count MPV Neutrophils % Lymphocytes % Monocytes % Eosinophils % Basophils % Puncture Site Right radial ABG pH 7.49 H ABG pCO2 at Pt Temp 34.5 L ABG pO2 at Pt Temp 51.9 L D ABG HCO3 26.2 H ABG O2 Sat (Measured) 85.5 L ABG O2 Content 11.8 L ABG Base Excess 3.4 H Jimmy Test Positive O2 Delivery Device Bipap Oxygen Flow Rate 100% Vent Mode S/t Vent Rate 16 PEEP 0.0 Pressure Support Vent 14/6 POC Glucometer 210 198 03/07/17 03/07/17 05:35 06:04 WBC 22.2 H RBC 3.17 L Hgb 10.1 L Hct 30.4 L MCV 96.0 MCHC 33.3 RDW 15.6 Plt Count 108 L MPV 9.6 Neutrophils % 94.8 H Lymphocytes % 0.7 L Monocytes % 4.3 Eosinophils % 0.0 D Basophils % 0.2 Puncture Site ABG pH ABG pCO2 at Pt Temp ABG pO2 at Pt Temp ABG HCO3 ABG O2 Sat (Measured) ABG O2 Content ABG Base Excess Jimmy Test O2 Delivery Device Oxygen Flow Rate Vent Mode Vent Rate PEEP Pressure Support Vent POC Glucometer 142 Active Medications Generic Name Dose Route Start Last Admin Trade Name Freq PRN Reason Stop Dose Admin Acetaminophen 650 mg 03/01/17 11:20 Tylenol - PO Q4H PRN FEVER OR PAIN Acetylcysteine 800 mg 03/01/17 12:00 03/07/17 06:00 Mucomyst 20 Oral / Inh Use Only* NEB 800 mg QIDR [facility] Administration Albuterol Sulfate 1 amp 03/01/17 12:00 03/07/17 06:00 Ventolin 0.083% Nebulizer Soln - NEB 1 amp QIDR [facility] Administration Aspirin 81 mg 03/02/17 10:00 03/06/17 10:13 Asa - PO 81 mg DAILY [facility] Administration Atenolol 50 mg 03/02/17 10:00 03/06/17 10:15 Tenormin - PO 50 mg DAILY [facility] Administration Atorvastatin Calcium 20 mg 03/01/17 22:00 03/06/17 22:29 Lipitor - PO 20 mg HS [facility] Administration Budesonide/Formoterol Fumarate 2 puff 03/01/17 22:00 03/06/17 22:30 Symbicort 80/4.5mcg - IH 2 puff BID [facility] Administration Cholecalciferol 2,000 unit 03/02/17 10:00 03/06/17 10:12 Vitamin D3 - PO 2,000 unit DAILY [facility] Administration Enoxaparin Sodium 90 mg 03/03/17 22:00 03/06/17 22:29 Lovenox - SQ 90 mg BID [facility] Administration Guaifenesin 10 ml 03/01/17 11:20 03/03/17 09:03 Robitussin - PO 10 ml Q6H PRN Administration COUGH Losartan Potassium 25 mg 03/02/17 10:00 03/06/17 10:13 Cozaar - PO 25 mg DAILY [facility] Administration Methylprednisolone Sodium Succinate 60 mg 03/01/17 18:00 03/07/17 01:57 Solu-Medrol - IVPB 60 mg Q8H-IV [facility] Administration Multivitamins 1 each 03/02/17 10:00 03/06/17 10:13 Total B With C - PO 1 each DAILY [facility] Administration Ondansetron HCl 4 mg 03/01/17 11:20 Zofran Injection IVPB Q6H PRN NAUSEA Pantoprazole Sodium 40 mg 03/02/17 10:00 03/06/17 10:12 Protonix - PO 40 mg DAILY [facility] Administration Polyethylene Glycol 17 gm 03/01/17 22:00 03/06/17 22:29 Miralax (For Daily Use) - PO 17 grams BID [facility] Administration Tamsulosin HCl 0.4 mg 03/01/17 22:00 03/06/17 22:29 Flomax - PO 0.4 mg HS [facility] Administration CBC, BMP 03/07/17 05:35 03/07/17 05:35 Microbiology 02/22/17 19:00 Sputum - Expectorated Gram Stain - Final 02/22/17 19:00 Sputum - Expectorated Sputum Culture - Final Yeast Like Organism 02/21/17 19:00 Urine For Antigen Detection Legionella Antigen - Final 02/21/17 19:00 Urine For Antigen Detection Streptococcus pneumoniae Antigen (M - Final 02/21/17 19:00 Urine - Urine Clean Catch Urine Culture - Final NO GROWTH OBTAINED 02/21/17 08:00 Blood - Peripheral Venous Blood Culture - Final NO GROWTH AFTER 5 DAYS INCUBATION 02/21/17 07:50 Blood - Peripheral Venous Blood Culture - Final NO GROWTH AFTER 5 DAYS INCUBATION 03/03/17 21:00 Blood - Peripheral Venous Blood Culture - Preliminary NO GROWTH OBTAINED AFTER 24 HOURS, INCUBATION TO CONTINUE FOR 4 DAYS. 03/03/17 19:45 Blood - Peripheral Venous Blood Culture - Preliminary NO GROWTH OBTAINED AFTER 24 HOURS, INCUBATION TO CONTINUE FOR 4 DAYS. Laboratory Tests 03/07/17 03/07/17 05:35 08:30 ABG pH 7.51 H ABG pCO2 at Pt Temp 36.9 ABG pO2 at Pt Temp 63.7 L D ABG HCO3 28.9 H Calcium 8.3 L ASSESSMENT/PLAN: 76 year old male with pmh of CAD with stent x1, HTN, HPLD, DM, Prostate CA s/p radiation, Interstitial lung disease who was admitted at [facility] for sob, cough, Dyspnea on exertion for 3-4 weeks, was transferred to [facility] ICU after desaturating, having worsening resp status requiring BIPAP. Acute hypoxic respiratory failure likely due to ILD flare Increased Solumedrol to 80mg IV q6h Symbicort inh bid Start Duoneb QID inh scheduled Albuterol PRN Q4H Morphine PRn 2mg for air hunger Currently on BIPAP BIPAP at night and PRN keep O2 sat >90% incentive spirometer Mucomyst inh QID Chest PT Pulmonary on case Very little improvement have been made so far palliative care consulted Pt made DNR DNI New Onset AFIB Controlled on Atenolol 50mg PO [id number] 3 Lovenox 90mg SQ BID cardiology consulted Normocytic Anemia Iron studies showed anemia of chronic disease No iron supplement necessary CAD with stent On ASA On lipitor HTN Continue atenolol and cozaar ELIDA (stable) Cr was 1.6, now 0.9 FEN Fluid: none electrolytes: no abnormalities Nutrition: diabetic diet Prophylaxis DVT: heparin 5000U sq TID Deconditioning: OOB to chair, Physical therapy, Chest PT Disposition: Just made DNR/DNI, pending palliative care consult. Visit type - Emergency Visit Emergency Visit: Yes ED Registration Date: 02/17/17 Care time: The patient presented to the Emergency Department on the above date and was hospitalized for further evaluation of their emergent condition. - New Patient This patient is new to me today: Yes Date on this admission: 03/07/17 - Critical Care Critical Care patient: No - Discharge Referral Referred to [facility] Med P.C.: No
[2017-03-07] MEDS ORDERED: ALBUTEROL SO4 0.083% IH SOL 2.5 MG/3 ML VIAL.NEB. NEB PRN (07:58)
[2017-03-07] MEDS ORDERED: ALBUTEROL SO4 0.083% IH SOL 2.5 MG/3 ML VIAL.NEB. NEB SCH (08:00)
[2017-03-07 08:31] LABS: ARTERIAL BLD GAS O2 SATURATION 91.1 % (90-98.9); ARTERIAL BLOOD GAS BASE EXCESS 5.7 meq/l (-2-2); ARTERIAL BLOOD GAS HCO3 28.9 meq/L (22-26); ARTERIAL BLOOD GAS PO2 63.7 mmHg (70-100); ARTERIAL BLOOD GAS pH 7.51 (7.35-7.45)
[2017-03-07 08:32] LABS: ALLENS TEST POSITIVE; ART PUNCT SITE RIGHT RADIAL; LPM/O2% 100%; MECH. VENT. BIPAP; PT. ON O2? YES; TYPE OF O2 BIPAP; VENT RATE 16; VT/PRESS 14/6
[2017-03-07] MEDS: LOSARTAN POTASSIUM 25 MG TABLET PO SCH (09:50)
[2017-03-07] MEDS: ASPIRIN 81 MG CHEWABLE TABLETS PO SCH (09:50)
[2017-03-07] MEDS: ENOXAPARIN NA (PORCINE) 100 MG/1 ML DISP.SYRIN SQ SCH (09:50)
[2017-03-07] MEDS: POLYETHYLENE GLYCOL 3350 119 GM BTL PO SCH (09:51)
[2017-03-07] MEDS: ATENOLOL 50 MG TABLET (FP) PO SCH (09:51)
[2017-03-07] MEDS: PANTOPRAZOLE 40 MG TABLET (FP) PO SCH (09:51)
[2017-03-07] MEDS: VITAMIN B COMPLEX W/C COMBO TABLET (FP) PO SCH (09:52)
[2017-03-07] MEDS: BUDESONIDE/FORMETEROL FUMARATE 80/4.5 mcg INHALER IH SCH ×2 (09:52→22:23)
[2017-03-07] MEDS: CHOLECALCIFEROL (VITAMIN D3) 1,000 UNIT TABLET (FP) PO SCH (09:52)
[2017-03-07] MEDS ORDERED: morphine CARPU-JECT 2 MG/1 ML DISP.SYRIN IVPUSH PRN (10:02)
[2017-03-07] MEDS: ALBUTEROL SO4 2.5/IPRATROPIUM 0.5 INH SOL 3 ML VIAL.NEB. NEB SCH ×2 (11:19→18:10)
--- NOTE | 2017-03-07 11:44 | PN ---
Progress Note, Physician History of Present Illness: pulmonary earlier events noted,developed increased resp distress,placed on bipap with some improvement - Current Medication List Current Medications: Active Medications Acetaminophen (Tylenol -) 650 mg PO Q4H PRN PRN Reason: FEVER OR PAIN Acetylcysteine (Mucomyst 20 Oral / Inh Use Only*) 800 mg NEB QIDR [facility] [place] Last Admin: 03/07/17 06:00 Dose: 800 mg Albuterol Sulfate (Ventolin 0.083% Nebulizer Soln -) 1 amp NEB Q4H PRN PRN Reason: SHORTNESS OF BREATH Albuterol/Ipratropium (Duoneb -) 1 amp NEB QIDR [facility] Aspirin (Asa -) 81 mg PO DAILY [facility] Last Admin: 03/07/17 09:50 Dose: 81 mg Atenolol (Tenormin -) 50 mg PO DAILY [facility] [place] Last Admin: 03/07/17 09:51 Dose: 50 mg Atorvastatin Calcium (Lipitor -) 20 mg PO HS [facility] [place] Last Admin: 03/06/17 22:29 Dose: 20 mg Budesonide/Formoterol Fumarate (Symbicort 80/4.5mcg -) 2 puff IH BID [facility] [place] Last Admin: 03/07/17 09:52 Dose: 2 puff Cholecalciferol (Vitamin D3 -) 2,000 unit PO DAILY [facility] [place] Last Admin: 03/07/17 09:52 Dose: 2,000 unit Enoxaparin Sodium (Lovenox -) 90 mg SQ BID [facility] [place] Last Admin: 03/07/17 09:50 Dose: 90 mg Guaifenesin (Robitussin -) 10 ml PO Q6H PRN PRN Reason: COUGH Last Admin: 03/03/17 09:03 Dose: 10 ml Losartan Potassium (Cozaar -) 25 mg PO DAILY [facility] [place] Last Admin: 03/07/17 09:50 Dose: 25 mg Methylprednisolone Sodium Succinate (Solu-Medrol -) 80 mg IVPB Q6H-IV [facility] [place] Last Admin: 03/07/17 09:50 Dose: 80 mg Morphine Sulfate (Morphine Injection -) 2 mg IVPUSH Q4H PRN PRN Reason: PAIN Multivitamins (Total B With C -) 1 each PO DAILY [facility] [place] Last Admin: 03/07/17 09:52 Dose: 1 each Ondansetron HCl (Zofran Injection) 4 mg IVPB Q6H PRN PRN Reason: NAUSEA Pantoprazole Sodium (Protonix -) 40 mg PO DAILY [facility] [place] Last Admin: 03/07/17 09:51 Dose: 40 mg Polyethylene Glycol (Miralax (For Daily Use) -) 17 gm PO BID [facility] [place] Last Admin: 03/07/17 09:51 Dose: Not Given Tamsulosin HCl (Flomax -) 0.4 mg PO HS [facility] [place] Last Admin: 03/06/17 22:29 Dose: 0.4 mg - Objective Vital Signs: Vital Signs Temperature 98.3 F 03/07/17 06:00 Pulse Rate 85 03/07/17 06:00 Respiratory Rate 26 H 03/07/17 06:00 Blood Pressure 143/72 03/07/17 06:00 O2 Sat by Pulse Oximetry (%) 88 L 03/07/17 09:00 Constitutional: Yes: Well Nourished, Mild Distress Eyes: Yes: WNL HENT: Yes: WNL Neck: Yes: WNL Cardiovascular: Yes: Regular Rate and Rhythm, S1, S2 Respiratory: Yes: Rales (bibasilar crackles) Gastrointestinal: Yes: Normal Bowel Sounds, Soft Extremities: Yes: WNL Edema: Yes Labs: CBC, BMP 03/07/17 05:35 03/07/17 05:35 INR, PTT INR 1.18 (0.82-1.09) H 02/22/17 05:05 Problem List - Problems (1) Bronchitis Code(s): J40 - BRONCHITIS, NOT SPECIFIED ACUTE OR CHRONIC (2) Dyspnea on exertion Code(s): R06.09 - OTHER FORMS OF DYSPNEA (3) Interstitial lung disease Code(s): J84.9 - INTERSTITIAL PULMONARY DISEASE, UNSPECIFIED (4) Hyponatremia Code(s): E87.1 - HYPO-OSMOLALITY AND HYPONATREMIA (5) Elevated lactic acid level Code(s): R79.89 - OTHER SPECIFIED ABNORMAL FINDINGS OF BLOOD CHEMISTRY (6) ASHD (arteriosclerotic heart disease) Code(s): I25.10 - ATHSCL HEART DISEASE OF [place] CORONARY ARTERY W/O ANG PCTRS (7) Acute kidney injury Code(s): N17.9 - ACUTE KIDNEY FAILURE, UNSPECIFIED (8) Acute hypoxemic respiratory failure Code(s): J96.01 - ACUTE RESPIRATORY FAILURE WITH HYPOXIA Assessment/Plan ASSESSMENT AND PLAN: Acute Hypoxic Respiratory Failure Suspect exacerbation of Interstitial Lung Disease ARDS r/o Superimposed Pneumonia Lactic Acidosis r/o Sepsis Acute Kidney Injury improving CAD HTN - medrol same dose - inhaled bronchodilators - titrate Fio2 to keep Spo2 >90% - O2, BiPAP at night and prn to assist in work of breathing and hypoxia - DVT/GI prophylaxis - short term rehab post discharge - chest x-ray today DR PEARSON
[2017-03-07] MEDS ORDERED: FUROSEMIDE 40 MG/4 ML INJECTABLE VIAL IVPUSH ONE (12:38)
[2017-03-07] MEDS ORDERED: MORPHINE 100 MG in SODIUM CHLORIDE 98 ML IVPB SCH ×2 (13:15→14:25)
--- NOTE | 2017-03-07 14:49 | PN ---
Teaching Attending Note Name of Resident: Kyle Waterman ATTENDING PHYSICIAN STATEMENT I saw and evaluated the patient. I reviewed the resident's note and discussed the case with the resident. I agree with the resident's findings and plan as documented. SUBJECTIVE: Patient showing little improvement, has chosen comfort care. OBJECTIVE: Vital Signs Period Temp Pulse Resp BP Sys/Wolfe Pulse Ox Last 24 Hr 96.2 F-98.3 F 76-90 18-26 125-143/67-80 88-96 GENERAL: The patient is awake, alert, and fully oriented, in no acute distress. LUNGS: Bilateral crackles. HEART: Irregularly irregular. ABDOMEN: Soft, nontender, nondistended, normoactive bowel sounds, no guarding, no rebound, no hepatosplenomegaly, no masses. EXTREMITIES: 2+ pulses, warm, well-perfused, trace edema. ASSESSMENT AND PLAN: This is a 76-year-old man with a history of CAD, stent, HTN, hyperlipidemia, DM , prostate cancer who was admitted with SOB and acute hypoxic respiratory failure. 1. New-onset atrial fibrillation 2. Acute on chronic hypoxic respiratory failure secondary to ARDS, ILD, possible pneumonia 3. Anemia secondary to chronic illness 4. Acute kidney injury 5. Hypomagnesemia 6. CAD, history of stent 7. Type 2 DM with hypoglycemia 8. HTN Patient has decided he does not want resuscitation or intubation. He does not want BiPAP. Will start comfort measures. - Discontinue BiPAP - Continue oxygen - Start morphine IV drip
[2017-03-07] MEDS ORDERED: LORAZEPAM CARPU-JECT 2 MG/ML DISP.SYRIN IVPUSH PRN (15:39)
[2017-03-07] MEDS ORDERED: POLYETHYLENE GLYCOL 3350 119 GM BTL PO PRN (15:44)
--- NOTE | 2017-03-07 19:07 | PN ---
Progress Note (short form) - Note Progress Note: CC: afib s: no cp palps dizzy; still with intermittent sob. acute episode this am s/p IV lasix. Patient states this afternoon decided on pursuing comfort care. Current Medications Acetaminophen (Tylenol -) 650 mg PO Q4H PRN PRN Reason: FEVER OR PAIN Acetylcysteine (Mucomyst 20 Oral / Inh Use Only*) 800 mg NEB QIDR [facility] Last Admin: 03/07/17 11:19 Dose: Not Given Albuterol Sulfate (Ventolin 0.083% Nebulizer Soln -) 1 amp NEB Q4H PRN PRN Reason: SHORTNESS OF BREATH Albuterol/Ipratropium (Duoneb -) 1 amp NEB QIDR [facility] Last Admin: 03/07/17 11:19 Dose: 1 amp Atenolol (Tenormin -) 50 mg PO DAILY [facility] Last Admin: 03/07/17 09:51 Dose: 50 mg Budesonide/Formoterol Fumarate (Symbicort 80/4.5mcg -) 2 puff IH BID [facility] Last Admin: 03/07/17 09:52 Dose: 2 puff Guaifenesin (Robitussin -) 10 ml PO Q6H PRN PRN Reason: COUGH Last Admin: 03/03/17 09:03 Dose: 10 ml Morphine Sulfate 100 mg/ (Sodium Chloride) 100 mls @ 2 mls/hr IVPB TITR [facility]; 2 MG/HR PRN Reason: Protocol Last Admin: 03/07/17 14:40 Dose: 2 mls/hr Lorazepam (Ativan Injection -) 2 mg IVPUSH Q4H PRN PRN Reason: ANXIETY Methylprednisolone Sodium Succinate (Solu-Medrol -) 80 mg IVPB Q6H-IV [facility] Last Admin: 03/07/17 14:23 Dose: 80 mg Morphine Sulfate (Morphine Injection -) 2 mg IVPUSH Q4H PRN PRN Reason: PAIN Last Admin: 03/07/17 13:08 Dose: 2 mg Ondansetron HCl (Zofran Injection) 4 mg IVPB Q6H PRN PRN Reason: NAUSEA Polyethylene Glycol (Miralax (For Daily Use) -) 17 gm PO BID PRN PRN Reason: CONSTIPATION Tamsulosin HCl (Flomax -) 0.4 mg PO HS [facility] Last Admin: 03/06/17 22:29 Dose: 0.4 mg Vital Signs - 24 hr 03/06/17 03/06/17 03/06/17 21:00 22:00 23:59 Temperature 97.4 F L Pulse Rate 76 82 Respiratory 24 24 Rate Blood Pressure 138/78 142/75 O2 Sat by Pulse 89 L 90 L Oximetry (%) 03/07/17 03/07/17 03/07/17 02:19 02:43 06:00 Temperature 96.2 F L 98.3 F Pulse Rate 84 85 Respiratory 22 26 H Rate Blood Pressure 125/67 143/72 O2 Sat by Pulse 94 L Oximetry (%) 03/07/17 03/07/17 03/07/17 06:09 09:00 10:00 Temperature 98 F Pulse Rate 90 Respiratory 26 H Rate Blood Pressure 130/70 O2 Sat by Pulse 96 88 L Oximetry (%) 03/07/17 03/07/17 03/07/17 10:18 10:30 14:30 Temperature Pulse Rate 90 Respiratory Rate Blood Pressure O2 Sat by Pulse 91 L 91 L 95 Oximetry (%) 03/07/17 15:00 Temperature 97.6 F Pulse Rate 80 Respiratory 26 H Rate Blood Pressure 125/81 O2 Sat by Pulse Oximetry (%) Intake & Output 03/05/17 03/06/17 03/07/17 03/08/17 07:59 07:59 07:59 07:59 Intake Total 604 430 570 Output Total 1200 2050 1800 Balance -596 -1620 -1230 NAD, calm JVD flat, neck supple scattered rhonchi, nl effort rr, irregular nl s1, s2 no mrg + bs soft nt nd ext without e/c/c aaox3 no jaundice, diaphoresis CBC, BMP 03/07/17 05:35 03/07/17 05:35 EKG 02/17: sb, av delay. non-specific t wave abnormality tele: afib, rate controlled echo here: tds bline LVH nl lv size/fn. grossly nl rv size/fn. 1+ mac. chest CT here: moderately increased interstitial thickening of RUL and lower lobes. associated mildly increased traction bronchiectasis. diminished volume of rt thorax a/p: 76 yo with h/o CAD/stent x1, HTN, HLD, progressive ILD, Prostate CA s/p radiation tx, DM (dx 3 weeks ago ), cholelithiasis who presented with DARLING and cough x 3-4 weeks (ILD exacerbation vs. infection) whose hospital admission no complicated by new onset afib. acute respiratory distress (03/03): -Resolved now. Likely related to hypoglycemia. ABG without hypercapnea. CXR unchanged. con't bipap. Infectious work up. No indication for lasix at this time. 03/05 D5 drip stopped New onset afib - started on lovenox, con't for now. rate controlled on atenolol when not in distress. No need to uptitrate regimen at this time. - ongoing management of underlying illness - recent echo without structural abnormalities Hypoxia/ILD exacerbation/possible PNA - Mgm't per pmd/pulm. - low suspicion for contribution from pulmonary edema. CAD - con't asa, statin. No anginal sx's. EKG, CE's unremarkable. HTN - reasonable control, con't current regimen GOC - patient states he would like to pursue comfort measures. Can adjust medications accordingly.
[2017-03-07 20:27] VITALS: TEMP 97.7
[2017-03-07] MEDS: TAMSULOSIN HCL 0.4 MG CAP.ER.24H (FP) PO SCH (22:21)
[2017-03-08 01:28] VITALS: BP 107/57; PULSE 70
--- NOTE | 2017-03-08 03:54 | HOSP ---
Subjective - Review of Symptoms Events since last encounter: Alerted by nursing staff that patient had . No heart or lung sounds on physical examination. Absent brainstem reflexes. Time of 02:51AM. Physical Examination Vital Signs: Vital Signs Temperature 97.7 F 03/07/17 22:00 Pulse Rate 70 03/07/17 22:00 Respiratory Rate 20 03/07/17 22:00 Blood Pressure 107/57 03/07/17 22:00 O2 Sat by Pulse Oximetry (%) 50 L 03/07/17 22:00 Labs: CBC, BMP 03/07/17 05:35 03/07/17 05:35 Visit type - Emergency Visit Emergency Visit: Yes ED Registration Date: 02/17/17 Care time: The patient presented to the Emergency Department on the above date and was hospitalized for further evaluation of their emergent condition. - New Patient This patient is new to me today: Yes Date on this admission: 03/08/17 - Critical Care Critical Care patient: No
--- NOTE | 2017-03-08 07:24 | DS ---
Physical Exam: SUBJECTIVE: Patient seen and examined OBJECTIVE: Vital Signs Period Temp Pulse Resp BP Sys/Wolfe Pulse Ox Last 24 Hr 97.6 F-98 F 70-90 20-26 107-130/57-81 50-95 PHYSICAL EXAM LABS Laboratory Results - last 24 hr 03/07/17 03/07/17 03/07/17 05:35 08:30 16:02 Puncture Site Right radial ABG pH 7.51 H ABG pCO2 at Pt Temp 36.9 ABG pO2 at Pt Temp 63.7 L D ABG HCO3 28.9 H ABG O2 Sat (Measured) 91.1 ABG O2 Content 12.3 L ABG Base Excess 5.7 H Jimmy Test Positive O2 Delivery Device Bipap Oxygen Flow Rate 100% Vent Mode S/t Vent Rate 16 Mechanical Rate Bipap Pressure Support Vent 14/6 Sodium 133 L Potassium 4.3 Chloride 92 L Carbon Dioxide 30 Anion Gap 11 BUN 31 H Creatinine 0.8 POC Glucometer 161 Random Glucose 124 H Calcium 8.3 L 03/07/17 22:19 Puncture Site ABG pH ABG pCO2 at Pt Temp ABG pO2 at Pt Temp ABG HCO3 ABG O2 Sat (Measured) ABG O2 Content ABG Base Excess Jimmy Test O2 Delivery Device Oxygen Flow Rate Vent Mode Vent Rate Mechanical Rate Pressure Support Vent Sodium Potassium Chloride Carbon Dioxide Anion Gap BUN Creatinine POC Glucometer 174 Random Glucose Calcium HOSPITAL COURSE: Date of Admission:02/17/17 76 year old male with pmh of CAD with stent x1, HTN, HPLD, DM, Prostate CA s/p radiation, Interstitial lung disease who was admitted at [facility] for sob, cough, Dyspnea on exertion for 3-4 weeks, was transferred to [facility] ICU after desaturating, having worsening resp status requiring BIPAP. Pt was diagnosed with Acute hypoxic respiratory failure likely due to ILD flare r/o PNA. Pt was treated with Zosyn and Levaquin for 7 days. Pt was also treated with high dose steroid with mild improvement at first. Pt was on Solumedrol to 80mg IV q6h, Symbicort inh bid, Duoneb QID inh scheduled, Albuterol PRN Q4H, BIPAP at night and PRN, incentive spirometer, Mucomyst inh QID, Chest PT, Pulmonary on case. The original improvement reverted and pt became BIPAP dependent again. Pt hospital stay was complicated by New Onset AFIB. The AFIB was Controlled on Atenolol 50mg PO. Since [id number] 3, Pt was started on Lovenox 90mg SQ BID , cardiology was consulted. On 03/07/2017, Per patient request, palliative care was consulted and Pt was made DNR/DNI. After consultation with Palliative care and his family. Patient who is awake, alert, oriented to time, place, person and situation with sound mind elected to be comfort care only with supportive treatment. No more BIPAP, No more imaging, no more lab test or blood test. Had a conversation with pastoral care, then was started on morphine drip and was placed off bipap onto non-rebreater mask. Patient expires on March 08, 2017 at 02:51 am Date of Discharge: 03/08/17 Minutes to complete discharge: 40 Discharge Summary Reason For Visit: DYSPNEA BRONCHITIS INTERSTITIAL LUNG Condition: Stable - Instructions Referrals: Heather Hermosillo MD [Primary Care Provider] - Disposition: - Home Medications Comprehensive Discharge Medication List: Ambulatory Orders Aspirin [ASA -] 81 mg PO DAILY 10/16/13 Atenolol [Tenormin -] 50 mg PO DAILY 10/16/13 Cholecalciferol (Vitamin D3) [Vitamin D] 2,000 unit PO DAILY 10/16/13 Ramipril [Altace] 20 mg PO DAILY 10/16/13 Simvastatin [Zocor -] 40 mg PO HS 10/16/13 Tamsulosin HCl 0.4 mg PO HS 10/16/13 Vitamin B Complex 1 each PO DAILY 10/16/13 [place]-3 Fatty Acids [Fish Oil] 300 mg PO DAILY 03/30/16 Albuterol Sulfate [Proair Respiclick] 90 mcg IH Q4H PRN 02/17/17 Amoxicillin/Potassium Clav [Augmentin 875-125 Tablet] 1 each PO BID 02/17/17 Azithromycin [Zithromax -] 250 mg PO ASDIR 02/17/17 Metformin HCl 500 mg PO BID 02/17/17 Prednisone [Deltasone -] 20 mg PO DAILY 02/17/17 This patient is new to me today: Yes Emergency Visit: Yes ED Registration Date: 02/17/17 Care time: The patient presented to the Emergency Department on the above date and was hospitalized for further evaluation of their emergent condition. Critical Care patient: No - Discharge Referral Referred to [facility] No
== END 2017-03-08 03:49 | disposition expired | DRG 196 ==
LOC: FER 13:45 → FM/S 17:24 → JICU 02-21 10:20 → J4W 03-01 11:29
PROVIDERS: ADMIT Internal Medicine; ATTEND Internal Medicine
PROC: 5A09557 Assistance with Respiratory Ventilation, Greater than 96 Consecutive Hours, Continuous Positive Airway Pressure (ICD-10-PCS; principal; 2017-02-21)
DX: J84.89 Other specified interstitial pulmonary diseases (principal); J18.9 Pneumonia, unspecified organism; J96.01 Acute respiratory failure with hypoxia; J44.0 Chronic obstructive pulmonary disease with (acute) lower respiratory infection; N17.9 Acute kidney failure, unspecified; E87.1 Hypo-osmolality and hyponatremia; E87.2 Acidosis; E87.3 Alkalosis; J20.9 Acute bronchitis, unspecified; I25.10 Atherosclerotic heart disease of native coronary artery without angina pectoris; E83.42 Hypomagnesemia; E87.5 Hyperkalemia; E11.65 Type 2 diabetes mellitus with hyperglycemia; E86.0 Dehydration; R74.0 Nonspecific elevation of levels of transaminase and lactic acid dehydrogenase [LDH]; I44.0 Atrioventricular block, first degree; I48.0 Paroxysmal atrial fibrillation; K80.80 Other cholelithiasis without obstruction; F41.9 Anxiety disorder, unspecified; D63.8 Anemia in other chronic diseases classified elsewhere; R50.9 Fever, unspecified; R00.1 Bradycardia, unspecified; E78.5 Hyperlipidemia, unspecified; Z85.46 Personal history of malignant neoplasm of prostate; Z95.5 Presence of coronary angioplasty implant and graft; Z79.52 Long term (current) use of systemic steroids
CPT/HCPCS: 36415; 36600; 71010-TC; 71020-TC; 71250-TC; 80048; 80053; 81003; 82375; 82550; 82728; 82803; 83050; 83540; 83550; 83605; 83690; 83735; 83880; 84100; 84484; 85025; 85027; 85610; 85651; 85730; 86140; 87040; 87070; 87077; 87086; 87205; 87254; 87804; 87899; 93005; 93010; 93306-TC; 94010; 94640; 94660; 97116-GP; 99285-25; J1644